=== PATIENT | female | born 1970 | race Caucasian/White ===

== ENCOUNTER → 2022-12-14 13:44 | Outpatient (BNVA) | payer MEDICARE, SELFPAY | PROVIDERS: Family Provider Family Medicine; PCP Nurse Practitioner; Visit Provider Internal Medicine | DX: E11.40 Type 2 diabetes mellitus with diabetic neuropathy, unspecified (principal); E11.649 Type 2 diabetes mellitus with hypoglycemia without coma; E78.5 Hyperlipidemia, unspecified; Z79.4 Long term (current) use of insulin | CPT/HCPCS: 99204 ==

== ENCOUNTER 2023-02-16 07:11 | Emergency (ER) | payer MEDICARE, MEDICAID, SELFPAY ==
[2023-02-16] VITALS (9 sets, daily range): BP systolic 112–152; BP diastolic 74–89; PULSE 106; RESP 20; TEMP 36.4; O2SAT 99–100; BMI 19.6
[2023-02-16 07:29] LABS: Glucose Point of Care 279 mg/dL (70-110)
--- NOTE | 2023-02-16 07:32 | ED_ITS ---
HPI - Nausea/Vomiting/Diarrhea General: Chief complaint: Nausea/Vomiting/Diarrhea Stated complaint: diabetic diarrhea Time Seen by Provider: 02/16/23 07:15 History of Present Illness: Patient is a 52-year-old female that comes to the ED with nausea and vomiting. Medical history of type 1 diabetes, hypertension and seizures. Patient says approximately 3 weeks ago she started having diarrhea. She was having diarrhea approximately 5 times a day, but over the last 3 days her diarrhea is almost completely resolved. 2 days ago she started having nausea and vomiting. Over the last 2 days patient has been unable to keep any food or fluids down. She says that her blood sugars have been poorly controlled for the past couple days as well. This morning she woke up and she had a blood sugar of over 500 and she gave herself insulin and came here to the ED for further evaluation. Denies any fevers, abdominal pain, chest pain, shortness of breath, dysuria or hematuria. Associated nausea: Yes Associated symtoms: Reports nausea; Denies change in vision, chest pain, dysuria, fatigue, headache(s) or palpitations Review of Systems Const: Denies: fever(s), chills or fatigue Eyes: Denies: change in vision or eye discomfort ENMT: Denies: throat pain, odynophagia, nasal discharge or nasal congestion Card: Denies: chest pain, palpitations, edema, swelling of feet/ankles, dyspnea on exertion or orthopnea Resp: Denies: dyspnea, productive cough or non-productive cough GI: Reports: nausea, vomiting and diarrhea; Denies: abdominal pain, constipation or hematochezia : Denies: flank pain, dysuria or hematuria Musc: Denies: neck pain, back pain or extremity swelling Skin/Breast: Denies: rash or new lesions Neuro: Denies: headache(s), numbness in extremities or weakness in extremities PFSH ED PFSH: Medical History Benign essential hypertension GERD (gastroesophageal reflux disease) Hyperlipidemia 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 Severe bipolar disorder Type 1 diabetes mellitus Surgical History History of nasal surgery Hx of shoulder surgery Hx of tubal ligation Family History Other Cancer Heart disease Social History Smoking and tobacco status: former smoker Physical Exam Const: COMMON NORMALS: no acute distress, patient oriented x3 and alert GENERAL APPEARANCE: cooperative and comfortable HENMT: COMMON NORMALS: normocephalic HEAD & SCALP: normocephalic MOUTH: Normal oral and palatal mucosa present THROAT: posterior oropharynx normal and uvula midline Neck/C-Spine: COMMON NORMALS: supple GENERAL: Yes normal visual inspection Resp: COMMON NORMALS: normal respiratory effort, No retractions, No use of accessory muscles and clear to auscultation bilaterally AUSCULTATION: clear to auscultation bilaterally Cardio: COMMON NORMALS: regular rate, regular rhythm, S1 normal heart sound present, S2 normal heart sound present, No gallops present (Cardio), No clicks present (Cardio), No murmurs present (Cardio) and Peripheral pulses 2+ throughout RATE: regular rate RHYTHM: regular rhythm HEART SOUNDS: S1 normal heart sound present and S2 normal heart sound present PERIPHERAL PULSES: Peripheral pulses 2+ throughout GI: COMMON NORMALS: Normal to inspection, nondistended, normoactive bowel sounds present, Soft to palpation, non-tender and no masses PALPATION: Yes Soft to palpation : COMMON NORMALS: Yes no CVA tenderness BLADDER/KIDNEY EXAM: Yes no CVA tenderness Back/Pelvis: COMMON NORMALS: no CVA tenderness Extremity: COMMON NORMALS: normal to inspection Neuro: COMMON NORMALS: patient oriented x3 SENSORIUM/ORIENTATION: Yes alert GAIT: Yes Normal gait present Skin: GENERAL SKIN EXAM: dry skin Course Vital Signs: Vital signs: Vital Signs Temperature 97.5 F L 02/16/23 07:17 Pulse Rate 106 H 02/16/23 07:17 Respiratory Rate 20 H 02/16/23 07:17 Blood Pressure 133/74 02/16/23 12:09 Pulse Oximetry 100 02/16/23 12:09 Oxygen Delivery Me thod Room Air 02/16/23 07:17 MDM - Nausea/Vomiting/Diarrhea Medical Decision Making Patient is a 52-year-old female that comes to the ED with nausea and vomiting. Medical history of type 1 diabetes, hypertension and seizures. Patient says approximately 3 weeks ago she started having diarrhea. She was having diarrhea approximately 5 times a day, but over the last 3 days her diarrhea is almost completely resolved. 2 days ago she started having nausea and vomiting. Over the last 2 days patient has been unable to keep any food or fluids down. She says that her blood sugars have been poorly controlled for the past couple days as well. This morning she woke up and she had a blood sugar of over 500 and she gave herself insulin and came here to the ED for further evaluation. Denies any fevers, abdominal pain, chest pain, shortness of breath, dysuria or hematuria. Vitals are stable. Exam of patient is benign and she has no abdominal tenderness upon exam. Blood glucose was 237 and potassium was 2.7. Serum ketones are positive. ABG had a blood pH of 7.38. EKG showed normal sinus rhythm and no change in T waves. Patient was given 2 L of IV fluids, nausea meds and IV/p.o. potassium. Patient was feeling a lot better and was able to tolerate p.o. fluids. Patient was diagnosed with hyperglycemia due to type 1 diabetes and hypokalemia and was stable for discharge home. I reviewed case with Dr. Cintron and he agreed with plan Lab Data I reviewed the patient's lab results. 02/16/23 07:49 02/16/23 07:49 Laboratory Results WBC 5.7 10^3/uL (4.0-10.0) 02/16/23 07:49 RBC 4.23 10^6/uL (4.1-5.3) 02/16/23 07:49 Hgb 11.6 g/dL (11.5-15.3) 02/16/23 07:49 Hct 34.9 % (37.0-47.0) L 02/16/23 07:49 MCV 82.5 fl (81-99) 02/16/23 07:49 MCH 27.4 pg (28.0-34.0) L 02/16/23 07:49 MCHC 33.2 g/dL (30.0-36.0) 02/16/23 07:49 RDW 13.8 % (12.1-15.1) 02/16/23 07:49 Plt Count 378 10^3/cmm (130-400) 02/16/23 07:49 MPV 8.5 fL (7.4-10.4) 02/16/23 07:49 Neut % (Auto) 59.0 % 02/16/23 07:49 Lymph % (Auto) 32.0 % 02/16/23 07:49 [place] % (Auto) 7.2 % 02/16/23 07:49 Eos % (Auto) 0.5 % 02/16/23 07:49 Baso % (Auto) 0.9 % 02/16/23 07:49 Neut # (Auto) 3.37 10^3/uL (1.8-7.7) 02/16/23 07:49 Lymph # (Auto) 1.8 10^3/uL (0.8-4.8) 02/16/23 07:49 [place] # (Auto) 0.4 10^3/uL (0.2-0.9) 02/16/23 07:49 Eos # (Auto) 0.0 10^3/uL (0.0-0.8) 02/16/23 07:49 Baso # (Auto) 0.1 10^3/uL (0.0-0.1) 02/16/23 07:49 Nucleated RBC % (auto) 0 % 02/16/23 07:49 Nucleated RBCs # 0.0 /100WBC 02/16/23 07:49 Specimen Type Arterial 02/16/23 08:44 Sample Site Radial, right 02/16/23 08:44 ABG pH 7.39 (7.35-7.45) 02/16/23 08:44 ABG pCO2 26.9 mmHg (35-45) L 02/16/23 08:44 ABG pO2 107.0 mmHg (80.0-100.0) H 02/16/23 08:44 ABG HCO3 16.3 mmol/L (22-26) L 02/16/23 08:44 ABG O2 Saturation 97.7 02/16/23 08:44 ABG Base Excess -7.4 mmol/L (-2.0-2.0) L 02/16/23 08:44 Jaison Test Pos 02/16/23 08:44 A-a O2 Gradient 0.9 mmHg (5-10) L 02/16/23 08:44 Hematocrit 34.5 % (37-47) L 02/16/23 08:44 Hgb O2 Saturation 96.7 % (95-100) 02/16/23 08:44 Carboxyhemoglobin 0.4 %THgb (0.4-20.1) 02/16/23 08:44 Methemoglobin 0.7 % (0.4-1.5) 02/16/23 08:44 Total Hemoglobin 11.3 g/dL (12-16) L 02/16/23 08:44 Sodium 137.0 mmol/L (131-143) 02/16/23 08:44 Potassium 2.7 mmol/L (3.5-5.0) L 02/16/23 08:44 Glucose 147.0 mg/dL (70-115) H 02/16/23 08:44 Ionized Calcium 1.3 mmol/L (1.1-1.4) 02/16/23 08:44 O2 Delivery Device Room air 02/16/23 08:44 FiO2 21.0 % 02/16/23 08:44 Retail Merchandising Manager ID Walci 02/16/23 08:44 Sodium 135 mmol/L (136-145) L 02/16/23 07:49 Potassium 2.7 mmol/L (3.5-5.1) L* 02/16/23 07:49 Chloride 95 mmol/L (98-107) L 02/16/23 07:49 Carbon Dioxide 15 mmol/L (22-29) L 02/16/23 07:49 Anion Gap 27.7 (5-19) H 02/16/23 07:49 BUN 27 mg/dL (6-20) H 02/16/23 07:49 Creatinine 1.1 mg/dL (0.5-0.9) H 02/16/23 07:49 GFR Calculation 52.0 mL/min (90-130) L 02/16/23 07:49 Glucose 237 mg/dL (65-115) H 02/16/23 07:49 POC Glucose 279 mg/dL (70-110) H 02/16/23 07:24 Calculated Osmolality 293 mOsm/kg (285-295) 02/16/23 07:49 Calcium 9.8 mg/dL (8.5-10.5) 02/16/23 07:49 Total Bilirubin 0.3 mg/dL (0.15-1.2) 02/16/23 07:49 AST 10 U/L (0-32) 02/16/23 07:49 ALT 8 U/L (0-33) 02/16/23 07:49 Alkaline Phosphatase 131 U/L (35-105) H 02/16/23 07:49 Total Protein 6.8 g/dL (6.6-8.7) 02/16/23 07:49 Albumin 3.6 g/dL (3.5-5.2) 02/16/23 07:49 Globulin 3.2 g/dL (1.3-4.6) 02/16/23 07:49 Lipase 19 U/L (13-60) 02/16/23 07:49 Urine Color Yellow (Yellow) 02/16/23 08:45 Urine Appearance Clear (CLEAR) 02/16/23 08:45 Urine pH 5 (5-7) 02/16/23 08:45 Ur Specific [place] 1.020 (1.005-1.030) 02/16/23 08:45 Urine Protein 1+ (Negative) H 02/16/23 08:45 Urine Glucose (UA) 2+ (Normal) H 02/16/23 08:45 Urine Ketones 2+ (Negative) H 02/16/23 08:45 Urine Blood 2+ (Negative) H 02/16/23 08:45 Urine Nitrate Negative (Negative) 02/16/23 08:45 Urine Bilirubin Neg (Negative) 02/16/23 08:45 Urine Urobilinogen Neg mg/dL (Negative) 02/16/23 08:45 Ur Leukocyte Esterase Negative (Negative) 02/16/23 08:45 Urine RBC 0-4 /hpf (0-2) H 02/16/23 08:45 Urine WBC 0-4 /hpf (0-5) H 02/16/23 08:45 Ur Squamous Epith Cells 5-10 /hpf (0-5) H 02/16/23 08:45 Amorphous Sediment Not Reportable 02/16/23 08:45 Urine Bacteria Trace /hpf (NONE) 02/16/23 08:45 Hyaline Casts 0-4 /lpf H 02/16/23 08:45 Urine Mucus 1+ /hpf 02/16/23 08:45 Serum Ketones Positive (Negative) H 02/16/23 07:49 EKG Data EKG 1: EKG interpretation date: 02/16/23 Interpretation: Sinus rhythm, 90 bpm, normal T waves, no ST segment elevation or depression seen. Discharge Plan Discharge Patient Disposition: Home Clinical Impression: Hyperglycemia due to type 1 diabetes mellitus, Hypokalemia Condition: Stable Prescriptions: New ondansetron 4 mg tablet,disintegrating 4 mg PO Q8H PRN (Reason: nausea and vomiting) Qty: 20 0RF No Action (DME) FreeStyle Ok 14 Day [place] Misc See Rx Instructions .ROUTE Rx Instructions: As directed (DME) FreeStyle Ok 14 Day Sensor Kit See Rx Instructions .ROUTE Rx Instructions: As directed buspirone 10 mg tablet 10 mg PO TID PRN (Reason: Anxiety) propranolol 10 mg tablet 10 mg PO DAILY (DME) pen needle, diabetic [BD Ultra-Fine Short Pen Needle] 31 gauge x 5/16 needle See Rx Instructions .ROUTE Rx Instructions: As directed divalproex 250 mg tablet,delayed release (DR/EC) 250 mg PO QAM duloxetine 60 mg capsule,delayed release(DR/EC) 60 mg PO BID imipramine HCl 25 mg tablet 25 mg PO BID atorvastatin 40 mg tablet 40 mg PO QAM aripiprazole [Abilify] 10 mg tablet 10 mg PO QAM pantoprazole 40 mg tablet,delayed release (DR/EC) 40 mg PO BID losartan 50 mg tablet 50 mg PO QAM silver sulfadiazine 1 % cream 1 applic TOPICAL DAILY Novolin R FlexPen 100 unit/mL (3 mL) insulin pen See Rx Instructions .ROUTE .COMPLEX Rx Instructions: sliding scale up to four times a day Toujeo SoloStar U-300 Insulin 300 unit/mL (1.5 mL) insulin pen 42 unit SUBCUT QAM Discharge Orders: Discharge ED (Routine); Ordered 02/16/23 Ordered By: Nazario Crystal Referrals: Audi Dey FNP [Primary Care Provider] - Discharge Diet: Regular Discharge Activity: Increase activity as tolerated Patient Instructions: Diabetic Hyperglycemia (ED) Activity Restrictions/Additional Instructions: Follow-up with medical provider as directed in the next 3 to 4 days for reevaluation. Have your PCP recheck potassium levels at your next visit. Take medications as prescribed. Continue to monitor blood sugars closely. Return to the ER or your medical provider if condition worsens. Please read and understand discharge instructions. Thank you for choosing [facility] for your healthcare needs today. Please realize this is an emergency room and that we are providing you with a medical screening exam and this may not be complete and all inclusive of all the testing and or work up that you may need to determine your ailment or severity of your illness. It is very important that you follow up as instructed or that you return to the Emergency Department should you have concerns or if your condition changes or worsens in any way. Coding Level of Care Code ED Technology Methodology Consultant for Marco Antonio Carter
[2023-02-16 07:59] LABS: Basophils # 0.1 10^3/uL (0.0-0.1); Basophils % 0.9 %; Eosinophils % 0.5 %; Hematocrit 34.9 % (37.0-47.0); Hemoglobin 11.6 g/dL (11.5-15.3); Lymphocytes # 1.8 10^3/uL (0.8-4.8); Mean Corpuscular HGB Conc 33.2 g/dL (30.0-36.0); Mean Corpuscular Hemoglobin 27.4 pg (28.0-34.0); Mean Corpuscular Volume 82.5 fl (81-99); Mean Platelet Volume 8.5 fL (7.4-10.4); Monocytes # 0.4 10^3/uL (0.2-0.9); Monocytes % 7.2 %; Neutrophils # 3.37 10^3/uL (1.8-7.7); Nucleated Red Blood Cells % 0 %; Platelet Count 378 10^3/cmm (130-400); Red Blood Count 4.23 10^6/uL (4.1-5.3); Red Cell Distribution Width 13.8 % (12.1-15.1); White Blood Count 5.7 10^3/uL (4.0-10.0)
[2023-02-16 08:15] LABS: Alanine Aminotransferase 8 U/L (0-33); Albumin Level 3.6 g/dL (3.5-5.2); Alkaline Phosphatase 131 U/L (35-105); Anion Gap 27.7 (5-19); Aspartate Amino Transferase 10 U/L (0-32); Blood Urea Nitrogen 27 mg/dL (6-20); Calcium 9.8 mg/dL (8.5-10.5); Carbon Dioxide 15 mmol/L (22-29); Chloride 95 mmol/L (98-107); Globulin 3.2 g/dL (1.3-4.6); Glucose 237 mg/dL (65-115); Lipase 19 U/L (13-60); Osmolality Calculated 293 mOsm/kg (285-295); Sodium 135 mmol/L (136-145); Total Bilirubin 0.3 mg/dL (0.15-1.2); Total Protein 6.8 g/dL (6.6-8.7)
[2023-02-16] MEDS: ondansetron 2 mg/ML SDV 2 mL 4 MG IVP (08:18)
[2023-02-16] MEDS: sodium chloride 0.9% 1,000 ML 999 ML IV ×2 (08:18→10:28)
[2023-02-16 08:19] LABS: Ketone (Acetest) Serum Positive (Negative)
[2023-02-16 08:22] LABS: Potassium 2.7 mmol/L (3.5-5.1)
[2023-02-16] MEDS: potassium chloride premix 100 ML 25 MEQ IV (08:53)
[2023-02-16 08:55] LABS: ABG PCO2 26.9 mmHg (35-45); ABG PH Result 7.39 (7.35-7.45); Alveolar-Arterial Oxygen Gradi 0.9 mmHg (5-10); Arterial Blood Gas Hematocrit 34.5 % (37-47); Base Excess ABG -7.4 mmol/L (-2.0-2.0); Blood Gas Allen Test Pos; Blood Gas Operator Identificat WALCI; Blood Gas Sample Site Radial, right; Blood Gas Sample Type Arterial; Carboxyhemoglobin 0.4 %THgb (0.4-20.1); HCO3 ABG 16.3 mmol/L (22-26); HGB O2 Sat 96.7 % (95-100); Ionized Calcium Level - ABG 1.3 mmol/L (1.1-1.4); Methemoglobin 0.7 % (0.4-1.5); Oxygen Device ROOM AIR; Oxygen Saturation ABG 97.7; Potassium Level - ABG 2.7 mmol/L (3.5-5.0); Total Hemoglobin 11.3 g/dL (12-16)
[2023-02-16 09:05] LABS: Add Urine Microscopic? YES; Bilirubin Urine Neg (Negative); Blood Urine 2+ (Negative); Glucose Urine UA 2+ (Normal); Ketones Urine 2+ (Negative); Leukocyte Esterase Urine Negative (Negative); Nitrate Urine Negative (Negative); Protein Urine 1+ (Negative); Urine Appearance Clear (CLEAR); Urine Color Yellow (Yellow); Urobilinogen Urine Neg (Negative); pH Urine 5 (5-7)
[2023-02-16 09:06] LABS: Bacteria Urine TRACE /hpf; Mucus Urine 1+ /hpf; RBC Urine 0-4 /hpf (0-2); WBC Urine 0-4 /hpf (0-5)
[2023-02-16 09:07] LABS: Add Urine Culture? No; Hyaline Casts Urine 0-4 /lpf
[2023-02-16] MEDS: potassium chloride ER 20 mEq Tablet 40 MEQ PO (10:28)
--- NOTE | 2023-02-16 10:33 | ECG_ITS ---
[facility] Test Date: 2023-02-16 Pat Name: Wendi Yee Department: Room: Gender: Female Environmental Tech: : [id number] Requested By: Nazario Crystal Order Number: [id number] Roper MD: Jairo Gomez M.D. Measurements Intervals [place] Rate: 90 P: 63 [place]: 144 QRS: 26 QRSD: 96 T: 72 QT: 374 QTc: 459 Interpretive Statements SINUS RHYTHM POSSIBLE LEFT ATRIAL ENLARGEMENT [-0.1mV P-WAVE IN V1/V2] INCOMPLETE RIGHT BUNDLE BRANCH BLOCK [90+ ms QRS DURATION, TERMINAL R IN V1/V2, 40+ ms S IN I/aVL/V4/V5/V6] NONSPECIFIC T-WAVE ABNORMALITY No previous ECG available for comparison Electronically Signed On 02-16-2023 13:13:11 CDT by Jairo Gomez M.D. [email or web address]
== END 2023-02-16 12:00 | disposition home or self-care (01) ==
PROVIDERS: Emergency Provider Physician Assistant; PCP Nurse Practitioner
DX: E10.65 Type 1 diabetes mellitus with hyperglycemia (principal); E87.6 Hypokalemia; Z79.4 Long term (current) use of insulin; Z87.891 Personal history of nicotine dependence; E78.5 Hyperlipidemia, unspecified
CPT/HCPCS: 36415; 36416; 36600; 80051; 80053; 81001; 82009; 82330; 82805; 82962; 83690; 85025; 93005; 96361; 96374; 96375; 99284; J2405; J3480; J7030

== ENCOUNTER 2025-02-22 17:33 | Inpatient (IN) | payer MEDICARE, SELFPAY ==
[2025-02-22] VITALS (15 sets, daily range): BP systolic 124–171; BP diastolic 68–105; PULSE 82–107; RESP 16–26; TEMP 36.7–37.1; O2SAT 97–100; BMI 22.8; BMI 22.6
--- NOTE | 2025-02-22 18:09 | XRR_ITS ---
PROCEDURE INFORMATION: Exam: XR Chest Exam date and time: 02/22/2025 6:49 PM Age: 54 years old Clinical indication: Shortness of breath; Additional info: SOB TECHNIQUE: Imaging protocol: Radiologic exam of the chest. Views: 1 view. COMPARISON: No relevant prior studies available. FINDINGS: Lungs: Unremarkable. No consolidation. Pleural spaces: Unremarkable. No pleural effusion. No pneumothorax. Heart/Mediastinum: Unremarkable. No cardiomegaly. Bones/joints: Unremarkable. XR/XR chest 1V portable [id number] IMPRESSION: No acute findings.
--- NOTE | 2025-02-22 18:12 | W.ED.NAVMDI ---
HPI - Nausea/Vomiting/Diarrhea General: Chief complaint: Nausea/Vomiting/Diarrhea Stated complaint: N\V Time Seen by Provider: 02/22/25 18:05 History of Present Illness: Patient comes in with 3 days of nausea, vomiting, and diarrhea. She states the diarrhea is normal for her, however the nausea and vomiting is not. Denies any abdominal pain, just states that she has some generalized abdominal ache from all the vomiting. Patient is a type I diabetic. States she has not missed any of her medications. States she has been clean from any drugs or alcohol for the past 4 months. Denies any fever. Denies cough or congestion but has had some sinus issues from allergies. On physical exam she has dry mucous membranes with a very mild fruity odor to the breath. Abdomen is soft, nontender. She is tachycardic. I am concerned for DKA versus sepsis. Will check labs, blood cultures, give IV fluids, and reassess. I am concerned for sepsis given the tachycardia and vomiting. She is currently not SIRS positive. However suspicion for sepsis time 0 is 6:15 PM Associated nausea: Yes Associated symtoms: Reports nausea Related Data Home Medications ?Medication ?Instructions ?Recorded ?Confirmed aripiprazole 10 mg tablet (Abilify) 10 mg PO QAM 12/14/22 02/27/23 atorvastatin 40 mg tablet 40 mg PO QAM 12/14/22 02/27/23 buspirone 10 mg tablet 10 mg PO TID PRN Anxiety 12/14/22 02/27/23 divalproex 250 mg tablet,delayed 250 mg PO QAM 12/14/22 02/27/23 release duloxetine 60 mg capsule,delayed 60 mg PO BID 12/14/22 02/27/23 release flash glucose scanning reader 12/14/22 02/27/23 (FreeStyle Ok 14 Day [place]) flash glucose sensor (FreeStyle 12/14/22 02/27/23 Ok 14 Day Sensor kit) imipramine HCl 25 mg tablet 25 mg PO BID 12/14/22 02/27/23 losartan 50 mg tablet 50 mg PO QAM 12/14/22 02/27/23 pantoprazole 40 mg tablet,delayed 40 mg PO BID 12/14/22 02/27/23 release propranolol 10 mg tablet 10 mg PO DAILY 12/14/22 02/27/23 insulin glargine U-300 conc 300 42 unit SUBCUT QAM 02/16/23 02/27/23 unit/mL (1.5 mL) subcutaneous pen (Toujeo SoloStar U-300 Insulin) silver sulfadiazine 1 % topical 1 applic topical DAILY 02/16/23 02/27/23 cream Previous Rx's ?Medication ?Instructions ?Recorded ondansetron 4 mg disintegrating 4 mg PO Q8H PRN nausea and 02/16/23 tablet vomiting #20 tabs pen needle, diabetic 31 gauge x #100 ea 04/20/23 5/16 (BD Ultra-Fine Short Pen Needle) insulin regular human 100 unit/mL 6 unit (0.06 mL) .Route .COMPLEX 04/23/23 (3 mL) subcutaneous pen (Novolin R #54 mL FlexPen) Allergies Allergy/AdvReac Type Severity Reaction Status Date / Time No Known Allergies Allergy Verified 02/27/23 12:58 Review of Systems GI: Reports: nausea, vomiting and diarrhea PFSH ED PFSH: Medical History Benign essential hypertension GERD (gastroesophageal reflux disease) Hyperlipidemia 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 Severe bipolar disorder Type 1 diabetes mellitus Surgical History History of nasal surgery Hx of shoulder surgery Hx of tubal ligation Family History Other Cancer Heart disease Social History Smoking and tobacco/nicotine status: former use of tobacco/nicotine Physical Exam Const: COMMON NORMALS: patient oriented x3, healthy appearing and alert HENMT: COMMON NORMALS: normocephalic and atraumatic HEAD & SCALP: normocephalic and atraumatic OTHER: Dry mucous membranes Eye: COMMON NORMALS: Equal, round and reactive pupils present and EOMs intact bilaterally PUPIL: Yes Equal, round and reactive pupils present Neck/C-Spine: COMMON NORMALS: full ROM and supple Resp: COMMON NORMALS: normal respiratory effort, No retractions and No use of accessory muscles Cardio: OTHER: Tachycardia, regular rhythm GI: COMMON NORMALS: Normal to inspection, nondistended, normoactive bowel sounds present, Soft to palpation and non-tender PALPATION: Yes Soft to palpation Extremity: COMMON NORMALS: normal to inspection and full ROM Neuro: COMMON NORMALS: patient oriented x3 SENSORIUM/ORIENTATION: Yes alert Skin: COMMON NORMALS: no rashes or lesions noted and no wounds GENERAL SKIN EXAM: no rashes or lesions noted Course Vital Signs: Vital signs: Vital Signs Temperature 98.0 F 02/22/25 17:34 Pulse Rate 105 H 02/22/25 17:34 Respiratory Rate 16 02/22/25 17:34 Blood Pressure 124/81 02/22/25 17:34 Pulse Oximetry 100 02/22/25 17:34 Oxygen Delivery Me thod Room Air 02/22/25 17:34 MDM - Nausea/Vomiting/Diarrhea Medical Decision Making On reassessment the patient's white blood cell count is normal. Her lactic acid is also normal. I spoke with her about her test results. Her anion gap is 34, and her CO2 is 13. No concern for DKA. Will start her on an insulin drip, continue IV fluids. Will admit to the ICU for further workup and treatment. I discussed the case with the hospitalist who will admit the patient. Lab Data 02/22/25 18:32 02/22/25 18:32 Radiology Impressions Chest X-Ray 02/22/25 18:09 IMPRESSION: No acute findings. Laboratory Results WBC 6.91 10^3/uL (3.29-11.43) 02/22/25 18:32 RBC 4.43 10^6/uL (3.85-5.65) 02/22/25 18:32 Hgb 12.10 g/dL (11.27-16.99) 02/22/25 18:32 Hct 36.7 % (36-47) 02/22/25 18:32 MCV 82.8 fl (85-98) L 02/22/25 18:32 MCH 27.3 pg (27-33) 02/22/25 18:32 MCHC 33.0 g/dL (30-55) 02/22/25 18:32 RDW 13.5 % (12.1-15.1) 02/22/25 18:32 Plt Count 349 10^3/cmm (157-399) 02/22/25 18:32 MPV 9.4 fL (7.4-10.4) 02/22/25 18:32 Neut % (Auto) 60.1 % 02/22/25 18:32 Lymph % (Auto) 32.1 % 02/22/25 18:32 [place] % (Auto) 5.6 % 02/22/25 18:32 Eos % (Auto) 1.0 % 02/22/25 18:32 Baso % (Auto) 0.9 % 02/22/25 18:32 Neut # (Auto) 4.15 10^3/uL (1.8-7.7) 02/22/25 18:32 Lymph # (Auto) 2.2 10^3/uL (0.8-4.8) 02/22/25 18:32 [place] # (Auto) 0.4 10^3/uL (0.2-0.9) 02/22/25 18:32 Eos # (Auto) 0.1 10^3/uL (0.0-0.8) 02/22/25 18:32 Baso # (Auto) 0.1 10^3/uL (0.0-0.1) 02/22/25 18:32 Nucleated RBC % (auto) 0 % 02/22/25 18: Nucleated RBCs # 0.0 /100WBC 02/22/25 18:32 Specimen Type Venous 02/22/25 18:32 Sample Site Not specified 02/22/25 18:32 Jaison Test N/a 02/22/25 18:32 VBG pH 7.33 (7.32-7.42) 02/22/25 18:32 VBG pCO2 30.6 mmHg (41-51) L 02/22/25 18:32 VBG pO2 23.0 mmHg (25-40) L 02/22/25 18:32 VBG HCO3 16.0 mmol/L (24-28) L 02/22/25 18:32 VBG Base Excess -8.7 mmol/L (-3.0-3.0) L 02/22/25 18:32 VBG Hematocrit 39.1 % (37-47) 02/22/25 18:32 O2 Delivery Device None 02/22/25 18:32 [place] ID Walci 02/22/25 18:32 Sodium 130 mmol/L (136-145) L 02/22/25 18:32 Potassium 4.6 mmol/L (3.5-5.1) 02/22/25 18:32 Chloride 87 mmol/L (98-107) L 02/22/25 18:32 Carbon Dioxide 13 mmol/L (22-29) L 02/22/25 18:32 Anion Gap 34.6 (5-19) H 02/22/25 18:32 BUN 32 mg/dL (6-20) H 02/22/25 18:32 Creatinine 1.3 mg/dL (0.5-0.9) H 02/22/25 18:32 GFR Calculation 42.5 mL/min (90-130) L 02/22/25 18:32 Glucose 341 mg/dL (65-115) H 02/22/25 18:32 POC Glucose 326 mg/dL (70-110) H 02/22/25 19:24 Calculated Osmolality 290 mOsm/kg (285-295) 02/22/25 18:32 Lactic Acid 1.4 mmol/L (0.5-2.2) 02/22/25 18:32 Calcium 10.7 mg/dL (8.5-10.5) H 02/22/25 18:32 Magnesium 1.9 mg/dL (1.7-2.3) 02/22/25 18:32 Total Bilirubin 0.3 mg/dL (0.15-1.2) 02/22/25 18:32 AST 18 U/L (0-32) 02/22/25 18:32 ALT 14 U/L (0-33) 02/22/25 18:32 Alkaline Phosphatase 164 U/L (35-105) H 02/22/25 18:32 Troponin T Baseline 16 ng/L (0-10) H 02/22/25 18:32 Total Protein 8.5 g/dL (6.6-8.7) 02/22/25 18:32 Albumin 4.2 g/dL (3.5-5.2) 02/22/25 18:32 Globulin 4.3 g/dL (1.3-4.6) 02/22/25 18:32 Serum Ketones Positive (Negative) H 02/22/25 18:32 All radiology interpretation(s) finalized by discharge Critical Care Time Critical Care Time: Critical Care Time: Yes Total Critical Care Time: 35 Attestation: This case had a high probability of a clinically significant, sudden, or life threatening deterioration of this patient's condition which required my full and direct attention, intervention and personal management. Discharge Plan Discharge Patient Disposition: Admitted As Inpatient Clinical Impression: DKA, type 1 Condition: Stable Coding Level of Care Code ED Infrastructure Engineer for Marco Antonio Carter
[2025-02-22 18:36] LABS: Base Excess VBG -8.7 mmol/L (-3.0-3.0); Blood Gas Operator Identificat WALCI; Blood Gas Sample Site Not specified; Blood Gas Sample Type Venous; PCO2 VBG 30.6 mmHg (41-51); Venous Blood Gas Hematocrit 39.1 % (37-47); pH VBG 7.33 (7.32-7.42)
[2025-02-22 18:55] LABS: Basophils # 0.1 10^3/uL (0.0-0.1); Basophils % 0.9 %; Eosinophils # 0.1 10^3/uL (0.0-0.8); Hematocrit 36.7 % (36-47); Lymphocytes # 2.2 10^3/uL (0.8-4.8); Lymphocytes % 32.1 %; Mean Corpuscular Hemoglobin 27.3 pg (27-33); Mean Corpuscular Volume 82.8 fl (85-98); Mean Platelet Volume 9.4 fL (7.4-10.4); Monocytes # 0.4 10^3/uL (0.2-0.9); Monocytes % 5.6 %; Neutrophils # 4.15 10^3/uL (1.8-7.7); Neutrophils % 60.1 %; Nucleated Red Blood Cells % 0 %; Platelet Count 349 10^3/cmm (157-399); Red Blood Count 4.43 10^6/uL (3.85-5.65); Red Cell Distribution Width 13.5 % (12.1-15.1); White Blood Count 6.91 10^3/uL (3.29-11.43)
[2025-02-22 19:07] LABS: Ketone (Acetest) Serum Positive (Negative)
[2025-02-22] MEDS: ondansetron 2 mg/ML SDV 2 mL 4 MG IVP (19:11)
[2025-02-22] MEDS: sodium chloride 0.9% 1,000 ML 999 ML IV ×2 (19:11→20:18)
[2025-02-22 19:13] LABS: Lactic Sepsis W/Reflex 1.4 mmol/L (0.5-2.2)
[2025-02-22 19:14] LABS: Troponin(5th) Baseline 16 ng/L (0-10)
[2025-02-22 19:27] LABS: Glucose Point of Care 326 mg/dL (70-110)
[2025-02-22 19:51] LABS: Alanine Aminotransferase 14 U/L (0-33); Albumin Level 4.2 g/dL (3.5-5.2); Alkaline Phosphatase 164 U/L (35-105); Anion Gap 34.6 (5-19); Aspartate Amino Transferase 18 U/L (0-32); Blood Urea Nitrogen 32 mg/dL (6-20); Calcium 10.7 mg/dL (8.5-10.5); Carbon Dioxide 13 mmol/L (22-29); Chloride 87 mmol/L (98-107); Creatinine Clr Calc Pharmacy 42.3351; Globulin 4.3 g/dL (1.3-4.6); Glomerular Filtration Rate 42.5 mL/min (90-130); Glucose 341 mg/dL (65-115); Magnesium 1.9 mg/dL (1.7-2.3); Osmolality Calculated 290 mOsm/kg (285-295); Potassium 4.6 mmol/L (3.5-5.1); Sodium 130 mmol/L (136-145); Total Bilirubin 0.3 mg/dL (0.15-1.2); Total Protein 8.5 g/dL (6.6-8.7)
[2025-02-22 20:23] LABS: Add Urine Microscopic? NO
[2025-02-22 20:25] LABS: Bilirubin Urine Negative (Negative); Blood Urine Trace (Negative); Glucose Urine UA 1+ (Normal); Ketones Urine 3+ (Negative); Leukocyte Esterase Urine Negative (Negative); Nitrate Urine Negative (Negative); Protein Urine 3+ (Negative); Specific Gravity, Urine 1.019 (1.005-1.030); Urine Appearance Clear (CLEAR); Urine Color Yellow (Yellow)
[2025-02-22 20:28] LABS: Bacteria Urine Trace /hpf; Hyaline Casts Urine 34.33 /lpf; RBC Urine 0-2 /hpf (0-2); Squamous Epithelial Cell Urine 0-5 /hpf (0-5); Universal Test for UA Present (0); WBC Urine 0-5 /hpf (0-5)
[2025-02-22] MEDS: INSULIN REGULAR IN 0.9 % NACL 100 UNIT/100 ML BAG 11.5 UNIT IV (20:45)
[2025-02-22 20:54] LABS: Troponin 5 2HR 11.47 ng/L (0-10)
[2025-02-22 20:58] LABS: Troponin 5 2HR Delta 4.53 ABS# (0-10)
[2025-02-22 21:03] LABS: Add Urine Culture? No
[2025-02-22 21:05] LABS: Charge for UA Resulting for Rev; UA Slide Review UA Slide Review Perf
[2025-02-22 21:20] LABS: Mucus Urine 1+ /hpf
[2025-02-22 22:11] LABS: Glucose Point of Care 238 mg/dL (70-110)
[2025-02-22 22:38] LABS: Glucose Point of Care 317 mg/dL (70-110)
[2025-02-22] MEDS: dextrose 5%-sod chloride 0.45% 1,000 ML 150 ML IV (22:41)
--- NOTE | 2025-02-22 22:45 | PC.NURSE ---
Dextrose fluids: Per insulin gtt protocol, patient required dextrose containing fluids. Dr. Miles was contacted and gave telephone orders to start D5 1/2 NS at 150mL/hr.
[2025-02-22 23:04] LABS: Glucose Point of Care 159 mg/dL (70-110)
--- NOTE | 2025-02-22 23:30 | PM.HP ---
Providers/Chief Complaint Admitting Physician: Ofe Miles MD--- patient seen before midnight Primary Care Provider: Miguel Aguilar MD Chief Complaint: N\V History of Present Illness Wendi Yee is a 54 year old female with medical history significant for diabetes type 1 and now in DKA. Patient anion gap 817 bicarb of 13 with nausea and vomiting over the past 3 days. Patient usually takes Humalog 8 units until a long acting insulin that we do not have in-house 24 units daily. Patient claimed that she has been diligent in taking all her medications she has not missed her insulin and her fasting blood sugars can be low and can be high it swings at extreme and. Because of nausea and vomiting not feeling well patient is advised to come in. She was indeed in DKA. Insulin protocol started for DKA. Presenting blood sugar was 317. With some acidosis. Patient was admitted to ICU on DKA insulin protocol. Patient did remarkably well and had actually cleared acidosis with anion gap now within normal at 15. Patient bicarb this morning is 21. I have actually transitioned the patient and monitor accordingly. Patient met inpatient criteria with acute illness requiring ICU placement on insulin drip. At this time because of transitioning insulin drip has been stopped and patient is doing fairly well and will be fed post clearing the anion gap we will continue to follow through and monitor Review of Systems Narrative: General The patient is in no apparent distress at this time doing okay, much improved than on presentation System review were significant for nausea and vomiting at presentation. Intervally now had resolved. Medications/Allergies Home Medications ?Medication ?Instructions ?Recorded ?Confirmed ?Last Taken ?Type aripiprazole 10 mg tablet (Abilify) 10 mg PO QAM 12/14/22 02/27/23 02/15/23 History atorvastatin 40 mg tablet 40 mg PO QAM 12/14/22 02/27/23 Unknown History buspirone 10 mg tablet 10 mg PO TID PRN Anxiety 12/14/22 02/27/23 Unknown History divalproex 250 mg tablet,delayed 250 mg PO QAM 12/14/22 02/27/23 02/15/23 History release duloxetine 60 mg capsule,delayed 60 mg PO BID 12/14/22 02/27/23 02/15/23 History release flash glucose scanning reader 12/14/22 02/27/23 Unknown History (FreeStyle Ok 14 Day [place]) flash glucose sensor (FreeStyle 12/14/22 02/27/23 Unknown History Ok 14 Day Sensor kit) imipramine HCl 25 mg tablet 25 mg PO BID 12/14/22 02/27/23 02/15/23 History losartan 50 mg tablet 50 mg PO QAM 12/14/22 02/27/23 02/15/23 History pantoprazole 40 mg tablet,delayed 40 mg PO BID 12/14/22 02/27/23 02/15/23 History release propranolol 10 mg tablet 10 mg PO DAILY 12/14/22 02/27/23 02/15/23 History insulin glargine U-300 conc 300 42 unit SUBCUT QAM 02/16/23 02/27/23 02/15/23 History unit/mL (1.5 mL) subcutaneous pen ([employer]ings Intellecto SoloStar U-300 Insulin) ondansetron 4 mg disintegrating 4 mg PO Q8H PRN nausea and 02/16/23 02/27/23 Unknown Rx tablet vomiting #20 tabs silver sulfadiazine 1 % topical 1 applic topical DAILY 02/16/23 02/27/23 Unknown History cream pen needle, diabetic 31 gauge x #100 ea 04/20/23 Unknown Rx 5/16 (BD Ultra-Fine Short Pen Needle) insulin regular human 100 unit/mL 6 unit (0.06 mL) .Route .COMPLEX 04/23/23 Unknown Rx (3 mL) subcutaneous pen (Novolin R #54 mL FlexPen) Allergies Allergy/AdvReac Type Severity Reaction Status Date / Time No Known Allergies Allergy Verified 02/27/23 12:58 PFSH Acute PFSH: Medical History Benign essential hypertension Severe bipolar disorder Hyperlipidemia 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 Type 1 diabetes mellitus GERD (gastroesophageal reflux disease) Surgical History History of nasal surgery Hx of shoulder surgery Hx of tubal ligation Family History Other Cancer Heart disease Social History Smoking and tobacco/nicotine status: former use of tobacco/nicotine Vitals/I&O/Wt Last Vital Signs Temp 98.0 F 02/22/25 17:34 Pulse 84 02/22/25 22:00 Resp 17 02/22/25 21:00 BP 147/79 02/22/25 22:00 Pulse Ox 99 02/22/25 22:00 O2 Del Method Room Air 02/22/25 22:01 02/22/25 02/22/25 02/23/25 14:59 22:59 06:59 Intake Total 1014.375 / 1014.375 11.883 / 1026.258 Balance 1014.375 / 1014.375 11.883 / 1026.258 Weight last 48 hrs Weight 58.06 kg Weight 58.513 kg Physical Exam Narrative: Generally patient is doing okay at this time presented with nausea and vomiting And was sent to ICU with DKA insulin protocol. The patient responded quickly HEENT normocephalic/atraumatic neck neck is supple cardiovascular heart rate is regular lungs are pretty much clear abdomen soft nontender nondistended unremarkable extremities intact no edema has good pulses neurology has no focality lab studies lab studies reviewed and noted. Chest x-ray unremarkable you a unremarkable. Data 02/22/25 18:32 02/23/25 02:40 Micro: Microbiology 02/22/25 19:00 Blood Culture - Preliminary Blood SPECIMEN COLLECTED 02/22/25 18:32 Blood Culture - Preliminary Blood SPECIMEN COLLECTED A&P Assessment and plan (1) DKA, type 1: Patient on insulin drip DKA protocol sent to ICU for admission - Throughout the night patient had responded to insulin protocol for DKA - Had just been transitioned just within the past hour - Maintaining euglycemic and doing better. - Patient is anion gap -Patient rehydrated (2) Type 1 diabetes mellitus: Patient is diabetes type 1 - States euglycemic at this time - Currently only on sliding scale insulin as patient blood sugar was initially in the 60s - Patient maintained euglycemia and is on sliding scale. - Patient was taking 8 units at mealtimes aof Humalog and a long-acting insulin at home - No scheduled insulin at this time I had it for 5 units with meals at the moment patient is only on sliding scale and doing well. (3) Nausea and vomiting: Nausea and vomiting has since resolved however patient has antiemetic in case she needs it (4) Dehydration: Patient has been rehydrated Plan GI and DVT prophylaxis in place PDMP PDMP Reviewed: Not Reviewed Attestations Medical Necessity Statement*: I attest that patient meets inpatient criteria for at least 2 midnights for DKA requiring DKA insulin protocol and requiring ICU admission. Coding Level of Care Code 11963 Diagnoses DKA, type 1 E10.10 Type 1 diabetes mellitus E10.9 Nausea and vomiting R11.2 Dehydration E86.0 Time Spent (min) 60
[2025-02-22 23:43] LABS: Anion Gap 17.4 (5-19); Blood Urea Nitrogen 26 mg/dL (6-20); Calcium 9.3 mg/dL (8.5-10.5); Carbon Dioxide 18 mmol/L (22-29); Chloride 104 mmol/L (98-107); Creatinine Clr Calc Pharmacy 49.8671; Glomerular Filtration Rate 51.6 mL/min (90-130); Glucose 138 mg/dL (65-115); Magnesium 1.4 mg/dL (1.7-2.3); Osmolality Calculated 289 mOsm/kg (285-295); Phosphorus 1.4 mg/dL (2.5-4.5); Potassium 3.4 mmol/L (3.5-5.1); Sodium 136 mmol/L (136-145)
[2025-02-22 23:43] LABS: ABG PCO2 30.4 mmHg (35-45); ABG PH Result 7.46 (7.35-7.45); Alveolar-Arterial Oxygen Gradi 1.6 mmHg (5-10); Arterial Blood Gas Hematocrit 35.7 % (37-47); Base Excess ABG -1.6 mmol/L (-2.0-2.0); Blood Gas Operator Identificat JDB; Blood Gas Sample Site Brachial, right; Blood Gas Sample Type Arterial; Carboxyhemoglobin 1.1 %THgb (0.4-20.1); HCO3 ABG 21.5 mmol/L (22-26); HGB O2 Sat 97.8 % (95-100); Ionized Calcium Level - ABG 1.2 mmol/L (1.1-1.4); Methemoglobin 0.2 % (0.4-1.5); Oxygen Device ROOM AIR; Oxygen Saturation ABG 99.1; PO2 ABG 97.3 mmHg (80.0-100.0); PO2 FiO2 Ratio Arterial Blood 463; Potassium Level - ABG 3.3 mmol/L (3.5-5.0); Total Hemoglobin 11.6 g/dL (12-16)
[2025-02-23] VITALS (53 sets, daily range): BP systolic 120–194; BP diastolic 70–129; PULSE 83–100; RESP 13–41; TEMP 36.6–37.9; O2SAT 93–100; BMI 23.6
[2025-02-23 00:04] LABS: Glucose Point of Care 109 mg/dL (70-110)
--- NOTE | 2025-02-23 00:43 | PC.NURSE ---
ABG & labs: Dr. Miles contacted this nurse and gave telephone orders to obtain a STAT ABG and to order BMP labs Q4H while insulin gtt is running.
[2025-02-23 01:05] LABS: Glucose Point of Care 99 mg/dL (70-110)
--- NOTE | 2025-02-23 01:29 | ECG_ITS ---
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 Measurements Intervals [place] Rate: 89 P: 51 PA: 148 QRS: 1 QRSD: 102 T: 65 QT: 382 QTc: 467 Interpretive Statements SINUS RHYTHM INCOMPLETE RIGHT BUNDLE BRANCH BLOCK [90+ ms QRS DURATION, TERMINAL R IN V1/V2, 40+ ms S IN I/aVL/V4/V5/V6] Compared to ECG 02/16/2023 10:33:04 T-wave abnormality no longer present Electronically Signed On 02-23-2025 09:00:04 CDT by Jairo Gomez M.D. [email or web address]
[2025-02-23 02:19] LABS: Glucose Point of Care 87 mg/dL (70-110)
[2025-02-23 03:30] LABS: Anion Gap 15.4 (5-19); Blood Urea Nitrogen 24 mg/dL (6-20); Calcium 8.9 mg/dL (8.5-10.5); Carbon Dioxide 21 mmol/L (22-29); Chloride 104 mmol/L (98-107); Creatinine Clr Calc Pharmacy 60.9487; Glucose 85 mg/dL (65-115); Magnesium 1.5 mg/dL (1.7-2.3); Osmolality Calculated 287 mOsm/kg (285-295); Phosphorus 2.8 mg/dL (2.5-4.5); Potassium 3.4 mmol/L (3.5-5.1); Sodium 137 mmol/L (136-145)
[2025-02-23 03:35] LABS: Glucose Point of Care 89 mg/dL (70-110)
[2025-02-23 04:08] LABS: Glucose Point of Care 82 mg/dL (70-110)
[2025-02-23] MEDS: ondansetron 2 mg/ML SDV 2 mL 4 MG IVP (04:11)
[2025-02-23 05:12] LABS: Glucose Point of Care 69 mg/dL (70-110)
[2025-02-23] MEDS: dextrose 5%-sod chloride 0.45% 1,000 ML 150 ML IV (05:15)
--- NOTE | 2025-02-23 06:09 | PC.NURSE ---
Transition: Patients gap was 15.4 and blood sugar was 69, Dr. Miles gave telephone orders to stop insulin gtt, allow patient to eat, continue dextrose containing fluids for 2 hours, then begin low-dose insulin sliding scale.
[2025-02-23 06:54] LABS: Glucose Point of Care 209 mg/dL (70-110)
[2025-02-23 06:54] LABS: Glucose Point of Care 123 mg/dL (70-110)
[2025-02-23 07:19] LABS: Anion Gap 14.5 (5-19); Blood Urea Nitrogen 14 mg/dL (6-20); Calcium 8.4 mg/dL (8.5-10.5); Carbon Dioxide 20 mmol/L (22-29); Chloride 103 mmol/L (98-107); Creatinine Clr Calc Pharmacy 69.7052; Glomerular Filtration Rate 74.5 mL/min (90-130); Glucose 211 mg/dL (65-115); Magnesium 1.3 mg/dL (1.7-2.3); Osmolality Calculated 285 mOsm/kg (285-295); Phosphorus 2.7 mg/dL (2.5-4.5); Potassium 3.5 mmol/L (3.5-5.1); Sodium 134 mmol/L (136-145)
[2025-02-23 07:30] LABS: Glucose Point of Care 213 mg/dL (70-110)
[2025-02-23] MEDS: insulin lispro 100 unit/1 mL SUBCUT (08:19)
[2025-02-23] MEDS: pantoprazole DR 40 mg Tablet PO (08:19)
[2025-02-23] MEDS: docusate sodium 100 mg Capsule PO (08:20)
[2025-02-23] MEDS: heparin 5,000 unit/mL INJ 1 mL 5000 UNIT SUBCUT ×2 (08:20→21:56)
[2025-02-23] MEDS: dextrose 5%-ns + KCl 40 40 MEQ/1,000 ML BAG 100 MEQ IV ×2 (10:05→16:30)
[2025-02-23] MEDS: magnesium sulfate premix 4 GM/100 ML PREMIX IV (10:05)
--- NOTE | 2025-02-23 10:53 | P.PN_ITS ---
Subjective 2 Subjective: Presented with DKA on a camping trip. She denies source of DKA Mildly nauseous but much improved. Mild headache Vitals/I&O/Wt Last Vital Signs Temp 100.3 F H 02/23/25 08:00 Pulse 89 02/23/25 08:00 Resp 21 H 02/23/25 08:00 BP 157/91 02/23/25 08:00 Pulse Ox 97 02/23/25 08:00 O2 Del Method Room Air 02/23/25 08:00 02/22/25 02/23/25 02/23/25 22:59 06:59 14:59 Intake Total 1014.375 / 6984.740 7511.491 / 3264.866 0 / 0 Output Total 500 / 500 Balance 1014.375 / 4552.185 7843.491 / 2764.866 0 / 0 Weight last 48 hrs Weight 60.328 kg Weight 58.06 kg Weight 58.513 kg Physical Exam 2 Narrative: Alert and oriented no acute distress Heart regular normal S1-S2 without murmurs clicks gallops or rubs Lungs clear to auscultation without wheezes rales or rhonchi Abdomen no significant tenderness normal active bowel sounds Extremities no clubbing cyanosis or edema Data 02/22/25 18:32 02/23/25 06:47 Micro: Microbiology 02/22/25 19:00 Blood Culture - Preliminary Blood SPECIMEN COLLECTED 02/22/25 18:32 Blood Culture - Preliminary Blood SPECIMEN COLLECTED A&P Assessment and plan (1) DKA, type 1: Patient was taken off insulin drip due to no gap overnight. However this morning she has a gap and her bicarb is 20. - Restart insulin drip with D5 normal saline and 40 mill equivalents of KCl - Will follow bicarb levels (2) Type 1 diabetes mellitus: Patient is diabetes type 1 (3) Nausea and vomiting: Nausea-mild (4) Dehydration: Continue IV fluids Plan GI and DVT prophylaxis in place PDMP PDMP Reviewed: Not Reviewed Attestations 2 Medical Necessity Statement*: I attest that patient meets inpatient criteria for at least 2 midnights for DKA requiring DKA insulin protocol and requiring ICU admission. Coding Level of Care Code Acute Code for [facility] Diagnoses Type 1 diabetes mellitus with ketoacidosis without coma E10.10 Diabetes mellitus complication detail: without coma Type 1 diabetes mellitus E10.9 Nausea and vomiting R11.2 Dehydration E86.0
[2025-02-23 11:07] LABS: Glucose Point of Care 113 mg/dL (70-110)
[2025-02-23 11:07] LABS: Glucose Point of Care 79 mg/dL (70-110)
[2025-02-23 11:16] LABS: Anion Gap 15.1 (5-19); Blood Urea Nitrogen 15 mg/dL (6-20); Calcium 8.3 mg/dL (8.5-10.5); Carbon Dioxide 17 mmol/L (22-29); Chloride 104 mmol/L (98-107); Creatinine Clr Calc Pharmacy 79.6631; Glomerular Filtration Rate 86.9 mL/min (90-130); Glucose 77 mg/dL (65-115); Osmolality Calculated 276 mOsm/kg (285-295); Potassium 3.1 mmol/L (3.5-5.1); Sodium 133 mmol/L (136-145)
[2025-02-23 11:48] LABS: Glucose Point of Care 61 mg/dL (70-110)
[2025-02-23 12:16] LABS: Glucose Point of Care 72 mg/dL (70-110)
--- NOTE | 2025-02-23 12:19 | PC.NURSE ---
Patient's blood sugar went down to 61. Insulin drip was stopped and Dr. Leger was contacted. She ordered to titrate the Dextrose 5% fluids to 200 mls/hr and to titrate the insulin drip down to 0.5 units/hr.
[2025-02-23] MEDS: potassium chloride ER 20 mEq Tablet 40 MEQ PO (13:03)
[2025-02-23 13:49] LABS: Glucose Point of Care 115 mg/dL (70-110)
[2025-02-23 14:08] LABS: Glucose Point of Care 121 mg/dL (70-110)
[2025-02-23 15:31] LABS: Glucose Point of Care 118 mg/dL (70-110)
[2025-02-23 16:10] LABS: Anion Gap 16.7 (5-19); Blood Urea Nitrogen 12 mg/dL (6-20); Calcium 8.5 mg/dL (8.5-10.5); Carbon Dioxide 19 mmol/L (22-29); Chloride 108 mmol/L (98-107); Creatinine Clr Calc Pharmacy 92.9403; Glomerular Filtration Rate 103.8 mL/min (90-130); Glucose 114 mg/dL (65-115); Osmolality Calculated 291 mOsm/kg (285-295); Potassium 3.7 mmol/L (3.5-5.1); Sodium 140 mmol/L (136-145)
[2025-02-23 16:29] LABS: Glucose Point of Care 152 mg/dL (70-110)
[2025-02-23 17:43] LABS: Glucose Point of Care 183 mg/dL (70-110)
--- NOTE | 2025-02-23 17:58 | PC.NURSE ---
Dr. Leger ordered not to turn off insulin drip throughout the night.
[2025-02-23 18:25] LABS: Glucose Point of Care 184 mg/dL (70-110)
[2025-02-23 20:17] LABS: Blood Urea Nitrogen 9 mg/dL (6-20); Calcium 8.8 mg/dL (8.5-10.5); Carbon Dioxide 15 mmol/L (22-29); Chloride 107 mmol/L (98-107); Creatinine Clr Calc Pharmacy 92.9403; Glomerular Filtration Rate 103.8 mL/min (90-130); Glucose 202 mg/dL (65-115); Osmolality Calculated 286 mOsm/kg (285-295); Sodium 136 mmol/L (136-145)
[2025-02-23 20:26] LABS: Anion Gap 18.8 (5-19); Potassium 4.8 mmol/L (3.5-5.1)
[2025-02-23] MEDS: gabapentin 300 mg Capsule PO (21:56)
[2025-02-23] MEDS: sennosides 8.6 mg Tablet 17.2 MG PO (21:56)
[2025-02-23] MEDS: hyDROXYzine 25 mg Capsule 50 MG PO (21:56)
[2025-02-23] MEDS: dextrose 5%-ns + KCl 40 40 MEQ/1,000 ML BAG 200 MEQ IV (22:53)
[2025-02-23 23:21] LABS: Anion Gap 16.1 (5-19); Blood Urea Nitrogen 8 mg/dL (6-20); Calcium 8.9 mg/dL (8.5-10.5); Carbon Dioxide 19 mmol/L (22-29); Chloride 109 mmol/L (98-107); Creatinine Clr Calc Pharmacy 92.9403; Glomerular Filtration Rate 103.8 mL/min (90-130); Glucose 209 mg/dL (65-115); Osmolality Calculated 294 mOsm/kg (285-295); Potassium 4.1 mmol/L (3.5-5.1); Sodium 140 mmol/L (136-145)
[2025-02-24] VITALS (36 sets, daily range): BP systolic 104–177; BP diastolic 55–121; PULSE 80–118; RESP 10–28; TEMP 36.7; O2SAT 96–100
[2025-02-24 02:17] LABS: Glucose Point of Care 244 mg/dL (70-110)
[2025-02-24 02:17] LABS: Glucose Point of Care 231 mg/dL (70-110)
[2025-02-24 02:17] LABS: Glucose Point of Care 232 mg/dL (70-110)
[2025-02-24 02:17] LABS: Glucose Point of Care 195 mg/dL (70-110)
[2025-02-24 02:17] LABS: Glucose Point of Care 250 mg/dL (70-110)
[2025-02-24 02:17] LABS: Glucose Point of Care 238 mg/dL (70-110)
[2025-02-24 03:15] LABS: Glucose Point of Care 248 mg/dL (70-110)
[2025-02-24] MEDS: dextrose 5%-ns + KCl 40 40 MEQ/1,000 ML BAG 200 MEQ IV ×2 (04:06→09:36)
[2025-02-24 06:07] LABS: Glucose Point of Care 222 mg/dL (70-110)
[2025-02-24 06:07] LABS: Glucose Point of Care 242 mg/dL (70-110)
[2025-02-24 06:07] LABS: Glucose Point of Care 216 mg/dL (70-110)
[2025-02-24 07:01] LABS: Glucose Point of Care 235 mg/dL (70-110)
[2025-02-24 08:46] LABS: Glucose Point of Care 271 mg/dL (70-110)
[2025-02-24] MEDS: docusate sodium 100 mg Capsule PO ×2 (08:51→17:37)
[2025-02-24] MEDS: pantoprazole DR 40 mg Tablet PO (08:51)
[2025-02-24] MEDS: heparin 5,000 unit/mL INJ 1 mL 5000 UNIT SUBCUT ×2 (08:51→20:02)
[2025-02-24 09:07] LABS: Anion Gap 16.1 (5-19); Blood Urea Nitrogen 5 mg/dL (6-20); Calcium 8.5 mg/dL (8.5-10.5); Carbon Dioxide 17 mmol/L (22-29); Chloride 112 mmol/L (98-107); Creatinine Clr Calc Pharmacy 92.6673; Glomerular Filtration Rate 103.8 mL/min (90-130); Glucose 250 mg/dL (65-115); Magnesium 1.7 mg/dL (1.7-2.3); Osmolality Calculated 296 mOsm/kg (285-295); Phosphorus 1.5 mg/dL (2.5-4.5); Potassium 5.1 mmol/L (3.5-5.1); Sodium 140 mmol/L (136-145)
[2025-02-24 09:42] LABS: Glucose Point of Care 270 mg/dL (70-110)
[2025-02-24] MEDS: hyDROXYzine 25 mg Capsule 50 MG PO (10:41)
[2025-02-24 10:47] LABS: Glucose Point of Care 235 mg/dL (70-110)
--- NOTE | 2025-02-24 10:50 | PC.NURSE ---
Patient states that they Cannot handle the fluids anymore because they are making her really puffy and that the doctor has not came in to see them yet . Dr. Leger was called but no answer. Vistaril was given for anxiety. Fluids are being giving at 200 mls for DKA.
[2025-02-24] MEDS: sodium bicarbonate 650 mg Tablet PO ×3 (11:38→20:02)
[2025-02-24] MEDS: phosphorus 250 mg Tablet PO ×3 (11:38→20:02)
[2025-02-24] MEDS: FUROsemide 10 mg/mL SDV 4mL 40 MG IVP (11:38)
[2025-02-24 11:46] LABS: Glucose Point of Care 180 mg/dL (70-110)
--- NOTE | 2025-02-24 13:01 | P.PN_ITS ---
Subjective 2 Subjective: Patient and RN report that she was becoming puffy in her extremities this made her very anxious. She was given a dose of Vistaril which helped immensely. Currently she has no complaints she is very thankful for her care. Vitals/I&O/Wt Last Vital Signs Temp 98.1 F 02/24/25 01:21 Pulse 118 H 02/24/25 12:17 Resp 25 H 02/24/25 12:17 BP 146/94 02/24/25 12:17 Pulse Ox 100 02/24/25 12:17 O2 Del Method Room Air 02/24/25 12:17 02/23/25 02/24/25 02/24/25 22:59 06:59 14:59 Intake Total 1584.001 / 4230.349 8901.091 / 2695.651 1417.707 / 1417.707 Output Total 2600 / 3150 800 / 3950 2500 / 2500 Balance -1015.999 / -1558.440 304.091 / -1254.349 -1082.293 / -1082.293 Weight last 48 hrs Weight 59.92 kg Weight 60.328 kg Weight 58.06 kg Weight 58.513 kg Physical Exam 2 Narrative: Alert and oriented no acute distress Heart regular normal S1-S2 without murmurs clicks gallops or rubs Lungs clear to auscultation without wheezes rales or rhonchi Abdomen no significant tenderness normal active bowel sounds Extremities no clubbing cyanosis or edema Data 02/22/25 18:32 02/24/25 08:30 Micro: Microbiology 02/22/25 19:00 Blood Culture - Preliminary Blood NEGATIVE TO DATE 02/22/25 18:32 Blood Culture - Preliminary Blood NEGATIVE TO DATE A&P Assessment and plan (1) DKA, type 1: Patient remains in metabolic acidosis with a bicarb level of 17. I will dose oral bicarb tablets 3 times daily. And recheck tomorrow Continue the D5 drip with 40 of KCl (2) Type 1 diabetes mellitus: Patient is diabetes type 1 (3) Nausea and vomiting: Nausea resolved (4) Dehydration: Continue IV fluids Plan Oral bicarb given as well as oral phosphate. Do not want to give any further fluids since she began to become fluid overloaded. I did give a dose of Lasix to help with the fluid overload and she urinated appropriately. The plan is to monitor blood sugar overnight and continue the current plan of replacement electrolytes and bicarb and recheck labs tomorrow GI and DVT prophylaxis in place PDMP PDMP Reviewed: Not Reviewed Attestations 2 Medical Necessity Statement*: I attest that patient meets inpatient criteria for at least 2 midnights for DKA requiring DKA insulin protocol and requiring ICU admission. Coding Level of Care Code Acute Code for Chg Fwd Diagnoses Type 1 diabetes mellitus with ketoacidosis without coma E10.10 Diabetes mellitus complication detail: without coma Type 1 diabetes mellitus E10.9 Nausea and vomiting R11.2 Dehydration E86.0
[2025-02-24 13:14] LABS: Glucose Point of Care 145 mg/dL (70-110)
[2025-02-24 14:07] LABS: Glucose Point of Care 118 mg/dL (70-110)
--- NOTE | 2025-02-24 15:36 | PC.NURSE ---
Dr. Leger ordered to titrate Insulin drip down to 0.5 units/hr for prevention of hypoglycemia.
[2025-02-24 15:46] LABS: Glucose Point of Care 100 mg/dL (70-110)
[2025-02-24 16:52] LABS: Glucose Point of Care 120 mg/dL (70-110)
[2025-02-24] MEDS: carvedilol 12.5 mg Tablet PO (17:37)
[2025-02-24 17:45] LABS: Glucose Point of Care 89 mg/dL (70-110)
[2025-02-24] MEDS: sennosides 8.6 mg Tablet 17.2 MG PO (20:01)
[2025-02-24] MEDS: gabapentin 300 mg Capsule PO (20:01)
[2025-02-24 22:47] LABS: Glucose Point of Care 253 mg/dL (70-110)
[2025-02-24 23:12] LABS: Glucose Point of Care 175 mg/dL (70-110)
[2025-02-24 23:12] LABS: Glucose Point of Care 142 mg/dL (70-110)
[2025-02-24 23:12] LABS: Glucose Point of Care 94 mg/dL (70-110)
[2025-02-25] VITALS (24 sets, daily range): BP systolic 124–179; BP diastolic 72–122; PULSE 82–109; RESP 14–27; TEMP 36.3–36.7; O2SAT 91–100
[2025-02-25] MEDS: dextrose 5%-ns + KCl 40 40 MEQ/1,000 ML BAG 50 MEQ IV (00:23)
[2025-02-25] MEDS: INSULIN REGULAR IN 0.9 % NACL 100 UNIT/100 ML BAG IV (00:55)
[2025-02-25 01:14] LABS: Anion Gap 14.1 (5-19); Blood Urea Nitrogen 5 mg/dL (6-20); Calcium 9.5 mg/dL (8.5-10.5); Carbon Dioxide 23 mmol/L (22-29); Chloride 106 mmol/L (98-107); Creatinine Clr Calc Pharmacy 61.7782; Glucose 177 mg/dL (65-115); Magnesium 1.6 mg/dL (1.7-2.3); Osmolality Calculated 290 mOsm/kg (285-295); Phosphorus 3.2 mg/dL (2.5-4.5); Potassium 4.1 mmol/L (3.5-5.1); Sodium 139 mmol/L (136-145)
[2025-02-25] MEDS: magnesium sulfate premix 2 GM/50 ML PIGGYBACK IV (01:50)
[2025-02-25 04:30] LABS: Ketone (Acetest) Serum Negative (Negative)
[2025-02-25 04:46] LABS: Magnesium 2.2 mg/dL (1.7-2.3); Phosphorus 3.7 mg/dL (2.5-4.5)
[2025-02-25 06:39] LABS: Glucose Point of Care 126 mg/dL (70-110)
[2025-02-25 06:39] LABS: Glucose Point of Care 124 mg/dL (70-110)
[2025-02-25 06:39] LABS: Glucose Point of Care 265 mg/dL (70-110)
[2025-02-25 06:39] LABS: Glucose Point of Care 194 mg/dL (70-110)
[2025-02-25 06:39] LABS: Glucose Point of Care 90 mg/dL (70-110)
[2025-02-25 06:39] LABS: Glucose Point of Care 142 mg/dL (70-110)
[2025-02-25 06:43] LABS: Anion Gap 16.9 (5-19); Blood Urea Nitrogen 5 mg/dL (6-20); Calcium 9.6 mg/dL (8.5-10.5); Carbon Dioxide 21 mmol/L (22-29); Chloride 105 mmol/L (98-107); Creatinine Clr Calc Pharmacy 69.1362; Glomerular Filtration Rate 74.5 mL/min (90-130); Glucose 125 mg/dL (65-115); Osmolality Calculated 287 mOsm/kg (285-295); Potassium 3.9 mmol/L (3.5-5.1); Sodium 139 mmol/L (136-145)
[2025-02-25 08:09] LABS: Glucose Point of Care 118 mg/dL (70-110)
[2025-02-25 08:14] LABS: Anion Gap 13.4 (5-19); Blood Urea Nitrogen 5 mg/dL (6-20); Calcium 9.4 mg/dL (8.5-10.5); Carbon Dioxide 21 mmol/L (22-29); Chloride 109 mmol/L (98-107); Creatinine Clr Calc Pharmacy 69.1362; Glomerular Filtration Rate 74.5 mL/min (90-130); Glucose 99 mg/dL (65-115); Osmolality Calculated 285 mOsm/kg (285-295); Potassium 4.4 mmol/L (3.5-5.1); Sodium 139 mmol/L (136-145)
[2025-02-25] MEDS: sodium bicarbonate 650 mg Tablet PO ×2 (08:18→15:14)
[2025-02-25] MEDS: carvedilol 12.5 mg Tablet PO (08:18)
[2025-02-25] MEDS: pantoprazole DR 40 mg Tablet PO (08:18)
[2025-02-25] MEDS: docusate sodium 100 mg Capsule PO (08:18)
[2025-02-25] MEDS: amlodipine 10 mg Tablet PO (08:18)
[2025-02-25] MEDS: heparin 5,000 unit/mL INJ 1 mL 5000 UNIT SUBCUT (08:18)
[2025-02-25] MEDS: phosphorus 250 mg Tablet PO ×2 (08:18→15:14)
[2025-02-25] MEDS: insulin lispro 100 unit/1 mL 10 UNIT SUBCUT ×2 (08:44→11:14)
[2025-02-25] MEDS: insulin glargine 100 units/1 mL 65 UNIT SUBCUT (08:44)
[2025-02-25 10:00] LABS: Glucose Point of Care 273 mg/dL (70-110)
--- NOTE | 2025-02-25 10:01 | PC.NURSE ---
Dr. Leger ordered to pause the Dextrose 5% NS with 40 KCL. She ordered to keep it on hold just incase we need it again.
--- NOTE | 2025-02-25 10:43 | PC.SOCIAL ---
IMM Update pg 2 of IMM Updated and reviewed w/ patient. copy provided and copy dated, initialed and placed in chart.
[2025-02-25] MEDS: insulin lispro 100 unit/1 mL SUBCUT (11:14)
[2025-02-25 11:56] LABS: Glucose Point of Care 109 mg/dL (70-110)
--- NOTE | 2025-02-25 12:27 | PC.NURSE ---
Patient is receiving 10 units of humalog insulin scheduled subcut plus medium sliding scale. Dr. Leger was contacted to make sure that is what they wanted. Doctor verified the order. Patient received scheduled insulin plus their sliding scale with their meal. Their sugars dropped to 65 and Doctor was contacted. She ordered to change the sliding scale from medium to low sliding scale for their insulin. Patient was given orange juice per protocol.
[2025-02-25 12:28] LABS: Glucose Point of Care 65 mg/dL (70-110)
[2025-02-25 12:30] LABS: Anion Gap 15.1 (5-19); Blood Urea Nitrogen 5 mg/dL (6-20); Calcium 9.4 mg/dL (8.5-10.5); Carbon Dioxide 20 mmol/L (22-29); Chloride 106 mmol/L (98-107); Creatinine Clr Calc Pharmacy 61.4544; Glucose 74 mg/dL (65-115); Osmolality Calculated 280 mOsm/kg (285-295); Potassium 4.1 mmol/L (3.5-5.1); Sodium 137 mmol/L (136-145)
--- NOTE | 2025-02-25 13:09 | PC.NURSE ---
Patient's blood sugar was 73 after giving orange juice. Another orange was given due to patient feeling off.
[2025-02-25 13:34] LABS: Glucose Point of Care 73 mg/dL (70-110)
[2025-02-25 14:55] LABS: Glucose Point of Care 97 mg/dL (70-110)
[2025-02-25] MEDS: hyDROXYzine 25 mg Capsule 50 MG PO (15:14)
--- NOTE | 2025-02-25 15:52 | P.DS_ITS ---
Discharge Providers Date of Admission: 02/22/25 19:58 Date of Discharge: February 25, 2025 Attending Provider at Admission: Ofe Miles MD Attending Provider at Discharge: Viraj Leger DO Consults: None Primary Care Provider: Miguel Aguilar MD Diagnoses at Discharge Discharge Diagnosis (1) DKA, type 1: Status: Acute Qualifiers: Diabetes mellitus complication detail: without coma Qualified Code(s): E10.10 - Type 1 diabetes mellitus with ketoacidosis without coma (2) Type 1 diabetes mellitus: Status: Chronic (3) Nausea and vomiting: Status: Acute (4) Dehydration: Status: Acute Reason for Visit Reason for Visit: N\V Brief History: Wendi Yee is a 54 year old female with medical history significant for diabetes type 1 and now in DKA. Patient with nausea and vomiting over the past 3 days. Patient usually takes Humalog 8 units until and a long acting insulin that we do not have in-house 24 units daily. Patient claimed that she has been diligent in taking all her medications she has not missed her insulin and her fasting blood sugars can be low and can be high it swings at extreme. Patient was found to be in DKA Hospital Course Hospital Course Patient was admitted to ICU on DKA insulin protocol. Patient did remarkably well and had actually cleared acidosis with anion gap now within normal at 15. Patient bicarb this morning is 21. I have actually transitioned the patient and monitor accordingly. Patient met inpatient criteria with acute illness requiring ICU placement on insulin drip. At this time because of transitioning insulin drip has been stopped and patient is doing fairly well and will be fed post clearing the anion gap we will continue to follow through and monitor. Patient was taken off the insulin drip a bit early and had to be restarted on 02/23/2025. She took a few more days to completely resolve from the acidosis and ketosis. Today her bicarb became normal after oral replacement yesterday. Of course the patient required potassium magnesium and phosphorus replacement during the course of her hospitalization. She was converted to an equivalent dose of Lantus from her highly concentrated insulin dose at home. She did have some hypoglycemia early this morning and just after lunch but this has resolved. The patient feels well wishes to go home and resume her usual home medications and insulins Physical Exam Narrative: Alert and oriented no acute distress Heart regular normal S1-S2 without murmurs clicks gallops or rubs Lungs clear to auscultation without wheezes rales or rhonchi Abdomen no significant tenderness normal active bowel sounds Extremities no clubbing cyanosis or edema Discharge Data Studies Completed and Pending Completed Studies During Hospitalization Category Date Time Status XR chest 1V portable [id number] Stat Exams 02/22/25 18:09 Completed Pending at discharge Category Date Time Status BMP [Basic Metabolic Panel] Q4H Lab 02/25/25 16:00 Ordered BMP [Basic Metabolic Panel] Q4H Lab 02/25/25 20:00 Ordered Blood Culture Stat Lab 02/22/25 19:00 Results Radiology Impressions Chest X-Ray 02/22/25 18:09 IMPRESSION: No acute findings. Laboratory Results WBC 6.91 10^3/uL (3.29-11.43) 02/22/25 18:32 RBC 4.43 10^6/uL (3.85-5.65) 02/22/25 18:32 Hgb 12.10 g/dL (11.27-16.99) 02/22/25 18:32 Hct 36.7 % (36-47) 02/22/25 18:32 MCV 82.8 fl (85-98) L 02/22/25 18:32 MCH 27.3 pg (27-33) 02/22/25 18:32 MCHC 33.0 g/dL (30-55) 02/22/25 18:32 RDW 13.5 % (12.1-15.1) 02/22/25 18:32 Plt Count 349 10^3/cmm (157-399) 02/22/25 18:32 MPV 9.4 fL (7.4-10.4) 02/22/25 18:32 Neut % (Auto) 60.1 % 02/22/25 18:32 Lymph % (Auto) 32.1 % 02/22/25 18:32 [place] % (Auto) 5.6 % 02/22/25 18:32 Eos % (Auto) 1.0 % 02/22/25 18:32 Baso % (Auto) 0.9 % 02/22/25 18:32 Neut # (Auto) 4.15 10^3/uL (1.8-7.7) 02/22/25 18:32 Lymph # (Auto) 2.2 10^3/uL (0.8-4.8) 02/22/25 18:32 [place] # (Auto) 0.4 10^3/uL (0.2-0.9) 02/22/25 18:32 Eos # (Auto) 0.1 10^3/uL (0.0-0.8) 02/22/25 18:32 Baso # (Auto) 0.1 10^3/uL (0.0-0.1) 02/22/25 18: Nucleated RBC % (auto) 0 % 02/22/25 18: Nucleated RBCs # 0.0 /100WBC 02/22/25 18:32 Specimen Type Arterial 02/22/25 23:30 Sample Site Brachial, right 02/22/25 23:30 ABG pH 7.46 (7.35-7.45) H 02/22/25 23:30 ABG pCO2 30.4 mmHg (35-45) L 02/22/25 23:30 ABG pO2 97.3 mmHg (80.0-100.0) 02/22/25 23:30 ABG PO2/FiO2 Ratio 463 02/22/25 23:30 ABG HCO3 21.5 mmol/L (22-26) L 02/22/25 23:30 ABG O2 Saturation 99.1 02/22/25 23:30 ABG Base Excess -1.6 mmol/L (-2.0-2.0) 02/22/25 23:30 [place] Test N/a 02/22/25 23:30 VBG pH 7.33 (7.32-7.42) 02/22/25 18: VBG pCO2 30.6 mmHg (41-51) L 02/22/25 18: VBG pO2 23.0 mmHg (25-40) L 02/22/25 18: VBG HCO3 16.0 mmol/L (24-28) L 02/22/25 18:32 VBG Base Excess -8.7 mmol/L (-3.0-3.0) L 02/22/25 18:32 VBG Hematocrit 39.1 % (37-47) 02/22/25 18: A-a O2 Gradient 1.6 mmHg (5-10) L 02/22/25 23:30 Hematocrit 35.7 % (37-47) L 02/22/25 23:30 Hgb O2 Saturation 97.8 % (95-100) 02/22/25 23:30 Carboxyhemoglobin 1.1 %THgb (0.4-20.1) 02/22/25 23:30 Methemoglobin 0.2 % (0.4-1.5) L 02/22/25 23:30 Total Hemoglobin 11.6 g/dL (12-16) L 02/22/25 23:30 Sodium 140.0 mmol/L (131-143) 02/22/25 23:30 Potassium 3.3 mmol/L (3.5-5.0) L 02/22/25 23:30 Glucose 111.0 mg/dL (70-115) 02/22/25 23:30 Ionized Calcium 1.2 mmol/L (1.1-1.4) 02/22/25 23:30 O2 Delivery Device Room air 02/22/25 23:30 FiO2 21.0 % 02/22/25 23:30 Assistant Clinical Nurse Manager ID [id number] 02/22/25 23:30 Sodium 137 mmol/L (136-145) 02/25/25 12:06 Potassium 4.1 mmol/L (3.5-5.1) 02/25/25 12:06 Chloride 106 mmol/L (98-107) 02/25/25 12:06 Carbon Dioxide 20 mmol/L (22-29) L 02/25/25 12:06 Anion Gap 15.1 (5-19) 02/25/25 12:06 BUN 5 mg/dL (6-20) L 02/25/25 12:06 Creatinine 0.9 mg/dL (0.5-0.9) 02/25/25 12:06 GFR Calculation 65.0 mL/min (90-130) L 02/25/25 12:06 Glucose 74 mg/dL (65-115) 02/25/25 12:06 POC Glucose 97 mg/dL (70-110) 02/25/25 14:51 Calculated Osmolality 280 mOsm/kg (285-295) L 02/25/25 12:06 Lactic Acid 1.4 mmol/L (0.5-2.2) 02/22/25 18:32 Calcium 9.4 mg/dL (8.5-10.5) 02/25/25 12:06 Phosphorus 3.7 mg/dL (2.5-4.5) 02/25/25 04:01 Magnesium 2.2 mg/dL (1.7-2.3) 02/25/25 04:01 Total Bilirubin 0.3 mg/dL (0.15-1.2) 02/22/25 18:32 AST 18 U/L (0-32) 02/22/25 18:32 ALT 14 U/L (0-33) 02/22/25 18:32 Alkaline Phosphatase 164 U/L (35-105) H 02/22/25 18:32 Troponin T Baseline 16 ng/L (0-10) H 02/22/25 18:32 Troponin T 120 Minute 11.47 ng/L (0-10) H 02/22/25 20:28 Delta Troponin T 4.53 ABS# (0-10) 02/22/25 20:28 Total Protein 8.5 g/dL (6.6-8.7) 02/22/25 18:32 Albumin 4.2 g/dL (3.5-5.2) 02/22/25 18:32 Globulin 4.3 g/dL (1.3-4.6) 02/22/25 18:32 Urine Color Yellow (Yellow) 02/22/25 20:16 Urine Appearance Clear (CLEAR) 02/22/25 20:16 Urine pH 5.0 (5-7) 02/22/25 20:16 Ur Specific [place] 1.019 (1.005-1.030) 02/22/25 20:16 Urine Protein 3+ (Negative) A 02/22/25 20:16 Urine Glucose (UA) 1+ (Normal) H 02/22/25 20:16 Urine Ketones 3+ (Negative) H 02/22/25 20:16 Urine Blood Trace (Negative) A 02/22/25 20:16 Urine Nitrate Negative (Negative) 02/22/25 20:16 Urine Bilirubin Negative (Negative) 02/22/25 20:16 Urine Urobilinogen 1.0 mg/dL (Negative) 02/22/25 20:16 Ur Leukocyte Esterase Negative (Negative) 02/22/25 20:16 Urine RBC 0-2 /hpf (0-2) 02/22/25 20:16 Urine WBC 0-5 /hpf (0-5) 02/22/25 20:16 Ur Squamous Epith Cells 0-5 /hpf (0-5) 02/22/25 20:16 Amorphous Sediment Not Reportable 02/22/25 20:16 Urine Bacteria Trace /hpf (NONE) 02/22/25 20:16 Hyaline Casts 34.33 /lpf 02/22/25 20:16 Urine Mucus 1+ /hpf 02/22/25 20:16 Serum Ketones Negative (Negative) 02/25/25 04:01 Vitals Last Vital Signs Temp 98.0 F 02/25/25 07:00 Pulse 84 02/25/25 14:00 Resp 23 H 02/25/25 12:00 BP 159/110 02/25/25 12:00 Pulse Ox 97 02/25/25 12:00 O2 Del Method Room Air 02/25/25 12:00 Discharge Plan Discharge Patient Disposition: Home Condition: Stable Prescriptions: Continued (DME) FreeStyle Ok 14 Day [place] Misc See Rx Instructions .Route Rx Instructions: As directed (DME) FreeStyle Ok 14 Day Sensor Kit See Rx Instructions .Route Rx Instructions: As directed imipramine HCl 25 mg tablet 25 mg PO BID aripiprazole [Abilify] 10 mg tablet 10 mg PO QAM (DME) pen needle, diabetic [BD Ultra-Fine Short Pen Needle] 31 gauge x 5/16 needle See Rx Instructions .Route Qty: 100 0RF Rx Instructions: As directed carvedilol 12.5 mg tablet 12.5 mg PO BID hydroxyzine HCl 50 mg tablet 50 mg PO QID PRN (Reason: Anxiety) omeprazole 40 mg capsule,delayed release(DR/EC) 40 mg PO DAILY amlodipine 10 mg tablet 10 mg PO DAILY gabapentin 300 mg capsule 300 mg PO BEDTIME losartan 100 mg tablet 100 mg PO DAILY fluticasone propionate 50 mcg/actuation spray,suspension 2 spray INTRANASAL DAILY rosuvastatin 40 mg tablet 40 mg PO DAILY (DME) FreeStyle Ok 3 Sensor Device MISCELLANEOUS metformin 500 mg tablet 500 mg PO BID Multi For Her 50 Plus 400-80 mcg Capsule 1 cap PO DAILY insulin aspart U-100 [Novolog FlexPen U-100 Insulin] 100 unit/mL (3 mL) insulin pen See Rx Instructions .ROUTE .COMPLEX Rx Instructions: Take 5 unit subcutaneously 3 times daily plus sliding scale if needed. insulin glargine U-300 conc [Tou[employer]o SoloStar U-300 Insulin] 300 unit/mL (1.5 mL) insulin pen 24 unit SUBCUT QAM Discharge Orders: Discharge Order (Routine); Ordered 02/25/25 Ordered By: Viraj Leger Referrals: Miguel Aguilar MD [Primary Care Provider, Internal Medicine] - 03/03/25 10:45 am Discharge Diet: Diabetic Discharge Activity: Increase activity as tolerated Patient Instructions: Diabetic Gastroparesis (DC), Dehydration (DC), Diabetic Ketoacidosis (DC), Hypoglycemia in a Person with Diabetes (DC), Basic Carbohydrate Counting (DC), Meal Planning with Diabetes Exchanges (DC), What to Do if Your Blood Sugar is Low (DC), Diabetes Type 1: Management (DC), Opioid Safety Discharge Attestations Time Spent in Discharge Care*: greater than 30 min Quality Metrics Clinical Quality Measures [ No reported AMI, CVA or VTE this stay] Coding Level of Care Code Acute Code for Chg Fwd Diagnoses Type 1 diabetes mellitus with ketoacidosis without coma E10.10 Diabetes mellitus complication detail: without coma Type 1 diabetes mellitus E10.9 Nausea and vomiting R11.2 Dehydration E86.0
[2025-02-25 16:24] LABS: Glucose Point of Care 72 mg/dL (70-110)
[2025-02-25] MEDS: lanolin oint 7 gm 1 APPLIC TOPICAL (16:26)
[2025-02-25 17:20] LABS: Glucose Point of Care 81 mg/dL (70-110)
--- NOTE | 2025-02-25 17:49 | PC.NURSE ---
Patient was given all discharge information along with all their prescriptions. Patient was educated on Diabetic Ketoacidosis. Patient was well educated on the signs of Hypoglycemia. Patient states that they have their monitoring device on them so they will stay on top of their sugars. Ivs were discontinued. Patient was stable upon discharge.
== END 2025-02-25 17:20 | disposition home or self-care (01) | DRG 638 ==
LOC: ER 20:16 → ICU 21:24
PROVIDERS: Internal Medicine; Admitting Provider Internal Medicine; Emergency Provider Emergency Medicine; PCP General Practice; Visit Provider Internal Medicine
DX: E10.10 Type 1 diabetes mellitus with ketoacidosis without coma (principal); F31.89 Other bipolar disorder; Z79.4 Long term (current) use of insulin; I10 Essential (primary) hypertension; E78.5 Hyperlipidemia, unspecified; K21.9 Gastro-esophageal reflux disease without esophagitis; E87.70 Fluid overload, unspecified
CPT/HCPCS: 36415; 36416; 36600; 71045; 80048; 80051; 80053; 81003; 82009; 82330; 82803; 82805; 82962; 83605; 83735; 84100; 84484; 85025; 87040; 93005; 96365; 96366; 96367; 96372; 96374; 96375; 96376; 99285; J1644; J1815; J1938; J2405; J3475; J7030; J7799; J9999

== ENCOUNTER 2025-02-28 21:52 | Emergency (ER) | payer MEDICARE, SELFPAY ==
[2025-02-28 23:01] VITALS: BP 138/98; PULSE 88; RESP 20; TEMP 36.8; O2SAT 99; BMI 24.7
--- NOTE | 2025-02-28 23:54 | W.ED.EXTPRO ---
HPI - Extremity Problem General: Chief complaint: Extremity Problem,Nontraumatic Stated complaint: Foot Pain Time Seen by Provider: 02/28/25 23:08 History of Present Illness: 54-year-old female, who says that she had to walk several miles barefoot recently, 3 to 4 days ago. Since that time, she is experiencing increased foot pain, swelling, and loss of surface skin with blistering. She says the pain is more intense today. She denies any fever. Related Data Home Medications ?Medication ?Instructions ?Recorded ?Confirmed aripiprazole 10 mg tablet (Abilify) 10 mg PO QAM 12/14/22 02/23/25 flash glucose scanning reader 12/14/22 02/23/25 (LocalViewStyle Ok 14 Day [place]) flash glucose sensor (FreeStyle 12/14/22 02/23/25 Ok 14 Day Sensor kit) imipramine HCl 25 mg tablet 25 mg PO BID 12/14/22 02/23/25 insulin glargine U-300 conc 300 24 unit SUBCUT QAM 02/16/23 02/23/25 unit/mL (1.5 mL) subcutaneous pen (TouSweepery SoloStar U-300 Insulin) amlodipine 10 mg tablet 10 mg PO DAILY 02/23/25 02/23/25 blood-glucose sensor (FreeStyle 02/23/25 02/23/25 Ok 3 Sensor device) carvedilol 12.5 mg tablet 12.5 mg PO BID 02/23/25 02/23/25 fluticasone propionate 50 2 spray intranasal DAILY 02/23/25 02/23/25 mcg/actuation nasal spray,suspension gabapentin 300 mg capsule 300 mg PO BEDTIME 02/23/25 02/23/25 losartan 100 mg tablet 100 mg PO DAILY 02/23/25 02/23/25 metformin 500 mg tablet 500 mg PO BID 02/23/25 02/23/25 avkotpraifdd-hemsczwi-kytjg acid 1 cap PO DAILY 02/23/25 02/23/25 400 mcg-vitamin K 80 mcg capsule (Multi For Her 50 Plus) omeprazole 40 mg capsule,delayed 40 mg PO DAILY 02/23/25 02/23/25 release rosuvastatin 40 mg tablet 40 mg PO DAILY 02/23/25 02/23/25 insulin aspart U-100 100 unit/mL See Rx Instructions .Route .COMPLEX 02/25/25 02/25/25 (3 mL) subcutaneous pen (Novolog FlexPen U-100 Insulin aspart) Previous Rx's ?Medication ?Instructions ?Recorded pen needle, diabetic 31 gauge x #100 ea 04/20/23 5/16 (BD Ultra-Fine Short Pen Needle) hydroxyzine HCl 50 mg tablet 50 mg PO QID PRN Anxiety #60 tabs 02/25/25 doxycycline hyclate 100 mg tablet 100 mg PO BID 7 days #14 tabs 02/28/25 tramadol 50 mg tablet 50 mg PO Q6H PRN pain #7 tabs 02/28/25 Allergies Allergy/AdvReac Type Severity Reaction Status Date / Time No Known Allergies Allergy Verified 02/27/23 12:58 PFSH ED PFSH: Medical History Benign essential hypertension Severe bipolar disorder Hyperlipidemia 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 Type 1 diabetes mellitus GERD (gastroesophageal reflux disease) Surgical History History of nasal surgery Hx of shoulder surgery Hx of tubal ligation Family History Other Cancer Heart disease Social History Smoking and tobacco/nicotine status: former use of tobacco/nicotine Physical Exam Const: COMMON NORMALS: no acute distress GENERAL APPEARANCE: not ill appearing ORIENTATION/CONSCIOUSNESS: Yes awake, Yes oriented to person, Yes oriented to place and Yes oriented to time HENMT: COMMON NORMALS: normocephalic HEAD & SCALP: normocephalic FACE & SINUS: face symmetric Eye: COMMON NORMALS: Equal, round and reactive pupils present and EOMs intact bilaterally PUPIL: Yes Equal, round and reactive pupils present Resp: COMMON NORMALS: normal respiratory effort Cardio: COMMON NORMALS: regular rate and regular rhythm RATE: regular rate RHYTHM: regular rhythm Extremity: NARRATIVE EXTREMITY EXAM: Multiple plantar ulcerations with swelling to bilateral feet. Right lateral ankle ulceration from friction. Minimal surrounding cellulitis. No streaking. No edema. Neuro: SENSORIUM/ORIENTATION: Yes oriented to person, Yes oriented to place and Yes oriented to time Course Vital Signs: Vital signs: Vital Signs Temperature 98.3 F 02/28/25 23:01 Pulse Rate 88 02/28/25 23:01 Respiratory Rate 20 H 02/28/25 23:01 Blood Pressure 138/98 02/28/25 23:01 Pulse Oximetry 99 02/28/25 23:01 Oxygen Delivery Me thod Room Air 02/28/25 23:01 MDM - Extremity (Nontraumatic) Medical Decision Making Patient has multiple abrasions with minimal cellulitis surrounding. She is afebrile. Should be treated with antibiotics, localized wound care, and crutches for weightbearing. Pain control. Close outpatient follow-up for wound check. Return for worsening No radiology studies performed this visit Discharge Plan Discharge Patient Disposition: Home Clinical Impression: Cellulitis, Friction blister of the foot Condition: Stable Prescriptions: New tramadol 50 mg tablet 50 mg PO Q6H PRN (Reason: pain) Qty: 7 0RF doxycycline hyclate 100 mg tablet 100 mg PO BID 7 Days Qty: 14 0RF No Action (DME) FreeStyle Ok 14 Day [place] Misc See Rx Instructions .Route Rx Instructions: As directed (DME) FreeStyle Ok 14 Day Sensor Kit See Rx Instructions .Route Rx Instructions: As directed imipramine HCl 25 mg tablet 25 mg PO BID aripiprazole [Abilify] 10 mg tablet 10 mg PO QAM (DME) pen needle, diabetic [BD Ultra-Fine Short Pen Needle] 31 gauge x 5/16 needle See Rx Instructions .Route Qty: 100 0RF Rx Instructions: As directed carvedilol 12.5 mg tablet 12.5 mg PO BID omeprazole 40 mg capsule,delayed release(DR/EC) 40 mg PO DAILY amlodipine 10 mg tablet 10 mg PO DAILY gabapentin 300 mg capsule 300 mg PO BEDTIME losartan 100 mg tablet 100 mg PO DAILY fluticasone propionate 50 mcg/actuation spray,suspension 2 spray INTRANASAL DAILY rosuvastatin 40 mg tablet 40 mg PO DAILY (DME) FreeStyle Ok 3 Sensor Device MISCELLANEOUS metformin 500 mg tablet 500 mg PO BID Multi For Her 50 Plus 400-80 mcg Capsule 1 cap PO DAILY insulin aspart U-100 [Novolog FlexPen U-100 Insulin] 100 unit/mL (3 mL) insulin pen See Rx Instructions .ROUTE .COMPLEX Rx Instructions: Take 5 unit subcutaneously 3 times daily plus sliding scale if needed. hydroxyzine HCl 50 mg tablet 50 mg PO QID PRN (Reason: Anxiety) Qty: 60 0RF insulin glargine U-300 conc [Toujeo SoloStar U-300 Insulin] 300 unit/mL (1.5 mL) insulin pen 24 unit SUBCUT QAM Discharge Orders: Discharge ED (Routine); Ordered 03/01/25 Ordered By: Moose Joiner Referrals: Miguel Aguilar MD [Primary Care Provider, Internal Medicine] - 1-3 days Patient Instructions: Cellulitis (ED), Opioid Safety, Pain Management, Skin Blisters Activity Restrictions/Additional Instructions: Antibiotics as directed. Elevate your feet. Wound care as shown in the ER. Call your doctor for follow-up and wound check in a couple of days. Return for problems. Print Language: Kinyarwanda Coding Level of Care Code ED Production Control Coordinator for Marco Antonio Carter
[2025-02-28] MEDS: mupirocin oint 22 gm 1 APPLIC TOPICAL (23:56)
[2025-03-01] MEDS: oxyCODONE-APAP 5-325 mg Tablet 2 TAB PO (00:18)
== END 2025-03-01 00:24 | disposition home or self-care (01) ==
PROVIDERS: Emergency Provider Emergency Medicine; PCP General Practice
DX: L03.116 Cellulitis of left lower limb (principal); L03.115 Cellulitis of right lower limb; S90.822A Blister (nonthermal), left foot, initial encounter; S90.821A Blister (nonthermal), right foot, initial encounter; X58.XXXA Exposure to other specified factors, initial encounter; Z79.4 Long term (current) use of insulin; E10.40 Type 1 diabetes mellitus with diabetic neuropathy, unspecified; E78.5 Hyperlipidemia, unspecified
CPT/HCPCS: 99283; E0114; J9999

== ENCOUNTER 2025-03-11 17:32 | Emergency (ER) | payer MEDICARE, SELFPAY ==
--- OUTSIDE RECORDS SUMMARY | 2015-06-10 06:52 | XMS_ITS | Continuity of Care Document ---
Author Organization [facility] Services Address [address] [place] [address] Phone Care Team Providers Care Marina Porter Name Role Phone Wai Rubin MD Unavailable Unavailable Allergies, Adverse Reactions, Alerts Substance Reaction Status Criticality No Known Drug Allergies Active No I nformation Medications Medication Instructions Dosage Effective Dates (start - stop) Status Comments lisinopril 5 mg Tab take 1 tablet (5MG) by oral route every day 5 MG - Active Lidoderm 5 % (700 mg/patch) Adhesive Patch apply 1 patch by transdermal route every day (May wear up to 12hours.) 1.00 patch - Active diclofenac sodium 75 mg Tab, Delayed Release take 1 tablet (75MG) by oral route 2 times every day - Active Lantus 100 unit/mL SubQ Cartridge inject 28 units by subcutaneous route every day - Active insulin needles (disposable) use 1 by Subcutaneous route every day - Active One Touch Test Strips apply 1 Unit by Subcutaneous route 4 times every day before meals and at bedtime 1 Unit - Active Cymbalta 60 mg Cap take 1 capsule (60MG) by oral route 2 times every day 60 MG - Active promethazine 25 mg Tab take 1 tablet (25MG) by oral route every day as needed 25 MG - Active metformin 500 mg Tab take 1 tablet (500MG) by oral route 2 times every day with morning and evening meals 500 MG - Active Novolog Flexpen 100 unit/mL Sub-Q inject by subcutaneous route as per insulin sliding scale protocol - Active trazodone 150 mg Tab take 1 tablet (150MG) by oral route every day at bedtime - Active divalproex 500 mg Tab, Delayed Release take 1 tablet (500MG) by oral route 2 times every day 500 MG - Active gabapentin 400 mg Cap take 1 capsule (400MG) by oral route 3 times every day 400 MG - Active trazodone 50 mg Tab take 1or 2 Tablet by Oral route every bedtime - Active Procedures Procedure Date EST LEVEL 3 OFFICE VISIT X Ray L-SPINE X Ray HIP 2V EST LEVEL 3 OFFICE VISIT X Ray ANKLE 3V X Ray FOOT 3V EST LEVEL 3 OFFICE VISIT WELL EXAM E6 (40-64) ADMIN FEE FOR ALLERGY INJ ADMIN FEE FOR ALLERGY INJ EST LEVEL 4 OFFICE VISIT ADMIN FEE FOR ALLERGY INJ ROUTINE VENIPUNCTURE PSYCHOTHERAPY 31-50 MIN OFFICE/OUTPATIENT VISIT, EST OFFICE/OUTPATIENT VISIT, EST PSYCHOTHERAPY 31-50 MIN PSYCHOTHERAPY 31-50 MIN EST LEVEL 2 OFFICE VISIT ROUTINE VENIPUNCTURE OFFICE/OUTPATIENT VISIT, EST EST LEVEL 2 OFFICE VISIT DIAGNOSTIC INTERVIEW PSYCHOTHERAPY 31-50 MIN PSYCHOTHERAPY 31-50 MIN OFFICE/OUTPATIENT VISIT, EST PSYCHOTHERAPY 31-50 MIN URINALYSIS DIP ROUTINE VENIPUNCTURE LEVEL 5 OFFICE VISIT Advance Directives Directive Yes / No Effective Date File Name No Information Encounters Encounter Description Practice Location Reason(s) For Visit Diagnoses Date Provider Providers Copied on Encounter [facility], [address] [place] [address], [address], [place] tel:[phone] [facility] No Information 5 Scottie Carreno. [address], [id number], [place]. tel:[phone] [facility], [address] [place] [address], [address], [place] tel:[phone] [place] No Information 2 Benny Tomas. [address] [place] [address], [address]. tel:[phone] EST LEVEL 3 OFFICE VISIT [facility], [address] [place] [address], [facility], [place] tel:[phone] [place] xray results (chief complaint) Pain in joint, site unspecified 2 Benny Tomas. [address] [place] [address], [facility]. tel:[phone] Referring Provider: Genoveva Arboleda, [address] [place] [address], [facility]. tel:[phone] [facility], [address] [place] [address], [facility], [place] tel:[phone] [facility] No Information 2 Benny Tomas. [address] [place] [address], [facility]. tel:[phone] Referring Provider: Genoveva Arboleda, [address] [place] [address], [facility]. tel:[phone] EST LEVEL 3 OFFICE VISIT [facility], [address] [place] [address], [facility], [place] tel:[phone] [place] tail bone (chief complaint)dm (chief complaint) Pain in joint involving pelvic region and thighSciatica 2 Benny Tomas. [address] [place] [address], [address]. tel:[phone] Referring Provider: Genoveva Arboleda, [address] [place] [address], [facility]. tel:[phone] [facility], [address] [place] [address], [facility], [place] tel:[phone] [facility] No Information 2 Benny Tomas. [address] [place] [address], [facility]. tel:[phone] Referring Provider: Genoveva Arboleda, [address] [place] [address], [facility]. tel:[phone] EST LEVEL 3 OFFICE VISIT [facility], [address] [place] [address], [facility], tel:[phone] [place] L ankle pain (chief complaint) Pain in joint involving ankle and footPain in joint involving ankle and foot May- 2 Dirklyndsay Tomas. [address] [place] [address], [facility]. tel:[phone] Referring Provider: Genoveva Arboleda, [address] [place] [address], [facility]. tel:[phone] [facility], [address] [place] [address], [facility], [place] tel:[phone] [place] No Information Apr-1 7-201 2 John Ravinder. [facility] [address], [address]. tel:[phone] WELL EXAM E6 (40-64) [facility], [address] [place] [address], [facility], [place] tel:[phone] [place] well woman (chief complaint) Gynecological Examination Apr-1 2201 2 Benny Tomas. [address] [place] [address], [facility]. tel:[phone] Referring Provider: Genoveva Arboleda, [address] [place] [address], [facility]. tel:[phone] [facility], [address] [place] [address], [facility], [place] tel:[phone] [place] No Information Apr-0 4-201 2 John Ravinder. [facility] [address], [address]. tel:[phone] [facility], [address] [place] [address], [facility], [place] tel:[phone] [place] No Information Apr-0 2-201 2 John Ravinder. [facility] [address], [address]. tel:[phone] [facility], [address] [place] [address], [address], [place] tel:[phone] [place] Allergic rhinitis due to other allergen Mar-2 2 John Castellon. [address] [place] [address], [address]. tel:[phone] Referring Provider: Ravinder Scott, [address] [place] [address], [address]. tel:[phone] [facility], [address] [place] [address], [facility], [place] tel:[phone] [place] Allergic rhinitis due to other allergen Mar-2 2 2 John Castellon. [address] [place] [address], [address]. tel:[phone] Referring Provider: Ravinder Scott, [address] [place] [address], [address]. tel:[phone] [facility] LEVEL 4 OFFICE VISIT [facility], [address] [place] [address], [facility], [place] tel:[phone] [place] diabetes and allergies (chief complaint) Diabetes Mellitus, Uncontrolled Type 1HTNSeizure DisorderGastr oparesisBipol ar disorder, unspecifiedNa usea aloneAllergic rhinitis due to other allergenPolyn europathy in diabetes Mar-1 2 John Castellon. [address] [place] [address], [address]. tel:[phone] Referring Provider: Ravinder Scott, [address] [place] [address], [address]. tel:[phone] [facility], [address] [place] [address], [address], [place] tel:[phone] [facility] [place] No Information 2 No Information OFFICE/OUTPA TIENT VISIT, EST [facility], [address] [place] [address], [address], [place] tel:[phone] [place] pain in right buttock and medial thigh (chief complaint)di abetic shoes (chief complaint) Diabetes Mellitus, Uncontrolled Type 1 2 John Castellon. [address], [address]. [phone] Referring Provider: Ravinder Scott, [facility] [address], [address]. tel:[phone] OFFICE/OUTPA TIENT VISIT, [facility], [address] [place] [address], [facility], [place] tel:[phone] [place] diabetes (follow up) (chief complaint)MV A (chief complaint)ch ronic conditions (chief complaint) CervicalgiaDi abetes Mellitus, Uncontrolled Type 1 1 John Castellon. [facility] [address], [address]. [phone] Referring Provider: Ravinder Scott, [address] [place] [address], [address]. tel:[phone] [facility], [address] [place] [address], [facility], [place] tel:[phone] [place] No Information 1 No Information [facility], [address] [place] [address], [facility], [place] tel:[phone] [place] No Information 1 No Information [facility] LEVEL 2 OFFICE VISIT [facility], [address] [place] [address], [facility], [place] tel:[phone] [place] f/u dm (chief complaint)wa nts flu shot (chief complaint) Bipolar disorder, unspecifiedSe izure DisorderDM Type 1 1 Benny Tomas. [address] [place] [address], [address]. tel:[phone] Referring Provider: Genoveva Arboleda, [address] [place] [address], [facility]. tel:[phone] OFFICE/OUTPA TIENT VISIT, [facility], [address] [place] [address], [facility], [place] tel:[phone] [place] DM (chief complaint) DM Type 1HTNBipolar disorder, unspecifiedSe izure Disorder 1 Benny Genoveva. [address] [place] [address], [facility]. tel:[phone] Referring Provider: Genvoeva Arboleda, [address] [place] [address], [facility]. tel:[phone] EST LEVEL 2 OFFICE VISIT [facility], [address] [place] [address], [facility], [place] tel:[phone] [place] follow up on lab test(s) (chief complaint) Abdominal PainBipolar disorder, unspecified 1 Benny Genoveva. [address] [place] [address], [facility]. tel:[phone] Referring Provider: Genoveva Arboleda, [address] [place] [address], [facility]. tel:[phone] [facility], [address] [place] [address], [facility], [place] tel:[phone] [place] f/u ultrasound (chief complaint) No Information 1 Zanaapple Tomas. [address] [place] [address], [facility]. tel:[phone] Referring Provider: Genoveva Arboleda, [address] [place] [address], [facility]. tel:[phone] [facility], [address] [place] [address], [facility], [place] tel:[phone] [place] No Information No Information [facility], [address] [place] [address], [address], [place] tel:[phone] [place] No Information No Information OFFICE/OUTPA TIENT VISIT, EST [facility], [address] [place] [address], [address], [place] tel:[phone] [place] diabetes (chief complaint)bi polar disorder (chief complaint)ab dominal pain (chief complaint) Abdominal PainBipolar disorder, unspecified 1 Zanaapple Genoveva. [address] [place] [address], [facility]. tel:[phone] Referring Provider: Genoveva Arboleda, [address] [place] [address], [facility]. tel:[phone] [facility], [address] [place] [address], [facility], tel:[phone] [place] bipolar disorder (chief complaint)an xiety (chief complaint)de pression (chief complaint)st ressed (chief complaint)sl eep disturbance (chief complaint) Bipolar disorder, unspecifiedPT [place] No Information LEVEL 5 OFFICE VISIT [facility], [address] [place] [address], [facility], tel:[phone] [place] swelling (chief complaint)na usea (chief complaint) HTNDM Type 1DM Type 1DM Type 1Seizure DisorderNause a alone No Information Family History Family Member Type Diagnosis Age At Onset Father Problem (finding) Heart disease Father Problem (finding) malignant neoplasm of l bud Mother Problem (finding) malignant neoplasm of l bud Payers Payer name Insurance type Covered republican ID Mary Grace olivaresabhijit(s) Medicaid [employer] HMO [id number] Social History Type Description Quantity Date Captured Comments Alcohol Use Details Unknown Caffeine Use Details Unknown Tobacco Use Status No Information Smoking Status No Information Sex Female Chief Complaint And Reason For Visit No Information Reason For Referral Reason For Referral No Information Plan Of Treatment Date Type Action Status Goal Lipid Panel. Due on due Goal Tdap. Due on due Goal Influenza vaccine. Due on due Goal Breast exam. Due on 015 due Goal Subst Abse Screen (2 [facility]). Due on due Goal Pap/HPV testing. Due on due Goal Depression screening. Due on due Goal Alcohol/chemical dependency screening. Due on due Goal Depression Scrn ([facility]). Du e on due Goal Td vaccine. Due on 15 due Goal Skin lesion inspection. Due on due Goal PAP. Due on due Goal Breast exam. Due on 011 due Goal Depression Scrn ([facility]). Du e on due Goal Tdap. Due on due Goal Folic Acid or Fam Plan. Due on due Goal Subst Abse Screen (2 [facility]). Due on due Goal Td vaccine. Due on 12 due Goal Skin lesion inspection. Due on due Referral Ordered: Referral: Physical Therapist/Independent. ordered Referral Ordered: MAMMOGRAM, BOTH BREASTS ordered History Of Present Illness Encounter Date Complaint History Of Prese nt Illness No Information Functional Status Date Functional Assessmen t No Information Instructions Date Instruction Additional Infor mation No Information Assessments Type Assessment Date No Information Patient Care Teams Name Effective Dates (start - stop) Status Members No Information
--- OUTSIDE RECORDS SUMMARY | 2025-03-11 17:07 | XMS_ITS ---
Author Organization [email or web address]. supervisor dials KON Care Team Providers Care Advanced Practice Nurse Psychotherapist Name Role Phone [facility]ST[facility] -Visit, [place] Unavailable Unavailable Farhad SECOND WATCH SERGEANT, Juan Unavailable Unavailable Raghav SECOND WATCH SERGEANT, Ibeth Unavailable Unavailable [facility]-LAB -Lab, Lab Unavailable Unavailable Encounters Encounter Date Encounter Type Encounter Diagnosis Care Provider Facility Start: 01-23-2025 [id number] End: 01-25-2025 23:59-0400 Patient encounter procedure Ibeth Avilez NP [facility] Start: 01-16-2025 [id number] End: 01-18-2025 23:59-0400 Patient encounter procedure [facility]ST[facility] -Visit, [facility] Start: 01-06-2025 08:44-0400 End: 01-08-2025 23:59-0400 Patient encounter procedure Ibeth Avilez NP [facility] Start: 12-10-2024 10:24-0400 End: 12-12-2024 23:59-0400 Patient encounter procedure Ibeth Avilez SECOND WATCH SERGEANT [facility]-LAB -Lab, Lab [facility] Start: 11-19-2024 16:30-0500 End: 11-21-2024 23:59-0500 Patient encounter procedure Juan Llamas SECOND WATCH SERGEANT [facility] Additional Source Comments FOR RECORDS PERTAINING TO PATIENTS WHO ARE OR HAVE BEEN ENROLLED IN A CHEMICAL DEPENDENCY/SUBSTANCEABUSE PROGRAM, SOME INFORMATION MAY BE OMITTED. This clinical summary was aggregated from multiple sources. Caution should be exercised in using it in the provision of clinical care. This summary normalizes information from multiple sources, and as a consequence, information in this document may materially change the coding, format and clinical context of patient data. In addition, data may be omitted in some cases. CLINICAL DECISIONS SHOULD BE BASED ON THE PRIMARY CLINICAL RECORDS. [employer] provides no warranty or guarantee of the accuracy or completeness of information in this document.The following information is based on time limited clinical information
--- OUTSIDE RECORDS SUMMARY | 2025-03-11 17:37 | XMS_ITS | Clinical Summary ---
Author Organization [employer] Address [address] [place]: Epic Prelude ADT ZULEIKA GRIMALDO [id number] Care Team Providers Care Actuarial Assistant Name Role Phone Dashawn Velasquez DO Primary Care Provider [phone] Medications amLODIPine (NORVASC) 5 mg tablet TAKE 1 TABLET BY MOUTH AT BEDTIME. HOLD IF TOP BLOOD PRESSURE NUMBER IS LESS THAN 130 3 Active ARIPiprazole (ABILIFY) 10 mg tablet Take 10 mg by mouth daily. Active atorvastatin (LIPITOR) 40 mg tablet Take 40 mg by mouth late in the day. Active OneTouch Verio test strips Strip USE TO CHECK BLOOD GLUCOSE UP TO FOUR TIMES DAILY 3 Active OneTouch Verio Reflect Meter USE TO CHECK BLOOD GLUCOSE UP TO FOUR TIMES DAILY 3 Active busPIRone (BUSPAR) 10 mg tablet Take 10 mg by mouth 3 times daily. 3 Active carvediloL (COREG) 6.25 mg tablet Take 6.25 mg by mouth 2 times daily. 3 Active divalproex (DEPAKOTE) 125 mg Tablet, Delayed Release (E.C.) Take 125 mg by mouth daily. Active divalproex (DEPAKOTE) 250 mg Delayed Release tablet 3 Active DULoxetine (CYMBALTA) 60 mg Capsule, Delayed Release(E.C.) Take 60 mg by mouth 2 times daily. Active FreeStyle Ok 2 [place] Misc USE WITH OK SENSOR TO CHECK GLUCOSE LEVELS 3 Active FreeStyle Ok 2 Sensor Kit USE WITH THE FREESTYLE READER CHANGE EVERY 14 DAYS 3 Active imipramine HCl (TOFRANIL) 25 mg tablet Take 25 mg by mouth 2 times daily. 3 Active insulin aspart U-100 (NovoLOG) 100 unit/mL vial Inject by subcutaneous injection. Active NovoLOG Flexpen U-100 Insulin 100 unit/mL (3 mL) pen syringe USE PER MEDIUM DOSE SLIDING SCALE AND INJECT WITH MEALS AND AT BEDTIME MAX DAILY DOSE OF 40 UNITS. SEE ATTACHMENT FOR SLIDING SCALE. 3 Active insulin glargine U-300 conc 300 unit/mL (3 mL) Insulin Pen Inject by subcutaneous injection. Active Toujeo SoloStar U-300 Insulin 300 unit/mL (1.5 mL) pen syringe ADMINISTER 15 UNITS UNDER THE SKIN DAILY E 11.65. ROTATE INJECTION SITES 3 Active HumaLOG KwikPen Insulin 100 unit/mL pen syringe 3 Active OneTouch Delica Plus Lancet 30 gauge USE TO CHECK BLOOD GLUCOSE UP TO FOUR TIMES DAILY 3 Active losartan (COZAAR) 50 mg tablet Take 50 mg by mouth daily. 3 Active metFORMIN (GLUCOPHAGE) 500 mg tablet Take 500 mg by mouth 2 times daily. 3 Active omeprazole (PriLOSEC) 40 mg Capsule, Delayed Release(E.C.) 3 Active pantoprazole (PROTONIX) 40 mg Tablet, Delayed Release (E.C.) Take 40 mg by mouth daily. Active propranoloL (INDERAL) 10 mg tablet Take 10 mg by mouth daily. 3 Active Vitamin B-1, mononitrate, 100 mg tablet Take 1 Tablet by mouth daily. 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 (CMS/HCC),Combined forms of age-related cataract of both eyes 1 Drop Both Eyes ONE TIME ONLY 03/04/2025 Active phenylephrine 2.5 % ophthalmic solution 1 DropIndications: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 (CMS/HCC),Combined forms of age-related cataract of both eyes 1 Drop Both Eyes ONE TIME ONLY 03/04/2025 Active bevacizumab (AVASTIN) 2.25 mg/0.09 mL intravitreal injection 1.25 mgIndications: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 (CMS/HCC),Combined forms of age-related cataract of both eyes 1.25 mg IZ ONE TIME ONLY 03/04/2025 Active bevacizumab (AVASTIN) 2.25 mg/0.09 mL intravitreal injection 1.25 mgIndications: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 (CMS/HCC),Combined forms of age-related cataract of both eyes 1.25 mg IZ ONE TIME ONLY 03/04/2025 Active povidone-iodine in balanced salt solution 0.25% eye drop 1 DropIndications: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 (CMS/HCC),Combined forms of age-related cataract of both eyes 1 Drop Both Eyes ONE TIME ONLY 03/04/2025 Active tetracaine (AK-T-MARTÍNEZ) 0.5 % ophthalmic solution 1 DropIndications: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 (CMS/HCC),Combined forms of age-related cataract of both eyes 1 Drop Both Eyes ONE TIME ONLY 03/04/2025 Active lidocaine (PF) (AKTEN PF) 3.5 % ophthalmic gel 1 DropIndications: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 (CMS/HCC),Combined forms of age-related cataract of both eyes 1 Drop Both Eyes ONE TIME ONLY 03/04/2025 Active Active Problems Problem Noted Date Diagnosed Date CME (cystoid macular edema), bilateral 3 Type 1 diabetes mellitus wit h left eye affected by severe nonproliferative retinopathy without macular edema 08/14/2023 Combined forms of age-related cataract of both e yes 08/14/2023 Encounters Date Type Department Care Team Description 03/04/2025 External Device Data ST[facility] ABSTRACTION Provider, Abstract 03/03/2025 External Device Data [facility] ABSTRACTION Provider, Abstract 02/05/2025 External Device Data [facility] ABSTRACTION Provider, Abstract 02/04/2025 12:30 PM CDT Office Visit [facility] 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 [place] [phone] 01/07/2025 12:50 PM CDT Office Visit [facility] 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 (CMS/HCC) (Primary Dx); Combined forms of age-related cataract of both eyes from Last 3 Months Social History Tobacco Use Types Packs/Day Years Used Date Smoking Tobacco: Never Alcohol Use Standard Drinks/Week Comments No 0 (1 standard drink = 0.6 oz pur e alcohol) Comments Unknown Sex and Gender Information Value Date Recorded Sex Assigned at Not on file Legal Sex Female 2:05 PM [employer] Gender Identity Not on file Sexual Orientation Not on file Plan of Treatment Health Maintenance Due Date Last Done Comments DIABETES ANNUAL FOOT EXAM 1987 DIABETES MICROALBUMIN ANNUAL SCREEN 1987 LDL CHOLESTEROL ANNUAL 1987 HEPATITIS B VACCINES (1 of 3 - 19+ 3-dose series) 1988 HPV/Cotest (21-29) 1990 CERVICAL CANCER SCREENING 1999 HPV/Cotest (30-65) 1999 PAP SMEAR 1999 DTAP/TDAP/TD VACCINES (1 - Tdap) 09/13/2008 09/12/20 08 BREAST CANCER SCREENING 2009 COLORECTAL SCREENING 2014 Colorectal Cancer Screening 2014 FIT-DNA Q 3 years 2014 FIT/FOBT Q 1 year 2014 Flex Sig/CT Colonography Q 5 years 2014 ZOSTER VACCINE (1 of 2) 2019 DIABETES HBA1C Q 6 MONTHS 12/19/2023 06/19/2023 INFLUENZA VACCINE (#1) 2024 11/02/2022 DIABETES ANNUAL RETINAL EXAM 02/04/2026, 01/07/2025, 01/07/2025, Additional history exists Procedures Procedure Name Priority Date/Time Associated Diagnosis Comments INTRAVITREAL INJECTION, PHARMACOLOGIC AGENT - OU - BOTH EYES Routine 02/04/2025 2:57 PM CDT 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 (CMS/HCC) OCT, RETINA - OU - BOTH EYES Routine 02/04/2025 1:30 PM CDT 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 (CMS/HCC) INTRAVITREAL INJECTION, PHARMACOLOGIC AGENT - OU - BOTH EYES Routine 01/07/2025 3:23 PM CDT 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 1:39 PM. Confirmed correct patient, procedure, site, and patient consented. Anesthesia Topical anesthesia was used. Anesthetic medications included Proparacaine 0.5%, Tetracaine 0.5%, Tetravisc 0.5%. Procedure Right Eye Preparation included 0.25% betadine irrigation. A (32g) needle was used. Injection: 1.25 mg bevacizumab 2.25 mg/0.09 mL Route: Intravitreal, Site: Eye, Right ND: [id number], Lot: 0, Waste: 0 mL Left Eye Preparation included 0.25% betadine irrigation. A (32g) needle was used. Injection: 1.25 mg bevacizumab 2.25 mg/0.09 mL Route: Intravitreal, Site: Eye, Left NDC: [id number], Lot: 0, Waste: 0 mL Post-op Right Eye Post injection exam found visual acuity of at least counting fingers. The patient tolerated the procedure well. There were no complications. The patient received written and verbal post procedure care education. Post injection medications were not given. Left Eye Post injection exam found visual acuity of at least counting fingers. The patient tolerated the procedure well. There were no complications. The patient received written and verbal post procedure care education. Post injection medications were not given. Notes Lot on consent 3.5 mm superotemporally to the limbus Tamar Muniz MD OPHTH CLINIC PROCEDURES Final R esult Performing Organization Address [facility] Co de Phone Number [facility] CLIA# [id number] [address] [place] [address] * OCT, RETINA - OU - BOTH EYES (02/04/2025 1:30 PM CDT) Narrative [facility] OPHTHALMOLOGY ORDERS - 02/04/2025 2:57 PM CDT RIGHT EYE: Minimal macular edema is present LEFT EYE: Minimal macular edema is present Tamar Muniz MD OPHTH TOMOGRAPHY Final Result Performing Organization Address [facility] Co de Phone Number [facility] OPHTHALMOLOGY ORDERS * INTRAVITREAL INJECTION, PHARMACOLOGIC AGENT - OU - BOTH EYES (01/07/2025 3:23 PM CDT) Narrative [facility] 01/07/2025 3:23 PM CDT Time Out 01/07/2025. 3:22 PM. Confirmed correct patient, procedure, site, and patient consented. Anesthesia Topical anesthesia was used. Anesthetic medications included Lidocaine 4%, Proparacaine 0.5%, Tetracaine 0.5%, Tetravisc 0.5%. Procedure Right Eye Preparation included 0.25% betadine irrigation (0.25% betadine at injection site and over ocular surface). A (33g) needle was used. Injection: 1.25 mg bevacizumab 2.25 mg/0.09 mL Route: Intravitreal, Site: Eye, Right ND: [id number], Lot: 0, Waste: 0 mL Left Eye Preparation included 0.25% betadine irrigation (0.25% betadine at injection site and over ocular surface ). A (33g) needle was used. Injection: 1.25 mg bevacizumab 2.25 mg/0.09 mL Route: Intravitreal, Site: Eye, Left NDC: [id number], Lot: 0, Waste: 0 mL Post-op Right Eye Post injection exam found visual acuity of at least counting fingers. The patient tolerated the procedure well. There were no complications. The patient received written and verbal post procedure care education. Post injection medications were not given. Left Eye Post injection exam found visual acuity of at least counting fingers. The patient tolerated the procedure well. There were no complications. The patient received written and verbal post procedure care education. Post injection medications were not given. Notes Lot number on consent Result [facility] Tamar Muniz MD OPHTH CLINIC PROCEDURES Final R esult Performing Organization Address [facility] Co de Phone Number [facility]# [id number] [address] [place] [address] * FLUORESCEIN ANGIOGRAPHY - OU - BOTH EYES (01/07/2025 2:43 PM CDT) Narrative [facility] OPHTHALMOLOGY ORDERS - 01/07/2025 2:43 PM CDT Left Eye First OD: Neovascularization elsewhere. Peripheral ischemia Proliferative Diabetic Retinopathy with ischemia OS: Neovascularization elsewhere; pr-retinal heme Proliferative Diabetic Retinopathy with ischemia Tamar Muniz MD OPHTH PHOTOGRAPHY Final Result Performing Organization Address City/[facility] Co de Phone Number [facility] OPHTHALMOLOGY ORDERS * OCT, RETINA - OU - BOTH EYES (01/07/2025 1:07 PM CDT) Narrative [facility] OPHTHALMOLOGY ORDERS - 01/07/2025 3:22 PM CDT RIGHT EYE: Moderate macular edema is present LEFT EYE: Moderate macular edema is present Tamar Muniz MD OPHTH TOMOGRAPHY Final Result Performing Organization Address City/State/[facility] Co de Phone Number [facility] OPHTHALMOLOGY ORDERS from Last 3 Months Insurance MEDICAID [place] [employer] [employer] O [facility] Care Teams Actuarial Assistant Relationship Specialty Start Date End Date Dashawn Velasquez DO [address] [place] [address] PCP - General Family Practice 12/05/10
--- OUTSIDE RECORDS SUMMARY | 2025-03-11 17:37 | XMS_ITS | Encounter Summary ---
Author Organization [employer] Address [address] [place] [address] Care Team Providers Care Oil Recovery Operator Name Role Phone Dashawn Velasquez DO Primary Care Provider [phone] Encounter Details Date Type Department Care Team (Late st Contact Info) Description 07/17/2023 Lab Requisition [facility] Laboratory Services [address] [place] [id number] Renzo Carson MD [address] [place] [address] [place] [address] Social History Tobacco Use Types Packs/Day Years Used Date Smoking Tobacco: Never Alcohol Use Standard Drinks/Week Comments No 0 (1 standard drink = 0.6 oz pur e alcohol) Comments Unknown Sex and Gender Information Value Date Recorded Sex Assigned at Not on file 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 Gender Identity Not on file Sexual Orientation Not on file documented as of this encounter Plan of Treatment Not on file documented as of this encounter Procedures Procedure Name Priority Date/Time Associated Diagnosis Comments KETONES/BETA HYDROXYBUTYRATE Routine 07/17/2023 9:48 AM CDT documented in this encounter Results * (ABNORMAL) KETONES/BETA HYDROXYBUTYRATE (07/17/2023 9:48 AM CDT) BETA HYDROXYBUTYRATE >9.0(H) 0.0 - 0.3 mmol/L 07/17/2023 4:22 PM CDT [facility] Blood Collection / Unknown 07/17/2023 9:48 AM CDT 07/17/2023 3:50 PM CDT us Renzo Carson MD CHEMISTRY ORDERABLES Final Re sult [facility] CLIA # [id number] [address] [facility] [place] [address] documented in this encounter Visit Diagnoses Not on filedocumented in this encounter Care Teams Oil Recovery Operator Relationship Specialty Start Date End Date Dashawn Velasquez DO [address] [place] [address] PCP - General Family Practice 12/05/10 documented as of this encounter
--- OUTSIDE RECORDS SUMMARY | 2025-03-11 17:37 | XMS_ITS | Encounter Summary ---
Author Organization [employer] Address 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
--- OUTSIDE RECORDS SUMMARY | 2025-03-11 17:37 | XMS_ITS | Encounter Summary ---
Author Organization [employer] Address 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
[2025-03-11 17:49] VITALS: BP 176/95; PULSE 88; RESP 18; TEMP 36.8; O2SAT 98; BMI 22.1
[2025-03-11 17:54] VITALS: BP 152/88; PULSE 77; O2SAT 100
[2025-03-11 17:59] LABS: Glucose Point of Care 468 mg/dL (70-110)
--- NOTE | 2025-03-11 18:14 | W.ED.EXTPRO ---
HPI - Extremity Problem General: Chief complaint: Extremity Problem,Nontraumatic Stated complaint: pain and swelling in legs and blistered feet Time Seen by Provider: 03/11/25 17:58 Source: patient Mode of arrival: ambulatory Limitations: no limitations History of Present Illness: Patient is a 54-year-old female presents to ED today with complaint of wounds to her bilateral plantar feet. Patient states about a week ago she walked for 3 to 4 [address] on hot pavement barefooted and developed the wounds. She at some point was seen here in our emergency department and placed on antibiotics. She feels like wounds are trying to heal but she is also going through some personal and family issues and is having to continually walk long distances. She does have shoes and socks today. Her wounds to her plantar feet are undressed. She has noticed a little swelling to the left foot. She has not noticed any odorous or purulent drainage from her wounds. She has not noticed any redness to her feet or streaking up her legs. No fevers. She is a known diabetic. She states she did not take her diabetic medications today. Blood sugars were over 400 upon arrival. She states normally they are anywhere from 100-200 at home. She also has a separate complaint of left shoulder pain. Patient states she reached wrong and heard a pop and now has shoulder pain. MD Complaint: extremity pain and extremity swelling Onset (ago): day(s) Pain Consistency: constant Location: left, right and lower extremity (feet ) Radiation: none Relieving factors: immobilization Exacerbating factors: weight bearing and walking Associated symptoms: Reports no associated symptoms; Deny chest pain or fever(s) Related Data Home Medications ?Medication ?Instructions ?Recorded ?Confirmed aripiprazole 10 mg tablet (Abilify) 10 mg PO QAM 12/14/22 02/23/25 flash glucose scanning reader 12/14/22 02/23/25 (FreeStyle Ok 14 Day Hartsel) flash glucose sensor (FreeStyle 12/14/22 02/23/25 Ok 14 Day Sensor kit) imipramine HCl 25 mg tablet 25 mg PO BID 12/14/22 02/23/25 insulin glargine U-300 conc 300 24 unit SUBCUT QAM 02/16/23 02/23/25 unit/mL (1.5 mL) subcutaneous pen (Lilly SoloStar U-300 Insulin) amlodipine 10 mg tablet 10 mg PO DAILY 02/23/25 02/23/25 blood-glucose sensor (FreeStyle 02/23/25 02/23/25 Ok 3 Sensor device) carvedilol 12.5 mg tablet 12.5 mg PO BID 02/23/25 02/23/25 fluticasone propionate 50 2 spray intranasal DAILY 02/23/25 02/23/25 mcg/actuation nasal spray,suspension gabapentin 300 mg capsule 300 mg PO BEDTIME 02/23/25 02/23/25 losartan 100 mg tablet 100 mg PO DAILY 02/23/25 02/23/25 metformin 500 mg tablet 500 mg PO BID 02/23/25 02/23/25 uicvkofnpffc-fsletuvl-mkgsa acid 1 cap PO DAILY 02/23/25 02/23/25 400 mcg-vitamin K 80 mcg capsule (Multi For Her 50 Plus) omeprazole 40 mg capsule,delayed 40 mg PO DAILY 02/23/25 02/23/25 release rosuvastatin 40 mg tablet 40 mg PO DAILY 02/23/25 02/23/25 insulin aspart U-100 100 unit/mL See Rx Instructions .Route .COMPLEX 02/25/25 02/25/25 (3 mL) subcutaneous pen (Novolog FlexPen U-100 Insulin aspart) Previous Rx's ?Medication ?Instructions ?Recorded pen needle, diabetic 31 gauge x #100 ea 04/20/23/ (BD Ultra-Fine Short Pen Needle) hydroxyzine HCl 50 mg tablet 50 mg PO QID PRN Anxiety #60 tabs 02/25/25 tramadol 50 mg tablet 50 mg PO Q6H PRN pain #7 tabs 02/28/25 acetaminophen 300 mg-codeine 15 mg 1 tab PO Q6H PRN pain #10 tabs 03/11/25 tablet doxycycline monohydrate 100 mg 100 mg PO Q12H 10 days #20 caps 03/11/25 capsule mupirocin 2 % topical ointment 1 applic topical BID #15 grams 03/11/25 Allergies Allergy/AdvReac Type Severity Reaction Status Date / Time No Known Allergies Allergy Verified 03/11/25 17:54 Review of Systems Const: Denies: fever(s), chills, body aches, fatigue or malaise Card: Denies: chest pain Resp: Denies: dyspnea GI: Denies: abdominal pain, vomiting or diarrhea : Denies: flank pain or dysuria Musc: Reports: extremity pain (bilateral feet), extremity swelling (L foot) and joint pain (L shoulder); Denies: neck pain, back pain, joint swelling, joint redness or joint warmth Skin/Breast: Denies: erythema Neuro: Denies: headache(s), numbness in extremities, weakness in extremities or sensory changes PFSH ED PFSH: Medical History DKA, type 1 Benign essential hypertension Severe bipolar disorder Hyperlipidemia 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 Type 1 diabetes mellitus GERD (gastroesophageal reflux disease) Surgical History History of nasal surgery Hx of shoulder surgery Hx of tubal ligation Family History Other Cancer Heart disease Social History Smoking and tobacco/nicotine status: former use of tobacco/nicotine Physical Exam Const: COMMON NORMALS: no acute distress, average body habitus, patient oriented x3, no limitations, healthy appearing, alert and well nourished Resp: COMMON NORMALS: normal respiratory effort and clear to auscultation bilaterally AUSCULTATION: clear to auscultation bilaterally Cardio: COMMON NORMALS: regular rate and regular rhythm RATE: regular rate RHYTHM: regular rhythm Extremity: COMMON NORMALS: full ROM, capillary refill normal and no calf tenderness GENERAL: Yes normal exam except as noted LEFT UPPER EXTREMITY: Yes shoulder joint (mild tenderness with ROM but full, normal gross inspection) Left shoulder joint: Yes palpation and Yes neurovascular exam (normal) RIGHT LOWER EXTREMITY: Yes foot & digits LEFT LOWER EXTREMITY: Yes foot & digits OTHER: pt with multiple healing bilateral plantar blister wounds without erythema, streaking, odor, or discharge; she has mild edema to L proximal plantar wound/foot; these do appear like they are healing but also seemingly poorly cared for and undressed Neuro: COMMON NORMALS: patient oriented x3, moves all extremities, no focal motor deficits and no sensory deficits noted SENSORIUM/ORIENTATION: Yes alert Skin: NARRATIVE SKIN EXAM: see above Course Vital Signs: Vital signs: Vital Signs Temperature 98.2 F 03/11/25 17:49 Pulse Rate 75 03/11/25 19:30 Respiratory Rate 18 03/11/25 17:49 Blood Pressure 181/92 03/11/25 19:30 Pulse Oximetry 98 03/11/25 19:30 MDM - Extremity (Nontraumatic) Medical Decision Making Patient appears in no acute distress. Her vital signs are stable. Blood work showing a normal white count. Scant elevation to her CRP at 6.7. L foot XR unremarkable. She was hyperglycemic upon arrival. She reportedly had not taken her diabetic medications today. Blood sugars trending down here with fluids and IV insulin. DKA has been ruled out. She was noted to be anemic with a hemoglobin of 8.7-down from 12.1 on 02/22. This was repeated and confirmed. Patient is not complaining of black or tarry stools or hematemesis. Hemoccult obtained here negative. She is not having any abdominal pain. Again her vital signs are stable. Her BUN/Cr is completely normal. Spoke to Dr. Cintron and we will have patient repeat this next week. Patient will be placed back on antibiotics for her foot wounds and case management referrals have been placed for PCP and wound care. Medical Records I reviewed the patient's medical records. Lab Data I reviewed the patient's lab results. 03/11/25 19:15 03/11/25 18:35 Laboratory Results WBC 6.61 10^3/uL (3.29-11.43) 03/11/25 18:35 RBC 3.23 10^6/uL (3.85-5.65) L 03/11/25 18:35 Hgb 8.10 g/dL (11.27-16.99) L 03/11/25 19:15 Hct 24.2 % (36-47) L 03/11/25 19:15 MCV 83.9 fl (85-98) L 03/11/25 18:35 MCH 26.9 pg (27-33) L 03/11/25 18:35 MCHC 32.1 g/dL (30-55) 03/11/25 18:35 RDW 14.2 % (12.1-15.1) 03/11/25 18:35 Plt Count 382 10^3/cmm (157-399) 03/11/25 18:35 MPV 8.7 fL (7.4-10.4) 03/11/25 18:35 Neut % (Auto) 56.5 % 03/11/25 18:35 Lymph % (Auto) 32.8 % 03/11/25 18:35 [place] % (Auto) 7.9 % 03/11/25 18:35 Eos % (Auto) 2.0 % 03/11/25 18:35 Baso % (Auto) 0.6 % 03/11/25 18:35 Neut # (Auto) 3.74 10^3/uL (1.8-7.7) 03/11/25 18:35 Lymph # (Auto) 2.2 10^3/uL (0.8-4.8) 03/11/25 18:35 [place] # (Auto) 0.5 10^3/uL (0.2-0.9) 03/11/25 18:35 Eos # (Auto) 0.1 10^3/uL (0.0-0.8) 03/11/25 18:35 Baso # (Auto) 0.0 10^3/uL (0.0-0.1) 03/11/25 18:35 Nucleated RBC % (auto) 0 % 03/11/25 18:35 Nucleated RBCs # 0.0 /100WBC 03/11/25 18:35 Specimen Type Arterial 03/11/25 18:18 Sample Site Brachial, left 03/11/25 18:18 ABG pH 7.48 (7.35-7.45) H 03/11/25 18:18 ABG pCO2 32.3 mmHg (35-45) L 03/11/25 18:18 ABG pO2 97.3 mmHg (80.0-100.0) 03/11/25 18:18 ABG PO2/FiO2 Ratio 463 03/11/25 18:18 ABG HCO3 24.1 mmol/L (22-26) 03/11/25 18:18 ABG O2 Saturation 99.0 03/11/25 18:18 ABG Base Excess 0.7 mmol/L (-2.0-2.0) 03/11/25 18:18 [place] Test Pos 03/11/25 18:18 A-a O2 Gradient 1.5 mmHg (5-10) L 03/11/25 18:18 Hematocrit 23.8 % (37-47) L 03/11/25 18:18 Hgb O2 Saturation 96.8 % (95-100) 03/11/25 18:18 Carboxyhemoglobin 1.3 %THgb (0.4-20.1) 03/11/25 18:18 Methemoglobin 1.0 % (0.4-1.5) 03/11/25 18:18 Total Hemoglobin 7.8 g/dL (12-16) L 03/11/25 18:18 Sodium 135.0 mmol/L (131-143) 03/11/25 18:18 Potassium 4.1 mmol/L (3.5-5.0) 03/11/25 18:18 Glucose 426.0 mg/dL (70-115) H 03/11/25 18:18 Ionized Calcium 1.2 mmol/L (1.1-1.4) 03/11/25 18:18 O2 Delivery Device Room air 03/11/25 18:18 FiO2 21.0 % 03/11/25 18:18 Golf Cart Assembler ID Cak 03/11/25 18:18 Sodium 133 mmol/L (136-145) L 03/11/25 18:35 Potassium 4.2 mmol/L (3.5-5.1) 03/11/25 18:35 Chloride 96 mmol/L (98-107) L 03/11/25 18:35 Carbon Dioxide 19 mmol/L (22-29) L 03/11/25 18:35 Anion Gap 22.2 (5-19) H 03/11/25 18:35 BUN 18 mg/dL (6-20) 03/11/25 18:35 Creatinine 0.8 mg/dL (0.5-0.9) 03/11/25 18:35 GFR Calculation 74.5 mL/min (90-130) L 03/11/25 18:35 Glucose 402 mg/dL (65-115) H 03/11/25 18:35 POC Glucose 336 mg/dL (70-110) H 03/11/25 19:15 Calculated Osmolality 295 mOsm/kg (285-295) 03/11/25 18:35 Calcium 9.7 mg/dL (8.5-10.5) 03/11/25 18:35 Total Bilirubin 0.2 mg/dL (0.15-1.2) 03/11/25 18:35 AST 51 U/L (0-32) H 03/11/25 18:35 ALT 31 U/L (0-33) 03/11/25 18:35 Alkaline Phosphatase 196 U/L (35-105) H 03/11/25 18:35 C-Reactive Protein 6.7 mg/L (0.0-4.9) H 03/11/25 18:35 Total Protein 7.5 g/dL (6.6-8.7) 03/11/25 18:35 Albumin 3.5 g/dL (3.5-5.2) 03/11/25 18:35 Globulin 4.0 g/dL (1.3-4.6) 03/11/25 18:35 Serum Ketones Negative (Negative) 03/11/25 18:35 XR interpretation done by ED provider, pending radiology final review Discharge Plan Discharge Patient Disposition: Home Clinical Impression: Hyperglycemia, Open wound of plantar aspect of left foot, Open wound of plantar aspect of right foot, Anemia Condition: Stable Prescriptions: New doxycycline monohydrate 100 mg capsule 100 mg PO Q12H 10 Days Qty: 20 0RF mupirocin 2 % ointment 1 applic topical BID Qty: 15 0RF acetaminophen-codeine 300-15 mg tablet 1 tab PO Q6H PRN (Reason: pain) Qty: 10 0RF No Action (DME) FreeStyle Ok 14 Day Hartsel Misc See Rx Instructions .Route Rx Instructions: As directed (DME) FreeStyle Ok 14 Day Sensor Kit See Rx Instructions .Route Rx Instructions: As directed imipramine HCl 25 mg tablet 25 mg PO BID aripiprazole [Abilify] 10 mg tablet 10 mg PO QAM (DME) pen needle, diabetic [BD Ultra-Fine Short Pen Needle] 31 gauge x 5/16 needle See Rx Instructions .Route Qty: 100 0RF Rx Instructions: As directed carvedilol 12.5 mg tablet 12.5 mg PO BID omeprazole 40 mg capsule,delayed release(DR/EC) 40 mg PO DAILY amlodipine 10 mg tablet 10 mg PO DAILY gabapentin 300 mg capsule 300 mg PO BEDTIME losartan 100 mg tablet 100 mg PO DAILY fluticasone propionate 50 mcg/actuation spray,suspension 2 spray INTRANASAL DAILY rosuvastatin 40 mg tablet 40 mg PO DAILY (DME) FreeStyle Ok 3 Sensor Device MISCELLANEOUS metformin 500 mg tablet 500 mg PO BID Multi For Her 50 Plus 400-80 mcg Capsule 1 cap PO DAILY insulin aspart U-100 [Novolog FlexPen U-100 Insulin] 100 unit/mL (3 mL) insulin pen See Rx Instructions .ROUTE .COMPLEX Rx Instructions: Take 5 unit subcutaneously 3 times daily plus sliding scale if needed. hydroxyzine HCl 50 mg tablet 50 mg PO QID PRN (Reason: Anxiety) Qty: 60 0RF tramadol 50 mg tablet 50 mg PO Q6H PRN (Reason: pain) Qty: 7 0RF insulin glargine U-300 conc [[place] SoloStar U-300 Insulin] 300 unit/mL (1.5 mL) insulin pen 24 unit SUBCUT QAM Discharge Orders: Discharge ED (Routine); Ordered 03/11/25 Ordered By: Jessika Anderson Referrals: Miguel Aguilar MD [Primary Care Provider, Internal Medicine] Patient Instructions: Opioid Safety, Pain Management, Patient Portal & Mya Instructions Activity Restrictions/Additional Instructions: As we discussed, I have placed a case management referral to get you set up with a primary care doctor as well as wound care. We spoke about how the most important thing you can do is offload weight to the feet and limit walking is much as possible. You need to keep wounds clean with warm soapy water, pat dry, and need to be appropriately dressed. Monitor for signs of infection such as purulent or odorous discharge, redness to the foot or streaking up your leg, fevers, or any other concerns you may have. Please seek medical reevaluation if these occur. As we discussed, your hemoglobin was low today compared to previous. You need to return to the emergency department for onset of black or bloody stools, bloody vomit, abnormal bruising, severe abdominal or chest pain, lightheadedness/dizziness/passing out episodes. You need to have your hemoglobin rechecked early next week. You may return here, walk-in clinic, or follow-up with primary care. Print Language: Irish Coding Level of Care Code ED Cleaning Associate for Marco Antonio Carter
[2025-03-11 18:30] LABS: ABG PCO2 32.3 mmHg (35-45); ABG PH Result 7.48 (7.35-7.45); Alveolar-Arterial Oxygen Gradi 1.5 mmHg (5-10); Arterial Blood Gas Hematocrit 23.8 % (37-47); Base Excess ABG 0.7 mmol/L (-2.0-2.0); Blood Gas Allen Test Pos; Blood Gas Operator Identificat CAK; Blood Gas Sample Site Brachial, left; Blood Gas Sample Type Arterial; Carboxyhemoglobin 1.3 %THgb (0.4-20.1); HCO3 ABG 24.1 mmol/L (22-26); HGB O2 Sat 96.8 % (95-100); Ionized Calcium Level - ABG 1.2 mmol/L (1.1-1.4); Oxygen Device ROOM AIR; PO2 ABG 97.3 mmHg (80.0-100.0); PO2 FiO2 Ratio Arterial Blood 463; Potassium Level - ABG 4.1 mmol/L (3.5-5.0); Total Hemoglobin 7.8 g/dL (12-16)
--- NOTE | 2025-03-11 18:31 | XRR_ITS ---
PROCEDURE INFORMATION: Exam: XR Left Foot Exam date and time: 03/11/2025 6:43 PM Age: 54 years old Clinical indication: Injury or trauma; Other: PT states they walked 4 miles barefoot on pavement; Wound; Left; Foreign body involvement not specified; Additional info: Plantar wound TECHNIQUE: Imaging protocol: Radiologic exam of the left foot. Views: 3 or more views. COMPARISON: No relevant prior studies available. FINDINGS: Bones/joints: No fracture or dislocation. No joint effusion. Soft tissues: Grossly unremarkable. No radiopaque foreign body. XR/XR foot LT min 3V* [id number] IMPRESSION: No acute findings.
[2025-03-11 18:46] LABS: Basophils % 0.6 %; Eosinophils # 0.1 10^3/uL (0.0-0.8); Hematocrit 27.1 % (36-47); Lymphocytes # 2.2 10^3/uL (0.8-4.8); Lymphocytes % 32.8 %; Mean Corpuscular HGB Conc 32.1 g/dL (30-55); Mean Corpuscular Hemoglobin 26.9 pg (27-33); Mean Corpuscular Volume 83.9 fl (85-98); Mean Platelet Volume 8.7 fL (7.4-10.4); Monocytes # 0.5 10^3/uL (0.2-0.9); Monocytes % 7.9 %; Neutrophils # 3.74 10^3/uL (1.8-7.7); Neutrophils % 56.5 %; Nucleated Red Blood Cells % 0 %; Platelet Count 382 10^3/cmm (157-399); Red Blood Count 3.23 10^6/uL (3.85-5.65); Red Cell Distribution Width 14.2 % (12.1-15.1); White Blood Count 6.61 10^3/uL (3.29-11.43)
[2025-03-11 18:56] LABS: Ketone (Acetest) Serum Negative (Negative)
[2025-03-11 19:00] VITALS: BP 181/92; PULSE 73; O2SAT 98
[2025-03-11 19:06] LABS: Alanine Aminotransferase 31 U/L (0-33); Albumin Level 3.5 g/dL (3.5-5.2); Alkaline Phosphatase 196 U/L (35-105); Blood Urea Nitrogen 18 mg/dL (6-20); C Reactive Protein 6.7 mg/L (0.0-4.9); Calcium 9.7 mg/dL (8.5-10.5); Carbon Dioxide 19 mmol/L (22-29); Chloride 96 mmol/L (98-107); Creatinine Clr Calc Pharmacy 70.5255; Glomerular Filtration Rate 74.5 mL/min (90-130); Glucose 402 mg/dL (65-115); Osmolality Calculated 295 mOsm/kg (285-295); Sodium 133 mmol/L (136-145); Total Bilirubin 0.2 mg/dL (0.15-1.2); Total Protein 7.5 g/dL (6.6-8.7)
[2025-03-11 19:11] LABS: Anion Gap 22.2 (5-19); Aspartate Amino Transferase 51 U/L (0-32); Potassium 4.2 mmol/L (3.5-5.1)
[2025-03-11] MEDS: insulin regular-human 100 units/1 mL 9 UNIT IVP (19:14)
[2025-03-11] MEDS: sodium chloride 0.9% 1,000 ML 999 ML IV (19:14)
[2025-03-11 19:21] LABS: Glucose Point of Care 336 mg/dL (70-110)
[2025-03-11 19:29] LABS: Hematocrit 24.2 % (36-47)
[2025-03-11 19:30] VITALS: BP 181/92; PULSE 75; O2SAT 98
[2025-03-11 20:35] LABS: Glucose Point of Care 105 mg/dL (70-110)
[2025-03-11 20:38] VITALS: BP 164/126; PULSE 81; O2SAT 99
== END 2025-03-11 20:40 | disposition home or self-care (01) ==
PROVIDERS: Emergency Medicine; Emergency Provider Physician Assistant; PCP General Practice
DX: S91.302A Unspecified open wound, left foot, initial encounter (principal); S91.301A Unspecified open wound, right foot, initial encounter; D64.9 Anemia, unspecified; E10.65 Type 1 diabetes mellitus with hyperglycemia; E10.40 Type 1 diabetes mellitus with diabetic neuropathy, unspecified; E78.5 Hyperlipidemia, unspecified; Z87.891 Personal history of nicotine dependence; X58.XXXA Exposure to other specified factors, initial encounter
CPT/HCPCS: 36416; 36600; 73630; 80051; 80053; 82009; 82330; 82805; 82962; 85014; 85018; 85025; 86140; 96374; 99284; J1815; J7030

== ENCOUNTER → 2025-04-28 09:21 | Outpatient (BNVA) | payer MEDICARE, SELFPAY | PROVIDERS: Visit Provider Podiatrist Foot & Ankle Surgery | DX: E10.42 Type 1 diabetes mellitus with diabetic polyneuropathy (principal); L03.116 Cellulitis of left lower limb; L84 Corns and callosities; Z79.4 Long term (current) use of insulin | CPT/HCPCS: 73630 ==

== ENCOUNTER 2025-04-28 10:18 | Outpatient (CLI) | payer MEDICARE, SELFPAY | END 2025-04-28 10:19 | disposition home or self-care (01) | LOC: SPT 10:19 | PROVIDERS: Visit Provider Podiatrist Foot & Ankle Surgery | DX: Z46.89 Encounter for fitting and adjustment of other specified devices (principal); E10.42 Type 1 diabetes mellitus with diabetic polyneuropathy | CPT/HCPCS: L4361 ==

== ENCOUNTER 2025-05-21 02:34 | Emergency (ER) | payer MEDICARE, SELFPAY ==
--- OUTSIDE RECORDS SUMMARY | 2015-06-10 06:52 | XMS_ITS | Continuity of Care Document ---
Author Organization [facility] Address [address] [place] [address] Phone Care Team Providers Care Billet Checker Name Role Phone Wai Rubin MD Unavailable [...] by Oral route every bedtime - Active Advance Directives Directive Yes / No Effective Date File Name No Information Encounters Encounter Description Practice Location Reason(s) For Visit Diagnoses Date Provider [facility], [address] [place] [address], [facility], tel:[phone] [facility] No Information 5 Scottie Carreno. [address], [id number], [place]. tel:[phone] [place] [address], [address] [place] [address], [facility], [place] tel:[phone] [place] No Information 2 Gukarlold Genoveva. [address] [place] [address], [facility]. tel:[phone] [place] [address], [address] [place] [address], [facility], [place] tel:[phone] [place] xray results (chief complaint) Pain in joint, site unspecified 2 Guegold Genoveva. [address] [place] [address], [facility]. tel:[phone] [place] [address], [address] [place] [address], [facility], [place] tel:[phone] [facility] No Information 2 Guegold Genoveva. [address] [place] [address], [facility]. tel:[phone] [place] [address], [address] [place] [address], [facility], [place] tel:[phone] [place] tail bone (chief complaint)dm (chief complaint) Pain in joint involving pelvic region and thighSciatica 2 Guegold Genoveva. [address] [place] [address], [facility]. tel:[phone] [facility], [address] [place] [address], [facility], [place] tel:[phone] [facility] No Information Feb-0 8 2 Benny Tomas. [address] [place] [address], [facility]. tel:[phone] [facility], [address] [place] [address], [facility], [place] tel:[phone] [place] L ankle pain (chief complaint) Pain in joint involving ankle and footPain in joint involving ankle and foot January- 2 Benny Tomas. [address] [place] [address], [facility]. tel:[phone] [place] [address], [address] [place] [address], [facility], [place] tel:[phone] [place] No Information Dec- 2 John Ravinder. [address] [place] [address], [address]. tel:[phone] [place] [address], [address] [place] [address], [facility], [place] tel:[phone] [place] well woman (chief complaint) Gynecological Examination Dec- 2 2 Benny Tomas. [address] [place] [address], [facility]. tel:[phone] [facility], [address] [place] [address], [facility], [place] tel:[phone] [place] No Information Dec-0 4 2 John Ravinder. [facility] [address], [address]. tel:[phone] [place] [address], [address] [place] [address], [facility], [place] tel:[phone] [place] No Information Dec-0 2-201 2 John Ravinder. [facility] [address], [address]. tel:[phone] [facility], [address] [place] [address], [facility], [place] tel:[phone] [place] Allergic rhinitis du e to other allergen Nov- 2 John Ravinder. [address], [address]. tel:[phone] [facility], [address] [place] [address], [facility], tel:[phone] [place] Allergic rhinitis du e to other allergen 2 John Castellon. [facility] [address], [address]. tel:[phone] [facility], [address] [place] [address], [facility], [place] tel:[phone] [place] diabetes and allergies (chief complaint) Diabetes Mellitus, Uncontrolled Type 1HTNSeizure DisorderGastroparesis Bipolar disorder, unspecifiedNausea aloneAllergic rhinitis due to other allergenPolyneuropath y in diabetes 2 John Castellon. [facility] [address], [address]. tel:[phone] [facility], [address] [place] [address], [facility], [place] tel:[phone] [place] No Information 2 No Information [facility], [address] [place] [address], [facility], [place] tel:[phone] [place] pain in right buttock and medial thigh (chief complaint)di abetic shoes (chief complaint) Diabetes Mellitus, Uncontrolled Type 1 2 John Castellon. [facility] [address], [address]. tel:[phone] [facility], [address] [place] [address], [facility], [place] tel:[phone] [place] diabetes (follow up) (chief complaint)MV A (chief complaint)ch ronic conditions (chief complaint) CervicalgiaDiabetes Mellitus, Uncontrolled Type 1 1 John Ravinder. [facility] [address], [address]. tel:[phone] [facility], [address] [place] [address], [facility], [place] tel:[phone] [place] No Information 1 No Information [facility], [address] [place] [address], [facility], [place] tel:[phone] [place] No Information 1 No Information [facility], [address] [place] [address], [facility], [place] tel:[phone] [place] f/u dm (chief complaint)wa nts flu shot (chief complaint) Bipolar disorder, unspecifiedSeizure DisorderDM Type 1 1 Benny Tomas. [address] [place] [address], [facility]. tel:[phone] [facility], [address] [place] [address], [facility], [place] tel:[phone] [place] DM (chief complaint) DM Type 1HTNBipolar disorder, unspecifiedSeizure Disorder 1 Benny Tomas. [address] [place] [address], [facility]. tel:[phone] [facility], [address] [place] [address], [facility], [place] tel:[phone] [place] follow up on lab test(s) (chief complaint) Abdominal PainBipolar disorder, unspecified 1 Benny Tomas. [address] [place] [address], [facility]. tel:[phone] [facility], [address] [place] [address], [facility], [place] tel:[phone] [place] f/u ultrasound (chief complaint) No Information 1 Benny Tomas. [address] [place] [address], [facility]. tel:[phone] [facility], [address] [place] [address], [facility], [place] tel:[phone] [place] No Information 1 No Information [facility], [address] [place] [address], [facility], [place] tel:[phone] [place] No Information 1 No Information [facility], [address] [place] [address], [facility], tel:[phone] [place] diabetes (chief complaint)bi polar disorder (chief complaint)ab dominal pain (chief complaint) Abdominal PainBipolar disorder, unspecified 1 Benny Tomas. [address] [place] [address], [facility]. tel:[phone] [facility], [address] [place] [address], [facility], tel:[phone] [place] bipolar disorder (chief complaint)an xiety (chief complaint)de pression (chief complaint)st ressed (chief complaint)sl eep disturbance (chief complaint) Bipolar disorder, unspecifiedPTSD No Information [facility], [address] [place] [address], [facility], tel:[phone] [place] swelling (chief complaint)na usea (chief complaint) HTNDM Type 1DM Type 1DM Type 1Seizure DisorderNausea alone 1 No Information Family History Family Member Type Diagnosis Age At Onset Father Problem (finding) Heart disease Father Problem (finding) malignant neoplasm of l bud Mother Problem (finding) malignant neoplasm of l bud Payers Payer name Insurance type Covered republican ID Authoriza tion(s) Medicaid B O [id number] Social History Type Description Quantity Date Captured [...] on due Goal Breast exam. Due on due Goal Influenza vaccine. Due on due Goal Tdap. Due on due Goal Lipid Panel. Due on due Goal PAP. Due on [...] History Of Prese nt Illness No Information Instructions Date Instruction Additional Infor mation No Information Assessments Type Assessment Date No Information
[2025-05-21 02:37] VITALS: BP 134/102; PULSE 106; RESP 16; TEMP 37; O2SAT 99; BMI 23.3
[2025-05-21 02:42] VITALS: BP 166/120; PULSE 101; O2SAT 100
--- NOTE | 2025-05-21 02:42 | ECG_ITS ---
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 Measurements Intervals [place] Rate: 102 P: 40 LA: 148 QRS: 9 QRSD: 100 T: 77 QT: 337 QTc: 439 Interpretive Statements SINUS TACHYCARDIA POSSIBLE LEFT ATRIAL ENLARGEMENT [-0.1mV P-WAVE IN V1/V2] INCOMPLETE RIGHT BUNDLE BRANCH BLOCK [90+ ms QRS DURATION, TERMINAL R IN V1/V2, 40+ ms S IN I/aVL/V4/V5/V6] ABNORMAL RHYTHM ECG Compared to ECG 02/23/2025 00:14:08 Sinus rhythm no longer present Electronically Signed On 05-22-2025 09:13:12 CDT by Jairo Gomez M.D. [email or web address] [id number]
--- OUTSIDE RECORDS SUMMARY | 2025-05-21 02:42 | XMS_ITS | Clinical Summary ---
Author Organization [employer] Address [address] [place]: Epic Prelude ADT [place]IMAL[place] [address] Care Team Providers Care Digester Operator Name Role Phone Dashawn Velasquez DO Primary Care Provider [phone] Medications amLODIPine (NORVASC) 5 mg tablet TAKE [...] 2 times daily. 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 (CMS/HCC) 2 Drop Both Eyes ONE TIME ONLY 05/20/2025 Active Active Problems Problem Noted Date Diagnosed Date CME (cystoid macular edema), bilateral 3 Type 1 diabetes mellitus wit h left eye affected by severe nonproliferative retinopathy without macular edema 08/14/2023 Combined forms of age-related cataract of both e yes 08/14/2023 Encounters Date Type Department Care Team Description 05/20/2025 Telephone [facility] Ophthalmology [employer] [address] [place] [address] Clay Clark MD Needs Appointment 04/22/2025 External Device Data STL ABSTRACTION Provider, Abstract 04/21/2025 External Device Data STL ABSTRACTION Provider, Abstract 04/01/2025 External Device Data [place] ABSTRACTION Provider, Abstract 03/31/2025 External Device Data STL ABSTRACTION Provider, Abstract 03/04/2025 External Device Data STL ABSTRACTION Provider, Abstract 03/03/2025 External Device Data STL ABSTRACTION Provider, Abstract from Last 3 Months Social History Tobacco Use Types Packs/Day Years Used Date Smoking Tobacco: Never Alcohol Use Standard Drinks/Week Comments No 0 (1 standard drink = 0.6 oz pur e alcohol) Comments Unknown Sex and Gender Information Value Date Recorded Sex Assigned at Not on file 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
--- OUTSIDE RECORDS SUMMARY | 2025-05-21 02:42 | XMS_ITS | Encounter Summary ---
Author Organization [employer] Address [address] [place] [address] Care Team Providers Care Test Operator Name Role Phone Dashawn Velasquez DO Primary Care Provider [phone] Encounter Details Date Type Department Care Team (Late st Contact Info) Description 07/17/[address] 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 Gender Identity Not on file Sexual Orientation [...] - 0.3 mmol/L 07/17/2023 4:22 PM CDT [facility] Blood Collection / Unknown 07/17/2023 9:48 AM CDT 07/17/2023 3:50 PM CDT us Renzo Carson MD CHEMISTRY ORDERABLES Final Re sult [facility] CLIA # [id number] [address] [facility] [place] [address] documented in this encounter Visit Diagnoses Not on filedocumented in this encounter Care Teams Test Operator Relationship Specialty Start Date End Date Dashawn Velasquez DO [address] [place] [address] PCP - General Family Practice 12/05/10 documented as of this encounter
--- OUTSIDE RECORDS SUMMARY | 2025-05-21 02:42 | XMS_ITS | Encounter Summary ---
Author Organization [facility] Address [address] [place] [address] Care Team Providers Care Staffing Executive Name Role Phone Dashawn Velasquez DO Primary Care Provider [phone] Reason for Visit * Reason Onset Date Comments Needs Appointment 05/20/2025 Encounter Details Date Type Department Care Team (Late st Contact Info) Description 05/20/2025 Telephone [facility] Op[facility]mology [place] [address] [address] Clay Clark MD [address] [address] Needs Appointment Social History Tobacco Use Types Packs/Day Years Used Date Smoking Tobacco: Never Alcohol Use Standard Drinks/Week Comments No 0 (1 standard drink = 0.6 oz pur e alcohol) Comments Unknown Sex and Gender Information Value Date Recorded Sex Assigned at Not on file 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 No VM documented in this encounter Plan of Treatment Not on file documented as of this encounter Visit Diagnoses Not on filedocumented in this encounter Care Teams Staffing Executive Relationship Specialty Start Date End Date Dashawn Velasquez DO [address] [place] [address] PCP - General Family Practice 12/05/10 documented as of this encounter
--- NOTE | 2025-05-21 02:55 | W.ED.GENADLT ---
HPI - General Adult General: Chief complaint: General Medical Stated complaint: PAIN ALL OVER, HEADACHE, NAUSEA Time Seen by Provider: 05/21/25 02:38 History of Present Illness: 54-year-old female presents emergency room with complaint of generalized bodyaches and pains. She identifies nearly every joint to her back and her head is hurting no recent trauma or fall no fever sweats or chills. She is noted to have signs of tardive dyskinesia. She has some choreatic leg movements at times as well. Patient is diabetic she said her blood sugar has been elevated she has not had any vomiting or diarrhea. No fever sweats chills denies chest pain. Relates vague nonspecific left lower quadrant abdominal pain. Associated symptoms: Deny chest pain, dyspnea or rash Related Data Home Medications ?Medication ?Instructions ?Recorded ?Confirmed flash glucose scanning reader 12/14/22 04/28/25 ([employer] 14 Day [place]) imipramine HCl 25 mg tablet 25 mg PO BID 12/14/22 04/28/25 amlodipine 10 mg tablet 10 mg PO DAILY 02/23/25 04/28/25 carvedilol 12.5 mg tablet 12.5 mg PO BID 02/23/25 04/28/25 fluticasone propionate 50 2 spray intranasal DAILY 02/23/25 04/28/25 mcg/actuation nasal spray,suspension losartan 100 mg tablet 100 mg PO DAILY 02/23/25 04/28/25 omeprazole 40 mg capsule,delayed 40 mg PO DAILY 02/23/25 04/28/25 release rosuvastatin 40 mg tablet 40 mg PO DAILY 02/23/25 04/28/25 insulin aspart U-100 100 unit/mL See Rx Instructions .Route .COMPLEX 02/25/25 04/28/25 (3 mL) subcutaneous pen (Novolog FlexPen U-100 Insulin aspart) divalproex 125 mg tablet,delayed 125 mg PO TID 04/28/25 04/28/25 release (Depakote) duloxetine 20 mg capsule,delayed 20 mg PO BID 04/28/25 04/28/25 release Previous Rx's ?Medication ?Instructions ?Recorded pen needle, diabetic 31 gauge x #100 ea 04/20/2301/30 (BD Ultra-Fine Short Pen Needle) hydroxyzine HCl 50 mg tablet 50 mg PO QID PRN Anxiety #60 tabs 02/25/25 mupirocin 2 % topical ointment 1 applic topical BID #15 grams 03/11/25 gabapentin 300 mg capsule 300 mg PO BEDTIME #90 caps 04/21/25 blood-glucose sensor (FreeStyle #6 ea 04/22/25 Ok 3 Plus Sensor device) cam boot #1 ea 04/28/25 cephalexin 500 mg capsule 500 mg PO TID #21 caps 04/28/25 diabetic shoes with 3 sets of #1 ea 04/28/25 inserts insulin glargine U-300 conc 300 24 unit (0.08 mL) SUBCUT QAM #4.5 05/05/25 unit/mL (1.5 mL) subcutaneous pen mL (Toujeo SoloStar U-300 Insulin) promethazine 25 mg tablet 25 mg PO Q6H PRN nausea and 05/21/25 vomiting #20 tabs Allergies Allergy/AdvReac Type Severity Reaction Status Date / Time No Known Allergies Allergy Verified 04/28/25 08:48 Review of Systems Const: Denies: fever(s) or chills Card: Denies: chest pain Resp: Denies: dyspnea GI: Denies: abdominal pain : Denies: dysuria, urinary frequency or urinary urgency Musc: Denies: neck pain or back pain Skin/Breast: Denies: rash PFSH ED PFSH: Medical History DKA, type 1 Benign essential hypertension Severe bipolar disorder Hyperlipidemia 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 GERD (gastroesophageal reflux disease) Surgical History History of nasal surgery Hx of shoulder surgery Hx of tubal ligation Family History Other Cancer Heart disease Social History Smoking and tobacco/nicotine status: current every day tobacco/nicotine user e-cigarettes E-Cigarette Details: with nicotine Alcohol intake: former Substance/Drug Use: former Date of last use: 11/13/2024 Physical Exam Const: GENERAL APPEARANCE: cooperative ORIENTATION/CONSCIOUSNESS: Yes awake HENMT: COMMON NORMALS: normocephalic, atraumatic and hearing grossly normal bilaterally HEAD & SCALP: normocephalic and atraumatic Resp: COMMON NORMALS: normal respiratory effort, No retractions, No use of accessory muscles and clear to auscultation bilaterally AUSCULTATION: clear to auscultation bilaterally Cardio: COMMON NORMALS: regular rate, regular rhythm and No murmurs present (Cardio) RATE: regular rate RHYTHM: regular rhythm GI: COMMON NORMALS: Soft to palpation and No hepatosplenomegaly present AUSCULTATION: Yes normoactive bowel sounds PALPATION: Yes Soft to palpation, No Tenderness to palpation present (GI), No Guarding due to palpation present (GI) and Yes No hepatosplenomegaly present Extremity: COMMON NORMALS: normal to inspection, capillary refill normal, no clubbing, cyanosis or edema, no calf tenderness and no pedal edema Skin: COMMON NORMALS: no rashes or lesions noted GENERAL SKIN EXAM: no rashes or lesions noted Course Vital Signs: Vital signs: Vital Signs Temperature 98.6 F 05/21/25 02:37 Pulse Rate 113 H 05/21/25 04:00 Respiratory Rate 20 H 05/21/25 03:30 Blood Pressure 175/115 05/21/25 04:00 Pulse Oximetry 95 05/21/25 04:00 Oxygen Delivery Me thod Room Air 05/21/25 02:37 [facility] - General Adult Medical Decision Making Patient is mildly anemic but is actually improved from previous. She appears to be volume contracted BUN is elevated given 2 L of fluid 10 of insulin her blood sugars improving. She is mildly hyperventilating on arrival. Ketones are negative. Discharge patient home with promethazine to use as needed clear liquid diet. Follow-up with her primary care doctor regarding her anemia. Medical Records I reviewed the patient's medical records. Lab Data I reviewed the patient's lab results. 05/21/25 03:33 05/21/25 03:33 Laboratory Results WBC 9.75 10^3/uL (3.29-11.43) 05/21/25 03:33 RBC 3.86 10^6/uL (3.85-5.65) 05/21/25 03:33 Hgb 10.30 g/dL (11.27-16.99) L 05/21/25 03:33 Hct 31.0 % (36-47) L 05/21/25 03:33 MCV 80.3 fl (85-98) L 05/21/25 03:33 MCH 26.7 pg (27-33) L 05/21/25 03:33 MCHC 33.2 g/dL (30-55) 05/21/25 03:33 RDW 14.2 % (12.1-15.1) 05/21/25 03:33 Plt Count 255 10^3/cmm (157-399) 05/21/25 03:33 MPV 9.8 fL (7.4-10.4) 05/21/25 03:33 Neut % (Auto) 74.4 % 05/21/25 03:33 Lymph % (Auto) 18.9 % 05/21/25 03:33 [place] % (Auto) 4.8 % 05/21/25 03:33 Eos % (Auto) 1.2 % 05/21/25 03:33 Baso % (Auto) 0.4 % 05/21/25 03:33 Neut # (Auto) 7.25 10^3/uL (1.8-7.7) 05/21/25 03:33 Lymph # (Auto) 1.8 10^3/uL (0.8-4.8) 05/21/25 03:33 [place] # (Auto) 0.5 10^3/uL (0.2-0.9) 05/21/25 03:33 Eos # (Auto) 0.1 10^3/uL (0.0-0.8) 05/21/25 03:33 Baso # (Auto) 0.0 10^3/uL (0.0-0.1) 05/21/25 03:33 Nucleated RBC % (auto) 0 % 05/21/25 03:33 Nucleated RBCs # 0.0 /100WBC 05/21/25 03:33 Specimen Type Arterial 05/21/25 03:08 Sample Site Brachial, left 05/21/25 03:08 ABG pH 7.47 (7.35-7.45) H 05/21/25 03:08 ABG pCO2 29.2 mmHg (35-45) L 05/21/25 03:08 ABG pO2 73.8 mmHg (80.0-100.0) L 05/21/25 03:08 ABG HCO3 21.3 mmol/L (22-26) L 05/21/25 03:08 ABG O2 Saturation 96.4 05/21/25 03:08 ABG Base Excess -1.8 mmol/L (-2.0-2.0) 05/21/25 03:08 [place] Test N/a 05/21/25 03:08 A-a O2 Gradient 4.9 mmHg (5-10) L 05/21/25 03:08 Hematocrit 28.2 % (37-47) L 05/21/25 03:08 Hgb O2 Saturation 93.7 % (95-100) L 05/21/25 03:08 Carboxyhemoglobin 1.5 %THgb (0.4-20.1) 05/21/25 03:08 Methemoglobin 1.3 % (0.4-1.5) 05/21/25 03:08 Total Hemoglobin 9.2 g/dL (12-16) L 05/21/25 03:08 Sodium 136.0 mmol/L (131-143) 05/21/25 03:08 Potassium 4.0 mmol/L (3.5-5.0) 05/21/25 03:08 Glucose 288.0 mg/dL (70-115) H 05/21/25 03:08 Ionized Calcium 1.3 mmol/L (1.1-1.4) 05/21/25 03:08 O2 Delivery Device Room air 05/21/25 03:08 Manual Training Teacher ID [email or web address] 05/21/25 03:08 Sodium 135 mmol/L (136-145) L 05/21/25 03:33 Potassium 4.3 mmol/L (3.5-5.1) 05/21/25 03:33 Chloride 99 mmol/L (98-107) 05/21/25 03:33 Carbon Dioxide 21 mmol/L (22-29) L 05/21/25 03:33 Anion Gap 19.3 (5-19) H 05/21/25 03:33 BUN 45 mg/dL (6-20) H 05/21/25 03:33 Creatinine 1.1 mg/dL (0.5-0.9) H 05/21/25 03:33 GFR Calculation 51.6 mL/min (90-130) L 05/21/25 03:33 Glucose 283 mg/dL (65-115) H 05/21/25 03:33 POC Glucose 265 mg/dL (70-110) H 05/21/25 04:09 Calculated Osmolality 302 mOsm/kg (285-295) H 05/21/25 03:33 Calcium 9.9 mg/dL (8.5-10.5) 05/21/25 03:33 Total Bilirubin 0.3 mg/dL (0.15-1.2) 05/21/25 03:33 AST 24 U/L (0-32) 05/21/25 03:33 ALT 18 U/L (0-33) 05/21/25 03:33 Alkaline Phosphatase 131 U/L (35-105) H 05/21/25 03:33 Total Protein 7.2 g/dL (6.6-8.7) 05/21/25 03:33 Albumin 4.1 g/dL (3.5-5.2) 05/21/25 03:33 Globulin 3.1 g/dL (1.3-4.6) 05/21/25 03:33 Urine Color Yellow (Yellow) 05/21/25 04:29 Urine Appearance Clear (CLEAR) 05/21/25 04:29 Urine pH 5.0 (5-7) 05/21/25 04:29 Ur Specific [place] 1.019 (1.005-1.030) 05/21/25 04:29 Urine Protein 3+ (Negative) A 05/21/25 04:29 Urine Glucose (UA) 2+ (Normal) H 05/21/25 04:29 Urine Ketones Negative (Negative) 05/21/25 04:29 Urine Blood 1+ (Negative) A 05/21/25 04:29 Urine Nitrate Negative (Negative) 05/21/25 04:29 Urine Bilirubin Negative (Negative) 05/21/25 04:29 Urine Urobilinogen 0.2 mg/dL (Negative) 05/21/25 04:29 Ur Leukocyte Esterase Negative (Negative) 05/21/25 04:29 Urine RBC 3-5 /hpf (0-2) 05/21/25 04:29 Urine WBC 0-5 /hpf (0-5) 05/21/25 04:29 Ur Squamous Epith Cells 0-5 /hpf (0-5) 05/21/25 04:29 Amorphous Sediment Not Reportable 05/21/25 04:29 Urine Bacteria None seen /hpf (NONE) 05/21/25 04:29 Hyaline Casts 3.71 /lpf 05/21/25 04:29 Urine Opiates Screen Negative ng/mL (Negative) 05/21/25 04:29 Ur Barbiturates Screen Negative ng/mL (Negative) 05/21/25 04:29 Ur Phencyclidine Scrn Negative ng/mL (Negative) 05/21/25 04:29 Ur Amphetamines Screen Negative ng/mL (Negative) 05/21/25 04:29 U Benzodiazepines Scrn Negative ng/mL (Negative) 05/21/25 04:29 Urine Cocaine Screen Negative ng/mL (Negative) 05/21/25 04:29 U Marijuana (THC) Screen Negative ng/mL (Negative) 05/21/25 04:29 Serum Ketones Negative (Negative) 05/21/25 03:33 No radiology studies performed this visit EKG Data EKG 1: Interpretation: EKG 05/21/2025 2:42 AM sinus tachycardia incomplete bundle branch block rate of 102. Normal 148 QTc 396. Compared to EKG 02/23/2025 T wave is now upright in V3 was inverted in previous EKG. Discharge Plan Discharge Patient Disposition: Home Clinical Impression: Myalgia, Nausea & vomiting Condition: Stable Prescriptions: New promethazine 25 mg tablet 25 mg PO Q6H PRN (Reason: nausea and vomiting) Qty: 20 0RF No Action (DME) FreeStyle Ok 14 Day [place] Misc See Rx Instructions .Route Rx Instructions: As directed imipramine HCl 25 mg tablet 25 mg PO BID divalproex [Depakote] 125 mg tablet,delayed release (DR/EC) 125 mg PO TID duloxetine 20 mg capsule,delayed release(DR/EC) 20 mg PO BID (DME) diabetic shoes with 3 sets of inserts See Rx Instructions .ROUTE .MEDSUPPLY Qty: 1 0RF Rx Instructions: As directed by HOME cephalexin 500 mg capsule 500 mg PO TID Qty: 21 0RF (DME) cam boot See Rx Instructions .Route .MEDSUPPLY Qty: 1 0RF Rx Instructions: As directed gabapentin 300 mg capsule 300 mg PO BEDTIME Qty: 90 0RF (DME) pen needle, diabetic [BD Ultra-Fine Short Pen Needle] 31 gauge x 5/16 needle See Rx Instructions .Route Qty: 100 0RF Rx Instructions: As directed (DME) FreeStyle Ok 3 Plus Sensor Device See Rx Instructions .Route Qty: 6 1RF Rx Instructions: USE TO MONITOR BLOOD GLUCOSE LEVELS insulin glargine U-300 conc [Toujeo SoloStar U-300 Insulin] 300 unit/mL (1.5 mL) insulin pen 24 unit SUBCUT QAM Qty: 4.5 2RF carvedilol 12.5 mg tablet 12.5 mg PO BID omeprazole 40 mg capsule,delayed release(DR/EC) 40 mg PO DAILY amlodipine 10 mg tablet 10 mg PO DAILY losartan 100 mg tablet 100 mg PO DAILY fluticasone propionate 50 mcg/actuation spray,suspension 2 spray INTRANASAL DAILY rosuvastatin 40 mg tablet 40 mg PO DAILY insulin aspart U-100 [Novolog FlexPen U-100 Insulin] 100 unit/mL (3 mL) insulin pen See Rx Instructions .ROUTE .COMPLEX Rx Instructions: Take 5 unit subcutaneously 3 times daily plus sliding scale if needed. hydroxyzine HCl 50 mg tablet 50 mg PO QID PRN (Reason: Anxiety) Qty: 60 0RF mupirocin 2 % ointment 1 applic topical BID Qty: 15 0RF Discharge Orders: Discharge ED (Routine); Ordered 05/21/25 Ordered By: Justen Fuentes Discharge Diet: Clear Liquid Discharge Activity: Increase activity as tolerated Patient Instructions: Opioid Safety, Pain Management, Patient Portal & Mya Instructions Activity Restrictions/Additional Instructions: Thank you for choosing [facility] for your healthcare needs today. It is very important that you follow up as instructed or that you return to the Emergency Department should you have concerns or if your condition changes or worsens in any way. Emergency department visits are focused on emergent conditions, in some cases you may require further evaluation on an outpatient basis. You are seen with elevated blood sugar and generalized pains. Your ketones were negative there is no sign of DKA. You are moderately anemic should follow this up with your primary care doctor, it somewhat improved today compared to what it has been in the past. Urine did not show any signs of infection. Monitor blood sugars closely you were given 2 L of IV fluids and a prescription for promethazine to use as needed for nausea. (Please note that included in your discharge packet is information concerning opioid safety and pain management. This information is given to all patients were discharged from the ER regardless of their discharge diagnosis or the medicines they usually take or are prescribed.) Print Language: Italian Coding Level of Care Code ED Hot Stone Setter for Marco Antonio Carter
[2025-05-21 03:12] VITALS: BP 166/120; PULSE 109; O2SAT 99
[2025-05-21 03:18] LABS: ABG PCO2 29.2 mmHg (35-45); ABG PH Result 7.47 (7.35-7.45); Alveolar-Arterial Oxygen Gradi 4.9 mmHg (5-10); Arterial Blood Gas Hematocrit 28.2 % (37-47); Blood Gas Sample Site Brachial, left; Blood Gas Sample Type Arterial; Carboxyhemoglobin 1.5 %THgb (0.4-20.1); Glucose Level-ABG 288.0 mg/dL (70-115); HCO3 ABG 21.3 mmol/L (22-26); Ionized Calcium Level - ABG 1.3 mmol/L (1.1-1.4); Methemoglobin 1.3 % (0.4-1.5); Oxygen Saturation ABG 96.4; PO2 ABG 73.8 mmHg (80.0-100.0); Potassium Level - ABG 4.0 mmol/L (3.5-5.0); Sodium Level - ABG 136.0 mmol/L (131-143)
[2025-05-21 03:30] VITALS: BP 180/111; PULSE 107; RESP 20; O2SAT 99
[2025-05-21 03:36] LABS: Hematocrit 31.0 % (36-47); Hemoglobin 10.30 g/dL (11.27-16.99); Mean Corpuscular HGB Conc 33.2 g/dL (30-55); Mean Corpuscular Hemoglobin 26.7 pg (27-33); Mean Corpuscular Volume 80.3 fl (85-98); Nucleated Red Blood Cells % 0 %; Platelet Count 255 10^3/cmm (157-399); Red Blood Count 3.86 10^6/uL (3.85-5.65); White Blood Count 9.75 10^3/uL (3.29-11.43)
[2025-05-21 03:47] LABS: Ketone (Acetest) Serum Negative (Negative)
[2025-05-21 03:55] LABS: Alanine Aminotransferase 18 U/L (0-33); Albumin Level 4.1 g/dL (3.5-5.2); Alkaline Phosphatase 131 U/L (35-105); Anion Gap 19.3 (5-19); Aspartate Amino Transferase 24 U/L (0-32); Blood Urea Nitrogen 45 mg/dL (6-20); Calcium 9.9 mg/dL (8.5-10.5); Carbon Dioxide 21 mmol/L (22-29); Chloride 99 mmol/L (98-107); Creatinine Clr Calc Pharmacy 52.4502; Globulin 3.1 g/dL (1.3-4.6); Glucose 283 mg/dL (65-115); Osmolality Calculated 302 mOsm/kg (285-295); Potassium 4.3 mmol/L (3.5-5.1); Sodium 135 mmol/L (136-145); Total Protein 7.2 g/dL (6.6-8.7)
[2025-05-21 04:00] VITALS: BP 175/115; PULSE 113; O2SAT 95
[2025-05-21] MEDS: insulin regular-human 100 units/1 mL 10 UNIT IVP (04:12)
[2025-05-21 04:47] LABS: Glucose Urine UA 2+ (Normal); Nitrate Urine Negative (Negative); Specific Gravity, Urine 1.019 (1.005-1.030)
[2025-05-21 04:52] LABS: Add Urine Microscopic? YES
[2025-05-21 04:54] LABS: PCP Screen Urine Negative (Negative)
== END 2025-05-21 06:22 | disposition home or self-care (01) ==
PROVIDERS: Emergency Provider Family Medicine; PCP Family Medicine
DX: M79.10 Myalgia, unspecified site (principal); R11.2 Nausea with vomiting, unspecified; F17.290 Nicotine dependence, other tobacco product, uncomplicated; E78.5 Hyperlipidemia, unspecified; I10 Essential (primary) hypertension; E10.42 Type 1 diabetes mellitus with diabetic polyneuropathy
CPT/HCPCS: 36416; 36600; 80051; 80053; 80306; 81001; 82009; 82330; 82805; 82962; 85025; 93005; 96361; 96374; 96375; 99284; J0780; J1815; J1885; J7030

== ENCOUNTER → 2025-05-26 08:05 | Outpatient (BNVA) | payer MEDICARE, SELFPAY | PROVIDERS: PCP Family Medicine; Visit Provider Podiatrist Foot & Ankle Surgery | DX: E10.42 Type 1 diabetes mellitus with diabetic polyneuropathy (principal); B07.0 Plantar wart; Z79.4 Long term (current) use of insulin | CPT/HCPCS: 99214 ==

== ENCOUNTER → 2025-06-02 09:55 | Outpatient (BNVA) | payer MEDICARE, SELFPAY | PROVIDERS: PCP Family Medicine; Visit Provider Internal Medicine | DX: E10.40 Type 1 diabetes mellitus with diabetic neuropathy, unspecified (principal); E78.5 Hyperlipidemia, unspecified; E10.649 Type 1 diabetes mellitus with hypoglycemia without coma; J06.9 Acute upper respiratory infection, unspecified | CPT/HCPCS: 99214 ==

== ENCOUNTER → 2025-06-25 08:20 | Outpatient (BNVA) | payer MEDICARE, SELFPAY | PROVIDERS: PCP Family Medicine; Visit Provider Podiatrist Foot & Ankle Surgery | DX: E10.42 Type 1 diabetes mellitus with diabetic polyneuropathy (principal); B07.0 Plantar wart; Z79.4 Long term (current) use of insulin | CPT/HCPCS: 99213 ==

== ENCOUNTER 2025-07-12 18:38 | Emergency (ER) | payer MEDICARE, SELFPAY ==
--- OUTSIDE RECORDS SUMMARY | 2025-07-12 18:42 | XMS_ITS | Data Portability ---
Author Organization ZULEIKA Doran [facility] Jose Landon [facility] Address [address] [address] Care Team Providers Care Television Journalist Name Role Phone STACEY MONZON Primary Care Provider [phone] Assessment Encounter Date Assessment Date Assessment LastModified by Organization Details LastModified Time 05/21/2025 05/21/2025 Reviewed ER records. Labs were unremarkable. [email or web address] Not available 05/23/2025 13:38:30 06/23/2025 06/23/2025 55-year-old shivam parra with a history of dysuria, gastroesophageal reflux disease without esophagitis, tardive dyskinesia, and type 2 diabetes mellitus presenting with urinary difficulties and medication management. The patient's urinary symptoms are likely related to her ongoing constipation, requiring assessment and intervention to alleviate these issues. Her involuntary movements indicate a possible exacerbation of tardive dyskinesia due to promethazine use. Additionally, recent high blood glucose readings necessitate immediate attention to her diabetes management plan. Omeprazole depletion suggests the need for refill to manage gastroesophageal symptoms. Overall, comprehensive evaluation and strategic medication adjustments are necessary to address her interconnected chronic issues. [email or web address] Not available 06/23/2025 10:15:22 07/01/2025 07/01/2025 55-year-old shivam parra with a history of musculoskeletal issues and tardive dyskinesia, presenting with left shoulder pain potentially due to impingement, right knee discomfort likely relating to fluid buildup without diagnosed arthritis, and abdomen pain suggestive of back origin. Further examination and medication adjustment for tardive dyskinesia are warranted. [email or web address] Not available 07/01/2025 10:50:15 Plan of Treatment Reminders Order Date Submit Date Provider Last Modified By Organization Details Last Modified Time Details Appointments RECHECK 15 2024 09:45A Sonia Monzon MD Not available Not available Not available RECHECK 15 2024 08:00A Sonia Monzon MD Not available Not available Not available Lab urinalysi s, complete 2024 025 ELGIN [facility], [address], [address], [place], [address], 06/23/2025 10:38:28 culture, urine 2024 025 ELGIN Drimki [facility], [address] [facility] [address], [address] [place], [address], 06/25/2025 17:20:04 C-reactiv e protein, quantitat nadja, serum or plasma 2024 025 JORGE Not available 05/26/2025 18:14:29 CAPRI (antinucl ear antibodie s) screen, serum 2024 025 [email or web address] Not available 05/21/2025 10:49:05 rf (rheumato id factor), serum 2024 025 JORGE Not available 05/26/2025 18:14:29 ESR (erythroc yte sedimenta tion rate), blood 2024 025 [facility] ([facility]), [address] [place], [address], 05/21/2025 13:32:15 ccp (cyclic citrullin ated peptide) igg, serum 2024 025 [facility] ([facility]), [address] [place], [address], 05/26/2025 18:14:29 CMP, serum or plasma 2024 025 [facility], [address], [address], [place], [address], 05/21/2025 12:34:36 Referral physical therapist referral 2024 [place] [address] [facility], [address] [place] [address], [address], 07/06/2025 17:48:42 rheumatol ogist referral 2024 025 [email or web address] Car Lamas MD, [address] [place], [address], 06/11/2025 16:50:16 Procedures None recorded. Surgeries None recorded. Imaging XR, shoulder, 2 or more view 2024 [facility], [address], [place], [address], 07/02/2025 12:28:13 Medication Orders Ingrezza 40 mg capsule 2024 025 [facility] #[id number], [address], [address], [place], [address], 07/01/2025 10:47:53 omeprazol e 20 mg capsule,d elayed release 2024 025 [facility]acy #[id number], [address], [address], [place], [address], 06/23/2025 09:42:25 tramadol 50 mg tablet 2024 025 [facility] #[id number], [address], [address], [place], [address], 05/21/2025 10:50:51 ondansetr on HCl 4 mg tablet 2024 025 [facility]acy #[id number], [address], [address], [place], [address], 06/23/2025 09:19:19 meloxicam 15 mg tablet 2024 025 [facility] #[id number], [address] [facility], [place], [address], 05/21/2025 10:50:05 Patient TargetsNo targets recorded. 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 - Refill and adhere to daily omeprazole and diabetes medications. - Discontinue promethazine and explore alternative antiemetics. - Start stool softeners like MiraLax for constipation management. - Monitor blood sugar closely; contact the silvering department supervisor if abnormal values persist. - Focus on dietary modifications to help reduce constipation. - Discuss urinary symptoms with a urologist if no improvement. - Engage in daily practices to manage anxiety. - Consider turmeric for short-term inflammation control. [email or web address] Not available 06/23/2025 09:44:20 During today's consultation, I discussed the potential causes of the urinary difficulties with the patient, emphasizing the influence of constipation on bladder function. I advised ruling out urinary tract infection and considering bowel regimen adjustments. We also addressed the adverse effects of promethazine, recognizing its role in the patient's involuntary movements, leading to its discontinuation. New antiemetic options are considered to address nausea. The patient's high glucose levels suggest worsening diabetes control; I advised adherence to monitoring and maintaining endocrinology follow-ups. Refilling her omeprazole was recommended to manage reflux symptoms. Lastly, we explored the interest in turmeric for inflammation management, acknowledging limited evidence of its detoxifying benefits, affirming it is plausible for short-term use without significant harm. [email or web address] Not available 06/23/2025 09:44:21 07/01/2025 [id number] - Visit the lab for a shoulder x-ray today. - Start physical therapy for right knee pain. - Begin Ingrezza medication as prescribed; expect the need for insurance approval. - Monitor abdominal and back pain; report changes or increased pain. [email or web address] Not available 07/01/2025 10:50:16 I discussed the potential for shoulder impingement or tendonitis with the patient and recommended obtaining x-rays to assess the situation fully. For her knee pain, physical therapy is advised, and we talked about the potential for joint injections if symptoms worsen. Tardive dyskinesia management involves initiating Ingrezza, monitoring the patient's response, and obtaining necessary prior authorization from insurance. I also addressed the abdominal pain, likely an extension of back discomfort, and advised observing for any change in symptomatology. [email or web address] Not available 07/01/2025 10:50:17 Reason for Referral Deal Architect Referral for Arthritis Referring Physician: Stacey Monzon, [facility], Encounter Date: 05/28/2025 Physical Therapist Referral for Pain of knee region Referring Physician: Stacey Monzon [facility], Encounter Date: 07/01/2025 Results Created Date Observation Date Name Description Value Unit Range Abnormal Flag Note LastModifiedBy Organization Detail LastModifiedTime 05/21/2005/21/2025 CMP (FEMA LE) glucose 262.0 mg/dL 60.0-9 9.0 high Not Available [facility] [address] [address], [place], [address], 05/21/2025 12:34:36 05/21/2005/21/2025 CMP (FEMA LE) BUN (blood urea nitrogen) 40.0 mg/dL 10.0-2 6.0 high Not Available [facility] [address] [facility] [address], [place], [address], 05/21/2025 12:34:36 05/21/2005/21/2025 CMP (FEMA LE) creatinine (serum) 0.9 mg/dL 0.4-1. 5 Not Available [facility] [address] [facility] [address], [place], [address], 05/21/2025 12:34:36 05/21/2005/21/2025 CMP (FEMA LE) BUN/creatini ne ratio 44.44 ratio Not Available [facility] [address] [facility] [address], [place], [address], 05/21/2025 12:34:36 05/21/20 25 05/21/2025 CMP (FEMA LE) eGFR calculated 69.1 Not Available [facility] [address] [facility] [address], [place], [address], 05/21/2025 12:34:36 05/21/20 25 05/21/2025 CMP (FEMA LE) total protein 6.4 g/dL 6.0-8. 5 Not Available [facility] [address] [facility] [address], [place], [address], 05/21/2025 12:34:36 05/21/2005/21/2025 CMP (FEMA LE) total bilirubin 0.5 mg/dL 0.2-1. 3 Not Available [facility] [address] [facility] [address], [place], [address], 05/21/2025 12:34:36 05/21/2005/21/2025 CMP (FEMA LE) albumin 3.8 g/dL 3.5-5. 5 Not Available [facility] [address] [facility] [address], [place], [address], 05/21/2025 12:34:36 05/21/2005/21/2025 CMP (FEMA LE) globulin 2.6 calc Not Available [facility] [address] [facility] [address], [place], [address], 05/21/2025 12:34:36 05/21/2005/21/2025 CMP (FEMA LE) AST (SGOT) 46.0 U/L 0.0-46 .0 Not Available [facility] [address] [facility] [address], [place], [address], 05/21/2025 12:34:36 05/21/20 25 05/21/2025 CMP (FEMA LE) altv (SGPT) 27.0 U/L 13.0-6 9.0 normal Not Available [facility] [address] [facility], [place], [address], 05/21/2025 12:34:36 05/21/20 25 05/21/2025 CMP (FEMA LE) A/G ratio 1.5 ratio Not Available [facility] [address] [facility] [address], [place], [address], 05/21/2025 12:34:36 05/21/20 25 05/21/2025 CMP (FEMA LE) ALP phos 108.0 U/L 30.0-1 40.0 normal Not Available [facility] [address] [facility] [address], [place], [address], 05/21/2025 12:34:36 05/21/20 25 05/21/2025 CMP (FEMA LE) calcium 9.5 mg/dL 8.4-10 .5 Not Available [facility] [address] [facility] [address], [place], [address], 05/21/2025 12:34:36 05/21/20 25 05/21/2025 CMP (FEMA LE) sodium 135.0 mmol/ L 136.0- 145.0 low Not Available [facility] [address] [facility] [address], [place], [address], 05/21/2025 12:34:36 05/21/20 25 05/21/2025 CMP (FEMA LE) potassium 4.5 mmol/ L 3.5-5. 1 Not Available [facility] [address] [facility] [address], [place], [address], 05/21/2025 12:34:36 05/21/20 25 05/21/2025 CMP (FEMA LE) chloride 109.0 mmol/ L 98.0-1 10.0 normal Not Available [facility] [address], [place], [address], 05/21/2025 12:34:36 05/21/20 25 05/21/2025 CMP (FEMA LE) C02 20.0 mmol/ L 22.0-3 1.0 low Not Available [facility] [address] [facility], [place], [address], 05/21/2025 12:34:36 05/21/20 25 05/21/2025 CMP (FEMA LE) anion gap 6.0 calc Not Available [facility] [address] [facility] [address], [place], [address], 05/21/2025 12:34:36 05/21/20 25 05/21/2025 CMP (FEMA LE) osmolality 296.4 calc Not Available [facility] [address] [facility] [address], [place], [address], 05/21/2025 12:34:36 05/21/20 25 05/26/2025 CAPRI SCREE N, IFA, W/REF L TITER AND PATTE RN CAPRI screen, ifa NEGATI VE negati ve normal CAPRI IFA is a first line scree n for detec ting the prese nce of up to appro ximat viral 150 autoa ntibo dies in vario us autoi mmune disea ses. A negat nadja CAPRI IFA resul t sugge sts an CAPRI-a ssoci ated autoi mmune disea se is not prese nt at this time, but is not defin itive . If there is high clini fei suspi cion for Sjogr en's syndr ome, testi ng for anti- SS-A/ Ro antib bharati shoul d be consi dered . Anti- Eliza-1 antib bharati shoul d be consi dered for clini indio suspe cted infla mmato ry myopa radha . AC-0: Negat nadja Inter natio nal Conse nsus on CAPRI Patte rns (http s://d oi.or g/10. 1515/ [facility]- 2017- 0052) For addit ional infor usha de la cruz e refer to http: //[facility] joselin Sims stDia gnost ics.c om/fa q/FAQ 177 (This link is being provi ded for infor charmaine anderson/ educfelix dow purpo ses only. ) Not Available [address], [address], 05/26/2025 18:14:28 05/21/20 25 05/26/2025 RHEUM ATOID FACTO R rheumatoid factor <10 IU/mL <14 normal Not Available [address], [address], 05/26/2025 18:14:29 05/21/20 25 05/26/2025 C-FORD CTIVE PROTE IN C-reactive protein 15.2 mg/L <8.0 high Not Available [address], [address], 05/26/2025 18:14:29 05/21/20 25 05/26/2025 CYCLI C CITRU LLINA ERIC PEPTI DE (CCP) AB (IGG) cyclic citrullinate d peptide (ccp) Ab (IgG) <16 units normal Refer ence Range Negat nadja: <20 Weak Posit nadja: 20-39 Moder ate Posit nadja: 40-59 Stron g Posit nadja: >59 Not Available [address], [address], 05/26/2025 18:14:29 05/21/20 25 05/21/2025 ESR (eryt hrocy te sedim entat ion rate) , blood SedRate 50 Not Available [facility] [address] [place], [address], 05/21/2025 10:47:32 06/23/20 25 06/23/2025 URINA LYSIS WITH MICRO color LIGHT YELLOW Not Available [facility] [address], [place], [address], 06/23/2025 10:38:28 06/23/2006/23/2025 URINA LYSIS WITH MICRO clarity SLIGHT LY CLOUDY Not Available [facility] [address], [place], [address], 06/23/2025 10:38:28 06/23/2006/23/2025 URINA LYSIS WITH MICRO glu 3+ abnormal Not Available [facility] [address], [place], [address], 06/23/2025 10:38:28 06/23/20 25 06/23/2025 URINA LYSIS WITH MICRO bili NEGATI VE Not Available [facility] [address], [place], [address], 06/23/2025 10:38:28 06/23/20 25 06/23/2025 URINA LYSIS WITH MICRO ket NEGATI VE Not Available [facility] [address], [place], [address], 06/23/2025 10:38:28 06/23/20 25 06/23/2025 URINA LYSIS WITH MICRO S.g 1.010 1.005- 1.025 Not Available [facility] [address], [place], [address], 06/23/2025 10:38:28 06/23/20 25 06/23/2025 URINA LYSIS WITH MICRO pH 5.5 5.0-7. 0 Not Available [facility] [address], [place], [address], 06/23/2025 10:38:28 06/23/20 25 06/23/2025 URINA LYSIS WITH MICRO pro 3+ abnormal Not Available [facility] [address], [place], [address], 06/23/2025 10:38:28 06/23/20 25 06/23/2025 URINA LYSIS WITH MICRO uro 0.2 E.U./D L Not Available [facility] [address] [facility], [place], [address], 06/23/2025 10:38:28 06/23/20 25 06/23/2025 URINA LYSIS WITH MICRO nit POSITI VE abnormal Not Available [facility] [address] [facility], [place], [address], 06/23/2025 10:38:28 06/23/20 25 06/23/2025 URINA LYSIS WITH MICRO blo 1+ abnormal Not Available [facility] [address] [facility] [address], [place], [address], 06/23/2025 10:38:28 06/23/20 25 06/23/2025 URINA LYSIS WITH MICRO essence 1+ abnormal Not Available [facility] [address] [facility] [address], [place], [address], 06/23/2025 10:38:28 06/23/20 25 06/23/2025 URINA LYSIS WITH MICRO WBC 100 abnormal > Not Available [facility] [address] [facility], [place], [address], 06/23/2025 10:38:28 06/23/20 25 06/23/2025 URINA LYSIS WITH MICRO RBC 2-3 Not Available [facility] [address] [facility], [place], [address], 06/23/2025 10:38:28 06/23/20 25 06/23/2025 URINA LYSIS WITH MICRO epi cells 6-8 abnormal Not Available [facility] [address] [facility] [address], [place], [address], 06/23/2025 10:38:28 06/23/2006/23/2025 URINA LYSIS WITH MICRO bacteria TRACE OF MIXED MELY abnormal Not Available [facility] [address], [place], [address], 06/23/2025 10:38:28 06/23/20 25 06/23/2025 URINA LYSIS WITH MICRO other NG Not Available [facility] [address], [place], [address], 06/23/2025 10:38:28 06/23/20 25 06/25/2025 CULTU RE, URINE , ROUTI NE culture, urine, routine SEE NOTE abnormal CULTU RE, URINE , ROUTI NE Micro Numbe r: [id number] Test Statu s: Final Speci men Sourc e: Urine , clean catch Speci men Quali ty: Adequ ate Resul t: Great er than 100,0 00 CFU/m L of Esche sammie a coli E.col i ----- ----- ----- - INT ANNA AMOX/ CLAVU LANAT E S 8 AMP/S ULBAC BATISTA I 16 CEFAZ TIN I 4 CEFEP STEVE S <=0.1 2 CEFTA ZIDIM E S <=0.5 CEFTR IAXON E S <=0.2 5 CIPRO FLOXA MELODY S <=0.0 6 GENTA MICIN S <=1 IMIPE NEM S <=0.2 5 LEVOF LOXAC IN S <=0.1 2 MEROP ENEM S <=0.2 5 NITRO FURAN TOIN S <=16 PIP/T AZOBA CTAM S <=4 TRIME THOPR IM/GRISSOM LFA R >=320 S = Susce ptibl e I = Inter media te R = Resis tant NS = Not susce ptibl e SDD = Susce ptibl e Dose Depen dent * = Not Teste d NR = Not Repor eric NN = See Thera py Comme nts Not Available [facility] [id number], [place], [address], 06/25/2025 17:20:04 07/02/20 25 07/01/2025 XR, christine anjelica, 2 or more view No observ ation record ed. [facility] [address] [place], [address], 07/03/2025 13:49:46 Result Notes None recorded. Problems Name Problem SNOMED Code Status Onset Date Resolution Date Notes Provider Name and Address Organization Details Recorded Time Chronic neck pain 6385298194004 Active 2024 Stacey Monzon MD [address] [place] [address], [phone], [facility] 14:44:59 Pain of left shoulder joint 3455291402653 9109 Active 2024 Stacey Monzon MD [address] [place] [address], [phone], [facility] 14:45:24 Extrapyrami casey sign 12128876 Active 2024 Stacey Monzon MD [address] [place] [address], [phone] 5, [facility] 14:48:32 Nausea 154039640 Active 2024 Stacey Monzon MD [address] [place] [address], [phone] 5, [facility] 14:49:22 Type 1 diabetes mellitus 82139514 Active 2024 Stacey Monzon MD [address] [place] [phone] 5, [facility] 14:50:28 Essential hypertensio n 50903448 Active 2024 Stacey Monzon MD [address] [place] [address], [phone] 5, [facility] 09:10:38 Pain of multiple joints 23680365 Active 2024 Stacey Monzon MD [address] [place] [address], [phone] 5, [facility] 10:47:24 Arthritis 0867796 Active 2024 Staecy Monzon MD [address] [place] [address], [phone] 5, [facility] 10:30:41 Viral upper respiratory tract infection 336714563 Active 2024 Stacey Monzon MD [address] [place] [address], [phone] 5, [facility] 20:42:43 Dysuria 33842048 Active 2024 Stacey Monzon MD [address] [place] [address], [phone] 5, [facility] 09:36:44 Gastroesoph ageal reflux disease without esophagitis 924530650 Active 2024 Stacey Monzon MD [address] [place] [address], [address] 5, [facility] 09:39:43 Chronic constipatio n 276126813 Active 2024 Stacey Monzon MD [address] [place] [address], [phone] 5, [facility] 10:14:46 Generalized anxiety disorder 13780163 Active 2024 Stacey Monzon MD [address] [place] [address], [phone] 5, [facility] 10:15:06 Acute urinary tract infection 949735128 Active 2024 Stacey Monzon MD [address] [place] [address], [phone] 5, [facility], Jose 11:28:18 Pain of left shoulder region Active 2024 Stacey Monzon MD [address] [place] [address], [phone] 5, [facility], Jose 10:46:20 Tardive dyskinesia 088469463 Active 2024 Stacey Monzon MD [address] [place] [address], [phone] 5, [facility], Jose 10:46:46 Problem Notes None recorded. Procedures Surgical History Date Name Laterality Status Provider Name and Address Organization Details Recorded Time procedure on shoulder completed [facility], [place] 05/28/2025 10:04:06 Hysterectomy completed [facility], Jose 05/28/2025 10:04:22 Tubal Ligation completed [facility], [place] 05/28/2025 10:04:36 nasal septoplasty completed [facility], Jose 05/28/2025 10:04:52 Imaging Results None recorded. Procedure Notes None recorded. Medical Equipment None Reported. Allergies No known drug allergies Medications Name Sig Start Date Stop Date Status Note LastModified by Organization Details LastModified Time Prescriptio n - Prior Authorizati on Request active Not Available Not Available N ot Available carvedilol 12.5 mg tablet TAKE 1 TABLET BY MOUTH TWICE A DAY active Not Available Not Available No t Available divalproex 250 mg tablet,silvia yed release TAKE 1 TABLET BY MOUTH EVERY DAY active Not Available Not Available No t Available meloxicam 15 mg tablet Take 1 tablet every day by oral route. 05/21 completed Not Available Not Available Not Available ondansetron HCl 4 mg tablet Take 1 tablet every 6 hours by oral route as needed. 06/23 completed Not Available Not Available Not Available fluorouraci l 5 % topical cream APPLY TOPICALLY TO THE AFFECTED AREA TWICE DAILY FOR 4 WEEKS active Not Available Not Available No t Available Accu-Chek Softclix Lancets USE DIRECTED TO CHECK BLOOD SUGAR UP TO 4 TIMES DAILY active Not Available Not Available No t Available hydroxyzine HCl 50 mg tablet TAKE 1 TABLET BY MOUTH FOUR TIMES DAILY NEEDED FOR ANXIETY active Not Available Not Available No t Available sulfamethox azole 800 mg-trimetho prim 160 mg tablet TAKE 1 TABLET BY MOUTH EVERY 12 HOURS FOR 5 DAYS active Not Available Not Available No t Available tramadol 50 mg tablet TAKE 1 TABLET BY MOUTH EVERY 6 HOURS active Not Available Not Available No t Available ciclopirox 8 % topical solution apply topically DAILY for FOUR WEEKS active Not Available Not Available No t Available amlodipine 10 mg tablet TAKE 1 TABLET BY MOUTH EVERY DAY active Not Available Not Available No t Available cephalexin 500 mg capsule TAKE 1 CAPSULE BY MOUTH THREE TIMES DAILY 05/12 completed Not Available Not Available Not Available promethazin e 25 mg tablet TAKE 1 TABLET BY MOUTH EVERY 6 HOURS NEEDED FOR NAUSEA OR VOMITING 06/23 completed Not Available Not Available Not Available omeprazole 20 mg capsule,del ayed release TAKE 1 CAPSULE BY MOUTH EVERY DAY active Not Available Not Available No t Available fluticasone propionate 50 mcg/actuati on nasal spray,suspe nsion INSTILL 2 SPRAYS BY INTRANASA L ROUTE EVERY DAY active Not Available Not Available No t Available aripiprazol e 10 mg tablet Take 1 tablet every day by oral route. 05/12 completed Not Available Not Available Not Available nitrofurant oin monohydrate /macrocryst als 100 mg capsule TAKE 1 CAPSULE BY MOUTH EVERY 12 HOURS active Not Available Not Available No t Available pregabalin 50 mg capsule TAKE 1 CAPSULE BY MOUTH TWICE DAILY active Not Available Not Available No t Available Novolog FlexPen U-100 Insulin 8 units before each meal active Not Available Not Available No t Available dapaglifloz in propanediol 10 mg tablet Take 1 tablet every day by oral route. 06/23 completed Not Available Not Available Not Available Lilly Scott U-300 Insulin 300 unit/mL (1.5 mL) subcutaneou s pen INJECT 24 UNITS BY SUBCUTANE OUS ROUTE IN THE MORNING FOR 28 DAYS. active Not Available Not Available No t Available Accu-Chek Guide test strips USE DIRECTED TO CHECK BLOOD SUGAR UP TO 4 TIMES DAILY 2024 active Not Available Not Available Not Avai lable Ingrezza 40 mg capsule 1 capsule daily x 1 week then increase to 2 capsules 2024 active Not Available Not Available Not Avai lable FreeStyle Ok 2 Sensor active Not Available Not Available Not Available FreeStyle Ok 3 Plus Sensor device USE TO MONITOR BLOOD GLUCOSE LEVELS. CHANGE EVERY 15 DAYS active Not Available Not Available No t Available Vitals Date Recorded Body height Body mass index (BMI) Body weight Body temperature Oxygen saturation Oxygen saturation in Arterial blood by Pulse oximetry Heart rate Systolic And Diastolic Provider Name and Address Organization Details Last Updated DateTime 5 162.56 cm 23.3 kg/m2 91071.5 6 g 97.1 [degF] 97 % 97 % 91 /min 150/96 mm[Hg] Counts include 234 beds at the [facility] 5 13:59:53 Date Recorded Body height Body mass index (BMI) Body weight Body temperature Oxygen saturation Oxygen saturation in Arterial blood by Pulse oximetry Heart rate Systolic And Diastolic Provider Name and Address Organization Details Last Updated DateTime 5 162.56 cm 23.5 kg/m2 73937.1 5 g 97.4 [degF] 99 % 99 % 72 /min 154/84 mm[Hg] Counts include 234 beds at the [facility] 5 10:24:07 Date Recorded Body height Body mass index (BMI) Body weight Oxygen saturation Oxygen saturation in Arterial blood by Pulse oximetry Heart rate Respiratory rate Body temperature Systolic And Diastolic Provider Name and Address Organization Details Last Updated DateTime 5 162.56 cm 22.8 kg/m2 54502.0 7 g 99 % 99 % 98 /min 18 /min 97.1 [degF] 138/80 mm[Hg] [facility] 5 10:02:12 Date Recorded Body height Body mass index (BMI) Body weight Body temperature Oxygen saturation Oxygen saturation in Arterial blood by Pulse oximetry Heart rate Systolic And Diastolic Provider Name and Address Organization Details Last Updated DateTime 162.56 cm 22.7 kg/m2 30713.1 9 g 98 [degF] 98 % 98 % 84 /min 158/96 mm[Hg] Counts include 234 beds at the [facility] 09:10:28 Date Recorded Body height Body mass index (BMI) Body weight Body temperature Oxygen saturation Oxygen saturation in Arterial blood by Pulse oximetry Heart rate Systolic And Diastolic Provider Name and Address Organization Details Last Updated DateTime 5 162.56 cm 23.7 kg/m2 79235.7 5 g 97.3 [degF] 99 % 99 % 91 /min 162/90 mm[Hg] Counts include 234 beds at the [facility] 5 10:21:11 Social History Question Answer Notes LastModified by Organizat ion Details LastModified Time Tobacco Smoking Status Former Smoker [facility] 07/01/2025 10:32:03 When Did You Quit Smoking? 16+yearssinc elastcigaret te Information not available 03/23/2025 What Was The Date Of Your Most Recent Tobacco Screening? 07/01/2025 Information not available 07/01/2025 Has Tobacco Cessation Counseling Been Provided? No [email or web address] Information not available 06/23/2025 Sex: Unknown Functional Status Question Answer Note LastModified by Organization D etails LastModified Time What is your level of alcohol consumption? None Information not available 05/12/2025 Mental Status None recorded. Family History Nothing Reported Notes:Father - lung cancer M other - lung cancer Aunt - breast cancer Aunt - skin cancer Medical History No medical history recorded. Gynecological HistoryNo gynecological history recorded. Obstetrics History GPAL:G 0 P 0 0 0 0 Immunizations Vaccine Type Date Status Note Provider Nam e and Address Organization Details Recorded Time Td (adult), 2 Lf tetanus toxoid, preservative free, adsorbed 8 completed Not Available [facility] 07/01/2025 10:19:06 Influenza, MDCK, quadrivalent, PF 3 completed Not Available [facility] 07/01/2025 10:19:06 Tdap 4 completed Not Available [facility] 07/01/2025 10:19:06 Past Encounters Encounter ID Performer Location Encounter Start Date Encounter Closed Date Diagnosis/Indication Diagnosis SNOMED-CT Code Diagnosis ICD10 Code Diagnosis IMO Codes Diagnosis Note [id number] ODALIS KING [facility] ([facility]) [address] [place] [phone] 5 03/23/2025 12:37:55 03/24/2025 12:00:58 Open wound 752341878 T14.8XXA 33109 Wet to dry dressings applied. Patient to return to clinic tomorrow for dressing change. Wound care appt is next week . [id number] Stacey Monzon MD [facility] ([facility]) [address] [place] [address] [phone] 5 05/12/2025 13:51:59 05/12/2025 15:21:02 Chronic neck pain 1673280625 107 M54.2 G89.29 263829 The patient has a history of chronic neck pain and she would like medication to help. Pain of le ft shoulder joint 8050954460 6336606 M25.512 904698 Extrapyramidal sign 4337 8000 R29.920 1113954 Patient may be having some febrile symptoms secondary to previous antipsycho tic use. Patient is no longer taking those medication s but she is currently taking promethazi ne and that potentiall y could complicate that as well. Encouraged patient to stop that and will utilize Zofran instead for her nausea. Nausea 620481131 R11.0 14394 Type 1 michaelle betes mellitus 34166884 E10.69 3275388 Patient has a history of type 1 diabetes and currently uses freestyle ok to manage her blood sugars, however she has recently knocked off her device and she has no other way to check her blood sugars. Will send glucometer and testing supplies. Patient sees endocrinol ogy. [id number] Stacey Monzon MD [facility] ([facility]) [address] [place] [address] [phone] 5 05/21/2025 10:07:53 05/21/2025 11:24:59 Pain of multiple joints 01526691 M25.50 84458 We will start the patient on tramadol to help with pain. In the meantime we will start workup for inflammato ry arthritis evaluation . [id number] Stacey Monzon MD [facility] ([facility]) [address] [place] [address] [phone] 5 05/28/2025 09:29:59 05/28/2025 10:40:42 Arthritis 0440740 M19.90 932147 Given the severity of her inflammato ry markers on her recent lab work and her symptoms, we will go ahead and proceed with rheumatolo gy referral. Concerned about a seronegati ve inflammato ry arthritis. Viral uppe r respiratory tract infection 572613896 J06.9 485954 Patient presented with symptoms of viral upper respirator y infection. Advised to drink plenty of fluids, run a cool-mist humidifier in room at night, gargle salt water for sore throat, and get plenty of rest. Patient should avoid over-exert ion and reduce exposure to irritants such as smoke, cold, dry air, and dust. Treatment currently involves symptomati c relief. Patient may take acetaminop hen or ibuprofen as directed to reduce fever and body aches. Antihistam ine and decongesta nt usage was discussed and recommenda tions made. Patient understood these instructio ns and will follow up in the office in 7-10 days if symptoms not improving. [id number] Stacey Monzon MD [facility] ([facility]) [address] [place] [phone] 5 06/23/2025 08:56:19 06/23/2025 09:49:30 Dysuria 03697454 R30.0 38284 - Evaluate urine for infection to exclude this as a cause. - Consider underlying constipati on management to resolve urinary bladder issues. Gastroesop hageal reflux disease without esophagitis 099669264 K21.9 688049 - Refill omeprazole prescripti on for symptomati c management . - Reinforce adherence to daily medication s. Essential hypertension 29071607 I10 98863 controlled on current meds Extrapyramidal sign 4337 8000 R29.574 4680451 Tardive Dyskinesia : - Discontinu e promethazi ne to reduce exacerbati on of movements. - Explore alternativ e antiemetic options. Type 1 michaelle betes mellitus 08065036 E10.69 4427619 - Ensure follow-up with an endocrinol ogist. Chronic constipation 236 622740 K59.09 704562 - Implement use of stool softeners and MiraLax. - Encourage dietary modificati ons. Generalize d anxiety disorder 40992484 F41.1 354168 - Focus on medication adjustment s for symptom management . [id number] Stacey Monzon MD [facility] ([facility]) [address] [place] [address] 07/01/2025 10:15:01 07/01/2025 11:01:26 Pain of left shoulder region 1899451809 M25.512 28349523 - Obtain shoulder x-rays and consider surgical consultati on depending on results. Tardive dyskinesia 42290 9007 G24.01 25071 - Initiate Ingrezza with insurance approval and increase dose per titration plan. Pain of knee region 1003 193290 M25.561 - Begin physical therapy, with potential for knee injections if pain increases. Health Concerns Section Related Observation LastModified by Organization Detai ls LastModified Time None Recorded Concern Status LastModified by Organization Details LastModified Time None Recorded Advance Directives Directive None Recorded Payers Insurance Date Sequence Insurance Name Policy Number Policy Cespedes Covered Member ID Cespedes Member ID Guarantor Name 06/30/2025 1 [place] (MEDICARE REPLACEMENT HMO) [id number] Wendi Yee [id number] Wendi Yee Notes Date Note Type Note Provider Name and Address Organization Details Recorded Time 05/12/20 25 text/htm l Annual WellnessReported by PatientSocial/Behavioral HistoryFor diet and nutrition, patient reportsdiscussed diet improvement. For fracture risk, patient reportsno history of fractures. For physical activity, patient reportsgood physical condition. For additional lifestyle factors, patient reportsno alcohol intakeandstopped drinking alcohol.Mental Status:For depression risk, patient reportsloss of interest in activities,significant changes in weight,sleep disturbances or insomnia, andagitatedbut reportsnever feels sad, empty, or tearful,no loss of energy,no feelings of worthlessness or guilt,no thoughts of suicide,no history of depression, andno history of mood disorders.Functional AbilityFor vision, patient reportsworse both distance and near. For hearing, patient reportsno loss of hearing. This is a 54 year old woman here to establish care.Pt would like to be checked for TD - tardive dyskinesiaShe stats her feet and mouth movement started a couple years prior, hand movement started a couple months ago. Patient has been on antipsychotics in the past and is currently taking promethazine for nausea.She needs refills on most of her medications today. Patient states that she is tolerating her current meds and that her chronic issues are stable otherwise. Patient reports that she has chronic neck and left shoulder pain. The patient would like to discuss medications to help manage this. Stacey Monzon MD [address] [place] [address], [phone], [facility] 05/18/2025 08:58:36 05/21/20 25 text/htm l Pt is here today to discuss joint pain in her shoulder, elbows, knees, neck, top of feet, wrist, hands and fingers.She is nauseated, started Sunday3Pt seen at [facility] ER on 05/20 for this pain. ER prescribed Promethazien 25mg Q6H PRN, unknown name injection received for pain and nausea. Patient feels that is related to her pain. Stacey Monzon MD [address] [place] [address], [phone], [facility] 05/23/2025 13:39:23 05/28/20 25 text/htm l Upper Respiratory SymptomsReported by PatientUpper Respiratory SymptomsFor quality, patient reportsproductive cough(thick yellow nasal drainage). For location, patient reportshead,nasal, andears. For duration, (started 4 dauys ago, fever yesterday). patient here to review labs and she is having sinus symptoms. Patient states that the joint pain has significantly improved. Stacey Monzon MD [address] [place] [address], [phone], [facility] 05/31/2025 20:42:56 06/23/20 25 text/htm l The patient is a 55-year-old female presenting with urinary difficulties and medication management primarily related to constipation and regimen adjustments. She reports a two to three-week history of urinary hesitancy, requiring excessive effort to void, prolonged duration of urination, and recurrent urgency shortly after attempting to empty her bladder. She denies burning but describes a brief episode of unusual sensation during urination without additional symptoms. Ongoing constipation with alternating diarrhea is acknowledged and is suspected to impact urinary flow. Involuntary movements are worsening with promethazine, indicating concerns around exacerbation of tardive dyskinesia. She also reports recent uncontrolled blood glucose readings over the past few days. Currently, she has run out of her prescribed omeprazole, contributing to intermittent gastroesophageal reflux disease symptoms. Stacey Monzon MD [address] [place] [address], [phone], [facility] 06/23/2025 10:15:37 07/01/20 25 text/htm l Musculoskeletal PainReported by PatientHPIFor quality, patient reportssharp. For severity, patient reportsworseningandinterferes with sleep. For location, patient reportsleft shoulderandright knee. For duration, patient reportspresent for 6-12 months. For timing, patient reportsconstant,pain at night, andgradual. For alleviating factors, patient reportschanging position. For aggravating factors, patient reportsmovement/positioning. For associated symptoms, patient reportsno fever,no weak limbs,no tingling,no numbness of the legs/feet, andno incontinence. For adls affected, patient reportssweeping,mopping, anddressing. The patient is a 55-year-old female presenting with pain in her left shoulder, right knee, and left abdomen, along with a request for changes in medication due to tardive dyskinesia. Her shoulder pain mirrors previous issues with the right shoulder that involved bone spurs and surgery. Despite no recent injury, the right knee, known for fluid build-up but previously undiagnosed for arthritis, causes pain when climbing stairs. The new abdomen pain seems back-related rather than to a renal issue, and she requires a review of her tardive dyskinesia medication to improve social interaction concerns. Stacey Monzon MD [address] [place] [address], [phone], [facility]. 07/01/2025 11:02:09 OBGyn Episode No OBEpisode recorded.
--- OUTSIDE RECORDS SUMMARY | 2025-07-12 18:42 | XMS_ITS | Encounter Summary ---
Author Organization [facility] Address [address] [place] [address] Care Team Providers Care Mdm Sr Name Role Phone Dashawn Velasquez DO Primary Care Provider [phone] Encounter Details Date Type Department Care Team (Late Contact Info) Description 07/17/2023 Lab Requisition [facility] [address] [place] [address] Renzo Carson MD [address] [place] [address] [place] [address] Social History Tobacco Use Types Packs/Day Years Used Date Smoking Tobacco: Never Alcohol Use Standard Drinks/Week Comments No 0 (1 standard drink = 0.6 oz pur e alcohol) Comments Unknown Sex and Gender Information Value Date Recorded Sex Assigned at Not on file 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 Gender Identity Not on file Sexual Orientation Not on file documented as of this encounter Plan of Treatment Upcoming Encounters Date Type Department Care Team (Late Contact Info) Description 07/21/2025 8:20 AM QUANTITATIVE RESEARCHER Office Visit [facility] [place] [address] [place] [address] [place] [phone] Tamar Muniz MD [address] [place] [address] documented as of this encounter Procedures Procedure Name Priority Date/Time Associated Diagnosis Comments KETONES/BETA HYDROXYBUTYRATE Routine 07/17/2023 9:48 AM CDT documented in this encounter Results * (ABNORMAL) KETONES/BETA HYDROXYBUTYRATE (07/17/2023 9:48 AM CDT) BETA HYDROXYBUTYRATE >9.0(H) 0.0 - 0.3 mmol/L 07/17/2023 4:22 PM CDT [facility] Blood Collection / Unknown 07/17/2023 9:48 AM CDT 07/17/2023 3:50 PM CDT us Renzo Carson MD CHEMISTRY ORDERABLES Final Re sult [facility] CLIA # [id number] [address] [address] documented in this encounter Visit Diagnoses Not on filedocumented in this encounter Care Teams Mdm Sr Relationship Specialty Start Date End Date Dashawn Velasquez DO [address] [place] [address] PCP - General Family Practice 12/05/10 documented as of this encounter
--- OUTSIDE RECORDS SUMMARY | 2025-07-12 18:42 | XMS_ITS | Clinical Summary ---
Author Organization [email or web address] Address [address] [address] [place]valos: Epic Prelude ADT ZULEIKA GRIMALDO [address] Care Team Providers Care Research Executive Name Role Phone Dashawn Velasquez DO Primary Care Provider [phone] Medications amLODIPine (NORVASC) 5 mg tablet TAKE [...] 2 times daily. 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,Combined forms of age-related cataract of both eyes 1 Drop Both Eyes ONE TIME ONLY 03/04/2025 Active bevacizumab (AVASTIN) 2.25 mg/0.09 mL intravitreal injection 1.25 mgIndications: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,Combined forms of age-related cataract of both eyes 1.25 mg IZ ONE TIME ONLY 03/04/2025 Active bevacizumab (AVASTIN) 2.25 mg/0.09 mL intravitreal injection 1.25 mgIndications: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,Combined forms of age-related cataract of both eyes 1.25 mg IZ ONE TIME ONLY 03/04/2025 Active povidone-iodine in balanced salt solution 0.25% eye drop 1 DropIndications: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,Combined forms of age-related cataract of both eyes 1 Drop Both Eyes ONE TIME ONLY 03/04/2025 Active tetracaine (AK-T-MARTÍENZ) 0.5 % ophthalmic solution 1 DropIndications: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,Combined forms of age-related cataract of both eyes 1 Drop Both Eyes ONE TIME ONLY 03/04/2025 Active lidocaine (PF) (AKTEN PF) 3.5 % ophthalmic gel 1 DropIndications: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,Combined forms of age-related cataract of both eyes 1 Drop Both Eyes ONE TIME ONLY 03/04/2025 Active lidocaine (PF) (AKTEN PF) 3.5 % ophthalmic gel 2 DropIndications: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 2 Drop Both Eyes ONE TIME ONLY 05/20/2025 Active Active Problems Problem Noted Date Diagnosed Date CME (cystoid macular edema), bilateral 3 Type 1 diabetes mellitus wit h left eye affected by severe nonproliferative retinopathy without macular edema 08/14/2023 Combined forms of age-related cataract of both e yes 08/14/2023 Encounters Date Type Department Care Team Description 05/22/2025 Telephone [facility] [place] [address] [address] Tamar Muniz MD Information 05/20/2025 Telephone [facility] [place] [address] [place] [phone] Clay Clark MD Needs Appointment 04/22/2025 External [...] on file 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 Gender Identity Not on file Sexual Orientation Not on file Plan of Treatment Upcoming Encounters Date Type Department Care Team (Late st Contact Info) Description 07/21/2025 8:20 AM PAPER ROLLER Office Visit [facility] Ophthal[facility] [place] [address] [phone] Tamar Muniz MD [address] [place] [phone] Health Maintenance Due Date Last Done Comments [...] 6 MONTHS 12/19/2023 06/19/2023 INFLUENZA VACCINE (#1) 2025 11/02/2022 DIABETES ANNUAL RETINAL EXAM 02/04/2026, 01/07/2025, 01/07/2025, Additional history exists Insurance MEDICAID [place] [employer] [facility] Care Teams Research Executive Relationship Specialty Start Date End Date Dashawn Velasquez DO [address] [place] [address] PCP - General Family Practice 12/05/10
[2025-07-12 18:46] VITALS: BP 149/117; PULSE 90; RESP 16; TEMP 36.8; O2SAT 99; BMI 23.6
--- NOTE | 2025-07-12 19:04 | XRR_ITS ---
PROCEDURE INFORMATION: Exam: XR Left Foot Exam date and time: 07/12/2025 7:04 PM Age: 55 years old Clinical indication: Pain; Foot; Left; Additional info: Open wound to plantar surface of lt foot TECHNIQUE: Imaging protocol: Radiologic exam of the left foot. Views: 3 or more views. COMPARISON: CR XR foot LT min 3V* [id number] 04/28/2025 9:31 AM FINDINGS: Bones/joints: Normal. Soft tissues: Normal. XR/XR foot LT min 3V* [id number] IMPRESSION: No acute findings.
--- NOTE | 2025-07-12 19:04 | W.ED.EXTPRO ---
HPI - Extremity Problem General: Chief complaint: Extremity Injury, Lower Stated complaint: foot swollen red pain: светлана patient Time Seen by Provider: 07/12/25 18:52 History of Present Illness: Patient is a 55-year-old female with type 1 diabetes who presents with a 2-week history of worsening left foot pain, swelling, and redness. The patient reports that approximately 3-4 months ago, she developed blisters on the bottom of her feet, with one particularly bothersome lesion on her left foot. She was initially treated by Dr. Castaneda for blisters, but the diagnosis was later changed to a wart, for which she was prescribed a chemotherapeutic cream. At her last appointment this month, the wart was reportedly healed. However, over the past two weeks, she has developed significant swelling, redness, and pain in her left foot, particularly on the lateral aspect and the ball of the foot. The pain is worse with touch. Patient denies fever but reports feeling warmer than usual, which is atypical as she usually feels cold. She reports occasional nausea, which she attributes to her diabetes. The patient states she is a bad type one diabetic with poor glycemic control, reporting morning blood glucose levels around 400 mg/dL, with her most recent reading at 128 mg/dL. She denies any drainage from the affected area. Due to concerns about her diabetic status and persistent symptoms, she decided to seek care today instead of waiting for her scheduled appointment with Dr. Castaneda on Sunday. Related Data Home Medications ?Medication ?Instructions ?Recorded ?Confirmed flash glucose scanning reader 12/14/22 06/25/25 (FreeStyle Ok 14 Day Brick) imipramine HCl 25 mg tablet 25 mg PO BID 12/14/22 06/25/25 amlodipine 10 mg tablet 10 mg PO DAILY 02/23/25 06/25/25 carvedilol 12.5 mg tablet 12.5 mg PO BID 02/23/25 06/25/25 fluticasone propionate 50 2 spray intranasal DAILY 02/23/25 06/25/25 mcg/actuation nasal spray,suspension losartan 100 mg tablet 100 mg PO DAILY 02/23/25 06/25/25 omeprazole 40 mg capsule,delayed 40 mg PO DAILY 02/23/25 06/25/25 release rosuvastatin 40 mg tablet 40 mg PO DAILY 02/23/25 06/25/25 insulin aspart U-100 100 unit/mL See Rx Instructions .Route .COMPLEX 02/25/25 06/25/25 (3 mL) subcutaneous pen (Novolog FlexPen U-100 Insulin aspart) divalproex 125 mg tablet,delayed 125 mg PO TID 04/28/25 06/25/25 release (Depakote) duloxetine 20 mg capsule,delayed 20 mg PO BID 04/28/25 06/25/25 release Previous Rx's ?Medication ?Instructions ?Recorded pen needle, diabetic 31 gauge x #100 ea 04/20/23/ (BD Ultra-Fine Short Pen Needle) hydroxyzine HCl 50 mg tablet 50 mg PO QID PRN Anxiety #60 tabs 02/25/25 mupirocin 2 % topical ointment 1 applic topical BID #15 grams 03/11/25 blood-glucose sensor (FreeStyle #6 ea 04/22/25 Ok 3 Plus Sensor device) cam boot #1 ea 04/28/25 cephalexin 500 mg capsule 500 mg PO TID #21 caps 04/28/25 diabetic shoes with 3 sets of #1 ea 04/28/25 inserts insulin glargine U-300 conc 300 24 unit (0.08 mL) SUBCUT QAM #4.5 05/05/25 unit/mL (1.5 mL) subcutaneous pen mL (Toujeo SoloStar U-300 Insulin) promethazine 25 mg tablet 25 mg PO Q6H PRN nausea and 05/21/25 vomiting #20 tabs fluorouracil 5 % topical cream 1 applic topical BID 4 weeks #40 05/26/25 (Efudex) grams pregabalin 50 mg capsule 50 mg PO BID 3 months #180 caps 06/02/25 ciclopirox 8 % topical solution 1 applic topical DAILY 4 weeks 06/25/25 #6.6 mL doxycycline hyclate 100 mg tablet 100 mg PO BID 14 days #28 tabs 07/12/25 Allergies Allergy/AdvReac Type Severity Reaction Status Date / Time No Known Allergies Allergy Verified 05/26/25 06:54 Review of Systems Narrative: Constitutional: Denies fever. Reports feeling warmer than usual. Gastrointestinal: Reports occasional nausea, which patient attributes to diabetes. Musculoskeletal: Left foot pain and swelling. Skin: Redness and warmth of left foot. All other systems: Not reviewed during this encounter. 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 GERD (gastroesophageal reflux disease) Surgical History History of nasal surgery Hx of shoulder surgery Hx of tubal ligation Family History Other Cancer Heart disease Social History Smoking and tobacco/nicotine status: current every day tobacco/nicotine user e-cigarettes E-Cigarette Details: with nicotine Alcohol intake: former Substance/Drug Use: former Date of last use: 11/13/2024 Physical Exam Const: COMMON NORMALS: no acute distress GENERAL APPEARANCE: cooperative; not ill appearing and not frail appearing HENMT: COMMON NORMALS: normocephalic, atraumatic and Normal external nose present HEAD & SCALP: normocephalic and atraumatic FACE & SINUS: normal facial exam and face symmetric NOSE: Normal external nose present Eye: COMMON NORMALS: Equal, round and reactive pupils present and EOMs intact bilaterally PUPIL: Yes Equal, round and reactive pupils present Neck/C-Spine: GENERAL: Yes trachea midline Chest: CHEST: Yes Symmetrical chest wall rise Resp: COMMON NORMALS: normal respiratory effort, No retractions and No use of accessory muscles Cardio: COMMON NORMALS: regular rate and regular rhythm RATE: regular rate RHYTHM: regular rhythm Extremity: NARRATIVE EXTREMITY EXAM: Examination of the left lower extremity reveals some plantar swelling with tenderness just proximal to the MTPs of toes 2 and 3. There is some ecchymosis in the area. No definite abscess. Mild redness of the forefoot in general. No streaking/lymphangitis. Pulses are normal distally. Toes are warm. Capillary refill is normal. Neuro: GERALDO COMA SCALE: document GCS findings Gerber coma scale eye opening: Spontaneous Gerber coma scale verbal response: Orientated Gerber coma scale motor response: Obey commands Geraldo coma scale total score: 15 SENSORY EXAM: Yes extremities (intact) Psych: COMMON NORMALS: speech normal SPEECH: Yes normal speech Course Vital Signs: Vital signs: Vital Signs Temperature 98.2 F 07/12/25 18:46 Pulse Rate 90 07/12/25 18:46 Respiratory Rate 16 07/12/25 18:46 Blood Pressure 151/79 07/12/25 20:00 Pulse Oximetry 99 07/12/25 18:46 Oxygen Delivery Me thod Room Air 07/12/25 18:46 MDM - Extremity (Nontraumatic) Medical Decision Making White blood cell count is 5.6. Hemoglobin is 10. Sugar is 191. CRP is 3. Sed rate is 27. No bony destruction or significant change on foot x-ray. Will treat with antibiotics. Extended course as this is the foot. She has foot and ankle surgery follow-up in 2 days. Lab Data 07/12/25 19:15 07/12/25 19:15 Laboratory Results WBC 5.56 10^3/uL (3.29-11.43) 07/12/25 19:15 RBC 3.79 10^6/uL (3.85-5.65) L 07/12/25 19:15 Hgb 10.10 g/dL (11.27-16.99) L 07/12/25 19:15 Hct 31.4 % (36-47) L 07/12/25 19:15 MCV 82.8 fl (85-98) L 07/12/25 19:15 MCH 26.6 pg (27-33) L 07/12/25 19:15 MCHC 32.2 g/dL (30-55) 07/12/25 19:15 RDW 13.8 % (12.1-15.1) 07/12/25 19:15 Plt Count 272 10^3/cmm (157-399) 07/12/25 19:15 MPV 9.1 fL (7.4-10.4) 07/12/25 19:15 Neut % (Auto) 36.6 % 07/12/25 19:15 Lymph % (Auto) 49.6 % 07/12/25 19:15 Bradley % (Auto) 9.9 % 07/12/25 19:15 Eos % (Auto) 3.2 % 07/12/25 19:15 Baso % (Auto) 0.5 % 07/12/25 19:15 Neut # (Auto) 2.03 10^3/uL (1.8-7.7) 07/12/25 19:15 Lymph # (Auto) 2.8 10^3/uL (0.8-4.8) 07/12/25 19:15 Bradley # (Auto) 0.6 10^3/uL (0.2-0.9) 07/12/25 19:15 Eos # (Auto) 0.2 10^3/uL (0.0-0.8) 07/12/25 19:15 Baso # (Auto) 0.0 10^3/uL (0.0-0.1) 07/12/25 19:15 Nucleated RBC % (auto) 0 % 07/12/25 19:15 Nucleated RBCs # 0.0 /100WBC 07/12/25 19:15 ESR 27 mm/hr (0-15) H 07/12/25 19:15 Sodium 139 mmol/L (136-145) 07/12/25 19:15 Potassium 4.3 mmol/L (3.5-5.1) 07/12/25 19:15 Chloride 104 mmol/L (98-107) 07/12/25 19:15 Carbon Dioxide 22 mmol/L (22-29) 07/12/25 19:15 Anion Gap 17.3 (5-19) 07/12/25 19:15 BUN 20 mg/dL (6-20) 07/12/25 19:15 Creatinine 0.9 mg/dL (0.5-0.9) 07/12/25 19:15 GFR Calculation 64.8 mL/min (90-130) L 07/12/25 19:15 Glucose 191 mg/dL (65-115) H 07/12/25 19:15 Calculated Osmolality 296 mOsm/kg (285-295) H 07/12/25 19:15 Lactic Acid 0.8 mmol/L (0.5-2.2) 07/12/25 19:15 Calcium 9.5 mg/dL (8.5-10.5) 07/12/25 19:15 Total Bilirubin 0.2 mg/dL (0.15-1.2) 07/12/25 19:15 AST 17 U/L (0-32) 07/12/25 19:15 ALT 8 U/L (0-33) 07/12/25 19:15 Alkaline Phosphatase 91 U/L (35-105) 07/12/25 19:15 C-Reactive Protein 3.0 mg/L (0.0-4.9) 07/12/25 19:15 Total Protein 6.2 g/dL (6.6-8.7) L 07/12/25 19:15 Albumin 3.7 g/dL (3.5-5.2) 07/12/25 19:15 Globulin 2.5 g/dL (1.3-4.6) 07/12/25 19:15 XR interpretation done by ED provider, pending radiology final review Discharge Plan Discharge Patient Disposition: Home Clinical Impression: Cellulitis of foot Condition: Stable Prescriptions: New doxycycline hyclate 100 mg tablet 100 mg PO BID 14 Days Qty: 28 0RF No Action pregabalin 50 mg capsule 50 mg PO BID 90 Days Qty: 180 0RF (DME) FreeStyle Ok 14 Day Brick Misc See Rx Instructions .Route Rx Instructions: As directed imipramine HCl 25 mg tablet 25 mg PO BID divalproex [Depakote] 125 mg tablet,delayed release (DR/EC) 125 mg PO TID duloxetine 20 mg capsule,delayed release(DR/EC) 20 mg PO BID (DME) diabetic shoes with 3 sets of inserts See Rx Instructions .ROUTE .MEDSUPPLY Qty: 1 0RF Rx Instructions: As directed by HOME cephalexin 500 mg capsule 500 mg PO TID Qty: 21 0RF (DME) cam boot See Rx Instructions .Route .MEDSUPPLY Qty: 1 0RF Rx Instructions: As directed fluorouracil [Efudex] 5 % cream 1 applic topical BID 28 Days Qty: 40 0RF ciclopirox 8 % solution 1 applic topical DAILY 28 Days Qty: 6.6 2RF (DME) pen needle, diabetic [BD Ultra-Fine Short Pen Needle] 31 gauge x 5/16 needle See Rx Instructions .Route Qty: 100 0RF Rx Instructions: As directed (DME) FreeStyle Ok 3 Plus Sensor Device See Rx Instructions .Route Qty: 6 1RF Rx Instructions: USE TO MONITOR BLOOD GLUCOSE LEVELS insulin glargine U-300 conc [Toujeo SoloStar U-300 Insulin] 300 unit/mL (1.5 mL) insulin pen 24 unit SUBCUT QAM Qty: 4.5 2RF carvedilol 12.5 mg tablet 12.5 mg PO BID omeprazole 40 mg capsule,delayed release(DR/EC) 40 mg PO DAILY amlodipine 10 mg tablet 10 mg PO DAILY losartan 100 mg tablet 100 mg PO DAILY fluticasone propionate 50 mcg/actuation spray,suspension 2 spray INTRANASAL DAILY rosuvastatin 40 mg tablet 40 mg PO DAILY insulin aspart U-100 [Novolog FlexPen U-100 Insulin] 100 unit/mL (3 mL) insulin pen See Rx Instructions .ROUTE .COMPLEX Rx Instructions: Take 5 unit subcutaneously 3 times daily plus sliding scale if needed. hydroxyzine HCl 50 mg tablet 50 mg PO QID PRN (Reason: Anxiety) Qty: 60 0RF promethazine 25 mg tablet 25 mg PO Q6H PRN (Reason: nausea and vomiting) Qty: 20 0RF mupirocin 2 % ointment 1 applic topical BID Qty: 15 0RF Discharge Orders: Discharge ED (Routine); Ordered 07/12/25 Ordered By: Moose Joiner Referrals: Julio Monzon MD [Primary Care Provider, Family Practice] Dashawn Castaneda DPM [Physician, Podiatry] Patient Instructions: Cellulitis (ED), Opioid Safety, Pain Management, Patient Portal & Mya Instructions Activity Restrictions/Additional Instructions: Follow-up with foot and ankle surgery as scheduled on Sunday. Return for fever despite 2-3 more doses of antibiotics, worsening swelling or redness or pain despite 2-3 more doses of antibiotics, any other concerning symptoms in the meantime. Print Language: Croatian Coding Level of Care Code ED Gem Technician for Marco Antonio Carter
[2025-07-12 19:28] LABS: Hematocrit 31.4 % (36-47); Hemoglobin 10.10 g/dL (11.27-16.99); Mean Corpuscular HGB Conc 32.2 g/dL (30-55); Mean Corpuscular Hemoglobin 26.6 pg (27-33); Mean Corpuscular Volume 82.8 fl (85-98); Nucleated Red Blood Cells % 0 %; Platelet Count 272 10^3/cmm (157-399); Red Blood Count 3.79 10^6/uL (3.85-5.65); White Blood Count 5.56 10^3/uL (3.29-11.43)
[2025-07-12 19:42] LABS: Alanine Aminotransferase 8 U/L (0-33); Albumin Level 3.7 g/dL (3.5-5.2); Alkaline Phosphatase 91 U/L (35-105); Anion Gap 17.3 (5-19); Aspartate Amino Transferase 17 U/L (0-32); Blood Urea Nitrogen 20 mg/dL (6-20); Calcium 9.5 mg/dL (8.5-10.5); Carbon Dioxide 22 mmol/L (22-29); Chloride 104 mmol/L (98-107); Creatinine Clr Calc Pharmacy 63.7514; Globulin 2.5 g/dL (1.3-4.6); Glucose 191 mg/dL (65-115); Lactic Sepsis W/Reflex 0.8 mmol/L (0.5-2.2); Osmolality Calculated 296 mOsm/kg (285-295); Potassium 4.3 mmol/L (3.5-5.1); Sodium 139 mmol/L (136-145); Total Protein 6.2 g/dL (6.6-8.7)
[2025-07-12 20:00] VITALS: BP 151/79
[2025-07-12 20:26] VITALS: BP 163/104; PULSE 84; O2SAT 100
[2025-07-12 20:33] VITALS: RESP 16; O2SAT 98
[2025-07-12] MEDS: oxyCODONE-APAP 5-325 mg Tablet 2 TAB PO (20:33)
[2025-07-12 20:40] VITALS: BP 148/90
== END 2025-07-12 20:44 | disposition home or self-care (01) ==
PROVIDERS: Emergency Provider Emergency Medicine; PCP Family Medicine
DX: L03.116 Cellulitis of left lower limb (principal); Z79.4 Long term (current) use of insulin; F17.290 Nicotine dependence, other tobacco product, uncomplicated; E10.40 Type 1 diabetes mellitus with diabetic neuropathy, unspecified; I10 Essential (primary) hypertension
CPT/HCPCS: 36415; 73630; 80053; 83605; 85025; 85651; 86140; 99284; J9999

== ENCOUNTER 2025-07-14 11:08 | Outpatient (CLI) | payer MEDICARE, SELFPAY | END 2025-07-14 11:09 | disposition home or self-care (01) | LOC: SPT 11:27 | PROVIDERS: PCP Family Medicine; Visit Provider Podiatrist Foot & Ankle Surgery | DX: E10.42 Type 1 diabetes mellitus with diabetic polyneuropathy (principal); B07.0 Plantar wart; Z79.4 Long term (current) use of insulin | CPT/HCPCS: 99213; L4361 ==

== ENCOUNTER 2025-07-19 09:47 | Emergency (ER) | payer MEDICARE, SELFPAY ==
[2025-07-19 09:51] VITALS: BP 171/107; PULSE 90; RESP 16; TEMP 36.6; O2SAT 98; BMI 23.1
--- OUTSIDE RECORDS SUMMARY | 2025-07-19 09:53 | XMS_ITS | Clinical Summary ---
Author Organization [facility] Address [address] [place]: Epic Prelude ADT ZULEIKA GRIMALDO [address] Care Team Providers Care Unit Aid Name Role Phone aDshawn Velasquez DO Primary Care Provider [phone] Medications amLODIPine (NORVASC) 5 mg tablet TAKE [...] 2 times daily. Active FreeStyle Ok 2 Scotia Misc USE WITH OK SENSOR TO CHECK [...] Type Department Care Team Description 05/22/2025 Telephone [facility] [place] [address] [address] Tamar Muniz MD Information 05/20/2025 Telephone [facility] [place] [address] [place] [phone] Clay Clark MD Needs Appointment 04/22/2025 External [...] on file Legal Sex Female 2:05 PM [employer] Gender Identity Not on file Sexual Orientation Not on file Plan of Treatment Upcoming Encounters Date Type Department Care Team (Late st Contact Info) Description 07/21/2025 8:20 AM [employer] Office Visit [facility] [place] [address] [phone] Tamar Muniz MD [address] [place] [phone] Health Maintenance Due Date Last Done Comments [...] 01/07/2025, 01/07/2025, Additional history exists Insurance MEDICAID [place] [employer] O [facility] Care Teams Unit Aid Relationship Specialty Start Date End Date Dashawn Velasquez DO [address] [place] [address] PCP - General Family Practice 12/05/10
--- OUTSIDE RECORDS SUMMARY | 2025-07-19 09:53 | XMS_ITS | Encounter Summary ---
Author Organization [facility] Address [address] [place] [address] Care Team Providers Care Case Supervisor Name Role Phone Dashawn Velasquez DO Primary Care Provider [phone] Encounter Details Date Type Department Care Team (Late Contact Info) Description 07/17/2023 Lab Requisition [facility] [address] [place] [address] Renzo Carson MD [address] [place] [address] [place] [address] Social History Tobacco Use Types Packs/Day Years Used Date Smoking Tobacco: Never Alcohol Use Standard Drinks/Week Comments No 0 (1 standard drink = 0.6 oz pur e alcohol) Comments Unknown Sex and Gender Information Value Date Recorded Sex Assigned at Not on file Legal Sex Female 2:05 PM [employer] Gender Identity Not on file Sexual Orientation Not on file documented as of this encounter Plan of Treatment Upcoming Encounters Date Type Department Care Team (Late Contact Info) Description 07/21/2025 8:20 AM [employer] CLE[employer] Office Visit [facility] [place] [address] [place] [phone] Tamar Muniz MD [address] [place] [address] documented as of this encounter Procedures Procedure Name Priority Date/Time Associated Diagnosis Comments KETONES/BETA HYDROXYBUTYRATE Routine 07/17/2023 9:48 AM CDT documented in this encounter Results * (ABNORMAL) KETONES/BETA HYDROXYBUTYRATE (07/17/2023 9:48 AM CDT) BETA HYDROXYBUTYRATE >9.0(H) 0.0 - 0.3 mmol/L 07/17/2023 4:22 PM CDT [facility] Blood Collection / Unknown 07/17/2023 9:48 AM CDT 07/17/2023 3:50 PM CDT us Renzo Carson MD CHEMISTRY ORDERABLES Final Re sult [facility] CLIA # [id number] [address] [address] documented in this encounter Visit Diagnoses Not on filedocumented in this encounter Care Teams Case Supervisor Relationship Specialty Start Date End Date Dashawn Velasquez DO [address] [place] [address] PCP - General Family Practice 12/05/10 documented as of this encounter
--- OUTSIDE RECORDS SUMMARY | 2025-07-19 09:53 | XMS_ITS | Data Portability ---
Author Organization ZULEIKA Doran [facility] Jose Landon [facility] Address [address] [address] Care Team Providers Care Global Project Manager Name Role Phone STACEY MONZON Primary Care Provider Assessment Encounter Date Assessment Date Assessment LastModified [...] available Lab urinalysi s, complete 2024 [id number] [place] [facility], [address], [address], [place], [address], 06/23/2025 10:38:28 culture, urine 2024 025 [place] [facility], [address] [facility] [address], [address] [place], [address], 06/25/2025 17:20:04 C-reactiv e protein, quantitat nadja, serum or plasma 2024 025 JORGE Not available 05/26/2025 18:14:29 CAPRI (antinucl ear antibodie s) screen, serum 2024 025 dcrase Not available 05/21/2025 10:49:05 rf (rheumato id factor), serum 2024 025 JORGE Not available 05/26/2025 18:14:29 ESR (erythroc yte sedimenta tion rate), blood 2024 025 [facility] [address] [place], [address], 05/21/2025 13:32:15 ccp (cyclic citrullin ated peptide) igg, serum 2024 025 [facility] [address] [place], [address], 05/26/2025 18:14:29 CMP, serum or plasma 2024 025 [place] [facility], [address], [address], [place], [address], 05/21/2025 12:34:36 Referral physical therapist referral 2024 [place] [address] [facility], [address] [place] [address], [address], 07/06/2025 17:48:42 rheumatol ogist referral 2024 025 Car Lamas MD, [address] [place], [address], 06/11/2025 16:50:16 Procedures None recorded. Surgeries None recorded. Imaging XR, shoulder, 2 or more view 2024 [facility], [address], [place], [address], 07/02/2025 12:28:13 Medication Orders Ingrezza 40 mg capsule 2024 025 [facility]armacy #[id number], [address], [address], [place], [address], 07/01/2025 10:47:53 omeprazol e 20 mg capsule,d elayed release 2024 025 [facility]/Pharmacy #[id number], [address], [address], [place], [address], 06/23/2025 09:42:25 tramadol 50 mg tablet 2024 025 [facility]acy #[id number], [address], [address], [place], [address], 05/21/2025 10:50:51 ondansetr on HCl 4 mg tablet 2024 025 [facility]armacy #[id number], [address], [address], [place], [address], 06/23/2025 09:19:19 meloxicam 15 mg tablet 2024 025 [facility] #[id number], [address] [facility] [place], [address], 05/21/2025 10:50:05 Patient TargetsNo targets recorded. Patient Instructions Encounter Date Encounter Id Patient Instructions Last Modified By Organization Details Last Modified Time 06/23/2025 [id number] - Follow up with an thermodynamics teacher on September 01. - Refill and adhere to daily omeprazole and diabetes medications. - Discontinue promethazine and explore alternative antiemetics. - Start stool softeners like MiraLax for constipation management. - Monitor blood sugar closely; contact the thermodynamics teacher if abnormal values persist. - Focus on [...] harm. 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 Referral for Arthritis Referring Physician: Stacey Monzon, [facility], Encounter Date: 05/28/2025 Physical Therapist Referral for Pain of knee region Referring Physician: Stacey Monzon [facility], Encounter Date: 07/01/2025 Results Created Date Observation Date Name Description Value Unit Range Abnormal Flag Note LastModifiedBy Organization Detail LastModifiedTime 05/21/2005/21/2025 CMP (FEMA LE) glucose 262.0 mg/dL 60.0-9 9.0 high Not Available [facility] [address] [address], [place], [address], 05/21/2025 12:34:36 05/21/2005/21/2025 CMP (FEMA LE) BUN (blood urea nitrogen) 40.0 mg/dL 10.0-2 6.0 high Not Available [facility] [address] [facility] [address], [place], [address], 05/21/2025 12:34:36 05/21/2005/21/2025 CMP (FEMA LE) creatinine (serum) 0.9 mg/dL 0.4-1. 5 Not Available [facility] [address] [facility] 1, [place], [address], 05/21/2025 12:34:36 05/21/2005/21/2025 CMP (FEMA LE) BUN/creatini ne ratio 44.44 ratio Not Available [facility] [address] [facility] [address], [place], [address], 05/21/2025 12:34:36 05/21/20 25 05/21/2025 CMP (FEMA LE) eGFR calculated 69.[address] [facility] [address] [facility] [address], [place], [address], 05/21/2025 12:34:36 05/21/20 25 05/21/2025 CMP (FEMA LE) total protein 6.4 g/dL 6.0-8. 5 Not Available [facility] [address] [facility] [address], [place], [address], 05/21/2025 12:34:36 05/21/2005/21/2025 CMP (FEMA LE) total bilirubin 0.5 mg/dL 0.2-1. 3 Not Available [facility] [address] [facility] [address], [place], [address], 05/21/2025 12:34:36 05/21/2005/21/2025 CMP (FEMA LE) albumin 3.8 g/dL 3.5-5. 5 Not Available [facility] [address] [facility] [address], [place], [address], 05/21/2025 12:34:36 05/21/2005/21/2025 CMP (FEMA LE) globulin 2.6 calc Not Available [facility] [address] [facility] [address], [place], [address], 05/21/2025 12:34:36 05/21/2005/21/2025 CMP (FEMA LE) AST (SGOT) 46.0 U/L 0.0-46 .0 Not Available [facility] [address] [facility] [address], [place], [address], 05/21/2025 12:34:36 05/21/20 25 05/21/2025 CMP (FEMA LE) altv (SGPT) 27.0 U/L 13.0-6 9.0 normal Not Available [facility] [address] [facility], [place], [address], 05/21/2025 12:34:36 05/21/20 25 05/21/2025 CMP (FEMA LE) A/G ratio 1.5 ratio Not Available [facility] [address] [facility] [address], [place], [address], 05/21/2025 12:34:36 05/21/20 25 05/21/2025 CMP (FEMA LE) ALP phos 108.0 U/L 30.0-1 40.0 normal Not Available [facility] [address] [facility] 1, [place], [address], 05/21/2025 12:34:36 05/21/20 25 05/21/2025 CMP (FEMA LE) calcium 9.5 mg/dL 8.4-10 .5 Not Available [facility] [address] [facility] [address], [place], [address], 05/21/2025 12:34:36 05/21/20 25 05/21/2025 CMP (FEMA LE) sodium 135.0 mmol/ L 136.0- 145.0 low Not Available [facility] [address] [facility] 1, [place], [address], 05/21/2025 12:34:36 05/21/20 25 05/21/2025 CMP (FEMA LE) potassium 4.5 mmol/ L 3.5-5. 1 Not Available [facility] [address] [facility] 1, [place], [address], 05/21/2025 12:34:36 05/21/20 25 05/21/2025 CMP (FEMA LE) chloride 109.0 mmol/ L 98.0-1 10.0 normal Not Available [facility] [address], [place], [address], 05/21/2025 12:34:36 05/21/20 25 05/21/2025 CMP (FEMA LE) C02 20.0 mmol/ L 22.0-3 1.0 low Not Available [facility] [address] [facility], [place], [address], 05/21/2025 12:34:36 05/21/20 25 05/21/2025 CMP (FEMA LE) anion gap 6.0 calc Not Available [facility] [address] [facility] [address], [place], [address], 05/21/2025 12:34:36 05/21/20 25 05/21/2025 CMP (FEMA LE) osmolality 296.4 calc Not Available [facility] [address] [facility] [address], [place], [address], 05/21/2025 12:34:36 05/21/20 25 05/26/2025 CAPRI SCREE [...] Patte rns (http s://d oi.or g/10. 1515/ [facility]- 2017- 0052) For addit ional infor usha de la cruz e refer to http: //[facility] joselin Sims stDia gnost ics.c om/fa q/FAQ 177 (This link is being provi ded for infor charmaine anderson/ educfelix dow purpo ses only. ) Not Available [address], [address], 05/26/2025 18:14:28 05/21/20 25 05/26/2025 RHEUM ATOID FACTO R rheumatoid factor <10 IU/mL <14 normal Not Available [address], [address], 05/26/2025 18:14:29 05/21/20 25 05/26/2025 C-FORD CTIVE PROTE IN C-reactive protein 15.2 mg/L <8.0 high Not Available [address], [address], 05/26/2025 18:14:29 05/21/20 25 05/26/2025 CYCLI C CITRU LLINA ERIC PEPTI DE (CCP) AB (IGG) cyclic citrullinate d peptide (ccp) Ab (IgG) <16 units normal Refer ence Range Negat nadja: <20 Weak Posit nadja: 20-39 Moder ate Posit nadja: 40-59 Stron g Posit nadja: >59 Not Available [address], [address], 05/26/2025 18:14:29 05/21/20 25 05/21/2025 ESR (eryt hrocy te sedim entat ion rate) , blood SedRate 50 Not Available [facility] [address] [place], [address], 05/21/2025 10:47:32 06/23/20 25 06/23/2025 URINA LYSIS WITH MICRO color LIGHT YELLOW Not Available [facility] [address], [place], [address], 06/23/2025 10:38:28 06/23/2006/23/2025 URINA LYSIS WITH MICRO clarity SLIGHT LY CLOUDY Not Available [facility] [address], [place], [address], 06/23/2025 10:38:28 06/23/2006/23/2025 URINA LYSIS WITH MICRO glu 3+ abnormal Not Available [facility] [address], [place], [address], 06/23/2025 10:38:28 06/23/20 25 06/23/2025 URINA LYSIS WITH MICRO bili NEGATI VE Not Available [facility] [address], [place], [address], 06/23/2025 10:38:28 06/23/20 25 06/23/2025 URINA LYSIS WITH MICRO ket NEGATI VE Not Available [facility] [address], [place], [address], 06/23/2025 10:38:28 06/23/20 25 06/23/2025 URINA LYSIS WITH MICRO S.g 1.010 1.005- 1.025 Not Available [facility] [address], [place], [address], 06/23/2025 10:38:28 06/23/20 25 06/23/2025 URINA LYSIS WITH MICRO pH 5.5 5.0-7. 0 Not Available [facility] [address], [place], [address], 06/23/2025 10:38:28 06/23/20 25 06/23/2025 URINA LYSIS WITH MICRO pro 3+ abnormal Not Available [facility] [address], [place], [address], 06/23/2025 10:38:28 06/23/20 25 06/23/2025 URINA LYSIS WITH MICRO uro 0.2 E.U./D L Not Available [facility] [address] [facility] 1, [place], [address], 06/23/2025 10:38:28 06/23/20 25 06/23/2025 URINA LYSIS WITH MICRO nit POSITI VE abnormal Not Available [facility] [address] [facility] 1, [place], [address], 06/23/2025 10:38:28 06/23/20 25 06/23/2025 URINA LYSIS WITH MICRO blo 1+ abnormal Not Available [facility] [address] [facility] 1, [place], [address], 06/23/2025 10:38:28 06/23/20 25 06/23/2025 URINA LYSIS WITH MICRO essence 1+ abnormal Not Available [facility] [address] [facility] 1, [place], [address], 06/23/2025 10:38:28 06/23/20 25 06/23/2025 URINA LYSIS WITH MICRO WBC 100 abnormal > Not Available [facility] [address] [facility] 1, [place], [address], 06/23/2025 10:38:28 06/23/20 25 06/23/2025 URINA LYSIS WITH MICRO RBC 2-3 Not Available [facility] [address] [facility], [place], [address], 06/23/2025 10:38:28 06/23/20 25 06/23/2025 URINA LYSIS WITH MICRO epi cells 6-8 abnormal Not Available [facility] [address] [facility] [address], [place], [address], 06/23/2025 10:38:28 06/23/2006/23/2025 URINA LYSIS WITH MICRO bacteria TRACE OF MIXED MELY abnormal Not Available [facility] [address], [place], [address], 06/23/2025 10:38:28 06/23/20 25 06/23/2025 URINA LYSIS WITH MICRO other NG Not Available [facility] [address], [place], [address], 06/23/2025 10:38:28 06/23/20 25 06/25/2025 CULTU RE, URINE , ROUTI NE culture, urine, routine SEE NOTE abnormal CULTU RE, URINE , ROUTI NE Micro Numbe r: [id number] Test Statu s: Final Speci men [...] Comme nts Not Available [facility] [address], [place], [address], 06/25/2025 17:20:04 07/02/20 25 07/01/2025 XR, christine anjelica, 2 or more view No observ ation record ed. [facility] [address] [place], [address], 07/03/2025 13:49:46 Result Notes None recorded. Problems Name Problem SNOMED Code Status Onset Date Resolution Date Notes Provider Name and Address Organization Details Recorded Time Chronic neck pain 3835562951287 Active 2024 Stacey Monzon MD [address] [place] [address], [phone], [facility] 14:44:59 Pain of left shoulder joint 2001624488515 9109 Active 2024 Stacey Monzon MD [address] [place] [address], [address], [facility] 14:45:24 Extrapyrami casey sign 74339240 Active 2024 Stacey Monzon MD [address] [place] [address], [address], [facility] 14:48:32 Nausea 149625833 Active 2024 Stacey Monzon MD [address] [place] [address], [address], [facility] 14:49:22 Type 1 diabetes mellitus 08005526 Active 2024 Stacey Monzon MD [address] [place] [address], [facility] 14:50:28 Essential hypertensio n 13963922 Active 2024 Stacey Monzon MD [address] [place] [address], [address], [facility] 09:10:38 Pain of multiple joints 12770720 Active 2024 Stacey Monzon MD [address] [place] [address], [phone], [facility] 10:47:24 Arthritis 3173921 Active 2024 Stacey Monzon MD [address] [place] [address], [address], [facility] 10:30:41 Viral upper respiratory tract infection 064075038 Active 2024 Stacey Monzon MD [address] [place] [address], [address], [facility] 20:42:43 Dysuria 69847806 Active 2024 Stacey Monzon MD [address] [place] [address], [address], [facility] 09:36:44 Gastroesoph ageal reflux disease without esophagitis 853566442 Active 2024 Stacey Monzon MD [address] [place] [address], [address], [facility] 09:39:43 Chronic constipatio n 687353507 Active 2024 Stacey Monzon MD [address] [place] [address], [address], [facility] 10:14:46 Generalized anxiety disorder 93375928 Active 2024 Stacey Monzon MD [address] [place] [address], [phone], [facility] 10:15:06 Acute urinary tract infection 698389372 Active 2024 Stacey Monzon MD [address] [place] [address], [address], [facility], [place] 11:28:18 Pain of left shoulder region Active 2024 Stacey Monzon MD [address] [place] [address], [address], [facility], [place] 10:46:20 Tardive dyskinesia 780999427 Active 2024 Stacey Monzon MD [address] [place] [address], [address], [facility], [place] 10:46:46 Problem Notes None recorded. Procedures Surgical History Date Name Laterality Status Provider Name and Address Organization Details Recorded Time procedure on shoulder completed [facility], [place] 05/28/2025 10:04:06 Hysterectomy completed [facility], [place] 05/28/2025 10:04:22 Tubal Ligation completed [facility], [place] 05/28/2025 10:04:36 nasal septoplasty completed [facility], [place] 05/28/2025 10:04:52 Imaging Results None recorded. [...] Not Available Not Available No t Available doxycycline hyclate 100 mg tablet TAKE ONE TABLET BY MOUTH TWO TIMES A DAY FOR 14 DAYS active Not Available Not Available No [...] Not Available Not Available No t Available Ingrezza 40 mg capsule 1 capsule daily [...] Updated DateTime 5 162.56 cm 23.3 kg/m2 37138.5 6 g 97.1 [degF] 97 % 97 % 91 /min 150/96 mm[Hg] [facility] 5 13:59:53 Date Recorded Body height Body mass index (BMI) Body weight Body temperature Oxygen saturation Oxygen saturation in Arterial blood by Pulse oximetry Heart rate Systolic And Diastolic Provider Name and Address Organization Details Last Updated DateTime 5 162.56 cm 23.5 kg/m2 07771.1 5 g 97.4 [degF] 99 % 99 % 72 /min 154/84 mm[Hg] [facility] 5 10:24:07 Date Recorded Body height Body mass index (BMI) Body weight Oxygen saturation Oxygen saturation in Arterial blood by Pulse oximetry Heart rate Respiratory rate Body temperature Systolic And Diastolic Provider Name and Address Organization Details Last Updated DateTime 5 162.56 cm 22.8 kg/m2 97724.0 7 g 99 % 99 % 98 /min 18 /min 97.1 [degF] 138/80 mm[Hg] [facility] 10:02:12 Date Recorded Body height Body mass index (BMI) Body weight Body temperature Oxygen saturation Oxygen saturation in Arterial blood by Pulse oximetry Heart rate Systolic And Diastolic Provider Name and Address Organization Details Last Updated DateTime 162.56 cm 22.7 kg/m2 68897.1 9 g 98 [degF] 98 % 98 % 84 /min 158/96 mm[Hg] [facility] 09:10:28 Date Recorded Body height Body mass index (BMI) Body weight Body temperature Oxygen saturation Oxygen saturation in Arterial blood by Pulse oximetry Heart rate Systolic And Diastolic Provider Name and Address Organization Details Last Updated DateTime 162.56 cm 23.7 kg/m2 57236.7 5 g 97.3 [degF] 99 % 99 % 91 /min 162/90 mm[Hg] [facility], LMartinLMartinCMartin 5 10:21:11 Social History Question Answer Notes LastModified by Organizat ion Details LastModified Time Tobacco Smoking Status Former Smoker [facility] 07/01/2025 10:32:03 When Did You Quit Smoking? 16+yearssinc elastcigaret te [email or web address] Information not available 03/23/2025 What Was The Date Of Your Most Recent Tobacco Screening? 07/01/2025 Information not available 07/01/2025 Has Tobacco Cessation Counseling Been Provided? No [email or web address] Information not available 06/23/2025 Sex: Unknown Functional Status Question Answer Note LastModified by Organization D etails LastModified Time What is your level of alcohol consumption? None [email or web address] Information not available 05/12/2025 Mental Status None [...] preservative free, adsorbed 8 completed Not Available [facility] 07/01/2025 10:19:06 Influenza, MDCK, quadrivalent, PF 3 completed Not Available [facility] 07/01/2025 10:19:06 Tdap 4 completed Not Available [facility] 07/01/2025 10:19:06 Past Encounters Encounter ID Performer Location Encounter Start Date Encounter Closed Date Diagnosis/Indication Diagnosis SNOMED-CT Code Diagnosis ICD10 Code Diagnosis IMO Codes Diagnosis Note [id number] ODALIS KING [facility] [address] [place] [phone] 5 03/23/2025 12:37:55 03/24/2025 12:00:58 Open wound 855047984 T14.8XXA 49537 Wet to dry dressings applied. Patient to return to clinic tomorrow for dressing change. Wound care appt is next week . [id number] Stacey Monzon MD [facility] [address] [place] [phone] 5 05/12/2025 13:51:59 05/12/2025 15:21:02 Chronic neck pain 6496640838 107 M54.2 G89.29 076138 The patient has a history of chronic neck pain and she would like medication to help. Pain of le ft shoulder joint 9481326587 5422643 M25.512 491459 Extrapyramidal sign 4337 8000 R29.169 9995042 Patient may be having some febrile symptoms secondary to previous antipsycho tic use. Patient is no longer taking those medication s but she is currently taking promethazi ne and that potentiall y could complicate that as well. Encouraged patient to stop that and will utilize Zofran instead for her nausea. Nausea 500968737 R11.0 75881 Type 1 michaelle betes mellitus 73758472 E10.69 3066677 Patient has a history of type 1 diabetes and currently uses freestyle ok to manage her blood sugars, however she has recently knocked off her device and she has no other way to check her blood sugars. Will send glucometer and testing supplies. Patient sees endocrinol ogy. [id number] Stacey Monzon MD [facility] [address] [place] [phone] 5 05/21/2025 10:07:53 05/21/2025 11:24:59 Pain of multiple joints 64931657 M25.50 90892 We will start the patient on tramadol to help with pain. In the meantime we will start workup for inflammato ry arthritis evaluation . [id number] Stacey Monzon MD [facility] [address] [place] [phone] 5 05/28/2025 09:29:59 05/28/2025 10:40:42 Arthritis 2214682 M19.90 437711 Given the severity of her inflammato ry markers on her recent lab work and her symptoms, we will go ahead and proceed with rheumatolo gy referral. Concerned about a seronegati ve inflammato ry arthritis. Viral uppe r respiratory tract infection 393119416 J06.9 482580 Patient presented with symptoms of viral upper [...] in 7-10 days if symptoms not improving. [id number] Stacey Monzon MD [facility] [address] [place] [phone] 5 06/23/2025 08:56:19 06/23/2025 09:49:30 Dysuria 89069030 R30.0 99641 - Evaluate urine for infection to exclude this as a cause. - Consider underlying constipati on management to resolve urinary bladder issues. Gastroesop hageal reflux disease without esophagitis 621026304 K21.9 602627 - Refill omeprazole prescripti on for symptomati c management . - Reinforce adherence to daily medication s. Essential hypertension 30585432 I10 43056 controlled on current meds Extrapyramidal sign 4337 8000 R29.999 2967605 Tardive Dyskinesia : - Discontinu e promethazi ne to reduce exacerbati on of movements. - Explore alternativ e antiemetic options. Type 1 michaelle betes mellitus 84803069 E10.69 7090805 - Ensure follow-up with an endocrinol ogist. Chronic constipation 236 531730 K59.09 413090 - Implement use of stool softeners and MiraLax. - Encourage dietary modificati ons. Generalize d anxiety disorder 18249925 F41.1 991010 - Focus on medication adjustment s for symptom management . [id number] Stacey Monzon MD [facility] [address] [place] [phone] 5 07/01/2025 10:15:01 07/01/2025 11:01:26 Pain of left shoulder region 0896689258 M25.512 56389356 - Obtain shoulder x-rays and consider surgical consultati on depending on results. Tardive dyskinesia 07340 9007 G24.01 96020 - Initiate Ingrezza with insurance approval and increase dose per titration plan. Pain of knee region 1003 658693 M25.561 - Begin physical therapy, with potential [...] ID Guarantor Name 06/30/2025 1 [place] [employer] - MEDIBLUE PLUS (MEDICARE REPLACEMENT HMO) [id number] Wendi Yee [id number] Wendi Yee Notes Date Note Type [...] to help manage this. Stacey Monzon MD [address] [place] [address], [phone], [facility] 05/18/2025 08:58:36 05/21/20 25 text/htm l Pt is here today to discuss joint pain in her shoulder, elbows, knees, neck, top of feet, wrist, hands and fingers.She is nauseated, started Sunday3Pt seen at [facility] ER on 05/20 for this pain. ER prescribed Promethazien 25mg Q6H PRN, unknown name injection received for pain and nausea. Patient feels that is related to her pain. Stacey Monzon MD [address] [place] [address], [phone], [facility] 05/23/2025 13:39:23 05/28/20 25 text/htm l Upper Respiratory SymptomsReported by PatientUpper Respiratory SymptomsFor quality, patient reportsproductive cough(thick yellow nasal drainage). For location, patient reportshead,nasal, andears. For duration, (started 4 dauys ago, fever yesterday). patient here to review labs and she is having sinus symptoms. Patient states that the joint pain has significantly improved. Stacey Monzon MD [address] [place] [address], [phone], [facility] 05/31/2025 20:42:56 06/23/20 25 text/htm l The [...] gastroesophageal reflux disease symptoms. Stacey Monzon MD [address] [place], [address], [facility] 06/23/2025 10:15:37 07/01/20 25 text/htm l Musculoskeletal [...] improve social interaction concerns. Stacey Monzon MD [address] [place] [address], [id number], [facility], [place] 07/01/2025 11:02:09 OBGyn Episode No OBEpisode recorded.
--- NOTE | 2025-07-19 10:01 | CTR_ITS ---
PROCEDURE INFORMATION: Exam: CT Abdomen And Pelvis With Contrast Exam date and time: 07/19/2025 11:34 AM Age: 55 years old Clinical indication: Abdominal pain; Additional info: Abd pain TECHNIQUE: Imaging protocol: Computed tomography of the abdomen and pelvis with contrast. Radiation optimization: All CT scans at this facility use at least one of these dose optimization techniques: automated exposure control; mA and/or kV adjustment per patient size (includes targeted exams where dose is matched to clinical indication); or iterative reconstruction. Contrast material: OMNI 350; Contrast volume: 100 ml; Contrast route: INTRAVENOUS (IV); COMPARISON: CR XR chest 1V portable [id number] 02/22/2025 6:49 PM RADIATION DOSE METRICS: Total DLP (mGy-cm): 397.85 FINDINGS: Lungs: Visible portions of the lungs are unremarkable. Heart: The heart is unremarkable. No cardiomegaly. No pericardial effusion. Esophagus: The visible esophagus is unremarkable. Liver: Liver is unremarkable. Gallbladder and biliary ducts: The gallbladder and biliary tree are unremarkable. Pancreas: Pancreas is unremarkable. The pancreatic duct is normal in size. Spleen: Spleen is unremarkable. Adrenal glands: The adrenal glands are unremarkable. Kidneys and ureters: Normal. No hydronephrosis. Stomach and bowel: There is a large amount of stool in the colon likely due to constipation. Appendix: The appendix is normal. Intraperitoneal space: The intraperitoneal space is unremarkable. No free air. No significant fluid collection. Vasculature: The vasculature is unremarkable accounting for age. No abdominal aortic aneurysm. Lymph nodes: No enlarged lymph nodes. Urinary bladder: The urinary bladder is unremarkable. Reproductive: Status post hysterectomy. Bones/joints: Unremarkable. No acute fracture. Soft tissues: The remaining soft tissue is unremarkable. CT/CT abdomen pelvis w con* [id number] IMPRESSION: 1. There is a large amount of stool in the colon likely due to constipation. 2. There is otherwise no acute abdominal or pelvic pathology.
--- NOTE | 2025-07-19 10:02 | W.ED.ABDPA2 ---
HPI - Abdominal Pain General: Chief Complaint: Abdominal Pain Stated Complaint: r side abd pain x3 days, n/v Time Seen by Provider: 07/19/25 10:00 Source: patient Mode of arrival: ambulatory Limitations: no limitations History of Present Illness: 55-year-old female states she has been having intermittent abdominal pain has been going on for the last 4 days. States pains in her right upper quadrants had some nausea vomiting as well. States pain sharp in nature pain is currently a 6 out of 10. Patient denies any fevers. Associated Symptoms: Reports nausea and vomiting Related Data Home Medications ?Medication ?Instructions ?Recorded ?Confirmed flash glucose scanning reader 12/14/22 07/19/25 ([employer] Ok 14 Day Dex[place]) amlodipine 10 mg tablet 10 mg PO DAILY 02/23/25 07/19/25 carvedilol 12.5 mg tablet 12.5 mg PO BID 02/23/25 07/19/25 fluticasone propionate 50 2 spray intranasal DAILY 02/23/25 07/19/25 mcg/actuation nasal spray,suspension insulin aspart U-100 100 unit/mL See Rx Instructions .Route .COMPLEX 02/25/25 07/19/25 (3 mL) subcutaneous pen (Novolog FlexPen U-100 Insulin aspart) ciclopirox 8 % topical solution 1 applic topical BEDTIME 07/19/25 07/19/25 divalproex 250 mg tablet,delayed 250 mg PO DAILY 07/19/25 07/19/25 release insulin glargine U-300 conc 300 32 unit SUBCUT QAM 07/19/25 07/19/25 unit/mL (1.5 mL) subcutaneous pen (Toujeo SoloStar U-300 Insulin) meloxicam 15 mg tablet 15 mg PO DAILY 07/19/25 07/19/25 omeprazole 20 mg capsule,delayed 20 mg PO DAILY 07/19/25 07/19/25 release tramadol 50 mg tablet 50 mg PO Q6H PRN Pain 07/19/25 07/19/25 valbenazine 40 mg capsule See Rx Instructions .Route .COMPLEX 07/19/25 07/19/25 (Ingrezza) Previous Rx's ?Medication ?Instructions ?Recorded pen needle, diabetic 31 gauge x #100 ea 04/20/2301/30 (BD Ultra-Fine Short Pen Needle) hydroxyzine HCl 50 mg tablet 50 mg PO QID PRN Anxiety #60 tabs 02/25/25 blood-glucose sensor (FreeStyle #6 ea 04/22/25 Ok 3 Plus Sensor device) cam boot #1 ea 04/28/25 diabetic shoes with 3 sets of #1 ea 04/28/25 inserts pregabalin 50 mg capsule 50 mg PO BID 3 months #180 caps 06/02/25 doxycycline hyclate 100 mg tablet 100 mg PO BID 14 days #28 tabs 07/12/25 cam boot #1 ea 07/14/25 polyethylene glycol 3350 17 gram 17 g PO DAILY PRN constipation #14 07/19/25 oral powder packet (Miralax) ea Allergies Allergy/AdvReac Type Severity Reaction Status Date / Time No Known Allergies Allergy Verified 07/14/25 07:09 Review of Systems GI: Reports: abdominal pain, nausea and vomiting PFS ED PFSH: Medical History DKA, type 1 Benign essential hypertension Severe bipolar disorder Hyperlipidemia 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 GERD (gastroesophageal reflux disease) Surgical History History of nasal surgery Hx of shoulder surgery Hx of tubal ligation Family History Other Cancer Heart disease Social History Smoking and tobacco/nicotine status: current every day tobacco/nicotine user e-cigarettes E-Cigarette Details: with nicotine Alcohol intake: former Substance/Drug Use: former Date of last use: 11/13/2024 Physical Exam Const: COMMON NORMALS: no acute distress, patient oriented x3 and healthy appearing HENMT: COMMON NORMALS: normocephalic and atraumatic HEAD & SCALP: normocephalic and atraumatic Neck/C-Spine: COMMON NORMALS: full ROM and supple Chest: COMMONS NORMALS: normal inspection of the chest Resp: COMMON NORMALS: normal respiratory effort, No retractions, No use of accessory muscles and clear to auscultation bilaterally AUSCULTATION: clear to auscultation bilaterally Cardio: COMMON NORMALS: regular rate, regular rhythm and No murmurs present (Cardio) RATE: regular rate RHYTHM: regular rhythm GI: COMMON NORMALS: Normal to inspection, nondistended, normoactive bowel sounds present, Soft to palpation and no masses PALPATION: Yes Soft to palpation and Yes Tenderness to palpation present (GI) Details: RUQ Extremity: COMMON NORMALS: normal to inspection and full ROM Neuro: COMMON NORMALS: patient oriented x3, moves all extremities and no focal motor deficits Psych: COMMON NORMALS: mental status grossly normal, Normal thought process present and cooperative THOUGHT PROCESS: Normal thought process present Skin: COMMON NORMALS: no rashes or lesions noted and no wounds GENERAL SKIN EXAM: no rashes or lesions noted Course Vital Signs: Vital signs: Vital Signs Temperature 97.8 F 07/19/25 09:51 Pulse Rate 90 07/19/25 09:51 Respiratory Rate 18 07/19/25 11:03 Blood Pressure 171/107 07/19/25 09:51 Pulse Oximetry 98 07/19/25 09:51 Oxygen Delivery Me thod Room Air 07/19/25 09:51 MDM - Abdominal Pain Medical Decision Making Patient presents with abdominal pain. Differential includes appendicitis, cholecystitis, diverticulitis. Patient CT scan here showed constipation with no signs of the above. Patient's blood work including electrolytes and white count are normal urinalysis shows no signs of UTI. Pain has improved here likely is having pain from constipation. Will write her MiraLAX for home. I did go over her labs and CT findings with her along with plan. She is to follow-up with PCP and return if worsening she understands and agrees Medical Records I reviewed the patient's medical records. Lab Data I reviewed the patient's lab results. 07/19/25 10:10 07/19/25 11:03 Labs/Radiology: Radiology Impressions Abdomen/Pelvis CT 07/19/25 10:01 IMPRESSION: 1. There is a large amount of stool in the colon likely due to constipation. 2. There is otherwise no acute abdominal or pelvic pathology. Laboratory Results WBC 4.11 10^3/uL (3.29-11.43) 07/19/25 10:10 RBC 3.97 10^6/uL (3.85-5.65) 07/19/25 10:10 Hgb 10.70 g/dL (11.27-16.99) L 07/19/25 10:10 Hct 32.6 % (36-47) L 07/19/25 10:10 MCV 82.1 fl (85-98) L 07/19/25 10:10 MCH 27.0 pg (27-33) 07/19/25 10:10 MCHC 32.8 g/dL (30-55) 07/19/25 10:10 RDW 13.5 % (12.1-15.1) 07/19/25 10:10 Plt Count 276 10^3/cmm (157-399) 07/19/25 10:10 MPV 10.3 fL (7.4-10.4) 07/19/25 10:10 Neut % (Auto) 57.2 % 07/19/25 10:10 Lymph % (Auto) 29.2 % 07/19/25 10:10 [place] % (Auto) 10.2 % 07/19/25 10:10 Eos % (Auto) 2.2 % 07/19/25 10:10 Baso % (Auto) 1.0 % 07/19/25 10:10 Neut # (Auto) 2.35 10^3/uL (1.8-7.7) 07/19/25 10:10 Lymph # (Auto) 1.2 10^3/uL (0.8-4.8) 07/19/25 10:10 [place] # (Auto) 0.4 10^3/uL (0.2-0.9) 07/19/25 10:10 Eos # (Auto) 0.1 10^3/uL (0.0-0.8) 07/19/25 10:10 Baso # (Auto) 0.0 10^3/uL (0.0-0.1) 07/19/25 10:10 Nucleated RBC % (auto) 0 % 07/19/25 10:10 Nucleated RBCs # 0.0 /100WBC 07/19/25 10:10 Sodium 136 mmol/L (136-145) 07/19/25 11:03 Potassium 3.9 mmol/L (3.5-5.1) 07/19/25 11:03 Chloride 106 mmol/L (98-107) 07/19/25 11:03 Carbon Dioxide 20 mmol/L (22-29) L 07/19/25 11:03 Anion Gap 13.9 (5-19) 07/19/25 11:03 BUN 16 mg/dL (6-20) 07/19/25 11:03 Creatinine 0.7 mg/dL (0.5-0.9) 07/19/25 11:03 GFR Calculation 86.6 mL/min (90-130) L 07/19/25 11:03 Glucose 286 mg/dL (65-115) H 07/19/25 11:03 Calculated Osmolality 294 mOsm/kg (285-295) 07/19/25 11:03 Calcium 9.2 mg/dL (8.5-10.5) 07/19/25 11:03 Total Bilirubin 0.3 mg/dL (0.15-1.2) 07/19/25 11:03 AST 15 U/L (0-32) 07/19/25 11:03 ALT 8 U/L (0-33) 07/19/25 11:03 Alkaline Phosphatase 82 U/L (35-105) 07/19/25 11:03 Total Protein 6.0 g/dL (6.6-8.7) L 07/19/25 11:03 Albumin 3.6 g/dL (3.5-5.2) 07/19/25 11:03 Globulin 2.4 g/dL (1.3-4.6) 07/19/25 11:03 Lipase 27 U/L (13-60) 07/19/25 11:03 Urine Color Yellow (Yellow) 07/19/25 11:18 Urine Appearance Clear (CLEAR) 07/19/25 11:18 Urine pH 7.5 (5-7) 07/19/25 11:18 Ur Specific [place] 1.040 (1.005-1.030) H 07/19/25 11:18 Urine Protein 3+ (Negative) A 07/19/25 11:18 Urine Glucose (UA) 3+ (Normal) H 07/19/25 11:18 Urine Ketones Negative (Negative) 07/19/25 11:18 Urine Blood 1+ (Negative) A 07/19/25 11:18 Urine Nitrate Negative (Negative) 07/19/25 11:18 Urine Bilirubin Negative (Negative) 07/19/25 11:18 Urine Urobilinogen 0.2 mg/dL (Negative) 07/19/25 11:18 Ur Leukocyte Esterase Negative (Negative) 07/19/25 11:18 Urine RBC 6-10 /hpf (0-2) 07/19/25 11:18 Urine WBC 0-5 /hpf (0-5) 07/19/25 11:18 Ur Squamous Epith Cells 0-5 /hpf (0-5) 07/19/25 11:18 Amorphous Sediment Not Reportable 07/19/25 11:18 Urine Bacteria None seen /hpf (NONE) 07/19/25 11:18 Hyaline Casts 0.81 /lpf 07/19/25 11:18 All radiology interpretation(s) finalized by discharge Discharge Plan Discharge Patient Disposition: Home Clinical Impression: Abdominal pain, Constipation Condition: Stable Prescriptions: New polyethylene glycol 3350 [Miralax] 17 gram powder in packet 17 g PO DAILY PRN (Reason: constipation) Qty: 14 0RF No Action pregabalin 50 mg capsule 50 mg PO BID 90 Days Qty: 180 0RF (DME) cam boot See Rx Instructions .Route .MEDSUPPLY Qty: 1 0RF Rx Instructions: As directed by [place] ([facility]) FreeStyle Ok 14 Day [facility] See Rx Instructions .Route Rx Instructions: As directed ([facility]) diabetic shoes with 3 sets of inserts See Rx Instructions .ROUTE .MEDSUPPLY Qty: 1 0RF Rx Instructions: As directed by HOME (DME) cam boot See Rx Instructions .Route .MEDSUPPLY Qty: 1 0RF Rx Instructions: As directed ([facility]) pen needle, diabetic [BD Ultra-Fine Short Pen Needle] 31 gauge x 5/16 needle See Rx Instructions .Route Qty: 100 0RF Rx Instructions: As directed ([facility]) FreeStyle Ok 3 Plus Sensor Device See Rx Instructions .Route Qty: 6 1RF Rx Instructions: USE TO MONITOR BLOOD GLUCOSE LEVELS carvedilol 12.5 mg tablet 12.5 mg PO BID amlodipine 10 mg tablet 10 mg PO DAILY fluticasone propionate 50 mcg/actuation spray,suspension 2 spray INTRANASAL DAILY insulin aspart U-100 [Novolog FlexPen U-100 Insulin] 100 unit/mL (3 mL) insulin pen See Rx Instructions .ROUTE .COMPLEX Rx Instructions: Take 6 unit subcutaneously 3 times daily plus sliding scale if needed. hydroxyzine HCl 50 mg tablet 50 mg PO QID PRN (Reason: Anxiety) Qty: 60 0RF divalproex 250 mg tablet,delayed release (DR/EC) 250 mg PO DAILY meloxicam 15 mg tablet 15 mg PO DAILY tramadol 50 mg tablet 50 mg PO Q6H PRN (Reason: Pain) omeprazole 20 mg capsule,delayed release(DR/EC) 20 mg PO DAILY Ingrezza 40 mg capsule See Rx Instructions .ROUTE .COMPLEX Rx Instructions: Take 1 capsule by mouth daily for 7days, then increase to 2 capsules daily. ciclopirox 8 % solution 1 applic topical BEDTIME insulin glargine U-300 conc [Toujeo SoloStar U-300 Insulin] 300 unit/mL (1.5 mL) insulin pen 32 unit SUBCUT QAM doxycycline hyclate 100 mg tablet 100 mg PO BID 14 Days Qty: 28 0RF Discharge Orders: Discharge ED (Routine); Ordered 07/19/25 Ordered By: Nicole Cintron Referrals: Julio Monzon MD [Primary Care Provider, Family Practice] - 4-7 days Discharge Diet: Advance as tolerated Discharge Activity: Resume usual activity Patient Instructions: Constipation (ED), Abdominal Pain (ED) Print Language: Citizen [place] Coding Level of Care Code ED House Father for Marco Antonio Carter
[2025-07-19 10:17] LABS: Hematocrit 32.6 % (36-47); Hemoglobin 10.70 g/dL (11.27-16.99); Mean Corpuscular HGB Conc 32.8 g/dL (30-55); Mean Corpuscular Hemoglobin 27.0 pg (27-33); Mean Corpuscular Volume 82.1 fl (85-98); Nucleated Red Blood Cells % 0 %; Platelet Count 276 10^3/cmm (157-399); Red Blood Count 3.97 10^6/uL (3.85-5.65); White Blood Count 4.11 10^3/uL (3.29-11.43)
[2025-07-19] MEDS: iohexol 350 mg/mL 500 mL Btl (per mL) IV (10:42)
[2025-07-19 11:03] VITALS: RESP 18
[2025-07-19] MEDS: morphine 4 mg/mL SDV 1 mL IVP (11:03)
[2025-07-19] MEDS: ondansetron 2 mg/ML SDV 2 mL 4 MG IVP (11:03)
[2025-07-19 11:23] LABS: Glucose Urine UA 3+ (Normal); Nitrate Urine Negative (Negative)
[2025-07-19 11:25] LABS: Add Urine Microscopic? YES
[2025-07-19 11:25] LABS: Alanine Aminotransferase 8 U/L (0-33); Albumin Level 3.6 g/dL (3.5-5.2); Alkaline Phosphatase 82 U/L (35-105); Anion Gap 13.9 (5-19); Aspartate Amino Transferase 15 U/L (0-32); Blood Urea Nitrogen 16 mg/dL (6-20); Calcium 9.2 mg/dL (8.5-10.5); Carbon Dioxide 20 mmol/L (22-29); Chloride 106 mmol/L (98-107); Creatinine Clr Calc Pharmacy 81.1948; Globulin 2.4 g/dL (1.3-4.6); Glucose 286 mg/dL (65-115); Lipase 27 U/L (13-60); Osmolality Calculated 294 mOsm/kg (285-295); Potassium 3.9 mmol/L (3.5-5.1); Sodium 136 mmol/L (136-145); Total Protein 6.0 g/dL (6.6-8.7)
[2025-07-19 11:26] LABS: Specific Gravity, Urine 1.040 (1.005-1.030)
[2025-07-19 11:45] VITALS: BP 158/98; PULSE 85; O2SAT 99
== END 2025-07-19 11:45 | disposition home or self-care (01) ==
PROVIDERS: Emergency Provider Emergency Medicine; PCP Family Medicine
DX: K59.00 Constipation, unspecified (principal); Z79.4 Long term (current) use of insulin; F17.290 Nicotine dependence, other tobacco product, uncomplicated; E10.42 Type 1 diabetes mellitus with diabetic polyneuropathy; E78.5 Hyperlipidemia, unspecified; I10 Essential (primary) hypertension
CPT/HCPCS: 74177; 80053; 81001; 83690; 85025; 96374; 96375; 99285; J2270; J2405; J7030

== ENCOUNTER 2025-07-29 20:00 | Emergency (ER) | payer MEDICARE, SELFPAY ==
[2025-07-29 20:07] VITALS: BP 169/92; PULSE 89; RESP 18; TEMP 36.5; O2SAT 99; BMI 24.0
--- NOTE | 2025-07-29 20:08 | ECG_ITS ---
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 Measurements Intervals [place] Rate: 85 P: 7 SC: 153 QRS: -5 QRSD: 97 T: 59 QT: 401 QTc: 479 Interpretive Statements SINUS RHYTHM Compared to ECG 05/21/2025 02:42:21 Sinus tachycardia no longer present Incomplete right bundle-branch block no longer present Electronically Signed On 07-29-2025 20:32:34 [employer] by Mustapha Jensen M.D. [email or web address]
--- OUTSIDE RECORDS SUMMARY | 2025-07-29 20:13 | XMS_ITS | Data Portability ---
Author Organization ZULEIKA Doran [facility] Jose Landon [facility] Address [address] [address] Care Team Providers Care Concrete Pipe Maker Name Role Phone STACEY MONZON Primary Care [...] available Lab urinalysi s, complete 2024 025 [facility], [address], [address], [place], [address], 06/23/2025 10:38:28 culture, urine 2024 025 [facility], [address] [facility] [address], [address] [place], [address], 06/25/2025 17:20:04 C-reactiv e protein, quantitat nadja, serum or plasma 2024 025 JORGE Not available 05/26/2025 18:14:29 CAPRI (antinucl ear antibodie s) screen, serum 2024 025 [email or web address] Not available 05/21/2025 10:49:05 rf (rheumato id factor), serum 2024 025 JORGE Not available 05/26/2025 18:14:29 ESR (erythroc yte sedimenta tion rate), blood 2024 025 [facility] ([facility]), [address] [place], [address], 05/21/2025 13:32:15 ccp (cyclic citrullin ated peptide) igg, serum 2024 025 [facility] ([facility]), [address] [place], [address], 05/26/2025 18:14:29 CMP, serum or plasma 2024 025 [facility], [address], [address], [place], [address], 05/21/2025 12:34:36 Referral physical therapist referral 2024 [place] [address] [facility], [address] [place] [address], [address], 07/06/2025 17:48:42 rheumatol ogist referral 2024 025 Car Lamas MD, [address] [place], [address], 06/11/2025 16:50:16 Procedures None recorded. Surgeries None recorded. Imaging XR, shoulder, 2 or more view 2024 [facility], [address], [place], [address], 07/02/2025 12:28:13 Medication Orders Ingrezza 40 mg capsule 2024 025 [facility]armacy #[id number], [address], [address], [place], [address], 07/01/2025 10:47:53 omeprazol e 20 mg capsule,d elayed release 2024 025 [facility]/Pharmacy #[id number], [address], [address], [place], [address], 06/23/2025 09:42:25 tramadol 50 mg tablet 2024 025 [facility]/Pharmacy #[id number], [address], [address], [place], [address], 05/21/2025 10:50:51 ondansetr on HCl 4 mg tablet 2024 025 [facility]/Pharmacy #[id number], [address], [address], [place], [address], 06/23/2025 09:19:19 meloxicam 15 mg tablet 2024 025 [facility]acy #[id number], [address] [facility], [place], [address], 05/21/2025 10:50:05 Patient TargetsNo targets recorded. Patient Instructions Encounter Date Encounter Id Patient Instructions Last Modified By Organization Details Last Modified Time 06/23/2025 [id number] - Follow up with an electric relay tester on September 01. - Refill and adhere to daily omeprazole and diabetes medications. - Discontinue promethazine and explore alternative antiemetics. - Start stool softeners like MiraLax for constipation management. - Monitor blood sugar closely; contact the electric relay tester if abnormal values persist. - Focus on [...] harm. [email or web address] Not available 06/23/2025 09:44:21 07/01/2025 [id number] - Visit the lab for a shoulder [...] Not available 07/01/2025 10:50:17 Reason for Referral Iron Carrier Referral for Arthritis Referring Physician: Stacey Monzon, [facility], Encounter Date: 05/28/2025 Physical Therapist Referral for Pain of knee region Referring Physician: Stacey Monzon [facility], Encounter Date: 07/01/2025 Results Created Date Observation Date Name Description Value Unit Range Abnormal Flag Note LastModifiedBy Organization Detail LastModifiedTime 05/21/2005/21/2025 CMP (FEMA LE) glucose 262.0 mg/dL 60.0-9 9.0 high Not Available [facility] [address] [address], [place], [address], 05/21/2025 12:34:36 05/21/2005/21/2025 CMP (FEMA LE) BUN (blood urea nitrogen) 40.0 mg/dL 10.0-2 6.0 high Not Available [facility] [address] [facility] 1, [place], [address], 05/21/2025 12:34:36 05/21/2005/21/2025 CMP (FEMA LE) creatinine (serum) 0.9 mg/dL 0.4-1. 5 Not Available [facility] [address] [facility] 1, [place], [address], 05/21/2025 12:34:36 05/21/2005/21/2025 CMP (FEMA LE) BUN/creatini ne ratio 44.44 ratio Not Available [facility] [address] [facility] [address], [place], [address], 05/21/2025 12:34:36 05/21/20 25 05/21/2025 CMP (FEMA LE) eGFR calculated 69.1 Not Available [facility] [address] [facility] [address], [place], [address], 05/21/2025 12:34:36 05/21/20 25 05/21/2025 CMP (FEMA LE) total protein 6.4 g/dL 6.0-8. 5 Not Available [facility] [address] [facility] [address], [place], [address], 05/21/2025 12:34:36 05/21/2005/21/2025 CMP (FEMA LE) total bilirubin 0.5 mg/dL 0.2-1. 3 Not Available [facility] [address] [facility] [address], [place], [address], 05/21/2025 12:34:36 05/21/2005/21/2025 CMP (FEMA LE) albumin 3.8 g/dL 3.5-5. 5 Not Available [facility] [address] [facility] [address], [place], [address], 05/21/2025 12:34:36 05/21/2005/21/2025 CMP (FEMA LE) globulin 2.6 calc Not Available [facility] [address] [facility] [address], [place], [address], 05/21/2025 12:34:36 05/21/2005/21/2025 CMP (FEMA LE) AST (SGOT) 46.0 U/L 0.0-46 .0 Not Available [facility] [address] [facility] [address], [place], [address], 05/21/2025 12:34:36 05/21/20 25 05/21/2025 CMP (FEMA LE) altv (SGPT) 27.0 U/L 13.0-6 9.0 normal Not Available [facility] [address] [facility], [place], [address], 05/21/2025 12:34:36 05/21/20 25 05/21/2025 CMP (FEMA LE) A/G ratio 1.5 ratio Not Available [facility] [address] [facility] [address], [place], [address], 05/21/2025 12:34:36 05/21/20 25 05/21/2025 CMP (FEMA LE) ALP phos 108.0 U/L 30.0-1 40.0 normal Not Available [facility] [address] [facility] [address], [place], [address], 05/21/2025 12:34:36 05/21/20 25 05/21/2025 CMP (FEMA LE) calcium 9.5 mg/dL 8.4-10 .5 Not Available [facility] [address] [facility] 1, [place], [address], 05/21/2025 12:34:36 05/21/20 25 05/21/2025 CMP (FEMA LE) sodium 135.0 mmol/ L 136.0- 145.0 low Not Available [facility] [address] [facility] [address], [place], [address], 05/21/2025 12:34:36 05/21/20 25 05/21/2025 CMP (FEMA LE) potassium 4.5 mmol/ L 3.5-5. 1 Not Available [facility] [address] [facility] 1, [place], [address], 05/21/2025 12:34:36 05/21/20 25 05/21/2025 CMP (FEMA LE) chloride 109.0 mmol/ L 98.0-1 10.0 normal Not Available [facility] [address], [place], [address], 05/21/2025 12:34:36 05/21/20 25 05/21/2025 CMP (FEMA LE) C02 20.0 mmol/ L 22.0-3 1.0 low Not Available [facility] [address] [facility], [place], [address], 05/21/2025 12:34:36 05/21/20 25 05/21/2025 CMP (FEMA LE) anion gap 6.0 calc Not Available [facility] [address] [facility] [address], [place], [address], 05/21/2025 12:34:36 05/21/20 25 05/21/2025 CMP (FEMA LE) osmolality 296.4 calc Not Available [facility] [address] [facility] [address], [place], [address], 05/21/2025 12:34:36 05/21/20 25 05/26/2025 CAPRI SCREE [...] nadja Inter natio nal Conse nsus on CAPIR Patte rns (http s://d oi.or g/10. 1515/ [facility]- 2017- 0052) For addit ional infor usha de la cruz e refer to http: //[facility] joselin Sims stDia gnost ics.c om/fa q/FAQ 177 (This link is being provi ded for infor charmaine anderson/ educfelix dow purpo ses only. ) Not Available [address], [address], 05/26/2025 18:14:28 05/21/20 25 05/26/2025 RHEUM ATOID FACTO R rheumatoid factor <10 IU/mL <14 normal Not Available [address], [address], 05/26/2025 18:14:29 05/21/20 25 05/26/2025 C-FORD CTIVE PROTE IN C-reactive protein 15.2 mg/L <8.0 high Not Available [address], [address], 05/26/2025 18:14:29 05/21/20 25 05/26/2025 CYCLI C CITRU LLINA ERIC PEPTI DE (CCP) AB (IGG) cyclic citrullinate d peptide (ccp) Ab (IgG) <16 units normal Refer ence Range Negat nadja: <20 Weak Posit nadja: 20-39 Moder ate Posit nadja: 40-59 Stron g Posit nadja: >59 Not Available [address], [address], 05/26/2025 18:14:29 05/21/20 25 05/21/2025 ESR (eryt hrocy te sedim entat ion rate) , blood SedRate 50 Not Available [facility] ([facility]) [address] [place], [address], 05/21/2025 10:47:32 06/23/20 25 06/23/2025 URINA LYSIS WITH MICRO color LIGHT YELLOW Not Available [facility] [address], [place], [address], 06/23/2025 10:38:28 06/23/2006/23/2025 URINA LYSIS WITH MICRO clarity SLIGHT LY CLOUDY Not Available [facility] [address], [place], [address], 06/23/2025 10:38:28 06/23/2006/23/2025 URINA LYSIS WITH MICRO glu 3+ abnormal Not Available [facility] [address], [place], [address], 06/23/2025 10:38:28 06/23/20 25 06/23/2025 URINA LYSIS WITH MICRO bili NEGATI VE Not Available [facility] [address], [place], [address], 06/23/2025 10:38:28 06/23/20 25 06/23/2025 URINA LYSIS WITH MICRO ket NEGATI VE Not Available [facility] [address], [place], [address], 06/23/2025 10:38:28 06/23/20 25 06/23/2025 URINA LYSIS WITH MICRO S.g 1.010 1.005- 1.025 Not Available [facility] [address], [place], [address], 06/23/2025 10:38:28 06/23/20 25 06/23/2025 URINA LYSIS WITH MICRO pH 5.5 5.0-7. 0 Not Available [facility] [address], [place], [address], 06/23/2025 10:38:28 06/23/20 25 06/23/2025 URINA LYSIS WITH MICRO pro 3+ abnormal Not Available [facility] [address], [place], [address], 06/23/2025 10:38:28 06/23/20 25 06/23/2025 URINA LYSIS WITH MICRO uro 0.2 E.U./D L Not Available [facility] [address] [facility] 1, [place], [address], 06/23/2025 10:38:28 06/23/20 25 06/23/2025 URINA LYSIS WITH MICRO nit POSITI VE abnormal Not Available [facility] [address] [facility] 1, [place], [address], 06/23/2025 10:38:28 06/23/20 25 06/23/2025 URINA LYSIS WITH MICRO blo 1+ abnormal Not Available [facility] [address] [facility] [address], [place], [address], 06/23/2025 10:38:28 06/23/20 25 06/23/2025 URINA LYSIS WITH MICRO essence 1+ abnormal Not Available [facility] [address] [facility] [address], [place], [address], 06/23/2025 10:38:28 06/23/20 25 06/23/2025 URINA LYSIS WITH MICRO WBC 100 abnormal > Not Available [facility] [address] [facility] 1, [place], [address], 06/23/2025 10:38:28 06/23/20 25 06/23/2025 URINA LYSIS WITH MICRO RBC 2-3 Not Available [facility] [address] [facility] 1, [place], [address], 06/23/2025 10:38:28 06/23/20 25 06/23/2025 URINA LYSIS WITH MICRO epi cells 6-8 abnormal Not Available [facility] [address] [facility] [address], [place], [address], 06/23/2025 10:38:28 06/23/2006/23/2025 URINA LYSIS WITH MICRO bacteria TRACE OF MIXED MELY abnormal Not Available [facility] [address], [place], [address], 06/23/2025 10:38:28 06/23/20 25 06/23/2025 URINA LYSIS WITH MICRO other NG Not Available [facility] [address], [place], [address], 06/23/2025 10:38:28 06/23/20 25 06/25/2025 CULTU RE, URINE , ROUTI NE culture, urine, routine SEE NOTE abnormal CULTU RE, URINE , ROUTI NE Micro Numbe r: [id number] Test Statu s: Final Speci men [...] Comme nts Not Available [facility] [address], [place], [address], 06/25/2025 17:20:04 07/02/20 25 07/01/2025 XR, christine anjelica, 2 or more view No observ ation record ed. [facility] [address] [place], [address], 07/03/2025 13:49:46 Result Notes None recorded. Problems Name Problem SNOMED Code Status Onset Date Resolution Date Notes Provider Name and Address Organization Details Recorded Time Chronic neck pain 7853316160106 Active 2024 Stacey Monzon MD [address] [place] [address], [address], [facility] 14:44:59 Pain of left shoulder joint 9715130910336 9109 Active 2024 Stacey Monzon MD [address] [place] [address], [address], [facility] 14:45:24 Extrapyrami casey sign 48373276 Active 2024 Stacey Monzon MD [address] [place] [address], [address], [facility] 14:48:32 Nausea 969648928 Active 2024 Stacey Monzon MD [address] [place] [address], [address], [facility] 14:49:22 Type 1 diabetes mellitus 46060112 Active 2024 Stacey Monzon MD [address] [place] [address], [facility] 14:50:28 Essential hypertensio n 09437467 Active 2024 Stacey Monzon MD [address] [place] [address], [address] 5, [facility] 09:10:38 Pain of multiple joints 95107549 Active 2024 Stacey Monzon MD [address] [place] [address], [address] 5, [facility] 10:47:24 Arthritis 1268204 Active 2024 Stacey Monzon MD [address] [place] [address], 847[address]877 5, [facility] 10:30:41 Viral upper respiratory tract infection 572664035 Active 2024 Stacey Monzon MD [address] [place] [address], [address]40[address] 5, [facility] 20:42:43 Dysuria 16059861 Active 2024 Stacey Monzon MD [address] [place] [address], [address] 5, [facility] 09:36:44 Gastroesoph ageal reflux disease without esophagitis 787363521 Active 2024 Stacey Monzon MD [address] [place] [address], [address] 5, [facility] 09:39:43 Chronic constipatio n 108919651 Active 2024 Stacey Monzon MD [address] [place] [address], [address], [facility] 10:14:46 Generalized anxiety disorder 07535002 Active 2024 Stacey Monzon MD [address] [place] [address], [address] 5, [facility] 10:15:06 Acute urinary tract infection 710567806 Active 2024 Stacey Monzon MD [address] [place] [address], 247[address] 5, [facility], Jose 11:28:18 Pain of left shoulder region Active 2024 Stacey Monzon MD [address] [place] [address], [address] 5, [facility], Jose 10:46:20 Tardive dyskinesia 602284860 Active 2024 Stacey Monzon MD [address] [place] [address], [address], [facility], Jose 10:46:46 Problem Notes None recorded. Procedures Surgical History Date Name Laterality Status Provider Name and Address Organization Details Recorded Time procedure on shoulder completed [facility], [place] 05/28/2025 10:04:06 Hysterectomy completed [facility], [place] 05/28/2025 10:04:22 Tubal Ligation completed [facility], [place] 05/28/2025 10:04:36 nasal septoplasty completed [facility], [place] 05/28/2025 10:04:52 Imaging Results None recorded. [...] SPRAYS BY INTRANASA L ROUTE EVERY DAY 2024 active Not Available Not Available Not Avai lable doxycycline hyclate 100 mg tablet TAKE ONE [...] Not Available Not Available Not Available Lilly RodriguezJimisharlene U-300 Insulin 300 unit/mL (1.5 mL) subcutaneou [...] Updated DateTime 5 162.56 cm 23.3 kg/m2 10182.5 6 g 97.1 [degF] 97 % 97 % 91 /min 150/96 mm[Hg] [facility] 5 13:59:53 Date Recorded Body height Body mass index (BMI) Body weight Body temperature Oxygen saturation Oxygen saturation in Arterial blood by Pulse oximetry Heart rate Systolic And Diastolic Provider Name and Address Organization Details Last Updated DateTime 5 162.56 cm 23.5 kg/m2 51208.1 5 g 97.4 [degF] 99 % 99 % 72 /min 154/84 mm[Hg] [facility] 5 10:24:07 Date Recorded Body height Body mass index (BMI) Body weight Oxygen saturation Oxygen saturation in Arterial blood by Pulse oximetry Heart rate Respiratory rate Body temperature Systolic And Diastolic Provider Name and Address Organization Details Last Updated DateTime 5 162.56 cm 22.8 kg/m2 95588.0 7 g 99 % 99 % 98 /min 18 /min 97.1 [degF] 138/80 mm[Hg] Jade Khan [facility] 5 10:02:12 Date Recorded Body height Body mass index (BMI) Body weight Body temperature Oxygen saturation Oxygen saturation in Arterial blood by Pulse oximetry Heart rate Systolic And Diastolic Provider Name and Address Organization Details Last Updated DateTime 162.56 cm 22.7 kg/m2 21081.1 9 g 98 [degF] 98 % 98 % 84 /min 158/96 mm[Hg] [facility] 09:10:28 Date Recorded Body height Body mass index (BMI) Body weight Body temperature Oxygen saturation Oxygen saturation in Arterial blood by Pulse oximetry Heart rate Systolic And Diastolic Provider Name and Address Organization Details Last Updated DateTime 162.56 cm 23.7 kg/m2 11375.7 5 g 97.3 [degF] 99 % 99 % 91 /min 162/90 mm[Hg] [facility] 5 10:21:11 Social History Question Answer Notes LastModified by Organizat ion Details LastModified Time Tobacco Smoking Status Former Smoker [facility] 07/01/2025 10:32:03 When Did You Quit Smoking? 16+yearssinc elastcigaret te [email or web address] Information not available 03/23/2025 What Was The Date Of Your Most Recent Tobacco Screening? 07/01/2025 [email or web address] Information not available 07/01/2025 Has Tobacco Cessation Counseling Been Provided? No [email or web address] Information not available 06/23/2025 Sex: Unknown Functional [...] preservative free, adsorbed 8 completed Not Available [facility] 07/01/2025 10:19:06 Influenza, MDCK, quadrivalent, PF 3 completed Not Available [facility] 07/01/2025 10:19:06 Tdap 4 completed Not Available Replaced by [facility] 07/01/2025 10:19:06 Past Encounters Encounter ID Performer Location Encounter Start Date Encounter Closed Date Diagnosis/Indication Diagnosis SNOMED-CT Code Diagnosis ICD10 Code Diagnosis IMO Codes Diagnosis Note [id number] ODALIS KING [facility] ([facility] [address] [place] [phone] 5 03/23/2025 12:37:55 03/24/2025 12:00:58 Open wound 723659073 T14.8XXA 45617 Wet to dry dressings applied. Patient to return to clinic tomorrow for dressing change. Wound care appt is next week . [id number] Stacey Monzon MD [facility] ([facility]) [address] [place] [phone] 5 05/12/2025 13:51:59 05/12/2025 15:21:02 Chronic neck pain 2063938854 107 M54.2 G89.29 313178 The patient has a history of chronic neck pain and she would like medication to help. Pain of le ft shoulder joint 9472065054 2997658 M25.512 066420 Extrapyramidal sign 4337 8000 R29.683 1977032 Patient may be having some febrile symptoms secondary to previous antipsycho tic use. Patient is no longer taking those medication s but she is currently taking promethazi ne and that potentiall y could complicate that as well. Encouraged patient to stop that and will utilize Zofran instead for her nausea. Nausea 219741831 R11.0 49689 Type 1 michaelle betes mellitus 39768704 E10.69 6721816 Patient has a history of type 1 diabetes and currently uses freestyle ok to manage her blood sugars, however she has recently knocked off her device and she has no other way to check her blood sugars. Will send glucometer and testing supplies. Patient sees endocrinol ogy. [id number] Stacey Monzon MD [facility] ([facility]) [address] [place] [address] [phone] 5 05/21/2025 10:07:53 05/21/2025 11:24:59 Pain of multiple joints 35247736 M25.50 07597 We will start the patient on tramadol to help with pain. In the meantime we will start workup for inflammato ry arthritis evaluation . [id number] Stacey Monzon MD [facility] ([facility]) [address] [place] [address] [phone] 5 05/28/2025 09:29:59 05/28/2025 10:40:42 Arthritis 7626508 M19.90 680427 Given the severity of her inflammato ry markers on her recent lab work and her symptoms, we will go ahead and proceed with rheumatolo gy referral. Concerned about a seronegati ve inflammato ry arthritis. Viral uppe r respiratory tract infection 414826737 J06.9 139816 Patient presented with symptoms of viral upper [...] in 7-10 days if symptoms not improving. [id number] Stacey Monzon MD [facility] ([facility]) [address] [place] [address] [id number] 5 06/23/2025 08:56:19 06/23/2025 09:49:30 Dysuria 27857354 R30.0 27952 - Evaluate urine for infection to exclude this as a cause. - Consider underlying constipati on management to resolve urinary bladder issues. Gastroesop hageal reflux disease without esophagitis 317335717 K21.9 486541 - Refill omeprazole prescripti on for symptomati c management . - Reinforce adherence to daily medication s. Essential hypertension 35078237 I10 68751 controlled on current meds Extrapyramidal sign 4337 8000 R29.410 8352356 Tardive Dyskinesia : - Discontinu e promethazi ne to reduce exacerbati on of movements. - Explore alternativ e antiemetic options. Type 1 michaelle betes mellitus 72595564 E10.69 2432767 - Ensure follow-up with an endocrinol ogist. Chronic constipation 236 839737 K59.09 082022 - Implement use of stool softeners and MiraLax. - Encourage dietary modificati ons. Generalize d anxiety disorder 49174752 F41.1 137281 - Focus on medication adjustment s for symptom management . [id number] Stacey Monzon MD [facility] ([facility]) [address] [place] [address] [id number] 5 07/01/2025 10:15:01 07/01/2025 11:01:26 Pain of left shoulder region 5112450738 M25.512 80554884 - Obtain shoulder x-rays and consider surgical consultati on depending on results. Tardive dyskinesia 32548 9007 G24.01 65625 - Initiate Ingrezza with insurance approval and increase dose per titration plan. Pain of knee region 1003 993480 M25.561 - Begin physical therapy, with potential [...] PLUS (MEDICARE REPLACEMENT HMO) [id number] Wendi Yee [id number] Wendi Yee Notes Date Note Type [...] to help manage this. Stacey Monzon MD [address] [place] [address], [phone], [facility] 05/18/2025 08:58:36 05/21/20 25 text/htm l Pt is here today to discuss joint pain in her shoulder, elbows, knees, neck, top of feet, wrist, hands and fingers.She is nauseated, started Sunday 9/3Pt seen at [facility] ER on 05/20 for this pain. ER prescribed Promethazien 25mg Q6H PRN, unknown name injection received for pain and nausea. Patient feels that is related to her pain. Stacey Monzon MD [address] [place] [address], [phone], [facility] 05/23/2025 13:39:23 05/28/20 25 text/htm l Upper Respiratory SymptomsReported by PatientUpper Respiratory SymptomsFor quality, patient reportsproductive cough(thick yellow nasal drainage). For location, patient reportshead,nasal, andears. For duration, (started 4 dauys ago, fever yesterday). patient here to review labs and she is having sinus symptoms. Patient states that the joint pain has significantly improved. Stacey Monzon MD [address] [place] [address], [phone], [facility] 05/31/2025 20:42:56 06/23/20 text/htm l The patient is a 55-year-old [...] gastroesophageal reflux disease symptoms. Stacey Monzon MD [address] [place] [address], [phone], [facility] 06/23/2025 10:15:37 07/01/20 25 text/htm l [...] improve social interaction concerns. Stacey Monzon MD [address] [place] [address], [phone], [facility], [place] 07/01/2025 11:02:09 OBGyn Episode No OBEpisode recorded.
[2025-07-29 20:14] VITALS: BP 169/92; PULSE 89; RESP 18; TEMP 36.5; O2SAT 99
--- NOTE | 2025-07-29 20:21 | ED_ITS ---
HPI - General Adult 2 General: Chief complaint: General Medical Stated complaint: Swelling in hands and feet,Type 1 diabetic Time Seen by Provider: 07/29/25 20:06 History of Present Illness: 55yo F w/pmhx of DKA type 1 complicated by peripheral neuropathy, HTN, HLD, GERD, bipolar disorder presents with cc/of 1 month of bilateral lower extremity edema. Patient states that she has been feeling somewhat short of breath and has had some shortness of breath with lying flat. She has not had a fever at home. She denies chest pain. No abdominal pain, nausea or vomiting. On arrival to triage, her glucose is noted to be 45, she is mildly diaphoretic with a decreased sensorium. She was promptly treated with oral orange juice and a sandwich which she was able to tolerate with improvement. Patient states that she took 6 units of insulin but ate dinner normally. Her regimen includes 32 units of subcu long acting insulin. She denies dysuria, increased frequency, flank pain. She denies diarrhea though she states she has had some constipation. No decrease in urine output. No blood in stool or urine. Patient reports that in the last 1 month she may have gained about 5 pounds and complains of feeling cold. Patient is currently taking doxycycline for foot wound that was seen/evaluated by podiatry today w/fu scheduled in one week's time. Related Data Home Medications ?Medication ?Instructions ?Recorded ?Confirmed flash glucose scanning reader 12/14/22 07/22/25 (FreeStyle Ok 14 Day [place]) amlodipine 10 mg tablet 10 mg PO DAILY 02/23/2502/08 carvedilol 12.5 mg tablet 12.5 mg PO BID 02/23/2502/08 fluticasone propionate 50 2 spray intranasal DAILY 06/1107/22/25 mcg/actuation nasal spray,suspension insulin aspart U-100 100 unit/mL See Rx Instructions . Route .COMPLEX 02/25/25 07/22/25 (3 mL) subcutaneous pen (Novolog FlexPen U-100 Insulin aspart) ciclopirox 8 % topical solution 1 applic topical BEDTI ME 07/19/25 07/22/25 divalproex 250 mg tablet,delayed 250 mg PO DAILY 07/1907/22/25 release insulin glargine U-300 conc 300 32 unit SUBCUT QAM 11/1107/22/25 unit/mL (1.5 mL) subcutaneous pen (Toujeo SoloStar U-300 Insulin) meloxicam 15 mg tablet 15 mg PO DAILY 07/19/2502/08 omeprazole 20 mg capsule,delayed 20 mg PO DAILY 07/22/25 release tramadol 50 mg tablet 50 mg PO Q6H PRN Pain 07/22/25 valbenazine 40 mg capsule See Rx Instructions .Route . COMPLEX 07/19/25 07/22/25 (Ingrezza) Previous Rx's ?Medication ?Instructions ?Recorded pen needle, diabetic 31 gauge x #100 ea 04/20/2301/30 (BD Ultra-Fine Short Pen Needle) hydroxyzine HCl 50 mg tablet 50 mg PO QID PRN Anxiety #60 tabs 02/25/25 blood-glucose sensor (FreeStyle #6 ea 04/22/25 Ok 3 Plus Sensor device) cam boot #1 ea 04/28/25 diabetic shoes with 3 sets of #1 ea 04/28/25 inserts pregabalin 50 mg capsule 50 mg PO BID 3 months #180 c aps 06/02/25 cam boot #1 ea 07/14/25 polyethylene glycol 3350 17 gram 17 g PO DAILY PRN con stipation #14 07/19/25 oral powder packet (Miralax) ea Allergies Allergy/AdvReac Type Severity Reaction Status Date / Time No Known Allergies Allergy Verified 07/22/25 07:01 [facility] ED 2 [facility]: Medical History (Updated 07/30/25 @ 00:07 by Estefany Knox MD) DKA, type 1 Benign essential hypertension Severe bipolar disorder Hyperlipidemia 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 GERD (gastroesophageal reflux disease) Surgical History History of nasal surgery Hx of shoulder surgery Hx of tubal ligation Family History Other Cancer Heart disease Social History Smoking and tobacco/nicotine status: current every day tobacco/nicotine user e- cigarettes E-Cigarette Details: with nicotine Alcohol intake: former Substance/Drug Use: former Date of last use: 11/13/2024 Physical Exam 2 Narrative: EXAM NARRATIVE: Vital signs were reviewed. Patient has mildly decreased sensorium which improves w/oral intake. Patient is breathing comfortably, no increased WOB or accessory muscle use. SpO2 is above 95% on RA. Patient has clear lungs b/l, no rhonchi, wheezing or crackles. No hypotension or tachycardia. Abdomen is soft, nondistended and nontender. Patient is moving all extremities, no deformity or gross injury. No lower extremity asymmetry. +pitting b/l LE edema. +petechiae noted on forearms. Course 2 Vital Signs: Vital signs: Vital Signs Temperature 97.7 F 07/29/25 20:14 Pulse Rate 69 07/29/25 22:00 Respiratory Rate 18 07/29/25 20:14 Blood Pressure 110/73 07/29/25 22:41 Pulse Oximetry 94 07/29/25 22:41 Oxygen Delivery Me thod Room Air 07/29/25 22:41 MDM - General Adult Medical Decision Making 55yo F w/cc of b/l LE edema, also noted to be hypoglycemic in triage. Differential diagnosis includes but is limited to, CHF, venous insufficiency, lymphedema, liver problem, kidney problem, heat edema, idiopathic, pretibial myxedema. Patient was evaluate CBC, CMP, BNP, TSH, UA, EKG. Patient was noted to have a normal white blood cell count. Patient is anemic but this is comparable to prior. Patient has a mild rising creatinine but no actionable electrolyte abnormalities. Troponin is mildly elevated as is BMP to 1174. TSH is only midly above normal, likely not the cause of her sx. repeat troponin demonstrates negative delta. Patient continues to deny chest pain. Patient is feeling well now and her blood glucose is in the 200s. She states she has blood glucose monitoring at home and will continue to monitor closely at home. At this time, her lower extremity edema may be caused by CHF. Patient does not require admission given that her oxygen is 94 to 95% on room air, she does not have any significant crackles or rhonchi, edema of the lower extremities is mild. Patient would benefit from outpatient echo. She is agreeable to discharge at this time and further outpatient workup. Patient was counseled on supportive care at home, given return precautions and discharged in stable condition with recommendation for outpatient follow-up with primary care nurse or doctor. Lab Data 07/29/25 20:07/29/25: Laboratory Results WBC 7.37 10^3/uL (3.29-11.43) 07/29/25 20: RBC 3.53 10^6/uL (3.85-5.65) L 07/29/25: Hgb 9.50 g/dL (11.27-16.99) L 07/29/25 20: Hct 29.4 % (36-47) L 07/29/25: MCV 83.3 fl (85-98) L 07/29/25: MCH 26.9 pg (27-33) L 07/29/25: MCHC 32.3 g/dL (30-55) 07/29/25: RDW 14.1 % (12.1-15.1) 07/29/25: Plt Count 283 10^3/cmm (157-399) 07/29/25: MPV 9.8 fL (7.4-10.4) 07/29/25: Neut % (Auto) 30.5 % 07/29/25: Lymph % (Auto) 54.8 % 07/29/25: Stevens % (Auto) 10.3 % 07/29/25: Eos % (Auto) 3.4 % 07/29/25: Baso % (Auto) 0.9 % 07/29/25: Neut # (Auto) 2.24 10^3/uL (1.8-7.7) 07/29/25: Lymph # (Auto) 4.0 10^3/uL (0.8-4.8) 07/29/25: Stevens # (Auto) 0.8 10^3/uL (0.2-0.9) 07/29/25: Eos # (Auto) 0.3 10^3/uL (0.0-0.8) 07/29/25: Baso # (Auto) 0.1 10^3/uL (0.0-0.1) 11/12/25 20:25 Nucleated RBC % (auto) 0 % 07/29/25 20: Nucleated RBCs # 0.0 /100WBC 07/29/25 20:25 Sodium 144 mmol/L (136-145) 07/29/25 20:25 Potassium 4.5 mmol/L (3.5-5.1) 07/29/25 20:25 Chloride 112 mmol/L (98-107) H 07/29/25 20:25 Carbon Dioxide 19 mmol/L (22-29) L 07/29/25 20:25 Anion Gap 17.5 (5-19) 07/29/25 20: BUN 25 mg/dL (6-20) H 07/29/25 20:25 Creatinine 1.0 mg/dL (0.5-0.9) H 07/29/25 20:25 GFR Calculation 57.4 mL/min (90-130) L 07/29/25 20: Glucose 44 mg/dL (65-115) L 07/29/25 20: POC Glucose 262 mg/dL (70-110) H 07/29/25 23:08 Calculated Osmolality 299 mOsm/kg (285-295) H 07/29/25 20:25 Calcium 9.1 mg/dL (8.5-10.5) 07/29/25 20: Total Bilirubin 0.2 mg/dL (0.15-1.2) 07/29/25 20:25 AST 18 U/L (0-32) 07/29/25 20:25 ALT 11 U/L (0-33) 07/29/25 20:25 Alkaline Phosphatase 80 U/L (35-105) 07/29/25 20:25 Troponin T Baseline 14 ng/L (0-10) H 07/29/25 20:25 Troponin T 120 Minute 12.40 ng/L (0-10) H 07/29/25 22:30 Delta Troponin T -1.60 ABS# (0-10) L 07/29/25 22:30 NT-Pro-B Natriuret Pep 1174 pg/mL (0-125) H 07/29/25 20:25 Total Protein 5.9 g/dL (6.6-8.7) L 07/29/25 20:25 Albumin 4.0 g/dL (3.5-5.2) 07/29/25 20: Globulin 1.9 g/dL (1.3-4.6) 07/29/25 20: TSH 4.76 uIU/mL (0.27-4.20) H 07/29/25 20:25 Urine Color Yellow (Yellow) 07/29/25 21:41 Urine Appearance Clear (CLEAR) 07/29/25 21: Urine pH 5.0 (5-7) 07/29/25 21:41 Ur Specific [place] 1.019 (1.005-1.030) 07/29/25 21:41 Urine Protein 3+ (Negative) A 07/29/25 21: Urine Glucose (UA) Negative (Normal) 07/29/25 21: Urine Ketones Negative (Negative) 07/29/25 21: Urine Blood 1+ (Negative) A 07/29/25 21:41 Urine Nitrate Negative (Negative) 07/29/25 21: Urine Bilirubin Negative (Negative) 07/29/25 21: Urine Urobilinogen 0.2 mg/dL (Negative) 07/29/25 21:41 Ur Leukocyte Esterase Negative (Negative) 07/29/25 21:41 Urine RBC 0-2 /hpf (0-2) 07/29/25 21:41 Urine WBC 0-5 /hpf (0-5) 07/29/25 21:41 Ur Squamous Epith Cells 0-5 /hpf (0-5) 07/29/25 21:41 Amorphous Sediment Not Reportable 07/29/25 21: Urine Bacteria None seen /hpf (NONE) 07/29/25 21: Hyaline Casts 7.01 /lpf 07/29/25 21:41 No radiology studies performed this visit EKG Data EKG 1: Interpretation: Per baseline. Normal sinus rhythm with a heart rate of 85, left axis deviation, normal QT/QTc, narrow complex QRS. No STEMI. EKG 2: Interpretation: Normal sinus rhythm with a heart rate of 69, normal axis, normal intervals, no STEMI. Discharge Plan Discharge Patient Disposition: Home Clinical Impression: Bilateral edema of lower extremity, Elevated brain natriuretic peptide (BNP) level, Hypoglycemia Condition: Stable Prescriptions: No Action pregabalin 50 mg capsule 50 mg PO BID 90 Days Qty: 180 0RF (DME) cam boot See Rx Instructions .Route .MEDSUPPLY Qty: 1 0RF Rx Instructions: As directed by [place] (DME) FreeStyle Ok 14 Day [place] Misc See Rx Instructions .Route Rx Instructions: As directed (DME) diabetic shoes with 3 sets of inserts See Rx Instructions .ROUTE .MEDSUPPLY Qty: 1 0RF Rx Instructions: As directed by HOME (DME) cam boot See Rx Instructions .Route .MEDSUPPLY Qty: 1 0RF Rx Instructions: As directed (DME) pen needle, diabetic [BD Ultra-Fine Short Pen Needle] 31 gauge x 5/16 needle See Rx Instructions .Route Qty: 100 0RF Rx Instructions: As directed (DME) FreeStyle Ok 3 Plus Sensor Device See Rx Instructions .Route Qty: 6 1RF Rx Instructions: USE TO MONITOR BLOOD GLUCOSE LEVELS carvedilol 12.5 mg tablet 12.5 mg PO BID amlodipine 10 mg tablet 10 mg PO DAILY fluticasone propionate 50 mcg/actuation spray,suspension 2 spray INTRANASAL DAILY insulin aspart U-100 [Novolog FlexPen U-100 Insulin] 100 unit/mL (3 mL) insulin pen See Rx Instructions .ROUTE .COMPLEX Rx Instructions: Take 6 unit subcutaneously 3 times daily plus sliding scale if needed. hydroxyzine HCl 50 mg tablet 50 mg PO QID PRN (Reason: Anxiety) Qty: 60 0RF divalproex 250 mg tablet,delayed release (DR/EC) 250 mg PO DAILY meloxicam 15 mg tablet 15 mg PO DAILY tramadol 50 mg tablet 50 mg PO Q6H PRN (Reason: Pain) omeprazole 20 mg capsule,delayed release(DR/EC) 20 mg PO DAILY Ingrezza 40 mg capsule See Rx Instructions .ROUTE .COMPLEX Rx Instructions: Take 1 capsule by mouth daily for 7days, then increase to 2 capsules daily. polyethylene glycol 3350 [Miralax] 17 gram powder in packet 17 g PO DAILY PRN (Reason: constipation) Qty: 14 0RF ciclopirox 8 % solution 1 applic topical BEDTIME insulin glargine U-300 conc [Toujeo SoloStar U-300 Insulin] 300 unit/mL (1.5 mL) insulin pen 32 unit SUBCUT QAM Discharge Orders: Discharge ED (Routine); Ordered 07/30/25 Ordered By: Estefany Knox Referrals: Julio Monzon MD [Primary Care Provider, [facility]] Patient Instructions: Hypoglycemia in a Person with Diabetes (DC), Edema (ED), Opioid Safety, Pain Management, Patient Portal & Mya Instructions Activity Restrictions/Additional Instructions: Please continue to monitor your condition closely at home. If your condition worsens or additional concerns arise, please return promptly to the emergency department for reassessment. Follow up with your primary care doctor as soon as you are able. Please talk to your primary care physician about further outpatient workup with cardiac ultrasound to see if your leg swelling may be due to dysfunction of your heart/heart failure. Your lower extremity swelling may also be contributed to by a medication called amlodipine that you take for your high blood pressure. Talk to your doctor about alternate medical regimen for your high blood pressure. Limit your salt intake. Print Language: [place] Coding Level of Care Code ED Duplicator Punch Operator for Marco Antonio Carter
[2025-07-29 20:52] LABS: Troponin(5th) Baseline 14 ng/L (0-10)
[2025-07-29 20:55] LABS: Hematocrit 29.4 % (36-47); Hemoglobin 9.50 g/dL (11.27-16.99); Mean Corpuscular HGB Conc 32.3 g/dL (30-55); Mean Corpuscular Hemoglobin 26.9 pg (27-33); Mean Corpuscular Volume 83.3 fl (85-98); Nucleated Red Blood Cells % 0 %; Platelet Count 283 10^3/cmm (157-399); Red Blood Count 3.53 10^6/uL (3.85-5.65); White Blood Count 7.37 10^3/uL (3.29-11.43)
[2025-07-29 21:03] LABS: Alanine Aminotransferase 11 U/L (0-33); Albumin Level 4.0 g/dL (3.5-5.2); Alkaline Phosphatase 80 U/L (35-105); Anion Gap 17.5 (5-19); Aspartate Amino Transferase 18 U/L (0-32); Blood Urea Nitrogen 25 mg/dL (6-20); Calcium 9.1 mg/dL (8.5-10.5); Carbon Dioxide 19 mmol/L (22-29); Chloride 112 mmol/L (98-107); Globulin 1.9 g/dL (1.3-4.6); Glucose 44 mg/dL (65-115); NT Pro B Type Natriuretic Pept 1174 pg/mL (0-125); Osmolality Calculated 299 mOsm/kg (285-295); Potassium 4.5 mmol/L (3.5-5.1); Sodium 144 mmol/L (136-145); Thyroid Stimulating Hormone 4.76 uIU/mL (0.27-4.20); Total Protein 5.9 g/dL (6.6-8.7)
[2025-07-29 21:15] VITALS: BP 151/73; O2SAT 98
[2025-07-29 21:30] VITALS: BP 149/89; PULSE 73; O2SAT 99
[2025-07-29 22:00] VITALS: BP 110/73; PULSE 69; O2SAT 96
[2025-07-29 22:02] LABS: Glucose Urine UA Negative (Normal); Nitrate Urine Negative (Negative); Specific Gravity, Urine 1.019 (1.005-1.030)
[2025-07-29 22:07] LABS: Add Urine Microscopic? YES
--- NOTE | 2025-07-29 22:08 | ECG_ITS ---
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 Measurements Intervals [place] Rate: 69 P: 42 FL: 160 QRS: 17 QRSD: 94 T: 61 QT: 445 QTc: 477 Interpretive Statements SINUS RHYTHM Compared to ECG 07/29/2025 20:26:16 No significant changes Electronically Signed On 07-31-2025 19:48:01 CELL TOWER CLIMBER by Jairo Gomez M.D. [email or web address]
[2025-07-29 22:41] VITALS: BP 110/73; O2SAT 94
[2025-07-29 23:08] LABS: Troponin 5 2HR 12.40 ng/L (0-10)
[2025-07-29 23:12] LABS: Troponin 5 2HR Delta -1.60 ABS# (0-10)
== END 2025-07-30 00:20 | disposition home or self-care (01) ==
PROVIDERS: Emergency Provider Emergency Medicine; PCP Family Medicine
DX: E10.42 Type 1 diabetes mellitus with diabetic polyneuropathy (principal); B07.0 Plantar wart; Z79.4 Long term (current) use of insulin; R60.0 Localized edema; E10.649 Type 1 diabetes mellitus with hypoglycemia without coma; R79.89 Other specified abnormal findings of blood chemistry; F17.290 Nicotine dependence, other tobacco product, uncomplicated; E78.5 Hyperlipidemia, unspecified; I10 Essential (primary) hypertension
CPT/HCPCS: 36415; 36416; 80053; 81001; 82962; 83880; 84443; 84484; 85025; 93005; 99213; 99284

== ENCOUNTER 2025-08-14 07:22 | Outpatient (CLI) | payer MEDICARE, SELFPAY ==
--- NOTE | 2025-08-14 07:29 | USCV_ITS ---
Wendi Yee Age: 55 Gender: F : 1970 Exam Date: 08/14/2025 08:08 Ordering Phys: Julio Monzon MD Technologist: AMADO [place]am [place] [facility] [place] Indication: bilateral lower extremity edema BP: 139 / 70 HR: 77 Rhythm: Sinus Technical Quality: Adequate MEASUREMENTS (Male / Female) Normal Values 2D ECHO LV Diastolic Diameter PLAX 4.1 cm 4.2 - 5.9 / 3.9 - 5.3 cm IVS Diastolic Thickness 0.8 cm 0.6 - 1.0 / 0.6 - 0.9 cm IVS Systolic Thickness 1.1 cm LVPW Diastolic Thickness 0.9 cm 0.6 - 1.0 / 0.6 - 0.9 cm LVPW Systolic Thickness 1.6 cm LVOT Diameter 2.0 cm LV Ejection Fraction 2D Teich 52.4 % LV Ejection Fraction MOD 4C 62.4 % LV Ejection Fraction MOD 2C 61.7 % LV Ejection Fraction 2C AL 61.5 % LA Diameter 3.2 cm RA Systolic Volume 4C AL 25.8 ml RA Systolic Volume 4C MOD 23.5 ml LA Sys Volume AL 35.1 cm cubed LA Sys Volume Index AL 20.6 cm cubed/m squared Aorta at Sinotubular Diameter 2.6 cm IVC Diameter 1.2 cm M-MODE LA Ao Ratio MM 1.1 AV Cusp Separation MM 1.6 cm DOPPLER AV Peak Velocity 103.0 cm/s LVOT Peak Velocity 73.0 cm/s AV Area Cont Eq vti 2.3 cm squared AV Area Cont Eq pk 2.3 cm squared MV Peak Velocity 67.0 cm/s MV Area PHT 5.5 cm squared Mitral E to A Ratio 0.7 TV Peak Velocity 251.0 cm/s TR Peak Velocity 252.0 cm/s TR Peak Gradient 25.4 mmHg TR Mean Velocity 209.0 cm/s TR Mean Gradient 18.1 mmHg TR Velocity Time Integral 67.3 cm PV Peak Velocity 68.7 cm/s RV Ejection Time 0.3 s FINDINGS Left Ventricle Normal left ventricular size, systolic function and wall thickness with no regional wall motion abnormality. Left ventricular ejection fraction is 61%. Normal left ventricular diastolic function. Right Ventricle Normal right ventricular size and systolic function. Right Atrium Normal right atrial size. Left Atrium Normal left atrial size. IA Septum Normal appearance of the interatrial septum. Mitral Valve Normal mitral valve structure. No mitral valve stenosis or regurgitation. Aortic Valve Normal aortic valve structure. No aortic valve stenosis or regurgitation. Tricuspid Valve Trace tricuspid valve regurgitation. Normal pulmonary pressure. Pulmonic Valve Trace pulmonic valve regurgitation Pericardium No pericardial effusion. Aorta Normal diameter of the aortic root and ascending thoracic aorta. IVC Normal IVC diameter. CONCLUSIONS Normal left ventricular size, systolic function and wall thickness with ejection fraction of 61%. Normal right ventricular size and systolic function. No significant valvular abnormalities. Mustapha Jensen MD, FACC (Electronically Signed) Final Date: 14 August 2025 15:48 S
== END 2025-08-14 07:23 | disposition home or self-care (01) ==
LOC: RAD 07:24
PROVIDERS: PCP Family Medicine; Visit Provider Family Medicine
DX: R60.0 Localized edema (principal)
CPT/HCPCS: 93306

== ENCOUNTER 2025-08-18 01:28 | Inpatient (IN) | payer MEDICARE, SELFPAY ==
[2025-08-18] VITALS (35 sets, daily range): BP systolic 146–189; BP diastolic 86–108; PULSE 79–111; RESP 15–28; TEMP 36.8; O2SAT 96–100; BMI 27.4; BMI 23.1
--- NOTE | 2025-08-18 02:48 | W.ED.NAVMDI ---
HPI - Nausea/Vomiting/Diarrhea General: Chief complaint: Nausea/Vomiting/Diarrhea Stated complaint: N/V ABD PAIN Time Seen by Provider: 08/18/25 01:30 History of Present Illness: 55-year-old female past medical history significant for type 1 diabetes with diabetic gastroparesis per her report, presenting emergency department with a 2-day history since Sunday of upper abdominal pain with intractable nausea and vomiting, nonbloody, no diarrhea, normal BM yesterday, no fevers, no urinary symptoms, no drugs or alcohol abuse per her report Related Data Home Medications ?Medication ?Instructions ?Recorded ?Confirmed flash glucose scanning reader 12/14/22 08/02/25 ([employer] [place] 14 Day [place]) amlodipine 10 mg tablet 10 mg PO DAILY 02/23/25 08/02/25 carvedilol 12.5 mg tablet 12.5 mg PO BID 02/23/25 08/02/25 fluticasone propionate 50 2 spray intranasal DAILY 02/23/25 08/02/25 mcg/actuation nasal spray,suspension insulin aspart U-100 100 unit/mL See Rx Instructions .Route .COMPLEX 02/25/25 08/02/25 (3 mL) subcutaneous pen (Novolog FlexPen U-100 Insulin aspart) ciclopirox 8 % topical solution 1 applic topical BEDTIME 07/19/25 08/02/25 divalproex 250 mg tablet,delayed 250 mg PO DAILY 07/19/25 08/02/25 release insulin glargine U-300 conc 300 32 unit SUBCUT QAM 07/19/25 08/02/25 unit/mL (1.5 mL) subcutaneous pen (Toujeo SoloStar U-300 Insulin) meloxicam 15 mg tablet 15 mg PO DAILY 07/19/25 08/02/25 omeprazole 20 mg capsule,delayed 20 mg PO DAILY 07/19/25 08/02/25 release tramadol 50 mg tablet 50 mg PO Q6H PRN Pain 07/19/25 08/02/25 valbenazine 40 mg capsule See Rx Instructions .Route .COMPLEX 07/19/25 08/02/25 (Ingrezza) Previous Rx's ?Medication ?Instructions ?Recorded pen needle, diabetic 31 gauge x #100 ea 04/20/2301/30 (BD Ultra-Fine Short Pen Needle) hydroxyzine HCl 50 mg tablet 50 mg PO QID PRN Anxiety #60 tabs 02/25/25 blood-glucose sensor (FreeStyle #6 ea 04/22/25 Ok 3 Plus Sensor device) cam boot #1 ea 04/28/25 diabetic shoes with 3 sets of #1 ea 04/28/25 inserts pregabalin 50 mg capsule 50 mg PO BID 3 months #180 caps 06/02/25 cam boot #1 ea 07/14/25 polyethylene glycol 3350 17 gram 17 g PO DAILY PRN constipation #14 07/19/25 oral powder packet (Miralax) ea Allergies Allergy/AdvReac Type Severity Reaction Status Date / Time No Known Allergies Allergy Verified 07/22/25 07:01 [facility] ED PFS: Medical History DKA, type 1 Benign essential hypertension Severe bipolar disorder Hyperlipidemia 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 GERD (gastroesophageal reflux disease) Surgical History History of nasal surgery Hx of shoulder surgery Hx of tubal ligation Family History Other Cancer Heart disease Social History Smoking and tobacco/nicotine status: current every day tobacco/nicotine user e-cigarettes E-Cigarette Details: with nicotine Alcohol intake: former Substance/Drug Use: former Date of last use: 11/13/2024 Physical Exam Narrative: EXAM NARRATIVE: Gen: A&Ox4, no acute distress, nontoxic appearing HEENT: Normocephalic, atraumatic, no scleral icterus, external ears normal, dry mucous membranes Neck: Supple, full range of motion, no observable masses Lungs: No Respiratory distress, Lungs clear to auscultation bilaterally no rales, rhonchi, wheezing CV: Regular rate and rhythm, no murmur, no pitting edema to lower extremities bilaterally Abdomen: Tender to palpation to the epigastrium and left upper quadrant, no tenderness to palpation to the right upper quadrant, negative Amador sign, no McBurney point tenderness, no rebound or distention or guarding or rigidity MSK: No joint swelling, FROM all 4 extremities Skin: No rashes, petechiae, lesions. Normal color per patient. Neuro: Alert and oriented, no slurred speech, sensation and strength grossly intact all 4 extremities Psych: Appropriate for situation. Course Reevaluation(s): Reevaluation #1: Patient reassessed at this time, reports her symptoms are markedly improved, her workup does show evidence of suspected mild DKA with elevated anion gap to 28 and mildly decreased bicarbonate in the setting of hyperglycemia to 400s, pending ABG to assess severity, plan for continuing IV fluids, push dose of IV insulin, check blood gas to see if insulin drip is needed, reassess for disposition Time: 03:57 Reevaluation #2: ABG showing mild metabolic acidemia consistent with mild DKA, in my opinion patient would do well on a MedSur level of care with intermittent pushes of IV insulin to continue treatment, will discuss with hospitalist to determine if insulin drip/ICU placement is preferable. Time: 04:17 Consultations: Consultation #1: Spoke with Dr. Feldman of [facility], who accepts the patient for admission Time: 04:17 Vital Signs: Vital signs: Vital Signs Temperature 98.2 F 08/18/25 01:35 Pulse Rate 93 08/18/25 03:21 Respiratory Rate 22 H 08/18/25 03:22 Blood Pressure 176/102 08/18/25 03:21 Pulse Oximetry 100 08/18/25 03:21 Oxygen Delivery Me thod Room Air 08/18/25 01:35 MDM - Nausea/Vomiting/Diarrhea Medical Decision Making 55-year-old female history of type 1 diabetes mellitus, self-reported history of gastroparesis, presenting emergency department with 2-day history of nausea vomiting and upper abdominal pain, no fevers, normal bowel movement, patient appears dehydrated and with mild tachycardia but otherwise nontoxic on exam, blood sugar in the 200s prior to arrival, clinically patient does not appear to be severely tachypneic, lower concern for diabetic ketoacidosis although considered, plan for IV fluids, check labs, supportive care with Reglan/prokinetic agent, antiemetic, Pepcid, morphine for pain, reassess for disposition. Overall low pretest probability for acute surgical or infectious intra-abdominal pathology given location and description of complaints and associated benign examination findings in the right lower quadrant right upper quadrant and left lower quadrant of the abdomen although considered. Lab Data Labs showing SLIM creatinine 1.5 from baseline of 1.0, acidosis of 18 with her metabolic acidemia to 7.28, increased anion gap to the 28 range, no evidence of UTI, no leukocytosis, potassium 4.7 08/18/25 03:13 08/18/25 03:13 Laboratory Results WBC 6.16 10^3/uL (3.29-11.43) 08/18/25 03:13 RBC 4.37 10^6/uL (3.85-5.65) 08/18/25 03:13 Hgb 11.60 g/dL (11.27-16.99) 08/18/25 03:13 Hct 34.0 % (36-47) L 08/18/25 03:13 MCV 77.8 fl (85-98) L 08/18/25 03:13 MCH 26.5 pg (27-33) L 08/18/25 03:13 MCHC 34.1 g/dL (30-55) 08/18/25 03:13 RDW 13.1 % (12.1-15.1) 08/18/25 03:13 Plt Count 319 10^3/cmm (157-399) 08/18/25 03:13 MPV 9.4 fL (7.4-10.4) 08/18/25 03:13 Neut % (Auto) 58.4 % 08/18/25 03:13 Lymph % (Auto) 29.2 % 08/18/25 03:13 Yell % (Auto) 10.4 % 08/18/25 03:13 Eos % (Auto) 0.8 % 08/18/25 03:13 Baso % (Auto) 1.0 % 08/18/25 03:13 Neut # (Auto) 3.60 10^3/uL (1.8-7.7) 08/18/25 03:13 Lymph # (Auto) 1.8 10^3/uL (0.8-4.8) 08/18/25 03:13 Yell # (Auto) 0.6 10^3/uL (0.2-0.9) 08/18/25 03:13 Eos # (Auto) 0.1 10^3/uL (0.0-0.8) 08/18/25 03:13 Baso # (Auto) 0.1 10^3/uL (0.0-0.1) 08/18/25 03:13 Nucleated RBC % (auto) 0 % 08/18/25 03:13 Nucleated RBCs # 0.0 /100WBC 08/18/25 03:13 Specimen Type Arterial 08/18/25 03:56 Sample Site Right radial 08/18/25 03:56 ABG pH 7.28 (7.35-7.45) L 08/18/25 03:56 ABG pCO2 32.5 mmHg (35-45) L 08/18/25 03:56 ABG pO2 87.1 mmHg (80.0-100.0) 08/18/25 03:56 ABG PO2/FiO2 Ratio 414 08/18/25 03:56 ABG HCO3 15.3 mmol/L (22-26) L 08/18/25 03:56 ABG Base Excess -10.4 mmol/L (-2.0-2.0) L 08/18/25 03:56 Jaison Test Positive 08/18/25 03:56 Hematocrit 35.0 % (37-47) L 08/18/25 03:56 Carboxyhemoglobin 1.2 %THgb (0.4-20.1) 08/18/25 03:56 Total Hemoglobin 11.4 g/dL (12-16) L 08/18/25 03:56 O2 Delivery Device Room air 08/18/25 03:56 FiO2 21.0 % 08/18/25 03:56 Specimen Drawn By [facility] 08/18/25 03:56 Automatic Splicing Machine Operator ID [facility] 08/18/25 03:56 Sodium 136 mmol/L (136-145) 08/18/25 03:13 Potassium 4.7 mmol/L (3.5-5.1) 08/18/25 03:13 Chloride 94 mmol/L (98-107) L 08/18/25 03:13 Carbon Dioxide 18 mmol/L (22-29) L 08/18/25 03:13 Anion Gap 28.7 (5-19) H 08/18/25 03:13 BUN 50 mg/dL (6-20) H 08/18/25 03:13 Creatinine 1.5 mg/dL (0.5-0.9) H 08/18/25 03:13 GFR Calculation 35.9 mL/min (90-130) L 08/18/25 03:13 Glucose 467 mg/dL (65-115) H 08/18/25 03:13 POC Glucose 402 mg/dL (70-110) H 08/18/25 04:05 Calculated Osmolality 316 mOsm/kg (285-295) H 08/18/25 03:13 Calcium 10.1 mg/dL (8.5-10.5) 08/18/25 03:13 Magnesium 1.8 mg/dL (1.7-2.3) 08/18/25 03:13 Total Bilirubin 0.3 mg/dL (0.15-1.2) 08/18/25 03:13 AST 10 U/L (0-32) 08/18/25 03:13 ALT 8 U/L (0-33) 08/18/25 03:13 Alkaline Phosphatase 106 U/L (35-105) H 08/18/25 03:13 Total Protein 7.2 g/dL (6.6-8.7) 08/18/25 03:13 Albumin 4.1 g/dL (3.5-5.2) 08/18/25 03:13 Globulin 3.1 g/dL (1.3-4.6) 08/18/25 03:13 Lipase 26 U/L (13-60) 08/18/25 03:13 Urine Color Yellow (Yellow) 08/18/25 03:26 Urine Appearance Cloudy (CLEAR) A 08/18/25 03:26 Urine pH 5.0 (5-7) 08/18/25 03:26 Ur Specific [place] 1.023 (1.005-1.030) 08/18/25 03:26 Urine Protein 3+ (Negative) A 08/18/25 03:26 Urine Glucose (UA) 2+ (Normal) H 08/18/25 03:26 Urine Ketones 1+ (Negative) H 08/18/25 03:26 Urine Blood 1+ (Negative) A 08/18/25 03:26 Urine Nitrate Negative (Negative) 08/18/25 03:26 Urine Bilirubin Negative (Negative) 08/18/25 03:26 Urine Urobilinogen 1.0 mg/dL (Negative) 08/18/25 03:26 Ur Leukocyte Esterase Negative (Negative) 08/18/25 03:26 Urine RBC 0-2 /hpf (0-2) 08/18/25 03:26 Urine WBC 0-5 /hpf (0-5) 08/18/25 03:26 Ur Squamous Epith Cells 11-20 /hpf (0-5) H 08/18/25 03:26 Amorphous Sediment Not Reportable 08/18/25 03:26 Urine Bacteria Trace /hpf (NONE) 08/18/25 03:26 Hyaline Casts 94.74 /lpf 08/18/25 03:26 Urine Mucus 2+ /hpf 08/18/25 03:26 No radiology studies performed this visit ABG Data ABG Interpretation 1: ABG results: pH 728 with decreased pCO2 consistent with primary metabolic acidemia Critical Care Time Critical Care Time: Critical Care Time: Yes Total Critical Care Time: 35 Attestation: This case had a high probability of a clinically significant, sudden, or life threatening deterioration of this patient's condition which required my full and direct attention, intervention and personal management. Discharge Plan Discharge Patient Disposition: Admitted As Inpatient Clinical Impression: DKA, type 1, not at goal, Vomiting, SLIM (acute kidney injury) Condition: Stable Coding Level of Care Code ED Document Control Manager for Marco Antonio Carter
[2025-08-18 03:18] LABS: Hematocrit 34.0 % (36-47); Hemoglobin 11.60 g/dL (11.27-16.99); Mean Corpuscular HGB Conc 34.1 g/dL (30-55); Mean Corpuscular Hemoglobin 26.5 pg (27-33); Mean Corpuscular Volume 77.8 fl (85-98); Nucleated Red Blood Cells % 0 %; Platelet Count 319 10^3/cmm (157-399); Red Blood Count 4.37 10^6/uL (3.85-5.65); White Blood Count 6.16 10^3/uL (3.29-11.43)
[2025-08-18] MEDS: metoclopramide 5 mg/mL SDV 2 mL 10 MG IVP (03:19)
[2025-08-18] MEDS: morphine 4 mg/mL SDV 1 mL IVP (03:22)
[2025-08-18 03:30] LABS: Glucose Urine UA 2+ (Normal); Nitrate Urine Negative (Negative); Specific Gravity, Urine 1.023 (1.005-1.030)
[2025-08-18 03:35] LABS: Add Urine Microscopic? YES; Universal Test for UA Present (0)
[2025-08-18 03:37] LABS: Alanine Aminotransferase 8 U/L (0-33); Albumin Level 4.1 g/dL (3.5-5.2); Alkaline Phosphatase 106 U/L (35-105); Anion Gap 28.7 (5-19); Aspartate Amino Transferase 10 U/L (0-32); Blood Urea Nitrogen 50 mg/dL (6-20); Calcium 10.1 mg/dL (8.5-10.5); Carbon Dioxide 18 mmol/L (22-29); Chloride 94 mmol/L (98-107); Globulin 3.1 g/dL (1.3-4.6); Glucose 467 mg/dL (65-115); Lipase 26 U/L (13-60); Magnesium 1.8 mg/dL (1.7-2.3); Osmolality Calculated 316 mOsm/kg (285-295); Potassium 4.7 mmol/L (3.5-5.1); Sodium 136 mmol/L (136-145); Total Protein 7.2 g/dL (6.6-8.7)
[2025-08-18 04:08] LABS: ABG PCO2 32.5 mmHg (35-45); ABG PH Result 7.28 (7.35-7.45); HCO3 ABG 15.3 mmol/L (22-26); PO2 ABG 87.1 mmHg (80.0-100.0); PO2 FiO2 Ratio Arterial Blood 414
[2025-08-18] MEDS: insulin regular-human 100 units/1 mL 11 UNIT IVP (04:08)
[2025-08-18 04:09] LABS: Arterial Blood Gas Hematocrit 35.0 % (37-47); Carboxyhemoglobin 1.2 %THgb (0.4-20.1)
--- NOTE | 2025-08-18 05:36 | PM.HP ---
Providers/Chief Complaint Primary Care Provider: Julio Monzon MD Chief Complaint: N/V ABD PAIN History of Present Illness Wendi Yee is a 55 year old female with reported history of type 1 diabetes, gastroparesis, seizure disorder, and bipolar disorder, who presents with complaints of nausea, vomiting, and abdominal pain. She states she has not felt herself since last week Sunday or Sunday and her presenting symptoms began on Sunday. Since then, she has not been able to eat or drink much. She has been compliant with her insulin regimen regardless. No recent ill contacts or other illnesses. She reports chills but no mention of fever. Also reports some mild chest pain in the ED waiting room. No diarrhea or recent changes to her medications. Medications/Allergies Home Medications ?Medication ?Instructions ?Recorded ?Confirmed ?Last Taken ?Type flash glucose scanning reader 12/14/22 08/02/25 Unknown History ([employer] Ok 14 Day [place]) pen needle, diabetic 31 gauge x #100 ea 04/20/23 08/02/25 Unknown Rx 01/30 (BD Ultra-Fine Short Pen Needle) amlodipine 10 mg tablet 10 mg PO DAILY 02/23/25 08/02/25 07/19/25 History carvedilol 12.5 mg tablet 12.5 mg PO BID 02/23/25 08/02/25 07/19/25 History fluticasone propionate 50 2 spray intranasal DAILY 02/23/25 08/02/25 07/18/25 History mcg/actuation nasal spray,suspension hydroxyzine HCl 50 mg tablet 50 mg PO QID PRN Anxiety #60 tabs 02/25/25 08/02/25 Unknown Rx insulin aspart U-100 100 unit/mL See Rx Instructions .Route .COMPLEX 02/25/25 08/02/25 07/19/25 History (3 mL) subcutaneous pen (Novolog FlexPen U-100 Insulin aspart) blood-glucose sensor (FreeStyle #6 ea 04/22/25 08/02/25 Unknown Rx Ok 3 Plus Sensor device) cam boot #1 ea 04/28/25 08/02/25 Unknown Rx diabetic shoes with 3 sets of #1 ea 04/28/25 08/02/25 Unknown Rx inserts pregabalin 50 mg capsule 50 mg PO BID 3 months #180 caps 06/02/25 08/02/25 07/19/25 Rx cam boot #1 ea 07/14/25 08/02/25 Unknown Rx ciclopirox 8 % topical solution 1 applic topical BEDTIME 07/19/25 08/02/25 07/18/25 History divalproex 250 mg tablet,delayed 250 mg PO DAILY 07/19/25 08/02/25 07/19/25 History release insulin glargine U-300 conc 300 32 unit SUBCUT QAM 07/19/25 08/02/25 07/19/25 History unit/mL (1.5 mL) subcutaneous pen ([employer] SoloStar U-300 Insulin) meloxicam 15 mg tablet 15 mg PO DAILY 07/19/25 08/02/25 07/19/25 History omeprazole 20 mg capsule,delayed 20 mg PO DAILY 07/19/25 08/02/25 07/19/25 History release polyethylene glycol 3350 17 gram 17 g PO DAILY PRN constipation #14 07/19/25 08/02/25 Unknown Rx oral powder packet (Miralax) ea tramadol 50 mg tablet 50 mg PO Q6H PRN Pain 07/19/25 08/02/25 Unknown History valbenazine 40 mg capsule See Rx Instructions .Route .COMPLEX 07/19/25 08/02/25 07/19/25 History (Ingrezza) Allergies Allergy/AdvReac Type Severity Reaction Status Date / Time No Known Allergies Allergy Verified 07/22/25 07:01 PFSH Acute PFSH: Medical History (Updated 08/18/25 @ 05:41 by Archie Feldman MD) DKA, type 1 Benign essential hypertension Severe bipolar disorder Hyperlipidemia 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 GERD (gastroesophageal reflux disease) Surgical History History of nasal surgery Hx of shoulder surgery Hx of tubal ligation Family History Other Cancer Heart disease Social History Smoking and tobacco/nicotine status: current every day tobacco/nicotine user e-cigarettes E-Cigarette Details: with nicotine Alcohol intake: former Substance/Drug Use: former Date of last use: 11/13/2024 Vitals/I&O/Wt Last Vital Signs Temp 98.2 F 08/18/25 01:35 Pulse 104 H 08/18/25 04:31 Resp 22 H 08/18/25 03:22 BP 180/92 08/18/25 04:31 Pulse Ox 100 08/18/25 04:31 O2 Del Method Room Air 08/18/25 01:35 Weight last 48 hrs Weight 72.575 kg Physical Exam Narrative: Alert and oriented no acute distress Heart regular normal S1-S2 without murmurs clicks gallops or rubs Lungs clear to auscultation without wheezes rales or rhonchi Abdomen no significant tenderness normal active bowel sounds Extremities no clubbing cyanosis or edema Data 08/18/25 03:13 08/18/25 03:13 A&P Assessment and plan 1. DKA, type 1, not at goal: - MILD DKA, can be treated with subQ insulin and IVF alone. Will admit to [facility] for this - 0.2u/kg(14u) rapid acting insulin Subq q2 hours until glucose is below 250 - When glucose is below 250, change to 7u q2 hours until resolution of DKA - q1 hour POC glucose check and q4 hour BMP checks - NS @ 250cc/hr. When Glucose is less than 250, add 5% dextrose to IVF - NPO except sips of water and meds for now - Administered long acting insulin 32u this AM 2. SLIM (acute kidney injury): - Fluids as above and regular BMP checks 3. Type 1 diabetes mellitus with diabetic polyneuropathy: - As above. Resume home insulin regimen when DKA resolves Plan: Other chronic problems include: Seizure disorder HTN Bipolar disorder -Continue home medications as ordered PDMP PDMP Reviewed: Not Reviewed Attestations Medical Necessity Statement*: Patient will require greater than 2 midnights for management of he rmild DKA and intractable nausea and vomiting Coding Level of Care Code Acute Code for g Fwd Diagnoses DKA, type 1, not at goal E10.10 SLIM (acute kidney injury) N17.9 Type 1 diabetes mellitus with diabetic polyneuropathy E10.42 Diabetes mellitus complication status: with neurologic complications Diabetes mellitus complication detail: with polyneuropathy
[2025-08-18] MEDS: insulin glargine 100 units/1 mL 32 UNIT SUBCUT (06:41)
[2025-08-18 06:47] LABS: Blood Gas Allen Test Pos; Blood Gas Sample Site Radial, right; Blood Gas Sample Type Arterial; Methemoglobin 1.3 % (0.4-1.5)
[2025-08-18] MEDS: ondansetron 2 mg/ML SDV 2 mL 4 MG IVP (09:37)
[2025-08-18 09:50] LABS: Anion Gap 25.3 (5-19); Blood Urea Nitrogen 43 mg/dL (6-20); Calcium 9.2 mg/dL (8.5-10.5); Carbon Dioxide 16 mmol/L (22-29); Chloride 104 mmol/L (98-107); Glucose 311 mg/dL (65-115); Osmolality Calculated 315 mOsm/kg (285-295); Potassium 4.3 mmol/L (3.5-5.1); Sodium 141 mmol/L (136-145)
[2025-08-18] MEDS: dextrose 5%-sod chloride 0.9% 1,000 ML 100 ML IV (12:45)
[2025-08-18 13:04] LABS: Anion Gap 19.8 (5-19); Blood Urea Nitrogen 39 mg/dL (6-20); Calcium 9.7 mg/dL (8.5-10.5); Carbon Dioxide 20 mmol/L (22-29); Chloride 106 mmol/L (98-107); Glucose 114 mg/dL (65-115); Osmolality Calculated 304 mOsm/kg (285-295); Potassium 3.8 mmol/L (3.5-5.1); Sodium 142 mmol/L (136-145)
[2025-08-18 17:10] LABS: Blood Urea Nitrogen 34 mg/dL (6-20); Calcium 9.0 mg/dL (8.5-10.5); Carbon Dioxide 19 mmol/L (22-29); Chloride 108 mmol/L (98-107); Glucose 144 mg/dL (65-115); Osmolality Calculated 306 mOsm/kg (285-295); Sodium 143 mmol/L (136-145)
[2025-08-18 17:14] LABS: Anion Gap 20.3 (5-19); Potassium 4.3 mmol/L (3.5-5.1)
[2025-08-18] MEDS: INSULIN REGULAR IN 0.9 % NACL 100 UNIT/100 ML BAG IV (19:00)
[2025-08-18] MEDS: dextrose 5%-sod chloride 0.9% 1,000 ML 200 ML IV (19:48)
--- NOTE | 2025-08-18 21:13 | PC.NURSE ---
1900: Received call from Dr. Easton regarding message sent from previous shift and difficulty maintaining blood sugars. Instructions given to increase D5 NS to 200 ml per hour and restart insulin drip at 0.5 units per hour, check BMP every 4 hours and to call him with lab results for further instruction.
[2025-08-18 21:16] LABS: Anion Gap 14.6 (5-19); Blood Urea Nitrogen 26 mg/dL (6-20); Calcium 9.0 mg/dL (8.5-10.5); Carbon Dioxide 22 mmol/L (22-29); Chloride 108 mmol/L (98-107); Glucose 188 mg/dL (65-115); Osmolality Calculated 302 mOsm/kg (285-295); Potassium 3.6 mmol/L (3.5-5.1); Sodium 141 mmol/L (136-145)
--- NOTE | 2025-08-18 22:21 | PC.NURSE ---
Contacted Dr. Easton per his request, made aware of anion gap. New orders received to stop insulin drip, fluids, mild sliding scale AC and HS with 10 units lantus in AM.
[2025-08-19] VITALS (33 sets, daily range): BP systolic 130–176; BP diastolic 77–107; PULSE 78–95; RESP 12–25; O2SAT 95–100
[2025-08-19] MEDS: insulin glargine 100 units/1 mL 10 UNIT SUBCUT (05:12)
[2025-08-19 06:13] LABS: Hematocrit 29.0 % (36-47); Hemoglobin 9.50 g/dL (11.27-16.99); Mean Corpuscular HGB Conc 32.8 g/dL (30-55); Mean Corpuscular Hemoglobin 26.2 pg (27-33); Mean Corpuscular Volume 80.1 fl (85-98); Nucleated Red Blood Cells % 0 %; Platelet Count 234 10^3/cmm (157-399); Red Blood Count 3.62 10^6/uL (3.85-5.65); White Blood Count 4.86 10^3/uL (3.29-11.43)
[2025-08-19 06:32] LABS: Anion Gap 13.6 (5-19); Blood Urea Nitrogen 21 mg/dL (6-20); Calcium 8.9 mg/dL (8.5-10.5); Carbon Dioxide 22 mmol/L (22-29); Chloride 106 mmol/L (98-107); Glucose 246 mg/dL (65-115); Osmolality Calculated 297 mOsm/kg (285-295); Potassium 3.6 mmol/L (3.5-5.1); Sodium 138 mmol/L (136-145)
--- NOTE | 2025-08-19 08:20 | PC.NURSE ---
DR. Easton approved starting diet, carb consistent ordered
--- NOTE | 2025-08-19 14:35 | PM.CONSULT ---
Providers/Reason For Consult Consulting Physician/Specialty*: Dr. Dashawn Castaneda, D.P.M./podiatry Reason for Consult*: Left foot wound Attending Physician: Cliff Easton MD Primary Care Provider: Julio Monzon MD History of Present Illness History of Present Illness Wendi Yee is a 55 year old female currently admitted to ICU for SLIM and DKA. On exam patient was also found to have wounds of left foot. Podiatry was consulted to evaluate and provide treatment recommendations. Review of Systems General: Reports: 10 or more systems reviewed and unremarkable except in HPI and below Const: Denies: fever(s), chills, body aches or change in appetite Eyes: Denies: change in vision or blurry vision Card: Denies: chest pain, palpitations or irregular heart rhythm Resp: Denies: dyspnea GI: Denies: abdominal pain, nausea, vomiting or diarrhea Musc: Reports: joint stiffness Skin/Breast: Reports: non-healing lesions and lesions Neuro: Reports: numbness in extremities Medications/Allergies Home Medications ?Medication ?Instructions ?Recorded ?Confirmed ?Last Taken ?Type flash glucose scanning reader 12/14/22 08/18/25 Unknown History (FreeStyle Ok 14 Day [place]) pen needle, diabetic 31 gauge x #100 ea 04/20/23 08/18/25 Unknown Rx 5/16 (BD Ultra-Fine Short Pen Needle) amlodipine 10 mg tablet 10 mg PO DAILY 02/23/25 08/18/25 08/17/25 09:00 History carvedilol 12.5 mg tablet 12.5 mg PO BID 02/23/25 08/18/25 08/17/25 08:00 History fluticasone propionate 50 2 spray intranasal DAILY 02/23/25 08/18/25 08/17/25 History mcg/actuation nasal spray,suspension hydroxyzine HCl 50 mg tablet 50 mg PO QID PRN Anxiety #60 tabs 02/25/25 08/18/25 Unknown Rx insulin aspart U-100 100 unit/mL See Rx Instructions .Route .COMPLEX 02/25/25 08/18/25 08/17/25 History (3 mL) subcutaneous pen (Novolog FlexPen U-100 Insulin aspart) blood-glucose sensor (FreeStyle #6 ea 04/22/25 08/18/25 Unknown Rx Ok 3 Plus Sensor device) cam boot #1 ea 04/28/25 08/18/25 Unknown Rx diabetic shoes with 3 sets of #1 ea 04/28/25 08/18/25 Unknown Rx inserts pregabalin 50 mg capsule 50 mg PO BID 3 months #180 caps 06/02/25 08/18/25 08/17/25 09:00 Rx cam boot #1 ea 07/14/25 08/18/25 Unknown Rx divalproex 250 mg tablet,delayed 250 mg PO DAILY 07/19/25 08/18/25 08/17/25 History release insulin glargine U-300 conc 300 32 unit SUBCUT QAM 07/19/25 08/18/25 08/17/25 09:00 History unit/mL (1.5 mL) subcutaneous pen (Toujeo SoloStar U-300 Insulin) meloxicam 15 mg tablet 15 mg PO DAILY 07/19/25 08/18/25 08/17/25 History omeprazole 20 mg capsule,delayed 20 mg PO DAILY 07/19/25 08/18/25 08/17/25 History release tramadol 50 mg tablet 50 mg PO Q6H PRN Pain 07/19/25 08/18/25 08/17/25 11:00 History valbenazine 40 mg capsule See Rx Instructions .Route .COMPLEX 07/19/25 08/18/25 08/17/25 History ([place]) Allergies Allergy/AdvReac Type Severity Reaction Status Date / Time No Known Allergies Allergy Verified 07/22/25 07:01 Current Medications Generic Name Dose Route Start Last Admin Trade Name Freq PRN Reason Stop Dose Admin Amlodipine Besylate 10 mg 08/18/25 08:37 08/19/25 05:12 Amlodipine 10 Mg Tablet PO 10 mg DAILY LAMAR Administration Carvedilol 12.5 mg 08/18/25 17:00 08/19/25 05:12 Carvedilol 12.5 Mg Tablet PO 12.5 mg BID LAMAR Administration Divalproex Sodium 250 mg 08/18/25 09:00 08/19/25 05:[address] 250 Mg Tablet PO 250 mg DAILY LAMAR Administration Enoxaparin Sodium 40 mg 08/18/25 05:15 08/19/25 05:12 Enoxaparin 40 Mg/0.4 Ml Syringe SUBCUT 40 mg Q24H LAMAR Administration Hydroxyzine Pamoate 50 mg 08/18/25 08:58 08/19/25 01:41 Hydroxyzine 25 Mg Capsule PO 50 mg QID PRN Administration Anxiety Dextrose/Sodium Chloride 1,000 mls @ 100 mls/hr 08/18/25 12:15 08/18/25 22:12 Dextrose 5%-Sod Chloride 0.9% IV 0 mls/hr .Q10H LAMAR Infusion Insulin Human Regular 100 unit in 100 mls @ 0 mls/hr 08/18/25 13:15 08/18/25 22:12 Myxredlin 100 Unit/100 Ml Bag IV 0 unit/hr PROTOCOL LAMAR 0 mls/hr Protocol Titration Per Protocol Insulin Glargine 10 unit 08/19/25 06:00 08/19/25 05:12 Insulin Glargine 100 Units/1 Ml SUBCUT 10 unit DAILY LAMAR Administration Insulin Human Lispro 0 unit 08/19/25 08:00 08/19/25 13:03 Insulin Lispro 100 Unit/1 Ml SUBCUT 14 unit WM&BEDTIME LAMAR Administration Protocol Ondansetron HCl 4 mg 08/18/25 05:04 08/18/25 09:37 Ondansetron 2 Mg/Ml Sdv 2 Ml IVP 4 mg Q8H PRN Administration vomiting, or N/V if npo Pantoprazole Sodium 40 mg 08/18/25 09:00 08/19/25 05:[address] 40 Mg Tablet PO 40 mg DAILY LAMAR Administration Pregabalin 50 mg 08/18/25 17:00 08/19/25 05:13 Pregabalin 50 Mg Capsule PO 50 mg BID LAMAR Administration PFSH Acute PFSH: Medical History (Updated 08/19/25 @ 15:21 by Dashawn Castaneda DPM) DKA, type 1 Benign essential hypertension Severe bipolar disorder Hyperlipidemia 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 GERD (gastroesophageal reflux disease) Surgical History History of nasal surgery Hx of shoulder surgery Hx of tubal ligation Family History Other Cancer Heart disease Social History Smoking and tobacco/nicotine status: current every day tobacco/nicotine user e-cigarettes E-Cigarette Details: with nicotine Alcohol intake: former Substance/Drug Use: former Date of last use: 11/13/2024 Vitals/I&O/Wt Last Vital Signs Temp 98.2 F 08/18/25 01:35 Pulse 89 08/19/25 13:00 Resp 18 08/19/25 13:00 BP 130/91 08/19/25 10:00 Pulse Ox 99 08/19/25 13:00 O2 Del Method Room Air 08/18/25 10:42 08/18/25 08/19/25 08/19/25 22:59 06:59 14:59 Intake Total 1426.6 / 1426.6 240 / 1666.6 300 / 300 Balance 1426.6 / 1426.6 240 / 1666.6 300 / 300 Weight last 48 hrs Weight 134 lb Weight 134 lb 7.712 oz Weight 160 lb Physical Exam Narrative: BELOW IS A FOCUSED LOWER EXTREMITY EXAM GENERAL: A&O x 3 VASCULAR: DP/PT pulses palpable 2/4 with CFT intact, <3seconds to distal digits DERMATOLOGICAL: Full-thickness ulceration plantar aspect of left foot under the 2nd and 3rd metatarsal head. This measures 1.5 x 0.6 x 0.1 cm. No underlying fluctuance or signs of deep space abscess. Lateral aspect of left foot overlying fifth metatarsal neck there is a serous filled blister. This was drained at bedside. No underlying abscess negative probe to bone. MUSCULOSKELETAL: Tenderness with palpation of periwound area. No gross musculoskeletal deformities noted. NEUROLOGICAL: Neurological sensation to the affected foot and ankle is present through L4-S1 dermatomes with no hyper/hypoesthesias, negative Tinel or Valleix's sign Data 08/19/25 04:35 08/19/25 04:35 A&P Assessment and plan 1. Type 1 diabetes mellitus with diabetic polyneuropathy: 2. Ulcer of left foot with fat layer exposed: 3. Blister: Blister was drained at bedside and de removed. Dry sterile dressing applied. No signs of underlying infection. Plan: Patient was seen and evaluated in the ICU. Labs and vitals reviewed. No concern for deep space abscess or osteomyelitis. Continue with local wound care to left foot with antibiotic ointment and Band-Aid. Patient is to follow-up with podiatry in the outpatient setting within 1 week of discharge. No antibiotics warranted at this time. PDMP PDMP Reviewed: Not Reviewed Coding Level of Care Code Acute Code for Chg Fwd Diagnoses Type 1 diabetes mellitus with diabetic polyneuropathy E10.42 Diabetes mellitus complication detail: with polyneuropathy Diabetes mellitus complication status: with neurologic complications Ulcer of left foot with fat layer exposed L97.522 Blister T14.8XXA
--- NOTE | 2025-08-19 16:17 | PM.DCS ---
Discharge Providers Date of Admission: 08/18/25 10:03 Date of Discharge: August 19, 2025 Attending Provider at Admission: Archie Feldman MD Attending Provider at Discharge: Cliff Easton MD Primary Care Provider: Julio Monzon MD Diagnoses at Discharge Discharge Diagnosis 1. Type 1 diabetes mellitus with diabetic polyneuropathy: 2. Ulcer of left foot with fat layer exposed: 3. Blister: Reason for Visit Reason for Visit: N/V ABD PAIN Hospital Course Hospital Course H&P: Wendi Yee is a 55 year old female with reported history of type 1 diabetes, gastroparesis, seizure disorder, and bipolar disorder, who presents with complaints of nausea, vomiting, and abdominal pain. She states she has not felt herself since last week Sunday or Sunday and her presenting symptoms began on Sunday. Since then, she has not been able to eat or drink much. She has been compliant with her insulin regimen regardless. No recent ill contacts or other illnesses. She reports chills but no mention of fever. Also reports some mild chest pain in the ED waiting room. No diarrhea or recent changes to her medications. Hospital course: Patient was admitted with DKA. Also noted have SLIM. Patient was placed on insulin fluids. Labs were monitored. Chronic conditions were also addressed include seizure. She also had a leg wound on her foot. Podiatry evaluated her. Discharged in stable condition. Physical Exam Narrative: Alert and oriented no acute distress Heart regular normal S1-S2 without murmurs clicks gallops or rubs Lungs clear to auscultation without wheezes rales or rhonchi Abdomen no significant tenderness normal active bowel sounds Extremities no clubbing cyanosis or edema,see pic Discharge Data Studies Completed and Pending Pending at discharge Category Date Time Status Beta-Hydroxybutyrate Stat Lab 08/18/25 03:13 Received Laboratory Results WBC 4.86 10^3/uL (3.29-11.43) 08/19/25 04:35 RBC 3.62 10^6/uL (3.85-5.65) L 08/19/25 04:35 Hgb 9.50 g/dL (11.27-16.99) L 08/19/25 04:35 Hct 29.0 % (36-47) L 08/19/25 04:35 MCV 80.1 fl (85-98) L 08/19/25 04:35 MCH 26.2 pg (27-33) L 08/19/25 04:35 MCHC 32.8 g/dL (30-55) 08/19/25 04:35 RDW 13.1 % (12.1-15.1) 08/19/25 04:35 Plt Count 234 10^3/cmm (157-399) 08/19/25 04:35 MPV 10.8 fL (7.4-10.4) H 08/19/25 04:35 Neut % (Auto) 36.0 % 08/19/25 04:35 Lymph % (Auto) 50.2 % 08/19/25 04:35 [place] % (Auto) 10.7 % 08/19/25 04:35 Eos % (Auto) 2.1 % 08/19/25 04:35 Baso % (Auto) 0.8 % 08/19/25 04:35 Neut # (Auto) 1.75 10^3/uL (1.8-7.7) L 08/19/25 04:35 Lymph # (Auto) 2.4 10^3/uL (0.8-4.8) 08/19/25 04:35 [place] # (Auto) 0.5 10^3/uL (0.2-0.9) 08/19/25 04:35 Eos # (Auto) 0.1 10^3/uL (0.0-0.8) 08/19/25 04:35 Baso # (Auto) 0.0 10^3/uL (0.0-0.1) 08/19/25 04:35 Nucleated RBC % (auto) 0 % 08/19/25 04:35 Nucleated RBCs # 0.0 /100WBC 08/19/25 04:35 Specimen Type Arterial 08/18/25 03:56 Sample Site Radial, right 08/18/25 03:56 ABG pH 7.28 (7.35-7.45) L 08/18/25 03:56 ABG pCO2 32.5 mmHg (35-45) L 08/18/25 03:56 ABG pO2 87.1 mmHg (80.0-100.0) 08/18/25 03:56 ABG PO2/FiO2 Ratio 414 08/18/25 03:56 ABG HCO3 15.3 mmol/L (22-26) L 08/18/25 03:56 ABG Base Excess -10.4 mmol/L (-2.0-2.0) L 08/18/25 03:56 Jaison Test Pos 08/18/25 03:56 Hematocrit 35.0 % (37-47) L 08/18/25 03:56 Hgb O2 Saturation 93.4 % (95-100) L 08/18/25 03:56 Carboxyhemoglobin 1.2 %THgb (0.4-20.1) 08/18/25 03:56 Methemoglobin 1.3 % (0.4-1.5) 08/18/25 03:56 Total Hemoglobin 11.4 g/dL (12-16) L 08/18/25 03:56 O2 Delivery Device Room air 08/18/25 03:56 FiO2 21.0 % 08/18/25 03:56 Specimen Drawn By Leoncio 08/18/25 03:56 Insurance Sales Producer ID [facility] 08/18/25 03:56 Sodium 138 mmol/L (136-145) 08/19/25 04:35 Potassium 3.6 mmol/L (3.5-5.1) 08/19/25 04:35 Chloride 106 mmol/L (98-107) 08/19/25 04:35 Carbon Dioxide 22 mmol/L (22-29) 08/19/25 04:35 Anion Gap 13.6 (5-19) 08/19/25 04:35 BUN 21 mg/dL (6-20) H 08/19/25 04:35 Creatinine 0.8 mg/dL (0.5-0.9) 08/19/25 04:35 GFR Calculation 74.2 mL/min (90-130) L 08/19/25 04:35 Glucose 246 mg/dL (65-115) H 08/19/25 04:35 POC Glucose 404 mg/dL (70-110) H 08/19/25 12:57 Calculated Osmolality 297 mOsm/kg (285-295) H 08/19/25 04:35 Calcium 8.9 mg/dL (8.5-10.5) 08/19/25 04:35 Magnesium 1.8 mg/dL (1.7-2.3) 08/18/25 03:13 Total Bilirubin 0.3 mg/dL (0.15-1.2) 08/18/25 03:13 AST 10 U/L (0-32) 08/18/25 03:13 ALT 8 U/L (0-33) 08/18/25 03:13 Alkaline Phosphatase 106 U/L (35-105) H 08/18/25 03:13 Total Protein 7.2 g/dL (6.6-8.7) 08/18/25 03:13 Albumin 4.1 g/dL (3.5-5.2) 08/18/25 03:13 Globulin 3.1 g/dL (1.3-4.6) 08/18/25 03:13 Lipase 26 U/L (13-60) 08/18/25 03:13 Urine Color Yellow (Yellow) 08/18/25 03:26 Urine Appearance Cloudy (CLEAR) A 08/18/25 03:26 Urine pH 5.0 (5-7) 08/18/25 03:26 Ur Specific [place] 1.023 (1.005-1.030) 08/18/25 03:26 Urine Protein 3+ (Negative) A 08/18/25 03:26 Urine Glucose (UA) 2+ (Normal) H 08/18/25 03:26 Urine Ketones 1+ (Negative) H 08/18/25 03:26 Urine Blood 1+ (Negative) A 08/18/25 03:26 Urine Nitrate Negative (Negative) 08/18/25 03:26 Urine Bilirubin Negative (Negative) 08/18/25 03:26 Urine Urobilinogen 1.0 mg/dL (Negative) 08/18/25 03:26 Ur Leukocyte Esterase Negative (Negative) 08/18/25 03:26 Urine RBC 0-2 /hpf (0-2) 08/18/25 03:26 Urine WBC 0-5 /hpf (0-5) 08/18/25 03:26 Ur Squamous Epith Cells 11-20 /hpf (0-5) H 08/18/25 03:26 Amorphous Sediment Not Reportable 08/18/25 03:26 Urine Bacteria Trace /hpf (NONE) 08/18/25 03:26 Hyaline Casts 94.74 /lpf 08/18/25 03:26 Urine Mucus 2+ /hpf 08/18/25 03:26 Vitals Last Vital Signs Temp 98.2 F 08/18/25 01:35 Pulse 89 08/19/25 13:00 Resp 18 08/19/25 13:00 BP 130/91 08/19/25 10:00 Pulse Ox 99 08/19/25 13:00 O2 Del Method Room Air 08/18/25 10:42 Discharge Plan Discharge Patient Disposition: Home Condition: Stable Prescriptions: New acetaminophen 325 mg Tablet 650 mg PO Q6H PRN (Reason: Mild/Mod Pain Or Temp >/= 101) Qty: 60 0RF Continued pregabalin 50 mg capsule 50 mg PO BID 90 Days Qty: 180 0RF (DME) cam boot See Rx Instructions .Route .MEDSUPPLY Qty: 1 0RF Rx Instructions: As directed by [place] (DME) FreeStyle Ok 14 Day [place] Misc See Rx Instructions .Route Rx Instructions: As directed (DME) diabetic shoes with 3 sets of inserts See Rx Instructions .ROUTE .MEDSUPPLY Qty: 1 0RF Rx Instructions: As directed by HOME (DME) cam boot See Rx Instructions .Route .MEDSUPPLY Qty: 1 0RF Rx Instructions: As directed (DME) pen needle, diabetic [BD Ultra-Fine Short Pen Needle] 31 gauge x 5/16 needle See Rx Instructions .Route Qty: 100 0RF Rx Instructions: As directed ([facility] [place] [facility] [place] FreeStyle Ok 3 Plus Sensor Device See Rx Instructions .Route Qty: 6 1RF Rx Instructions: USE TO MONITOR BLOOD GLUCOSE LEVELS carvedilol 12.5 mg tablet 12.5 mg PO BID amlodipine 10 mg tablet 10 mg PO DAILY fluticasone propionate 50 mcg/actuation spray,suspension 2 spray INTRANASAL DAILY insulin aspart U-100 [Novolog FlexPen U-100 Insulin] 100 unit/mL (3 mL) insulin pen See Rx Instructions .ROUTE .COMPLEX Rx Instructions: Take 6 unit subcutaneously 3 times daily plus sliding scale if needed. hydroxyzine HCl 50 mg tablet 50 mg PO QID PRN (Reason: Anxiety) Qty: 60 0RF divalproex 250 mg tablet,delayed release (DR/EC) 250 mg PO DAILY meloxicam 15 mg tablet 15 mg PO DAILY tramadol 50 mg tablet 50 mg PO Q6H PRN (Reason: Pain) omeprazole 20 mg capsule,delayed release(DR/EC) 20 mg PO DAILY Ingrezza 40 mg capsule See Rx Instructions .ROUTE .COMPLEX Rx Instructions: Take 1 capsule by mouth daily for 7days, then increase to 2 capsules daily. insulin glargine U-300 conc [Toujeo SoloStar U-300 Insulin] 300 unit/mL (1.5 mL) insulin pen 32 unit SUBCUT QAM Discharge Order = DC NOW: Discharge Order (Routine); Ordered 08/19/25 Ordered By: Cliff Easton Referrals: Julio Monzon MD [Primary Care Provider, Family Practice] - 08/21/25 10:45 am Referral Note: We have notified your physician's clinic of the need for a follow-up appointment to be scheduled. If you have not heard from them within the next 2 business days, please call them directly. Dashawn Ken DPM [Physician, Podiatry] Referral Note: We have notified your physician's clinic of the need for a follow-up appointment to be scheduled. If you have not heard from them within the next 2 business days, please call them directly. attempt to make appointment /unavailable at time to schedule appointment /so you will need to call office [phone] to make appointment . have left message for them to call you too! Discharge Diet: Diabetic Patient Instructions: Type 1 Diabetes, Acetaminophen (By mouth), Foot Care for People with Diabetes (DC), Foot Ulcers in a Person with Diabetes (DC), Gastroparesis (DC), Diabetes Type 1: Management (DC), Opioid Safety, Patient Portal & Mya Instructions Activity Restrictions/Additional Instructions: PODIATRY DISCHARGE INSTRUCTIONS--DR. KEN -Dressing changes: Triple antibiotic ointment and Band-Aid daily to left foot wound -Follow up: Follow-up within 7 days of discharge with podiatry -Weightbearing status: Weightbearing as tolerated -Antibiotics: No antibiotics warranted -Please contact podiatry clinic at [phone] with any questions regarding patient's discharge Discharge Attestations Time Spent in Discharge Care*: less than 30 min Quality Metrics Clinical Quality Measures [ No reported AMI, CVA or VTE this stay] Coding Level of Care Code Acute Code for Chg Fwd Diagnoses Type 1 diabetes mellitus with diabetic polyneuropathy E10.42 Diabetes mellitus complication detail: with polyneuropathy Diabetes mellitus complication status: with neurologic complications Ulcer of left foot with fat layer exposed L97.522 Blister T14.8XXA
--- NOTE | 2025-08-19 17:09 | PC.NURSE ---
All DC instructions educated to patient, IV removed, to transport patient home
== END 2025-08-19 17:12 | disposition home or self-care (01) | DRG 638 ==
LOC: ER 09:02 → ICU 10:03
PROVIDERS: Internal Medicine; Admitting Provider Family Medicine; Emergency Provider Student in an Organized Health Care Education/Training Program; PCP Family Medicine; Visit Provider Internal Medicine
DX: E10.10 Type 1 diabetes mellitus with ketoacidosis without coma (principal); L97.422 Non-pressure chronic ulcer of left heel and midfoot with fat layer exposed; N17.9 Acute kidney failure, unspecified; E10.42 Type 1 diabetes mellitus with diabetic polyneuropathy; E10.43 Type 1 diabetes mellitus with diabetic autonomic (poly)neuropathy; K31.84 Gastroparesis; E10.621 Type 1 diabetes mellitus with foot ulcer; G40.909 Epilepsy, unspecified, not intractable, without status epilepticus; F31.9 Bipolar disorder, unspecified; I10 Essential (primary) hypertension; K21.9 Gastro-esophageal reflux disease without esophagitis; F17.290 Nicotine dependence, other tobacco product, uncomplicated; Z79.4 Long term (current) use of insulin
CPT/HCPCS: 36415; 36416; 36600; 80048; 80053; 81001; 82010; 82805; 82962; 83690; 83735; 85025; 96361; 96372; 96374; 96375; 99285; J1650; J1815; J2270; J2405; J2765; J3490; J7030; J7042; J9999

== ENCOUNTER → 2025-08-26 09:56 | Outpatient (BNVA) | payer MEDICARE, SELFPAY | PROVIDERS: PCP Family Medicine; Visit Provider Podiatrist Foot & Ankle Surgery | DX: E11.621 Type 2 diabetes mellitus with foot ulcer (principal); L97.522 Non-pressure chronic ulcer of other part of left foot with fat layer exposed | CPT/HCPCS: 99214 ==

== ENCOUNTER → 2025-08-31 09:13 | Outpatient (BNVA) | payer MEDICARE, SELFPAY | PROVIDERS: PCP Family Medicine; Visit Provider Thoracic Surgery (Cardiothoracic Vascular Surgery) | DX: E11.52 Type 2 diabetes mellitus with diabetic peripheral angiopathy with gangrene (principal); E11.621 Type 2 diabetes mellitus with foot ulcer; L97.522 Non-pressure chronic ulcer of other part of left foot with fat layer exposed; L97.421 Non-pressure chronic ulcer of left heel and midfoot limited to breakdown of skin | CPT/HCPCS: 11042; 97597; 99213; A6212 ×2; A6248; J9999 ==

== ENCOUNTER → 2025-09-03 13:55 | Outpatient (BNVA) | payer MEDICARE, SELFPAY | PROVIDERS: PCP Family Medicine; Visit Provider Internal Medicine Endocrinology, Diabetes & Metabolism | DX: E10.40 Type 1 diabetes mellitus with diabetic neuropathy, unspecified (principal); E78.5 Hyperlipidemia, unspecified; E10.649 Type 1 diabetes mellitus with hypoglycemia without coma; R03.0 Elevated blood-pressure reading, without diagnosis of hypertension | CPT/HCPCS: 99214 ==

== ENCOUNTER 2025-09-06 11:28 | Emergency (ER) | payer MEDICARE, SELFPAY ==
--- OUTSIDE RECORDS SUMMARY | 2015-06-10 05:52 | XMS_ITS | Continuity of Care Document ---
Author Organization [facility] Address [address] [place] [address] Phone Care Team Providers Care Jeweler Apprentice Name Role Phone Wai uRbin MD Unavailable Unavailable Allergies, Adverse Reactions, Alerts Substance Reaction Status Criticality No Known Drug Allergies Active No I nformation Medications Medication Instructions Dosage Dose Quantity Effective Dates (start - stop) Status Indication Fill Status Comments lisinopril 5 mg Tab take 1 tablet (5MG) by oral route every day 5 MG 1 tablet 2 - Active Lidoderm 5 % (700 mg/patch) Adhesive Patch apply 1 patch by transdermal route every day (May wear up to 12hours.) 5 MG 1 tablet 2 - Active diclofenac sodium 75 mg Tab, Delayed Release take 1 tablet (75MG) by oral route 2 times every day 5 MG 1 tablet 2 - Active Lantus 100 unit/mL SubQ Cartridge inject 28 units by subcutaneous route every day 2 - Active insulin needles (disposable) use 1 by Subcutaneous route every day 2 - Active One Touch Test Strips apply 1 Unit by Subcutaneous route 4 times every day before meals and at bedtime 1 Unit 2 - Active Cymbalta 60 mg Cap take 1 capsule (60MG) by oral route 2 times every day 60 MG 1 capsule 2 - Active promethazine 25 mg Tab take 1 tablet (25MG) by oral route every day as needed 25 MG 1 tablet 2 - Active metformin 500 mg Tab take 1 tablet (500MG) by oral route 2 times every day with morning and evening meals 5 MG 1 tablet 1 - Active Novolog Flexpen 100 unit/mL Sub-Q inject by subcutaneous route as per insulin sliding scale protocol 5 MG 1 tablet 1 - Active trazodone 150 mg Tab take 1 tablet (150MG) by oral route every day at bedtime 5 MG 1 tablet - Active divalproex 500 mg Tab, Delayed Release take 1 tablet (500MG) by oral route 2 times every day 5 MG 1 tablet - Active gabapentin 400 mg Cap take 1 capsule (400MG) by oral route 3 times every day 5 MG 1 tablet - Active trazodone 50 mg Tab take 1or 2 Tablet by Oral route every bedtime 5 MG 1 tablet - Active Problems Condition Type Effective Dates (start - stop) Diagnosed Date Clinical Status Comments Allergic rhinitis Problem (finding) - Active (qualifier value) Type 1 diabetes mellitus Problem (finding) - Active (qualifier value) Bipolar I disorder, single manic episode Problem (finding) - Active (qualifier value) Generalized convulsive epilepsy Problem (finding) - Active (qualifier value) Advance Directives Directive Yes / No Effective Date File Name No Information Encounters Encounter Description Practice Location Reason(s) For Visit Diagnoses Date Provider Encounter Disposition [facility], [address] [place] [address], [facility], tel:[phone] [facility] [employer]in[employer] crews No Information 5 Scottie Carreno. [address], [id number], [place]. tel:[phone] [facility], [address] [place] [address], [facility], tel:[phone] Chota Tellico No Information 2 Benny Tomas. [address] [place] [address], [facility]. tel:[phone] [facility], [address] [place] [address], [facility], [place] tel:[phone] Chota Tellico xray results (chief complaint) Pain in joint, site unspecified 2 Benny Tomas. [address] [place] [address], [facility]. tel:[phone] [facility], [address] [place] [address], [facility], [place] tel:[phone] Chota Yoink Gamesll e No Information 2 Benny Tomas. [address] [place] [address], [address]. tel:[phone] [facility], [address] [place] [address], [address], [place] tel:[phone] Chota [place] tail bone (chief complaint)dm (chief complaint) Pain in joint involving pelvic region and thighSciatic a 2 Benny Tomas. [address] [place] [address], [facility]. tel:[phone] [facility], [address] [place] [address], [facility], [place] tel:[phone] [facility] No Information 2 Benny Tomas. [address] [place] [address], [facility]. tel:[phone] [facility], [address] [place] [address], [facility], [place] tel:[phone] Chota [place] L ankle pain (chief complaint) Pain in joint involving ankle and footPain in joint involving ankle and foot 2 Benny Tomas. [address] [place] [address], [facility]. tel:[phone] [facility], [address] [place] [address], [address], [place] tel:[phone] Chota [place] No Information 2 John Castellon. [facility], [address]. tel:[phone] [facility], [address] [place] [address], [address], [place] tel:[phone] Chota [place] well woman (chief complaint) Gynecologica l Examination 2 Benny Tomas. [address] [place] [address], [address]. tel:[phone] [facility], [address] [place] [address], [address], [place] tel:[phone] Chota [place] No Information 2 John Ravinder. [address], [address]. tel:[phone] [facility], [address] [place] [address], [address], [place] tel:[phone] Chota [place] No Information 2201 2 John Ravinder. [address], [address]. tel:[phone] [facility], [address] [place] [address], [address], [place] tel:[phone] Chota [place]ico Allergic rhinitis due to other allergen Nov-2 2 John Ravinder. [address], [address]. tel:[phone] [facility], [address] [place] [address], [facility], [place] tel:[phone] Chota [place]ico Allergic rhinitis due to other allergen Nov-2 2 John Ravinder. [facility] [address], [address]. tel:[phone] [facility], [address] [place] [address], [address], [place] tel:[phone] Chota Tellico diabetes and allergies (chief complaint) Diabetes Mellitus, Uncontrolled Type 1HTNSeizure DisorderGast roparesisBip olar disorder, unspecifiedN ausea aloneAllergi c rhinitis due to other allergenPoly neuropathy in diabetes Nov- 2 John Ravinder. [facility] [address], [address]. tel:[phone] [facility], [address] [place] [address], [address], [place] tel:[phone] Chota [place] No Information 2 No Information [facility], [address] [place] [address], [address], [place] tel:[phone] Chota Tellico pain in right buttock and medial thigh (chief complaint)di abetic shoes (chief complaint) Diabetes Mellitus, Uncontrolled Type 1 2 John Ravinder. [address], [address]. tel:[phone] [facility], [address] [place] [address], [facility], [place] tel:[phone] Chota Tellico diabetes (follow up) (chief complaint)MV A (chief complaint)ch ronic conditions (chief complaint) CervicalgiaD iabetes Mellitus, Uncontrolled Type 1 1 John Ravinder. [address], [address]. tel:[phone] [facility], [address] [place] [address], [facility], [place] tel:[phone] Chota [place]ico No Information 1 No Information [facility], [address] [place] [address], [facility], [place] tel:[phone] Chota [place] No Information 1 No Information [facility], [address] [place] [address], [facility], [place] tel:[phone] Chota Tellico f/u dm (chief complaint)wa nts flu shot (chief complaint) Bipolar disorder, unspecifiedS eizure DisorderDM Type 1 1 Benny Tomas. [address] [place] [address], [address]. tel:[phone] [facility], [address] [place] [address], [facility], [place] tel:[phone] Chota Tellico DM (chief complaint) DM Type 1HTNBipolar disorder, unspecifiedS eizure Disorder 1 Benny Tomas. [address] [place] [address], [facility]. tel:[phone] [facility], [address] [place] [address], [address], [place] tel:[phone] Chota Tellico follow up on lab test(s) (chief complaint) Abdominal PainBipolar disorder, unspecified 1 Benny Tomas. [address] [place] [address], [facility]. tel:[phone] [facility], [address] [place] [address], [facility], tel:[phone] Chota Tellico f/u ultrasound (chief complaint) No Information 1 Benny Tomas. [address] [place] [address], [facility]. tel:[phone] [facility], [address] [place] [address], [facility], tel:[phone] Chota Tellico No Information 1 No Information [facility], [address] [place] [address], [facility], tel:[phone] Chota [place] No Information 1 No Information [facility], [address] [place] [address], [facility], tel:[phone] Chota Tellico diabetes (chief complaint)bi polar disorder (chief complaint)ab dominal pain (chief complaint) Abdominal PainBipolar disorder, unspecified 1 Benny Tomas. [address] [place] [address], [facility]. tel:[phone] [facility], [address] [place] [address], [facility], tel:[phone] Chota Tellico bipolar disorder (chief complaint)an xiety (chief complaint)de pression (chief complaint)st ressed (chief complaint)sl eep disturbance (chief complaint) Bipolar disorder, unspecifiedP TSD 1 No Information [facility], [address] [place] [address], [facility], [place] tel:[phone] Chota Tellico swelling (chief complaint)na usea (chief complaint) HTNDM Type 1DM Type 1DM Type 1Seizure DisorderNaus ea alone 1 No Information Family History Family Member Type Diagnosis Age At Onset Father Problem (finding) Heart disease Father Problem (finding) malignant neoplasm of l bud Mother Problem (finding) malignant neoplasm of l bud Payers Payer name Insurance type Identifiers Authorization(s) Com ments Medicaid [employer] HMO [facility] ID: [id number] Name: Coverage Status Eligibility Check on: UnknownRelationship to Subscriber: selfPayer Address: [address], [address] Phone: [phone] Social History Type Description Quantity Date Captured Comments Alcohol Use Details Unknown Caffeine Use Details Unknown Tobacco Use Status No Information Smoking Status No Information Sex Female No - not Current Gender Female (finding) Chief Complaint And Reason For Visit No Information Plan Of Treatment Date Type Action Status Goal Skin lesion inspection. Due on due Goal Td vaccine. Due on 15 due Goal Depression Scrn ([facility]). Du e on due Goal Alcohol/chemical dependency screening. Due on due Goal Depression screening. Due on due Goal Pap/HPV testing. Due on due Goal Subst Abse Screen ([facility]). Due on due Goal Breast exam. Due on 015 due Goal Influenza vaccine. Due on due Goal Tdap. Due on due Goal Lipid Panel. Due on 015 due Goal PAP. Due on due Goal Skin lesion inspection. Due on due Goal Breast exam. Due on 011 due Goal Depression Scrn ([facility]). Du e on due Goal Tdap. Due on due Goal Folic Acid or Fam Plan. Due on due Goal Subst Abse Screen ([facility]). Due on due Goal Td vaccine. Due on 12 due Referral Ordered: Referral: Physical Therapist/Independent. ordered Referral Ordered: MAMMOGRAM, BOTH BREASTS ordered History Of Present Illness Encounter Date Complaint History Of Prese nt Illness No Information Functional Status Date Description Comments No Information Instructions Date Instruction Additional Infor mation No Information Assessments Type Assessment Date No Information
[2025-09-06] VITALS (21 sets, daily range): BP systolic 170–234; BP diastolic 81–154; PULSE 89–114; RESP 17–20; TEMP 36.7; O2SAT 91–100; BMI 24.7
--- OUTSIDE RECORDS SUMMARY | 2025-09-06 11:34 | XMS_ITS | Continuity of Care Document ---
Author Organization [facility], [facility], [facility] ([facility]) Address [address] [place] [address] Care Team Providers Care Strain Technician Name Role Phone STACEY MONZON Primary Care Provider Assessment Encounter Date Assessment Date Assessment LastModified by Organization Details LastModified Time 07/01/2025 07/01/2025 55-year-old fema le with a history of musculoskeletal issues and [...] Organization Details Last Modified Time Details Appointments OFFICE VISIT 15 2024 10:45A M Stacey Monzon MD Not available Not available Not available Lab None recorded. Referral physical therapist referral 2024 [place] [address] [facility], [address] [place] [address], [address], 07/06/2025 17:48:42 Procedures None recorded. Surgeries None recorded. Imaging XR, shoulder, [address]24 [facility], [address] [place], [address], 07/02/2025 12:28:13 Medication Orders Ingrezza 40 mg capsule 2024 025 [facility] #[id number], [address], [place], [address], 07/01/2025 10:47:53 Patient TargetsNo targets recorded. Patient Instructions Encounter Date Encounter Id Patient Instructions Last Modified By Organization Details Last Modified Time 07/01/2025 [id number] - Visit the lab for a shoulder [...] Not available 07/01/2025 10:50:17 Reason for Referral Physical Therapist Referral for Pain of knee region Referring Physician: Stacey Monzon, Family Medicine, Encounter Date: 07/01/2025 Results Created Date Observation Date Name Description Value Unit Range Abnormal Flag Note LastModifiedBy Organization Detail LastModifiedTime 06/23/2006/23/2025 URINA LYSIS WITH MICRO color LIGHT YELLOW Not Available [facility] [address], [place], [address], 06/23/2025 10:38:28 06/23/2006/23/2025 URINA LYSIS WITH MICRO clarity SLIGHT LY CLOUDY Not Available To [facility] [address], [place], [address], 06/23/2025 10:38:28 06/23/2006/23/2025 URINA LYSIS WITH MICRO glu 3+ abnormal Not Available [facility] [address], [place], [address], 06/23/2025 10:38:28 06/23/20 25 06/23/2025 URINA LYSIS WITH MICRO bili NEGATI VE Not Available [facility] [address], [place], [address], 06/23/2025 10:38:28 06/23/20 25 06/23/2025 URINA LYSIS WITH MICRO ket NEGATI VE Not Available [facility] [address] [facility] [address], [place], [address], 06/23/2025 10:38:28 06/23/2006/23/2025 URINA LYSIS WITH MICRO S.g 1.010 1.005- 1.025 Not Available [facility] [address] [facility] 1, [place], [address], 06/23/2025 10:38:28 06/23/20 25 06/23/2025 URINA LYSIS WITH MICRO pH 5.5 5.0-7. 0 Not Available [facility] [address] [facility] 1, [place], [address], 06/23/2025 10:38:28 06/23/20 25 06/23/2025 URINA LYSIS WITH MICRO pro 3+ abnormal Not Available [facility] [address] [facility] 1, [place], [address], 06/23/2025 10:38:28 06/23/20 25 06/23/2025 URINA LYSIS WITH MICRO uro 0.2 E.U./D L Not Available [facility] [address] [facility] 1, [place], [address], 06/23/2025 10:38:28 06/23/20 25 06/23/2025 URINA LYSIS WITH MICRO nit POSITI VE abnormal Not Available [facility] [address] [facility] [address], [place], [address], 06/23/2025 10:38:28 06/23/2006/23/2025 URINA LYSIS WITH MICRO blo 1+ abnormal Not Available [facility] [address] [facility] [address], [place], [address], 06/23/2025 10:38:28 06/23/2006/23/2025 URINA LYSIS WITH MICRO essence 1+ abnormal Not Available [facility] [address], [place], [address], 06/23/2025 10:38:28 06/23/20 25 06/23/2025 URINA LYSIS WITH MICRO WBC 100 abnormal > Not Available [facility] [address] [facility] 1, [place], [address], 06/23/2025 10:38:28 06/23/20 25 06/23/2025 URINA LYSIS WITH MICRO RBC 2-3 Not Available [facility] [address] [facility] 1, [place], [address], 06/23/2025 10:38:28 06/23/20 25 06/23/2025 URINA LYSIS WITH MICRO epi cells 6-8 abnormal Not Available [facility] [address] [facility] 1, [place], [address], 06/23/2025 10:38:28 06/23/20 25 06/23/2025 URINA LYSIS WITH MICRO bacteria TRACE OF MIXED MELY abnormal Not Available [facility] [address] [facility] 1, [place], [address], 06/23/2025 10:38:28 06/23/20 25 06/23/2025 URINA LYSIS WITH MICRO other NG Not Available [facility] [address], [place], [address], 06/23/2025 10:38:28 06/23/20 25 06/25/2025 CULTU RE, URINE , ROUTI NE culture, urine, routine SEE NOTE abnormal CULTU RE, URINE , ROUTI NE Micro Numbe r: [id number] Test Statu s: Final Speci men [...] Not Teste d NR = Not Repor emanuel NN = See Thera py Comme nts Not Available [facility] [address] [place], [address], 06/25/2025 17:20:04 07/02/2007/01/2025 XR, shoul anjelica, 2 or more view No observ ation record ed. [facility] [address] [place], [address], 07/03/2025 13:49:46 08/14/20 25 08/14/2025 , echo ardio gram No observ ation record ed. [facility] [address] [place], [address], 08/18/2025 15:54:37 Result Notes None recorded. Problems Name Problem SNOMED Code Status Onset Date Resolution Date Notes Provider Name and Address Organization Details Recorded Time Chronic neck pain 1023290528031 Active 2024 Stacey Monzon MD [address] [place] [address], [address], [facility] 14:44:59 Pain of left shoulder joint 1586700879714 9109 Active 2024 Stacey Monzon MD [address] [place] [address], [address], [facility] 14:45:24 Extrapyrami casey sign 36627226 Active 2024 Stacey Monzon MD [address] [place] [address], [facility] 14:48:32 Nausea 934129891 Active 2024 Stacey Monzon MD [address] [place] [address], [address], [facility] 14:49:22 Type 1 diabetes mellitus 42350974 Active 2024 Stacey Monzon MD [address] [place] [address], [address], [facility] 14:50:28 Essential hypertensio n 72867417 Active 2024 Stacey Monzon MD [address] [place] [address], [address], [facility] 09:10:38 Pain of multiple joints 74889848 Active 2024 Stacey Monzon MD [address] [place] [address], [facility] 10:47:24 Arthritis 8630283 Active 2024 Stacey Monzon MD [address] [place] [address], [address], [facility] 10:30:41 Viral upper respiratory tract infection 770971574 Active 2024 Stacey Monzon MD [address] [place] [address], [address], [facility] 20:42:43 Dysuria 04962666 Active 2024 Stacey Monzon MD [address] [place] [address], [address], [facility] 09:36:44 Gastroesoph ageal reflux disease without esophagitis 821634520 Active 2024 Stacey Monzon MD [address] [place] [address], [address], [facility] 09:39:43 Chronic constipatio n 089914597 Active 2024 Stacey Monzon MD [address] [place] [address], [address], [facility] 10:14:46 Generalized anxiety disorder 31539403 Active 2024 Stacey Monzon MD [address] [place] [address], [address], [facility] 10:15:06 Acute urinary tract infection 120507993 Active 2024 Stacey Monzon MD [address] [place] [address], [address], [facility] 11:28:18 Pain of left shoulder region Active 2024 Stacey Monzon MD [address] [place] [address], [address], [facility] 10:46:20 Tardive dyskinesia 176783843 Active 2024 Stacey Monzon MD [address] [place] [address], [address], [facility] [place] 10:46:46 Bilateral lower limb edema 745164378 Active 2024 Stacey Monzon MD [address] [place] [address], [address], [facility] AbdielCMartin 12:39:40 Essential tremor 123416648 Active 2024 Stacey Monzon MD [address] [place] [address], [address], [facility] 12:40:54 Problem Notes None recorded. Procedures Surgical History Date Name Laterality Status Provider Name and Address Organization Details Recorded Time procedure on shoulder completed [facility], [place] 05/28/2025 10:04:06 Hysterectomy completed [facility], [place] 05/28/2025 10:04:22 Tubal Ligation completed [facility], LMartinLMartinCMartin 05/28/2025 10:04:36 nasal septoplasty completed [facility], [place] 05/28/2025 10:04:52 Imaging Results None recorded. Procedure [...] Not Available Not Available No t Available Pain Relief (acetaminop hen) 325 mg tablet take 2 tablets BY MOUTH EVERY 6 HOURS as needed for mild pain active Not Available Not Available No t Available divalproex 250 mg tablet,silvia yed release TAKE 1 TABLET BY MOUTH EVERY DAY active Not Available Not Available No t Available meloxicam 15 mg tablet Take 1 tablet every day by oral route. 05/21 completed Not Available Not Available Not Available ondansetron HCl 4 mg tablet TAKE 1 TABLET BY MOUTH EVERY 6 HOURS NEEDED active Not Available Not Available No t Available fluorouraci l 5 % topical cream APPLY TOPICALLY TO THE AFFECTED AREA TWICE DAILY FOR 4 WEEKS 08/21 completed Not Available Not Available Not Available Accu-Chek Softclix Lancets USE DIRECTED TO CHECK BLOOD SUGAR UP TO 4 TIMES DAILY active Not Available Not Available No t Available potassium chloride ER 10 mEq tablet,exte nded release TAKE 1 TABLET BY MOUTH EVERY DAY active Not Available Not Available No t Available hydroxyzine HCl 50 mg tablet TAKE 1 TABLET BY MOUTH FOUR TIMES A DAY active Not Available Not Available [...] solution apply topically DAILY for FOUR WEEKS 08/21 completed Not Available Not Available Not Available propranolol 40 mg tablet TAKE 1 TABLET BY MOUTH TWICE A DAY active Not Available Not Available No t Available baclofen 10 mg tablet TAKE ONE TABLET BY MOUTH TWICE DAILY active Not Available Not Available No t Available amlodipine 10 mg tablet TAKE 1 TABLET BY MOUTH EVERY DAY active Not Available Not Available No t Available cephalexin 500 mg capsule TAKE ONE CAPSULE BY MOUTH THREE TIMES DAILY active Not Available Not Available No t Available promethazin e 25 mg tablet TAKE 1 TABLET BY MOUTH EVERY 6 HOURS NEEDED FOR NAUSEA OR VOMITING 06/23 completed Not Available Not Available Not Available omeprazole 20 mg capsule,del ayed release TAKE 1 CAPSULE BY MOUTH EVERY DAY active Not Available Not Available No t Available mupirocin 2 % topical ointment apply topically TWICE DAILY active Not Available Not Available No t Available furosemide 20 mg tablet TAKE 1 TABLET BY MOUTH EVERY DAY active Not Available Not Available No t Available fluticasone propionate 50 mcg/actuati on nasal spray,suspe nsion SPRAY 2 SPRAYS BY INTRANASA L ROUTE EVERY DAY active Not Available Not Available No t Available doxycycline hyclate 100 mg tablet TAKE ONE TABLET BY MOUTH TWO TIMES A DAY FOR 14 DAYS 07/30 completed Not Available Not Available Not Available aripiprazol e 10 mg tablet Take 1 tablet every day by oral route. 05/12 completed Not Available Not Available Not Available nitrofurant oin monohydrate /macrocryst als 100 mg capsule TAKE 1 CAPSULE BY MOUTH EVERY 12 HOURS 07/30 completed Not Available Not Available Not Available pregabalin 50 mg capsule TAKE 1 CAPSULE BY MOUTH TWICE DAILY active Not Available Not Available No t Available Novolog FlexPen U-100 Insulin 8 units before each meal active Not Available Not Available No t Available dapaglifloz in propanediol 10 mg tablet Take 1 tablet every day by oral route. 06/23 completed Not Available Not Available Not Available Lilly RodriguezoStsharlene U-300 Insulin 300 unit/mL (1.5 mL) subcutaneou s pen INJECT 24 UNITS SUBCUTANE OUSLY IN THE MORNING FOR 28 DAYS. active Not Available Not Available No t Available Accu-Chek Guide test strips USE DIRECTED TO CHECK BLOOD SUGAR UP TO 4 TIMES DAILY active Not Available Not Available No t Available Ingrezza 40 mg capsule Take 2 capsules daily active Not Available Not Available No t Available Accu-Chek Guide Me Glucose Meter USE DIRECTED TO CHECK BS UP TO 4 TIMES DAILY 2024 active Not Available Not Available Not Avai lable FreeStyle Ok 2 Sensor 08/21 completed Not Available Not Available Not Available FreeStyle Ok 3 Plus Sensor device USE TO MONITOR BLOOD GLUCOSE LEVELS. CHANGE EVERY 15 DAYS active Not Available Not Available No t Available Vitals Date Recorded Body height Body mass index (BMI) Body weight Body temperature Oxygen saturation Heart rate Systolic And Diastolic Provider Name and Address Organization Details Last Updated DateTime 5 162.56 cm 23.7 kg/m2 06206.7 5 g 97.3 [degF] 99 % 91 /min 162/90 mm[Hg] [facility], [facility] 5 10:21:11 Social History Question Answer Notes LastModified by Organizat ion Details LastModified Time Tobacco Smoking Status Former Smoker Meaghan [facility], [facility] 07/01/2025 10:32:03 What Is Your Level Of Caffeine Consumption? Heavy [email or web address] Information not available 08/21/2025 When Did You Quit Smoking? 16+yearssindeng finnegan [email or web address] Information not available 03/23/2025 What Type Of Marijuana Have You Used? Smoke And Edibles [email or web address] Information not available 08/21/2025 Do You Or Have You Ever Used Marijuana? Former User [email or web address] Information not available 08/21/2025 What Was The Date Of Your Most Recent Tobacco Screening? 07/01/2025 [email or web address] Information not available 07/01/2025 Was Your Marijuana Use Recreational Or Medical? Recreational [email or web address] Information not available 08/21/2025 At What Age Did You Start Smoking Tobacco? 14 [email or web address] Information not available 08/21/2025 Has Tobacco Cessation Counseling Been Provided? No [email or web address] Information not available 06/23/2025 Sex: Unknown Functional Status Question Answer Note LastModified by Organization D etails LastModified Time What is your level of alcohol consumption? None [email or web address] Information not available 05/12/2025 Mental Status None [...] preservative free, adsorbed 8 completed Not Available [facility] 08/21/2025 11:36:20 Influenza, MDCK, quadrivalent, PF 3 completed Not Available [facility] 08/21/2025 11:36:20 Tdap 4 completed Not Available [facility] 08/21/2025 11:36:20 Past Encounters Encounter ID Performer Location Encounter Start Date Encounter Closed Date Diagnosis/Indication Diagnosis SNOMED-CT Code Diagnosis ICD10 Code Diagnosis IMO Codes Diagnosis Note [id number] Stacey Monzon MD [facility] ([facility]) [address] [place] [address] 06/23/2025 08:56:19 06/23/2025 09:49:30 Dysuria 53009436 R30.0 84870 - Evaluate urine for infection to exclude this as a cause. - Consider underlying constipati on management to resolve urinary bladder issues. Gastroesop hageal reflux disease without esophagitis 401543634 K21.9 106956 - Refill omeprazole prescripti on for symptomati c management . - Reinforce adherence to daily medication s. Essential hypertension 35289335 I10 53563 controlled on current meds Extrapyramidal sign 4337 8000 R29.842 [id number] Tardive Dyskinesia : - Discontinu e promethazi ne to reduce exacerbati on of movements. - Explore alternativ e antiemetic options. Type 1 michaelle betes mellitus 63707855 E10.69 2656694 - Ensure follow-up with an endocrinol ogist. Chronic constipation 236 688356 K59.09 552103 - Implement use of stool softeners and MiraLax. - Encourage dietary modificati ons. Generalize d anxiety disorder 87555946 F41.1 278079 - Focus on medication adjustment s for symptom management . [id number] Stacey Monzon MD [facility] ([facility]) [address] [place] [address] 07/01/2025 10:15:01 07/01/2025 11:01:26 Pain of left shoulder region 0108407396 M25.512 [id number] - Obtain shoulder x-rays and consider surgical consultati on depending on results. Tardive dyskinesia 83763 9007 G24.01 41872 - Initiate Ingrezza with insurance approval and increase dose per titration plan. Pain of knee region 1003 056166 M25.561 - Begin physical therapy, with potential for knee injections if pain increases. Health Concerns Section Related Observation LastModified by Organization Detai ls LastModified Time None Recorded Concern Status LastModified by Organization Details LastModified Time None Recorded Payers Encounter Date Sequence Insurance Name Policy Number Policy Cespedes Covered Member ID Cespedes Member ID Guarantor Name 07/01/2025 1 [place] BRAD[place] - [place] PLUS (MEDICARE REPLACEMENT HMO) [id number] Wendi Yee [id number] Wendi Yee Notes Date Note Type Note Provider Name and Address Organization Details Recorded Time 07/01/20 25 text/htm l Musculoskeletal PainReported by [...] social interaction concerns. Stacey Monzon MD [address] [place] [address], [phone], [facility] [place] 07/01/2025 11:02:09 OBGyn Episode No OBEpisode recorded.
--- OUTSIDE RECORDS SUMMARY | 2025-09-06 11:34 | XMS_ITS | Continuity of Care Document ---
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 [email or web address] Not available 06/23/2025 10:15:22 Plan of Treatment Reminders Order Date Submit Date Provider Last Modified By Organization Details Last Modified Time Details Appointments OFFICE VISIT 15 2024 10:45A Sonia Monzon MD Not available Not available Not available Lab urinalysi s, complete 2024 025 [facility], [address] [facility] [address], [place], [address], 06/23/2025 10:38:28 culture, urine 2024 025 [employer] [facility], [address] [place] [address], [address], [place], [address], 06/25/2025 17:20:04 Referral None recorded. Procedures None recorded. Surgeries None recorded. Imaging None recorded. Medication Orders omeprazol e 20 mg capsule,d elayed release 2024 025 [email or web address] [facility] #[id number], [address], [address], [place], [address], 06/23/2025 09:42:25 Patient TargetsNo targets recorded. Patient Instructions Encounter Date Encounter Id Patient Instructions Last Modified By Organization Details Last Modified Time 06/23/2025 [id number] - Follow up with an director biostatistics on September 01. - Refill and adhere to daily omeprazole and diabetes medications. - Discontinue promethazine and explore alternative antiemetics. - Start stool softeners like MiraLax for constipation management. - Monitor blood sugar closely; contact the director biostatistics if abnormal values persist. - Focus on [...] significant harm. [email or web address] Not available 06/23/2025 09:44:21 Reason for Referral None Reported. Results Created Date Observation Date Name Description Value Unit Range Abnormal Flag Note LastModifiedBy Organization Detail LastModifiedTime 06/23/2006/23/2025 URINA LYSIS WITH MICRO color LIGHT YELLOW Not Available [facility] [address], [place], [address], 06/23/2025 10:38:28 06/23/2006/23/2025 URINA LYSIS WITH MICRO clarity SLIGHT LY CLOUDY Not Available [facility] [address], [place], [address], 06/23/2025 10:38:28 06/23/2006/23/2025 URINA LYSIS WITH MICRO glu 3+ abnormal Not Available [facility] [address], [place], [address], 06/23/2025 10:38:28 06/23/20 25 06/23/2025 URINA LYSIS WITH MICRO bili NEGATI VE Not Available [facility] [address], [place], [address], 06/23/2025 10:38:28 06/23/2006/23/2025 URINA LYSIS WITH MICRO ket NEGATI VE Not Available [facility] [address], [place], [address], 06/23/2025 10:38:28 06/23/2006/23/2025 URINA LYSIS WITH MICRO S.g 1.010 1.005- 1.025 Not Available [facility] [address], [place], [address], 06/23/2025 10:38:28 06/23/2006/23/2025 URINA LYSIS WITH MICRO pH 5.5 5.0-7. 0 Not Available [facility] [address], [place], [address], 06/23/2025 10:38:28 06/23/20 25 06/23/2025 URINA LYSIS WITH MICRO pro 3+ abnormal Not Available [facility] [address] [facility] [place], [address], 06/23/2025 10:38:28 06/23/20 25 06/23/2025 URINA LYSIS WITH MICRO uro 0.2 E.U./D L Not Available [facility] [address] [facility] [address], [place], [address], 06/23/2025 10:38:28 06/23/2006/23/2025 URINA LYSIS WITH MICRO nit POSITI VE abnormal Not Available [facility] [address] [facility] [address], [place], [address], 06/23/2025 10:38:28 06/23/20 25 06/23/2025 URINA LYSIS WITH MICRO blo 1+ abnormal Not Available [facility] [address] [facility] [address], [place], [address], 06/23/2025 10:38:28 06/23/20 25 06/23/2025 URINA LYSIS WITH MICRO essence 1+ abnormal Not Available [facility] [address] [facility] [address], [place], [address], 06/23/2025 10:38:28 06/23/2006/23/2025 URINA LYSIS WITH MICRO WBC 100 abnormal > Not Available [facility] [address] [facility] [address], [place], [address], 06/23/2025 10:38:28 06/23/20 25 06/23/2025 URINA LYSIS WITH MICRO RBC 2-3 Not Available [facility] [address] [facility] [address], [place], [address], 06/23/2025 10:38:28 06/23/20 25 06/23/2025 URINA LYSIS WITH MICRO epi cells 6-8 abnormal Not Available [facility] [address], [place], [address], 06/23/2025 10:38:28 06/23/20 25 06/23/2025 URINA LYSIS WITH MICRO bacteria TRACE OF MIXED MELY abnormal Not Available [facility] [address], [place], [address], 06/23/2025 10:38:28 06/23/20 25 06/23/2025 URINA LYSIS WITH MICRO other NG Not Available [facility] [address], [place], [address], 06/23/2025 10:38:28 06/23/20 25 06/25/2025 CULTU RE, URINE , ROUTI NE culture, urine, routine SEE NOTE abnormal CULTU RE, URINE , ROUTI NE Micro Numbe r: [id number] Test Statu s: Final Speci men [...] See Thera py Comme nts Not Available [facility] [address], [place], [address], 06/25/2025 17:20:04 07/02/2007/01/2025 XR, shoul anjelica, 2 or more view No observ ation record ed. [facility] [address] [place], [address], 07/03/2025 13:49:46 08/14/2008/14/2025 , echoc ardio gram No observ ation record ed. [facility] [address] [place], [address], 08/18/2025 15:54:37 Result Notes None recorded. Problems Name Problem SNOMED Code Status Onset Date Resolution Date Notes Provider Name and Address Organization Details Recorded Time Chronic neck pain 6064840334496 Active 2024 Stacey Monzon MD [address] [place] [address], [phone], [facility] 14:44:59 Pain of left shoulder joint 4289275170742 9109 Active 2024 Stacey Monzon MD [address] [place] [address], [phone], [facility] 14:45:24 Extrapyrami casey sign 91428244 Active 2024 Stacey Monzon MD [address] [place] [address], [phone] 5, [facility] 14:48:32 Nausea 889679526 Active 2024 Stacey Monzon MD [address] [place] [address], [phone] 5, [facility] 14:49:22 Type 1 diabetes mellitus 07272337 Active 2024 Stacey Monzon MD [address] [place] [address], [phone], [facility] 14:50:28 Essential hypertensio n 24886414 Active 2024 Stacey Monzon MD [address] [place] [address], [phone] 5, [facility] 09:10:38 Pain of multiple joints 96844639 Active 2024 Stacey Monzon MD [address] [place] [address], 646[address]-629 5, [facility] 10:47:24 Arthritis 1081652 Active 2024 Stacey Monzon MD [address] [place] [address], [address] 5, [facility] 10:30:41 Viral upper respiratory tract infection 404512699 Active 2024 Stacey Monzon MD [address] [place] [address], 678[address]-762 5, [facility] 20:42:43 Dysuria 97114925 Active 2024 Stacey Monzon MD [address] [place] [address], 411[address] 5, [facility] 09:36:44 Gastroesoph ageal reflux disease without esophagitis 585936883 Active 2024 Stacey Monzon MD [address] [place] [phone] 5, [facility] 09:39:43 Chronic constipatio n 769035523 Active 2024 Stacey Monzon MD [address] [place] [phone] 5, [facility] 10:14:46 Generalized anxiety disorder 63471327 Active 2024 Stacey Monzon MD [address] [place] [address], [address], [facility] 10:15:06 Acute urinary tract infection 935665648 Active 2024 Stacey Monzon MD [address] [place] [address], [address] [place] [address] 5, [facility], [place] 11:28:18 Pain of left shoulder region Active 2024 Stacey Monzon MD [address] [place] [address], [address] 5, [facility], Jose 10:46:20 Tardive dyskinesia 138122091 Active 2024 Stacey Monzon MD [address] [place] [address], 393[address] 5, [facility], [place] 10:46:46 Bilateral lower limb edema 712121246 Active 2024 Stacey Monzon MD [address] [place] [address], 95770-532 5, [facility], [place] 12:39:40 Essential tremor 968817907 Active 2024 Stacey Monzon MD [address] [place] [address], 765[address]-180 5, [facility], LMartinLMartinCM[facility]in 12:40:54 Problem Notes None recorded. Procedures Surgical History Date Name Laterality Status Provider Name and Address Organization Details Recorded Time [facility] on shoulder [email or web address] 10:04:06 [facility] 10:04:22 [facility] 10:04:36 nasal septoplasty [facility] 10:04:52 Imaging Results None recorded. Procedure [...] Last Updated DateTime 162.56 cm 22.7 kg/m2 34682.1 9 g 98 [degF] 98 % 84 /min 158/96 mm[Hg] [facility]ly [facility] 09:10:28 Social History Question Answer Notes LastModified by Organizat ion Details LastModified Time Tobacco Smoking Status Former Smoker [facility] 07/01/2025 10:32:03 What Is Your Level Of Caffeine Consumption? Heavy [email or web address] Information not available 08/21/2025 When Did You Quit Smoking? 15+yearssindeng finnegan [email or web address] Information not available 03/23/2025 What Type Of Marijuana Have You Used? Smoke And Edibles [email or web address] Information not available 08/21/2025 Do You Or Have You Ever Used Marijuana? Former User [email or web address] Information not available 08/21/2025 What Was The Date Of Your Most Recent Tobacco Screening? 07/01/2025 Information not available 07/01/2025 Was Your Marijuana Use Recreational Or Medical? Recreational [email or web address] Information not available 08/21/2025 At What Age Did You Start Smoking Tobacco? 14 [email or web address] Information not available 08/21/2025 Has Tobacco Cessation Counseling Been Provided? No [email or web address] Information not available 06/23/2025 Sex: Unknown Functional Status Question Answer Note LastModified by Organization D etails LastModified Time What is your level of alcohol consumption? None [email or web address] Information not available 05/12/2025 Mental Status None [...] preservative free, adsorbed 8 completed Not Available [facility] 08/21/2025 11:36:20 Influenza, MDCK, quadrivalent, PF 3 completed Not Available [facility] 08/21/2025 11:36:20 Tdap 4 completed Not Available [facility] 08/21/2025 11:36:20 Past Encounters Encounter ID Performer Location Encounter Start Date Encounter Closed Date Diagnosis/Indication Diagnosis SNOMED-CT Code Diagnosis ICD10 Code Diagnosis IMO Codes Diagnosis Note [id number] Stacey Monzon MD [facility] [address] [place] [phone] 05/28/2025 09:29:59 05/28/2025 10:40:42 Arthritis 0656597 M19.90 [id number] Given the severity of her inflammato ry markers on her recent lab work and her symptoms, we will go ahead and proceed with rheumatolo gy referral. Concerned about a seronegati ve inflammato ry arthritis. Viral uppe r respiratory tract infection 087155224 J06.9 [id number] Patient presented with symptoms of viral upper [...] in 7-10 days if symptoms not improving. [id number] Stacey Monzon MD [facility] ([facility]) [address] [place] [phone] 06/23/2025 08:56:19 06/23/2025 09:49:30 Dysuria 64728038 R30.0 09882 - Evaluate urine for infection to exclude this as a cause. - Consider underlying constipati on management to resolve urinary bladder issues. Gastroesop hageal reflux disease without esophagitis 689618010 K21.9 110291 - Refill omeprazole prescripti on for symptomati c management . - Reinforce adherence to daily medication s. Essential hypertension 30740259 I10 83230 controlled on current meds Extrapyramidal sign 4337 8000 R29.118 [id number] Tardive Dyskinesia : - Discontinu e promethazi ne to reduce exacerbati on of movements. - Explore alternativ e antiemetic options. Type 1 michaelle betes mellitus 09371035 E10.69 [id number] - Ensure follow-up with an endocrinol ogist. Chronic constipation 236 860681 K59.09 240358 - Implement use of stool softeners and MiraLax. - Encourage dietary modificati ons. Generalize d anxiety disorder 34477979 F41.1 040103 - Focus on medication adjustment s for symptom management . Health Concerns Section Related Observation LastModified by Organization Detai ls LastModified Time None Recorded Concern Status LastModified by Organization Details LastModified Time None Recorded Payers Encounter Date Sequence Insurance Name Policy Number Policy Cespedes Covered Member ID Cespedes Member ID Guarantor Name 06/23/2025 1 [employer]: PETERSON BRADLEY - MED[employer]LUE PLUS (MEDICARE REPLACEMENT HMO) [id number] Wendi Yee [id number] Wendi Yee Notes Date Note Type Note Provider Name and Address Organization Details Recorded Time 06/23/2025 text/html The patient is a 55-year-old female presenting [...] reflux disease symptoms. Stacey Monzon MD [address] [place] [address], [phone], [facility] 06/23/2025 10:15:37 OBGyn Episode No OBEpisode recorded.
--- OUTSIDE RECORDS SUMMARY | 2025-09-06 11:34 | XMS_ITS | Data Portability ---
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 [email or web address] Not available 07/01/2025 10:50:15 07/30/2025 07/30/2025 55-year-old shivam le with history of essential hypertension presenting with fluid retention and increased tremors. Recent exacerbation of bilateral lower limb edema was noted, and heart failure was suspected during an ER visit. Blood pressure was reported slightly elevated, and the patient reports recent increase in tremors. Constipation seems to be aggravated by tramadol use. Further evaluation and adjustment of medications are necessary, including consideration for propranolol resumption, furosemide initiation for edema, and scheduling an echocardiogram. [email or web address] Not available 07/30/2025 12:45:34 08/21/2025 08/21/2025 55-year-old fema le with a history of Type 1 diabetes mellitus presenting with management concerns. The patient experienced a recent DKA episode with persistently high glucose readings despite medication adherence. Echocardiogram indicates no cardiac insufficiency. She has bilateral lower limb edema and generalized anxiety disorder impacting her glucose management. Patient requires follow-up on a foot sore and medication management. [email or web address] Not available 08/21/2025 12:09:09 Plan of Treatment Reminders Order Date Submit Date Provider Last Modified By Organization Details Last Modified Time Details Appointments OFFICE VISIT 15 2024 10:45A M Stacey Monzon MD Not available Not available Not available Lab urinalysi s, complete 2024 025 [facility], [address] [facility] [address], [address], 06/23/2025 10:38:28 culture, urine 2024 025 [facility], [address] [place] [address] [address], [address] [place], [address], 06/25/2025 17:20:04 Referral physical therapist referral 2024 025 [facility], [address], [address], 07/06/2025 17:48:42 rheumatol ogist referral 2024 025 hema Lamas MD, [address] [place], [address], 06/11/2025 16:50:16 Procedures None recorded. Surgeries None recorded. Imaging US, echocardi ogram 2024 025 [facility], [address] [facility], [place], [address], 08/10/2025 10:12:51 XR, shoulder, 2 or more view 2024 [facility], [address] [facility], [place], [address], 07/02/2025 12:28:13 Medication Orders hydroxyzi ne HCl 50 mg tablet 2024 025 [facility] #[id number], [address] [facility], [facility] [address], [place], [address], 08/21/2025 12:29:16 Accu-Chek Guide test strips 2024 025 [facility] #[id number], [address], [facility], [place], [address], 08/21/2025 12:29:16 Toujeo SoloStar U-300 Insulin 300 unit/mL (1.5 mL) subcutane ous pen 2024 025 [facility] #[id number], [address], [facility] [address], [place], [address], 08/21/2025 12:29:16 propranol ol 40 mg tablet [address] [facility] #[id number], [address] [facility], [address], [place], [address], 07/30/2025 12:42:06 furosemid e 20 mg tablet 2024 025 3 [facility] #[id number], [address] [facility], [address], [place], [address], 08/21/2025 12:22:45 potassium chloride ER 10 mEq tablet,ex tended release 2024 025 [email or web address] [id number], [address], [address], [place], [address], 08/21/2025 12:22:45 Ingrezza 40 mg capsule 2024 025 J[id number], [address], [address], [place], [address], 07/01/2025 10:47:53 omeprazol e 20 mg capsule,d elayed release 2024 dcrase [id number], [address], [address], [place], [address], 06/23/2025 09:42:25 Patient TargetsNo targets recorded. Patient Instructions Encounter Date Encounter Id Patient Instructions Last Modified By Organization Details Last Modified Time 06/23/2025 [id number] - Follow up with an crime specialist on September 01. - Refill and adhere to daily omeprazole and diabetes medications. - Discontinue promethazine and explore alternative antiemetics. - Start stool softeners like MiraLax for constipation management. - Monitor blood sugar closely; contact the crime specialist if abnormal values persist. - Focus on [...] harm. [email or web address] Not available 06/23/2025 09:44:21 07/01/2025 [id number] - Visit the lab for a shoulder [...] in symptomatology. [email or web address] Not available 07/01/2025 10:50:17 07/30/2025 [id number] - Take furosemid e (Lasix) in the morning, with potassium as prescribed. - Restart propranolol for tremor control. - Schedule the echocardiogram for heart assessment promptly. - Use the prescribed blood pressure monitor to track changes. - Consider using meloxicam or Celebrex to manage pain and avoid tramadol. - Stay hydrated and maintain fiber intake to manage constipation. - Return for a follow-up consultation in one month to review results and progress. [email or web address] Not available 07/30/2025 12:45:36 During the consultation, we reviewed the patient's current condition of bilateral lower limb edema and the suggestion of heart failure. We discussed the use of furosemide for fluid retention and the need for concurrent potassium supplementation due to potential depletion. The patient was advised on an echocardiogram to confirm any cardiovascular concerns. For essential tremors, the reintroduction of propranolol was advised, noting its effects on blood pressure. Alternative pain management strategies were recommended to avoid constipation, including the use of non-opioid options like meloxicam or Celebrex. The necessity of blood pressure monitoring was emphasized, and logistical arrangements were made for acquiring a blood pressure machine through the patient's pharmacy. Follow-up discussions were suggested post-evaluation of the echocardiogram and blood pressure responses. [email or web address] Not available 07/30/2025 12:45:36 08/21/2025 [id number] - Continue takin g insulin as prescribed. - Use a continuous glucose monitor as provided and monitor your blood sugar regularly. - Follow a balanced diet to manage blood sugar levels. - Attend the follow-up appointment with the crime specialist for diabetes management. - Continue with diuretic medication as advised and monitor leg swelling. - Follow up for your foot sore as scheduled next week. - Monitor anxiety symptoms and report any changes. [email or web address] Not available 08/21/2025 12:09:12 I reviewed the echocardiogram results with the patient, explaining the cardiac function as normal and alleviating concerns about heart-related issues. We discussed managing high blood glucose levels, focusing on diet and continuous monitoring strategies due to lack of compatible phone access for her glucose monitor. I also emphasized the relationship between anxiety management and blood sugar control, highlighting the need for possible medication adjustments. Follow-up with an crime specialist was suggested for more tailored diabetes management. Regarding the bilateral lower limb edema, I clarified that the edema isn't heart-related as verified by the echocardiogram, recommended ongoing diuretic therapy while monitoring kidney function due to diabetes. [email or web address] Not available 08/21/2025 12:09:13 Reason for Referral Doughnut Dough Mixer Referral for Arthritis Referring Physician: Stacey Monzon [facility], Encounter Date: 05/28/2025 Physical Therapist Referral for Pain of knee region Referring Physician: Stacey Monzon [facility], Encounter Date: 07/01/2025 Results Created Date Observation Date Name Description Value Unit Range Abnormal Flag Note LastModifiedBy Organization Detail LastModifiedTime 05/21/2005/21/2025 CMP (FEMA LE) glucose 262.0 mg/dL 60.0-9 9.0 high Not Available [facility] [address], [place], [address], 05/21/2025 12:34:36 05/21/2005/21/2025 CMP (FEMA LE) BUN (blood urea nitrogen) 40.0 mg/dL 10.0-2 6.0 high Not Available [facility] [address], [place], [address], 05/21/2025 12:34:36 05/21/20 25 05/21/2025 CMP (FEMA LE) creatinine (serum) 0.9 mg/dL 0.4-1. 5 Not Available [facility] [address] [facility], [place], [address], 05/21/2025 12:34:36 05/21/20 25 05/21/2025 CMP (FEMA LE) BUN/creatini ne ratio 44.44 ratio Not Available [facility] [address] [facility] [address], [place], [address], 05/21/2025 12:34:36 05/21/20 25 05/21/2025 CMP (FEMA LE) eGFR calculated 69.1 Not Available [facility] [address], [place], [address], 05/21/2025 12:34:36 05/21/20 25 05/21/2025 CMP (FEMA LE) total protein 6.4 g/dL 6.0-8. 5 Not Available [facility] [address] [facility] [address], [place], [address], 05/21/2025 12:34:36 05/21/20 25 05/21/2025 CMP (FEMA LE) total bilirubin 0.5 mg/dL 0.2-1. 3 Not Available [facility] [address], [place], [address], 05/21/2025 12:34:36 05/21/20 25 05/21/2025 CMP (FEMA LE) albumin 3.8 g/dL 3.5-5. 5 Not Available [facility] [address], [place], [address], 05/21/2025 12:34:36 05/21/20 25 05/21/2025 CMP (FEMA LE) globulin 2.6 calc Not Available [facility] [address] [facility] [address], [place], [address], 05/21/2025 12:34:36 05/21/20 25 05/21/2025 CMP (FEMA LE) AST (SGOT) 46.0 U/L 0.0-46 .0 Not Available [facility] [address] [facility] [address], [place], [address], 05/21/2025 12:34:36 05/21/20 25 05/21/2025 CMP (FEMA LE) altv (SGPT) 27.0 U/L 13.0-6 9.0 normal Not Available [facility] [address] [facility] [address], [place], [address], 05/21/2025 12:34:36 05/21/20 25 05/21/2025 CMP (FEMA LE) A/G ratio 1.5 ratio Not Available [facility] [address] [facility] [address], [place], [address], 05/21/2025 12:34:36 05/21/20 25 05/21/2025 CMP (FEMA LE) ALP phos 108.0 U/L 30.0-1 40.0 normal Not Available [facility] [address] [facility] [address], [place], [address], 05/21/2025 12:34:36 05/21/20 25 05/21/2025 CMP (FEMA LE) calcium 9.5 mg/dL 8.4-10 .5 Not Available [facility] [address] [facility] [address], [place], [address], 05/21/2025 12:34:36 05/21/20 25 05/21/2025 CMP (FEMA LE) sodium 135.0 mmol/ L 136.0- 145.0 low Not Available [facility] [address] [facility] [address], [place], [address], 05/21/2025 12:34:36 05/21/2005/21/2025 CMP (FEMA LE) potassium 4.5 mmol/ L 3.5-5. 1 Not Available [facility] [address] [facility] [address], [place], [address], 05/21/2025 12:34:36 05/21/20 25 05/21/2025 CMP (FEMA LE) chloride 109.0 mmol/ L 98.0-1 10.0 normal Not Available [facility] [address] [facility] [address], [place], [address], 05/21/2025 12:34:36 05/21/20 25 05/21/2025 CMP (FEMA LE) C02 20.0 mmol/ L 22.0-3 1.0 low Not Available [facility] [address] [facility] [address], [place], [address], 05/21/2025 12:34:36 05/21/2005/21/2025 CMP (FEMA LE) anion gap 6.0 calc Not Available [facility] [address] [facility] [address], [place], [address], 05/21/2025 12:34:36 05/21/2005/21/2025 CMP (FEMA LE) osmolality 296.4 calc Not Available [facility] [address] [facility] [address], [place], [address], 05/21/2025 12:34:36 05/21/2005/26/2025 CAPRI SCREE N, IFA, W/REF L TITER [...] Patte rns (http s://d oi.or g/[email or web address]. 1515/ [facility]2017- 0052) For addit ional infor usha de la cruz e refer to http: //satya arreguin.Que stDia gnost ics.c om/fa q/FAQ 177 (This link is being provi ded for infor charmaine anderson/ educa ty l purpo ses only. ) Not Available [address] [address] [place], [address], 05/26/2025 18:14:28 05/21/2005/26/2025 RHEUM ATOID FACTO R rheumatoid factor <10 IU/mL <14 normal Not Available [facility] [address] [address] [place], [address], 05/26/2025 18:14:29 05/21/2005/26/2025 C-FORD CTIVE PROTE IN C-reactive protein 15.2 mg/L <8.0 high Not Available [facility] [address] [address] [place], [address], 05/26/2025 18:14:29 05/21/2005/26/2025 CYCLI C CITRU LLINA ERIC PEPTI DE (CCP) AB (IGG) cyclic citrullinate d peptide (ccp) Ab (IgG) <16 units normal Refer ence Range Negat nadja: <20 Weak Posit nadja: 20-39 Moder ate Posit nadja: 40-59 Stron g Posit nadja: >59 Not Available [facility] [address] [place], [address], 05/26/2025 18:14:29 05/21/2005/21/2025 ESR (eryt hrocy te sedim entat ion rate) , blood SedRate 50 Not Available [facility]) [address] [place], [address], 05/21/2025 10:47:32 06/23/2006/23/2025 URINA LYSIS WITH MICRO color LIGHT YELLOW Not Available [facility] [address] [address], [place], [address], 06/23/2025 10:38:28 06/23/2006/23/2025 URINA LYSIS WITH MICRO clarity SLIGHT LY CLOUDY Not Available [facility] [address], [address], 06/23/2025 10:38:28 06/23/2006/23/2025 URINA LYSIS WITH MICRO glu 3+ abnormal Not Available [facility] [address] [address], [place], [address], 06/23/2025 10:38:28 06/23/20 25 06/23/2025 URINA LYSIS WITH MICRO bili NEGATI VE Not Available [facility] [address], [address], 06/23/2025 10:38:28 06/23/2006/23/2025 URINA LYSIS WITH MICRO ket NEGATI VE Not Available [facility] [address] [facility] [address], [place], [address], 06/23/2025 10:38:28 06/23/20 25 06/23/2025 URINA LYSIS WITH MICRO S.g 1.010 1.005- 1.025 Not Available [facility] [address], [place], [address], 06/23/2025 10:38:28 06/23/2006/23/2025 URINA LYSIS WITH MICRO pH 5.5 5.0-7. 0 Not Available [facility] [address], [place], [address], 06/23/2025 10:38:28 06/23/2006/23/2025 URINA LYSIS WITH MICRO pro 3+ abnormal Not Available [facility] [address], [place], [address], 06/23/2025 10:38:28 06/23/2006/23/2025 URINA LYSIS WITH MICRO uro 0.2 E.U./D L Not Available [facility] [address] [facility] [address], [place], [address], 06/23/2025 10:38:28 06/23/2006/23/2025 URINA LYSIS WITH MICRO nit POSITI VE abnormal Not Available [facility] [address] [facility] [address], [place], [address], 06/23/2025 10:38:28 06/23/2006/23/2025 URINA LYSIS WITH MICRO blo 1+ abnormal Not Available [facility] [address], [place], [address], 06/23/2025 10:38:28 06/23/2006/23/2025 URINA LYSIS WITH MICRO essence 1+ abnormal Not Available [facility] [address], [place], [address], 06/23/2025 10:38:28 06/23/2006/23/2025 URINA LYSIS WITH MICRO WBC 100 abnormal > Not Available [facility] [address] [facility] [address], [place], [address], 06/23/2025 10:38:28 06/23/20 25 06/23/2025 URINA LYSIS WITH MICRO RBC 2-3 Not Available [facility] [address] [facility] [address], [place], [address], 06/23/2025 10:38:28 06/23/20 25 06/23/2025 URINA LYSIS WITH MICRO epi cells 6-8 abnormal Not Available [facility] [address] [facility] [address], [place], [address], 06/23/2025 10:38:28 06/23/20 25 06/23/2025 URINA LYSIS WITH MICRO bacteria TRACE OF MIXED MELY abnormal Not Available [facility] [address] [facility] [address], [place], [address], 06/23/2025 10:38:28 06/23/20 25 06/23/2025 URINA LYSIS WITH MICRO other NG Not Available [facility] [address] [facility] [address], [place], [address], 06/23/2025 10:38:28 06/23/2006/25/2025 CULTU RE, URINE , ROUTI NE culture, urine, routine SEE NOTE abnormal CULTU RE, URINE , ROUTI NE Micro Numbe r: [id number] Test Statu s: Final Speci men [...] See Thera py Comme nts Not Available [facility] [address] [place], [address], 06/25/2025 17:20:04 07/02/20 25 07/01/2025 XR, shoul anjelica, 2 or more view No observ ation record ed. [facility] [address] [place], [address], 07/03/2025 13:49:46 08/14/20 25 08/14/2025 , echo arrayneo gram No observ ation record ed. [facility] [address] [place], [address], 08/18/2025 15:54:37 Result Notes None recorded. Problems Name Problem SNOMED Code Status Onset Date Resolution Date Notes Provider Name and Address Organization Details Recorded Time Chronic neck pain 5636629299394 Active 2024 Stacey Monzon MD [address] [place] [address], [address], [facility] Jose Landon 14:44:59 Pain of left shoulder joint 1426992679789 9109 Active 2024 Stacey Monzon MD [address] [place] [address], [address] 5, [facility] Virginia LandonLDeloris 14:45:24 Extrapyrami casey sign 13401315 Active 2024 Stacey Monzon MD [address] [place] [address] 5, [facility] 14:48:32 Nausea 254941110 Active 2024 Stacey Monzon MD [address] [place] [address] 5, [facility] 14:49:22 Type 1 diabetes mellitus 51862782 Active 2024 Stacey Monzon MD [address] [place] [address] 5, [facility] 14:50:28 Essential hypertensio n 70130830 Active 2024 Stacey Monzon MD [address] [place] [address] 5, [facility] 09:10:38 Pain of multiple joints 25904482 Active 2024 Stacey Monzon MD [address] [place] [address] 5, [facility] 10:47:24 Arthritis 5243910 Active 2024 Stacey Monzon MD [address] [place] [address] 5, [facility] 10:30:41 Viral upper respiratory tract infection 334854336 Active 2024 Stacey Monzon MD [address] [place] [address], [facility] 20:42:43 Dysuria 49407384 Active 2024 Stacey Monzon MD [address] [place], [place] [address] 5, [facility] 09:36:44 Gastroesoph ageal reflux disease without esophagitis 712290665 Active 2024 Stacey Monzon MD [address] [place] [address], [address] 5, [facility] 09:39:43 Chronic constipatio n 518926135 Active 2024 Stacey Monzon MD [address] [place] [address], [address] 5, [facility] 10:14:46 Generalized anxiety disorder 32748543 Active 2024 Stacey Monzon MD [address] [place] [address], [address] 5, [facility] 10:15:06 Acute urinary tract infection 014700161 Active 2024 Stacey Monzon MD [address] [place] [address], [address] 5, [facility] 11:28:18 Pain of left shoulder region Active 2024 Stacey Monzon MD [address] [place] [address], [address] 5, [facility] 10:46:20 Tardive dyskinesia 464383814 Active 2024 Stacey Monzon MD [address] [place] [address], [address] 5, [facility] 10:46:46 Bilateral lower limb edema 607382892 Active 2024 Stacey Monzon MD [address] [place] [address], [address] 5, [facility] 12:39:40 Essential tremor 671490609 Active 2024 Stacey Monzon MD [address] [place] [address], [address] 5, [facility], Jose 12:40:54 Problem Notes None recorded. Procedures Surgical History Date Name Laterality Status Provider Name and Address Organization Details Recorded Time procedure on shoulder completed [facility], Joes 05/28/2025 10:04:06 Hysterectomy completed [facility], Jose 05/28/2025 10:04:22 Tubal Ligation completed [facility], Jose 05/28/2025 10:04:36 [facility] 10:04:52 Imaging Results None recorded. Procedure [...] mass index (BMI) Body weight Oxygen saturation Heart rate Respiratory rate Body temperature Systolic And Diastolic Provider Name and Address Organization Details Last Updated DateTime 5 162.56 cm 22.8 kg/m2 89307.0 7 g 99 % 98 /min 18 /min 97.1 [degF] 138/80 mm[Hg] Jade Khan [facility] 5 10:02:12 Date Recorded Body height Body mass index (BMI) Body weight Body temperature Oxygen saturation Heart rate Systolic And Diastolic Provider Name and Address Organization Details Last Updated DateTime 5 162.56 cm 22.7 kg/m2 00125.1 9 g 98 [degF] 98 % 84 /min 158/96 mm[Hg] [facility] 5 09:10:28 Date Recorded Body height Body mass index (BMI) Body weight Body temperature Oxygen saturation Heart rate Systolic And Diastolic Provider Name and Address Organization Details Last Updated DateTime 5 162.56 cm 23.7 kg/m2 92382.7 5 g 97.3 [degF] 99 % 91 /min 162/90 mm[Hg] [facility] 10:21:11 Date Recorded Body height Body mass index (BMI) Body weight Body temperature Respiratory rate Heart rate Oxygen saturation Systolic And Diastolic Systolic And Diastolic Provider Name and Address Organization Details Last Updated DateTime 162.56 cm 26 kg/m2 06418.6 g 97.3 [degF] 20 /min 85 /min 99 % 144/80 mm[Hg] 138/82 mm[Hg] [facility], L.LMartinCMartin 12:26:00 Date Recorded Body height Body mass index (BMI) Body weight Oxygen saturation Heart rate Respiratory rate Body temperature Systolic And Diastolic Provider Name and Address Organization Details Last Updated DateTime 162.56 cm 24.4 kg/m2 16290.1 2 g 99 % 79 /min 18 /min 96.9 [degF] 124/76 mm[Hg] [facility], L.LMartinCMartin 11:42:40 Social History Question Answer Notes LastModified by Organizat ion Details LastModified Time Tobacco Smoking Status Former Smoker [facility] L[facility]in 07/01/2025 10:32:03 What Is Your Level Of Caffeine Consumption? Heavy [email or web address] Information not available 08/21/2025 When Did You Quit Smoking? 15+yearssindeng finnegan [email or web address] Information not available 03/23/2025 What Type Of Marijuana Have You Used? Smoke And Edibles [email or web address] Information not available 08/21/2025 Do You Or Have You Ever Used Marijuana? Former User [email or web address] Information not available 08/21/2025 What Was The Date Of Your Most Recent Tobacco Screening? 07/01/2025 [email or web address] Information not available 07/01/2025 Was Your Marijuana Use Recreational Or Medical? Recreational [email or web address] Information not available 08/21/2025 At What Age Did You Start Smoking Tobacco? 14 Information not available 08/21/2025 Has Tobacco Cessation Counseling Been Provided? No Information not available 06/23/2025 Sex: Unknown Functional Status Question Answer Note LastModified by Organization D etails LastModified Time What is your level of alcohol consumption? None [email or web address] Information not available 05/12/2025 Mental Status None [...] preservative free, adsorbed 8 completed Not Available [facility] 08/21/2025 11:36:20 Influenza, MDCK, quadrivalent, PF 3 completed Not Available [facility] 08/21/2025 11:36:20 Tdap 4 completed Not Available [facility] 08/21/2025 11:36:20 Past Encounters Encounter ID Performer Location Encounter Start Date Encounter Closed Date Diagnosis/Indication Diagnosis SNOMED-CT Code Diagnosis ICD10 Code Diagnosis IMO Codes Diagnosis Note [id number] ODALIS KING [facility] ([facility]) [address] [place] [phone] 03/23/2025 12:37:55 03/24/2025 12:00:58 Open wound [id number] T14.8XXA 15018 Wet to dry dressings applied. Patient to return to clinic tomorrow for dressing change. Wound care appt is next week . [id number] Stacey Monzon MD [facility] ([facility]) [address] [place] [address] [phone] 5 05/12/2025 13:51:59 05/12/2025 15:21:02 Chronic neck pain [id number] 107 M54.2 G89.29 101764 The patient has a history of chronic neck pain and she would like medication to help. Pain of le ft shoulder joint 8496365328 4761091 M25.512 999919 Extrapyramidal sign 4337 8000 R29.607 6407403 Patient may be having some febrile symptoms secondary to previous antipsycho tic use. Patient is no longer taking those medication s but she is currently taking promethazi ne and that potentiall y could complicate that as well. Encouraged patient to stop that and will utilize Zofran instead for her nausea. Nausea 098227353 R11.0 58139 Type 1 michaelle calista mellitus 48550624 E10.69 3440241 Patient has a history of type 1 diabetes and currently uses freestyle ok to manage her blood sugars, however she has recently knocked off her device and she has no other way to check her blood sugars. Will send glucometer and testing supplies. Patient sees endocrinol ogy. [id number] Stacey Monzon MD [facility] ([facility]) [address] [place] [address] 30991-319 5 05/21/2025 10:07:53 05/21/2025 11:24:59 Pain of multiple joints 86592758 M25.50 44590 We will start the patient on tramadol to help with pain. In the meantime we will start workup for inflammato ry arthritis evaluation . [id number] Stacey Monzon MD [facility] ([facility]) [address] [place] [address] 09619-161 5 05/28/2025 09:29:59 05/28/2025 10:40:42 Arthritis 4651241 M19.90 800579 Given the severity of her inflammato ry markers on her recent lab work and her symptoms, we will go ahead and proceed with rheumatolo gy referral. Concerned about a seronegati ve inflammato ry arthritis. Viral uppe r respiratory tract infection 383189454 J06.9 082131 Patient presented with symptoms of viral upper [...] in 7-10 days if symptoms not improving. [id number] Stacey Monzon MD [facility] ([facility]) [address] [place] [address] 12019-040 5 06/23/2025 08:56:19 06/23/2025 09:49:30 Dysuria 09839202 R30.0 13653 - Evaluate urine for infection to exclude this as a cause. - Consider underlying constipati on management to resolve urinary bladder issues. Gastroesop hageal reflux disease without esophagitis 390234830 K21.9 504655 - Refill omeprazole prescripti on for symptomati c management . - Reinforce adherence to daily medication s. Essential hypertension 58094418 I10 55081 controlled on current meds Extrapyramidal sign 4337 8000 R29.981 9092440 Tardive Dyskinesia : - Discontinu e promethazi ne to reduce exacerbati on of movements. - Explore alternativ e antiemetic options. Type 1 michaelle betes mellitus 26688165 E10.69 4917517 - Ensure follow-up with an endocrinol ogist. Chronic constipation 236 821561 K59.09 768032 - Implement use of stool softeners and MiraLax. - Encourage dietary modificati ons. Generalize d anxiety disorder 61991201 F41.1 948784 - Focus on medication adjustment s for symptom management . [id number] Stacey Monzon MD [facility] ([facility]) [address] [place] [address] 90015-167 5 07/01/2025 10:15:01 07/01/2025 11:01:26 Pain of left shoulder region 1037772601 M25.512 93754757 - Obtain shoulder x-rays and consider surgical consultati on depending on results. Tardive dyskinesia 49958 9007 G24.01 04471 - Initiate Ingrezza with insurance approval and increase dose per titration plan. Pain of knee region 1003 789234 M25.561 - Begin physical therapy, with potential for knee injections if pain increases. [id number] Stacey Monzon MD [facility] ([facility]) [address] [place] [address] 32321-084 5 07/30/2025 11:57:41 07/30/2025 12:56:34 Bilateral lower limb edema 217154691 R60.0 8855373 - Initiate furosemide with potassium as needed - Scheduled echocardio gram for cardiac assessment Essential hypertension 11054644 I10 36648 - Continue with current medication s - Monitor blood pressure in response to propranolo l Essential tremor 0224530 09 G25.0 45854 - Resume propranolo l with close monitoring - Consider prior medication options Constipation 76409856 K5 9.00 - Monitor and manage constipati on effectivel y [id number] Stacey Monzon MD [facility] ([facility]) [address] [place] [address] 08/21/2025 11:35:59 08/21/2025 12:17:19 Type 1 diabetes mellitus 02893966 E10.69 Recommend using a continuous glucose monitor with a reader due to phone limitation s. Reinforced the importance of diet and scheduled an endocrinol ogist follow-up. Bilateral lower limb edema 995380514 R60.0 Highlighte d that echocardio gram was normal. Suggested continued use of diuretics with renal monitoring given diabetes. Generalize d anxiety disorder 36032677 F41.1 877800 Discussed potential medication adjustment s to improve anxiety control, noting the impact on diabetes management . Health Concerns Section Related Observation LastModified by Organization Detai ls LastModified Time None Recorded Concern Status LastModified by Organization Details LastModified Time None Recorded Advance Directives Directive None Recorded Payers Insurance Date Sequence Insurance Name Policy Number Policy Cespedes Covered Member ID Cespedes Member ID Guarantor Name 09/02/2025 1 [place] (MEDICARE REPLACEMENT HMO) [id number] Wendi Yee [id number] [employer] Yee Notes Date Note Type Note Provider Name and Address Organization Details Recorded Time 05/28/20 25 text/htm l Upper Respiratory SymptomsReported by PatientUpper Respiratory SymptomsFor quality, patient reportsproductive cough(thick yellow nasal drainage). For location, patient reportshead,nasal, andears. For duration, (started 4 dauys ago, fever yesterday). patient here to review labs and she is having sinus symptoms. Patient states that the joint pain has significantly improved. Stacey Monzon MD [address] [place], [address], [facility] 05/31/2025 20:42:56 06/23/20 25 text/htm l The [...] gastroesophageal reflux disease symptoms. Stacey Monzon MD [address] [place] [address], [phone], [facility] 06/23/2025 10:15:37 07/01/20 25 text/htm l [...] improve social interaction concerns. Stacey Monzon MD [address] [place] [address], [phone], [facility] 07/01/2025 11:02:09 07/30/20 text/htm l The patient is a 55-year-old female presenting with fluid retention and increased tremors. She has experienced bilateral lower limb edema leading to visits to the emergency room twice recently due to worsened swelling and pain of her legs and feet. There was an incident of right-sided abdominal pain a week ago, linked to constipation. She mentioned having some degree of suspected heart failure mentioned without confirmation in the emergency room, where EKG and lab tests were conducted. The patient seeks evaluation of her condition and potential prescription of diuretics. Additionally, she reports increment in tremors and mild elevations in blood pressure, despite regular antihypertensive medication intake. Alternatives to tramadol for pain management are requested due to its constipation side effect. - Tests and Diagnostics: EKG and laboratory tests were performed during recent ER visits, specific results unidentified. Stacey Monzon MD [address] [place] [address], [phone], [facility] 07/30/2025 13:14:25 08/21/20 25 text/htm l The patient is a 55-year-old female presenting with concerns related to her Type 1 diabetes mellitus management and recent echocardiogram results. She reports a recent hospitalization for diabetic ketoacidosis (DKA), during which her glucose levels were significantly elevated despite adherence to her medication regimen. This morning, her glucometer again displayed a HIGH reading. She has an upcoming podiatric appointment to assess a sore on her left foot and is in need of medication refills. She is also managing her anxiety symptoms. - Echocardiogram: Normal results with ejection fraction at 61%, no evidence of heart failure. Stacey Monzon MD [address] [place] [address], [phone], [facility] 08/21/2025 18:05:37 OBGyn Episode No OBEpisode recorded.
--- OUTSIDE RECORDS SUMMARY | 2025-09-06 11:34 | XMS_ITS | Continuity of Care Document ---
Author Organization ZULEIKA Bailon [facility], [facility] ([facility]) Address [address] [place] [address] Care Team Providers Care Embedded Firmware Developer Name Role Phone STACEY MONZON Primary Care Provider [phone] Assessment Encounter Date Assessment Date Assessment LastModified by Organization Details LastModified Time 07/30/2025 07/30/2025 55-year-old female with history of essential hypertension presenting with [...] an echocardiogram. [email or web address] Not available 07/30/2025 12:45:34 Plan of Treatment Reminders Order Date Submit Date Provider Last Modified By Organization Details Last Modified Time Details Appointments OFFICE VISIT 15 2024 10:45A M Stacey Monzon MD Not available Not available Not available Lab None recorded. Referral None recorded. Procedures None recorded. Surgeries None recorded. Imaging US, echocardi ogram 2024 025 [facility], [address] [place], [address], 08/10/2025 10:12:51 Medication Orders propranol ol 40 mg tablet 2024 025 [facility]acy #[id number], [address], [facility], [place], [address], 07/30/2025 12:42:06 furosemid e 20 mg tablet [email or web address] [facility]/Pharmacy #[id number], [address], [address], [place], [address], 08/21/2025 12:22:45 potassium chloride ER 10 mEq tablet,ex tended release [email or web address] [facility]arm[facility] #[id number], [address], [address], [place], [address], 08/21/2025 12:22:45 Patient TargetsNo targets recorded. Patient Instructions Encounter Date Encounter Id Patient Instructions Last Modified By Organization Details Last Modified Time 07/30/2025 [id number] - Take furosemid e (Lasix) in the [...] pressure responses. [email or web address] Not available 07/30/2025 12:45:36 Reason for Referral None Reported. Results Created Date Observation Date Name Description Value Unit Range Abnormal Flag Note LastModifiedBy Organization Detail LastModifiedTime 07/02/20 25 07/01/2025 XR, shoul anjelica, 2 or more view No observ ation record ed. [facility] [address] [place], [address], 07/03/2025 13:49:46 08/14/2008/14/2025 US, echoc ardio gram No observ ation record ed. [facility] [address] [place], [address], 08/18/2025 15:54:37 Result Notes None recorded. Problems Name Problem SNOMED Code Status Onset Date Resolution Date Notes Provider Name and Address Organization Details Recorded Time Chronic neck pain 0451457822383 Active 2024 Stacey Monzon MD [address] [place] [address], [phone], [facility] 14:44:59 Pain of left shoulder joint 2497002083016 9109 Active 2024 Stacey Monzon MD [address] [place] [address], [phone], [facility] 14:45:24 Extrapyrami casey sign 02063250 Active 2024 Stacey Monzon MD [address] [place] [address], [phone] 5, [facility] 14:48:32 Nausea 811813010 Active 2024 Stacey Monzon MD [address] [place] [address], [phone] 5, [facility] 14:49:22 Type 1 diabetes mellitus 91941766 Active 2024 Stacey Monzon MD [address] [place] [address], [address] 5, [facility] 14:50:28 Essential hypertensio n 73478369 Active 2024 Stacey Monzon MD [address] [place] [address], [address] [place] [address] 5, [facility] 09:10:38 Pain of multiple joints 14052975 Active 2024 Stacey Monzon MD [address] [place] [address] 5, [facility] 10:47:24 Arthritis 1918673 Active 2024 tSacey Monzon MD [address] [place] [address], [facility] 10:30:41 Viral upper respiratory tract infection 984768347 Active 2024 Stacey Monzon MD [address] [place] [address] 5, [facility] 20:42:43 Dysuria 24203374 Active 2024 Stacey Monzon MD [address] [place] [address] 5, [facility] 09:36:44 Gastroesoph ageal reflux disease without esophagitis 443741032 Active 2024 Stacey Monzon MD [address] [place] [address] 5, [facility] 09:39:43 Chronic constipatio n 986600922 Active 2024 Stacey Monzon MD [address] [place] [address], [facility] 10:14:46 Generalized anxiety disorder 26511874 Active 2024 Stacey Monzon MD [address] [place] [address], [phone] 5, [facility], [place] 10:15:06 Acute urinary tract infection 295844536 Active 2024 Stacey Monzon MD [address] [place] [address], 49867-562 5, [facility], [place] 11:28:18 Pain of left shoulder region Active 2024 Stacey Monzon MD [address] [place] [address], [phone] 5, [facility], [place] 10:46:20 Tardive dyskinesia 529092826 Active 2024 Stacey Monzon MD [address] [place] [address], [phone] 5, [facility], [place] 10:46:46 Bilateral lower limb edema 819013442 Active 2024 Stacey Monzon MD [address] [place] [address], 834[address] 5, [facility], [place] 12:39:40 Essential tremor 653428581 Active 2024 Stacey Monzon MD [address] [place] [address], 454[address] 5, [facility], AbdielCMartin 12:40:54 Problem Notes None recorded. Procedures Surgical History Date Name Laterality Status Provider Name and Address Organization Details Recorded Time procedure on shoulder completed Jade rodriguez [facility] [place] 05/28/2025 10:04:06 [facility] 05/28/2025 10:04:22 Tubal Ligation completed Jade TO To Bailon [facility] [place] 05/28/2025 10:04:36 nasal septoplasty completed Jade Khan [facility], [place] 05/28/2025 10:04:52 Imaging Results None recorded. [...] Details Last Updated DateTime 5 162.56 cm 26 kg/m2 93314.6 g 97.3 [degF] 20 /min 85 /min 99 % 144/80 mm[Hg] 138/82 mm[Hg] Jade Khan [facility] 12:26:00 Social History Question Answer Notes LastModified by Organizat ion Details LastModified Time Tobacco Smoking Status Former Smoker [facility] 07/01/2025 10:32:03 What Is Your Level Of Caffeine Consumption? Heavy [email or web address] Information not available 08/21/2025 When Did You Quit Smoking? 15+yearssindeng finnegan [email or web address] Information not available 03/23/2025 What Type Of Marijuana Have You Used? Smoke And Edibles [email or web address] Information not available 08/21/2025 Do You Or Have You Ever Used Marijuana? Former User [email or web address] Information not available 08/21/2025 What Was The Date Of Your Most Recent Tobacco Screening? 07/01/2025 [email or web address] Information not available 07/01/2025 Was Your Marijuana Use Recreational Or Medical? Recreational [email or web address] Information not available 08/21/2025 At What Age Did You Start Smoking Tobacco? 14 [email or web address] Information not available 08/21/2025 Has Tobacco Cessation Counseling Been Provided? No [email or web address] Information not available 06/23/2025 Sex: Unknown Functional Status Question Answer Note LastModified by Organization D etails LastModified Time What is your level of alcohol consumption? None [email or web address] Information not available 05/12/2025 Mental Status None [...] preservative free, adsorbed 8 completed Not Available [facility] 08/21/2025 11:36:20 Influenza, MDCK, quadrivalent, PF 3 completed Not Available [facility] 08/21/2025 11:36:20 Tdap 4 completed Not Available [facility] 08/21/2025 11:36:20 Past Encounters Encounter ID Performer Location Encounter Start Date Encounter Closed Date Diagnosis/Indication Diagnosis SNOMED-CT Code Diagnosis ICD10 Code Diagnosis IMO Codes Diagnosis Note [id number] Stacey Monzon MD [facility] ([facility]) [address] [place] [address] 07/01/2025 10:15:01 07/01/2025 11:01:26 Pain of left shoulder region 1081008949 M25.512 49972931 - Obtain shoulder x-rays and consider surgical consultati on depending on results. Tardive dyskinesia 65601 9007 G24.01 29424 - Initiate Ingrezza with insurance approval and increase dose per titration plan. Pain of knee region 1003 587378 M25.561 - Begin physical therapy, with potential for knee injections if pain increases. [id number] Stacey Monzon MD [facility] ([facility]) [address] [place] [address] 07/30/2025 11:57:41 07/30/2025 12:56:34 Bilateral lower limb edema 779163276 R60.0 6825067 - Initiate furosemide with potassium as needed - Scheduled echocardio gram for cardiac assessment Essential hypertension 63292326 I10 70163 - Continue with current medication s - Monitor blood pressure in response to propranolo l Essential tremor 2415623 09 G25.0 84173 - Resume propranolo l with close monitoring - Consider prior medication options Constipation 50134759 K5 9.00 - Monitor and manage constipati on effectivel y Health Concerns Section Related Observation LastModified by Organization Detai ls LastModified Time None Recorded Concern Status LastModified by Organization Details LastModified Time None Recorded Payers Encounter Date Sequence Insurance Name Policy Number Policy Cespedes Covered Member ID Cespedes Member ID Guarantor Name 07/30/2025 1 [place] (MEDICARE REPLACEMENT HMO) [id number] Wendi [id number] Wendi Yee Notes Date Note Type Note Provider Name and Address Organization Details Recorded Time 07/30/2025 text/html The patient is a 55-year-old female [...] visits, specific results unidentified. Stacey Monzon MD [address] [place] [address], [phone], [facility] 07/30/2025 13:14:25 OBGyn Episode No OBEpisode recorded.
--- OUTSIDE RECORDS SUMMARY | 2025-09-06 11:34 | XMS_ITS | Continuity of Care Document ---
Author Organization ZULEIKA [facility] Jose Landon, [facility] ([facility]) Address [address] [place] [address] Care Team Providers Care [employer]tron[employer] Technician Name Role Phone STACEY MONZON Primary Care Provider Assessment Encounter Date Assessment Date Assessment LastModified by Organization Details LastModified Time 08/21/2025 08/21/2025 55-year-old female with a history of Type 1 diabetes [...] None recorded. Imaging None recorded. Medication Orders hydroxyzi ne HCl 50 mg tablet 2024 025 [facility]crase [id number], [address], [place], [address], 08/21/2025 12:29:16 Accu-Chek Guide test strips 2024 025 [facility]crase [id number], [address], [address], [place], [address], 08/21/2025 12:29:16 Lilly Scott U-300 Insulin 300 unit/mL (1.5 mL) subcutane ous pen 2024 025 [facility]crase [id number], [address], [facility] [address], [place], [address], 08/21/2025 12:29:16 Patient TargetsNo targets recorded. Patient Instructions Encounter Date Encounter Id Patient Instructions Last Modified By Organization Details Last Modified Time 08/21/2025 [id number] - Continue takin g insulin as prescribed. - Use a continuous glucose monitor as provided and monitor your blood sugar regularly. - Follow a balanced diet to manage blood sugar levels. - Attend the follow-up appointment with the loan interviewer for diabetes management. - Continue with diuretic [...] for possible medication adjustments. Follow-up with an loan interviewer was suggested for more tailored diabetes management. Regarding the bilateral lower limb edema, I clarified that the edema isn't heart-related as verified by the echocardiogram, recommended ongoing diuretic therapy while monitoring kidney function due to diabetes. [email or web address] Not available 08/21/2025 12:09:13 Reason for Referral None Reported. Results Created Date Observation Date Name Description Value Unit Range Abnormal Flag Note LastModifiedBy Organization Detail LastModifiedTime 08/14/20 25 08/14/2025 US, echo ardio gram No observ ation record ed. [facility] [address], [place], [address], 08/18/2025 15:54:37 Result Notes None recorded. Problems Name Problem SNOMED Code Status Onset Date Resolution Date Notes Provider Name and Address Organization Details Recorded Time Chronic neck pain 4578310999722 Active 2024 Stacey Monzon MD [address] [place] [address], [address] [place] [address] 5, [facility] 14:44:59 Pain of left shoulder joint 6095194066596 9109 Active 2024 Stacey Monzon MD [address] [place] [address] 5, [facility] 14:45:24 Extrapyrami casey sign 30998250 Active 2024 Stacey Monzon MD [address] [place] [address] 5, [facility] 14:48:32 Nausea 142318833 Active 2024 Stacey Monzon MD [address] [place] [address] 5, [facility] 14:49:22 Type 1 diabetes mellitus 33281949 Active 2024 Stacey Monzon MD [address] [place] [address] 5, [facility] 14:50:28 Essential hypertensio n 07556996 Active 2024 Stacey Monzon MD [address] [place] [address] 5, [facility] 09:10:38 Pain of multiple joints 89991605 Active 2024 Stacey Monzon MD [address] [place] [address] 5, [facility] 10:47:24 Arthritis 7746379 Active 2024 Stacey Monzon MD [address] [place] [address] 5, [facility] 10:30:41 Viral upper respiratory tract infection 651108755 Active 2024 Stacey Monzon MD [address] [place] [address], [address], [facility] 20:42:43 Dysuria 98192689 Active 2024 Stacey Monzon MD [address] [place] [address], [phone], [facility] 09:36:44 Gastroesoph ageal reflux disease without esophagitis 412577291 Active 2024 Stacey Monzon MD [address] [place] [address], [phone], [facility] 09:39:43 Chronic constipatio n 993241902 Active 2024 Stacey Monzon MD [address] [place] [address], [phone], [facility] 10:14:46 Generalized anxiety disorder 94605234 Active 2024 Stacey Monzon MD [address] [place] [address], [phone], [facility] 10:15:06 Acute urinary tract infection 042481659 Active 2024 Stacey Monzon MD [address] [place] [address], [phone], [facility] 11:28:18 Pain of left shoulder region Active 2024 Stacey Monzon MD [address] [place] [address], [phone], [facility] 10:46:20 Tardive dyskinesia 850052406 Active 2024 Stacey Monzon MD [address] [place] [address], [phone], [facility], Jose 10:46:46 Bilateral lower limb edema 350609016 Active 2024 Stacey Monzon MD [address] [place] [address], [phone], [facility], Jose 12:39:40 Essential tremor 140058479 Active 2024 Stacey Monzon MD [address] [place] [address], [phone], [facility], Jose 12:40:54 Problem Notes None recorded. Procedures Surgical History Date Name Laterality Status Provider Name and Address Organization Details Recorded Time procedure on shoulder completed [facility], [place] 05/28/2025 10:04:06 Hysterectomy completed [facility], [place] 05/28/2025 10:04:22 Tubal Ligation completed [facility], [place] 05/28/2025 10:04:36 nasal septoplasty completed [facility], Jose 05/28/2025 10:04:52 Imaging Results None [...] Details Last Updated DateTime 5 162.56 cm 24.4 kg/m2 78668.1 2 g 99 % 79 /min 18 /min 96.9 [degF] 124/76 mm[Hg] Jade Khan [facility] 11:42:40 Social History Question Answer Notes LastModified by Organizat ion Details LastModified Time Tobacco Smoking Status Former Smoker Meaghan wise [facility] 07/01/2025 10:32:03 What Is Your Level Of Caffeine Consumption? Heavy [email or web address] Information not available 08/21/2025 When Did You Quit Smoking? 15+yearsthien finnegan [email or web address] Information not available 03/23/2025 What Type Of Marijuana Have You Used? Smoke And Edibles [email or web address] Information not available 08/21/2025 Do You Or Have You Ever Used Marijuana? Former User [email or web address] Information not available 08/21/2025 What Was The Date Of Your Most Recent Tobacco Screening? 07/01/2025 Information not available 07/01/2025 Was Your Marijuana Use Recreational Or Medical? Recreational [email or web address] Information not available 08/21/2025 At What Age Did You Start Smoking Tobacco? 14 [email or web address] Information not available 08/21/2025 Has Tobacco Cessation Counseling Been Provided? No [email or web address] Information not available 06/23/2025 Sex: Unknown Functional Status Question Answer Note LastModified by Organization D etails LastModified Time What is your level of alcohol consumption? None [email or web address] Information not available 05/12/2025 Mental Status None [...] preservative free, adsorbed 8 completed Not Available [facility] 08/21/2025 11:36:20 Influenza, MDCK, quadrivalent, PF 3 completed Not Available [facility] 08/21/2025 11:36:20 Tdap 4 completed Not Available [facility] 08/21/2025 11:36:20 Past Encounters Encounter ID Performer Location Encounter Start Date Encounter Closed Date Diagnosis/Indication Diagnosis SNOMED-CT Code Diagnosis ICD10 Code Diagnosis IMO Codes Diagnosis Note [id number] Stacey Monzon MD [facility] ([facility]) [address] [place] [phone] 07/30/2025 11:57:41 07/30/2025 12:56:34 Bilateral lower limb edema 847503042 R60.0 9378030 - Initiate furosemide with potassium as needed - Scheduled echocardio gram for cardiac assessment Essential hypertension 02982558 I10 35720 - Continue with current medication s - Monitor blood pressure in response to propranolo l Essential tremor 1732961 09 G25.0 08093 - Resume propranolo l with close monitoring - Consider prior medication options Constipation 51945190 K5 9.00 - Monitor and manage constipati on effectivel y [id number] Stacey Monzon MD [facility] ([facility]) [address] [place] [address] 08/21/2025 11:35:59 08/21/2025 12:17:19 Type 1 diabetes mellitus 59821587 E10.69 Recommend using a continuous glucose monitor with a reader due to phone limitation s. Reinforced the importance of diet and scheduled an endocrinol ogist follow-up. Bilateral lower limb edema 617476674 R60.0 Highlighte d that echocardio gram was normal. Suggested continued use of diuretics with renal monitoring given diabetes. Generalize d anxiety disorder 26503000 F41.1 816009 Discussed potential medication adjustment s to improve anxiety control, noting the impact on diabetes management . Health Concerns Section Related Observation LastModified by Organization Detai ls LastModified Time None Recorded Concern Status LastModified by Organization Details LastModified Time None Recorded Payers Encounter Date Sequence Insurance Name Policy Number Policy Cespedes Covered Member ID Cespedes Member ID Guarantor Name 08/21/2025 1 [place] [employer] [employer] [place] (MEDICARE REPLACEMENT HMO) [id number] Wendi Yee [id number] Wendi Yee Notes Date Note Type Note Provider Name and Address Organization Details Recorded Time 08/21/2025 text/html The patient is a 55-year-old female [...] evidence of heart failure. Stacey Monzon MD [address] [place], [address], [facility] 08/21/2025 18:05:37 OBGyn Episode No OBEpisode recorded.
--- NOTE | 2025-09-06 12:05 | CTR_ITS ---
PROCEDURE INFORMATION: Exam: CT Head Without Contrast Exam date and time: 09/06/2025 12:21 PM Age: 55 years old Clinical indication: Altered mental status/memory loss; Additional info: Confusion TECHNIQUE: Imaging protocol: Computed tomography of the head without contrast. Radiation optimization: All CT scans at this facility use at least one of these dose optimization techniques: automated exposure control; mA and/or kV adjustment per patient size (includes targeted exams where dose is matched to clinical indication); or iterative reconstruction. COMPARISON: No relevant prior studies available. RADIATION DOSE METRICS: Total DLP (mGy-cm): 889.89 FINDINGS: Brain: There is prominence of the subarachnoid spaces compatible with atrophy. There is small-vessel ischemic change within the periventricular white matter. No definite acute stroke or hemorrhage is appreciated. Cerebral ventricles: No ventriculomegaly. Paranasal sinuses: Visualized sinuses are unremarkable. No fluid levels. Mastoid air cells: Visualized mastoid air cells are well aerated. Bones: Unremarkable. No acute fracture. Soft tissues: Unremarkable. CT/CT head wo con* [id number] IMPRESSION: 1. No acute intracranial findings.
--- NOTE | 2025-09-06 12:06 | W.ED.NAVMDI ---
HPI - Nausea/Vomiting/Diarrhea General: Chief complaint: Nausea/Vomiting/Diarrhea Stated complaint: Nauseous Confused Time Seen by Provider: 09/06/25 11:58 History of Present Illness: 55-year-old female type 1 diabetes, hypertension, former substance and alcohol intake, presents to the emergency room with confusion x 1 day, alcohol intake, nausea Context: Patient awoke yesterday a.m. 09/05 with confusion, nausea. Family relates that she is twitchy. Denies any recent surgeons of drug use and is still clean from 11/11. No diarrhea. States that she took her NovoLog shot this morning, however son unaware if this is true or not. Associated nausea: No Associated symtoms: Denies change in vision, chest pain, dizziness, fatigue, headache(s), malaise, nausea or palpitations Related Data Home Medications ?Medication ?Instructions ?Recorded ?Confirmed flash glucose scanning reader 12/14/22 09/06/25 ([place] 14 Day Trilla) amlodipine 10 mg tablet 10 mg PO DAILY 02/23/25 09/06/25 carvedilol 12.5 mg tablet 12.5 mg PO BID 02/23/25 09/06/25 fluticasone propionate 50 2 spray intranasal DAILY 02/23/25 09/06/25 mcg/actuation nasal spray,suspension divalproex 250 mg tablet,delayed 250 mg PO DAILY 07/19/25 09/06/25 release meloxicam 15 mg tablet 15 mg PO DAILY 07/19/25 09/06/25 omeprazole 20 mg capsule,delayed 20 mg PO DAILY 07/19/25 09/06/25 release tramadol 50 mg tablet 50 mg PO Q6H PRN Pain 07/19/25 09/06/25 valbenazine 40 mg capsule See Rx Instructions .Route .COMPLEX 07/19/25 09/06/25 (Ingrezza) insulin aspart U-100 100 unit/mL 15 unit SUBCUT TID 09/03/25 09/06/25 (3 mL) subcutaneous pen (Novolog FlexPen U-100 Insulin aspart) insulin glargine U-300 conc 300 50 unit SUBCUT QAM 09/03/25 09/06/25 unit/mL (1.5 mL) subcutaneous pen (Toujeo SoloStar U-300 Insulin) baclofen 10 mg tablet 10 mg PO BID 09/06/25 09/06/25 furosemide 20 mg tablet 20 mg PO DAILY 09/06/25 09/06/25 ondansetron HCl 4 mg tablet 4 mg PO Q6H PRN Nausea And Vomiting 09/06/25 09/06/25 potassium chloride 10 mEq 10 meq PO DAILY 09/06/25 09/06/25 tablet,extended release propranolol 40 mg tablet 40 mg PO BID 09/06/25 09/06/25 Previous Rx's ?Medication ?Instructions ?Recorded pen needle, diabetic 31 gauge x #100 ea 04/20/2301/30 (BD Ultra-Fine Short Pen Needle) hydroxyzine HCl 50 mg tablet 50 mg PO QID PRN Anxiety #60 tabs 02/25/25 blood-glucose sensor (FreeStyle #6 ea 04/22/25 Ok 3 Plus Sensor device) cam boot #1 ea 04/28/25 diabetic shoes with 3 sets of #1 ea 04/28/25 inserts pregabalin 50 mg capsule 50 mg PO BID 3 months #180 caps 06/02/25 cam boot #1 ea 07/14/25 acetaminophen 325 mg tablet 650 mg (2 x 325 mg) PO Q6H PRN 08/19/25 Mild/Mod Pain Or Temp >/= 101 #60 tabs cephalexin 500 mg capsule 500 mg PO TID #21 caps 08/26/25 mupirocin 2 % topical ointment 1 applic topical BID #15 grams 08/26/25 (Centany) baclofen 10 mg tablet 10 mg PO BID #14 tabs 09/03/25 Allergies Allergy/AdvReac Type Severity Reaction Status Date / Time No Known Allergies Allergy Verified 09/03/25 14:14 Review of Systems General: Reports: 10 or more systems reviewed and unremarkable except in HPI and below Const: Denies: fever(s), fatigue or malaise Eyes: Denies: change in vision or blurry vision ENMT: Denies: dry mouth Card: Denies: chest pain, palpitations or edema Resp: Denies: dyspnea, productive cough or pain on inspiration GI: Denies: abdominal pain, nausea or vomiting : Denies: difficulty voiding or urinary incontinence Musc: Denies: neck pain or extremity swelling Skin/Breast: Denies: rash, pruritus or erythema Neuro: Denies: headache(s) or dizziness Endo: Denies: polydipsia, cold intolerance or heat intolerance PFSH ED PFSH: Medical History (Updated 09/06/25 @ 16:46 by WEI Benitez) DKA, type 1 Benign essential hypertension Severe bipolar disorder Hyperlipidemia 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 GERD (gastroesophageal reflux disease) Surgical History History of nasal surgery Hx of shoulder surgery Hx of tubal ligation Family History Other Cancer Heart disease Social History Smoking and tobacco/nicotine status: never used tobacco/nicotine Alcohol intake: former Substance/Drug Use: former Date of last use: 11/13/2024 Physical Exam Const: COMMON NORMALS: no acute distress and alert GENERAL APPEARANCE: cooperative ORIENTATION/CONSCIOUSNESS: Yes awake HENMT: COMMON NORMALS: normocephalic and external ears normal HEAD & SCALP: normocephalic EXTERNAL EAR: Yes external ears normal Eye: COMMON NORMALS: Equal, round and reactive pupils present and conjunctivae normal GENERAL EYE: no proptosis CONJUNCTIVA: Yes conjunctivae normal SCLERA: sclerae normal PUPIL: Yes Equal, round and reactive pupils present EOM: No EOM abnormal Neck/C-Spine: COMMON NORMALS: supple, no meningeal signs and Thyroid normal THYROID: Thyroid normal Resp: COMMON NORMALS: clear to auscultation bilaterally AUSCULTATION: clear to auscultation bilaterally Cardio: COMMON NORMALS: regular rate, regular rhythm, S1 normal heart sound present and S2 normal heart sound present RATE: regular rate RHYTHM: regular rhythm HEART SOUNDS: S1 normal heart sound present and S2 normal heart sound present GI: COMMON NORMALS: Soft to palpation and non-tender PALPATION: Yes Soft to palpation RECTAL EXAM: deferred Extremity: GENERAL: No calf tenderness, No clubbing, No cyanosis and No edema Neuro: COMMON NORMALS: moves all extremities SENSORIUM/ORIENTATION: Yes alert MENINGEAL SIGNS: Yes no meningeal signs MOTOR EXAM: 5/5 motor strength present throughout COMATOSE PATIENT: response to noxious stimuli present Psych: COMMON NORMALS: mental status grossly normal and cooperative Course Reevaluation(s): Reevaluation #1: Improved after IV fluids Vital Signs: Vital signs: Vital Signs Temperature 98.1 F 09/06/25 11:57 Pulse Rate 114 H 09/06/25 14:54 Respiratory Rate 20 H 09/06/25 14:54 Blood Pressure 201/98 09/06/25 16:15 Pulse Oximetry 99 09/06/25 16:15 Oxygen Delivery Me thod Room Air 09/06/25 14:54 MDM - Nausea/Vomiting/Diarrhea Medical Decision Making Patient appeared confused initially, which improved after IV fluids. Her blood pressure did shoot up after her back started hurting, which she stated was her normal back pain. She was given Norflex, Toradol, which improved the symptoms. Her blood pressure subsided. She had association of metabolic acidosis, and ketones. Discussed with patient and her dehydration. She is to come back to the emergency room with any further changes or symptoms. She is supposed to increase her fluid intake. Medical Records I reviewed the patient's medical records. Lab Data I reviewed the patient's lab results. 09/06/25 12:04 09/06/25 12:[address] 09/06/25 12:05 IMPRESSION: 1. No acute intracranial findings. Laboratory Results WBC 5.76 10^3/uL (3.29-11.43) 09/06/25 12:04 RBC 3.78 10^6/uL (3.85-5.65) L 09/06/25 12:04 Hgb 10.10 g/dL (11.27-16.99) L 09/06/25 12:04 Hct 31.9 % (36-47) L 09/06/25 12:04 MCV 84.4 fl (85-98) L 09/06/25 12:04 MCH 26.7 pg (27-33) L 09/06/25 12:04 MCHC 31.7 g/dL (30-55) 09/06/25 12:04 RDW 13.3 % (12.1-15.1) 09/06/25 12:04 Plt Count 233 10^3/cmm (157-399) 09/06/25 12:04 MPV 9.3 fL (7.4-10.4) 09/06/25 12:04 Neut % (Auto) 56.2 % 09/06/25 12:04 Lymph % (Auto) 31.8 % 09/06/25 12:04 [place] % (Auto) 9.0 % 09/06/25 12:04 Eos % (Auto) 2.1 % 09/06/25 12:04 Baso % (Auto) 0.7 % 09/06/25 12:04 Neut # (Auto) 3.24 10^3/uL (1.8-7.7) 09/06/25 12:04 Lymph # (Auto) 1.8 10^3/uL (0.8-4.8) 09/06/25 12:04 [place] # (Auto) 0.5 10^3/uL (0.2-0.9) 09/06/25 12:04 Eos # (Auto) 0.1 10^3/uL (0.0-0.8) 09/06/25 12:04 Baso # (Auto) 0.0 10^3/uL (0.0-0.1) 09/06/25 12:04 Nucleated RBC % (auto) 0 % 09/06/25 12:04 Nucleated RBCs # 0.0 /100WBC 09/06/25 12:04 Specimen Type Venous 09/06/25 12:17 Sample Site Not specified 09/06/25 12:17 [place]ison Test N/a 09/06/25 12:17 VBG pH 7.42 (7.32-7.42) 09/06/25 12:17 VBG pCO2 31.5 mmHg (41-51) L 09/06/25 12:17 VBG pO2 60.3 mmHg (25-40) H 09/06/25 12:17 VBG HCO3 20.4 mmol/L (24-28) L 09/06/25 12:17 VBG Base Excess -3.4 mmol/L (-3.0-3.0) L 09/06/25 12:17 VBG Hematocrit 32.5 % (37-47) L 09/06/25 12:17 O2 Delivery Device Room air 09/06/25 12:17 FiO2 21.0 % 09/06/25 12:17 Assistant Professor Of Nursing ID [facility] 09/06/25 12:17 Sodium 137 mmol/L (136-145) 09/06/25 12:04 Potassium 4.6 mmol/L (3.5-5.1) 09/06/25 12:04 Chloride 101 mmol/L (98-107) 09/06/25 12:04 Carbon Dioxide 19 mmol/L (22-29) L 09/06/25 12:04 Anion Gap 21.6 (5-19) H 09/06/25 12:04 BUN 26 mg/dL (6-20) H 09/06/25 12:04 Creatinine 1.1 mg/dL (0.5-0.9) H 09/06/25 12:04 GFR Calculation 51.4 mL/min (90-130) L 09/06/25 12:04 Glucose 304 mg/dL (65-115) H 09/06/25 12:04 POC Glucose 306 mg/dL (70-110) H 09/06/25 12:57 Calculated Osmolality 300 mOsm/kg (285-295) H 09/06/25 12:04 Lactic Acid 1.0 mmol/L (0.5-2.2) 09/06/25 12:04 Calcium 9.9 mg/dL (8.5-10.5) 09/06/25 12:04 Total Bilirubin 0.4 mg/dL (0.15-1.2) 09/06/25 12:04 AST 12 U/L (0-32) 09/06/25 12:04 ALT 10 U/L (0-33) 09/06/25 12:04 Alkaline Phosphatase 110 U/L (35-105) H 09/06/25 12:04 Ammonia 24 umol/L (11-51) 09/06/25 12:04 Total Protein 6.6 g/dL (6.6-8.7) 09/06/25 12:04 Albumin 3.8 g/dL (3.5-5.2) 09/06/25 12:04 Globulin 2.8 g/dL (1.3-4.6) 09/06/25 12:04 Lipase 38 U/L (13-60) 09/06/25 12:04 Urine Color Yellow (Yellow) 09/06/25 12:35 Urine Appearance Clear (CLEAR) 09/06/25 12:35 Urine pH 5.0 (5-7) 09/06/25 12:35 Ur Specific [place] 1.021 (1.005-1.030) 09/06/25 12:35 Urine Protein 3+ (Negative) A 09/06/25 12:35 Urine Glucose (UA) 3+ (Normal) H 09/06/25 12:35 Urine Ketones 2+ (Negative) H 09/06/25 12:35 Urine Blood 2+ (Negative) A 09/06/25 12:35 Urine Nitrate Negative (Negative) 09/06/25 12:35 Urine Bilirubin Negative (Negative) 09/06/25 12:35 Urine Urobilinogen 0.2 mg/dL (Negative) 09/06/25 12:35 Ur Leukocyte Esterase Negative (Negative) 09/06/25 12:35 Urine RBC 3-5 /hpf (0-2) 09/06/25 12:35 Urine WBC 0-5 /hpf (0-5) 09/06/25 12:35 Ur Squamous Epith Cells 0-5 /hpf (0-5) 09/06/25 12:35 Amorphous Sediment Not Reportable 09/06/25 12:35 Urine Bacteria None seen /hpf (NONE) 09/06/25 12:35 Hyaline Casts 7.85 /lpf 09/06/25 12:35 Urine Opiates Screen Negative ng/mL (Negative) 09/06/25 12:35 Ur Barbiturates Screen Negative ng/mL (Negative) 09/06/25 12:35 Ur Phencyclidine Scrn Negative ng/mL (Negative) 09/06/25 12:35 Ur Amphetamines Screen Negative ng/mL (Negative) 09/06/25 12:35 U Benzodiazepines Scrn Negative ng/mL (Negative) 09/06/25 12:35 Urine Cocaine Screen Negative ng/mL (Negative) 09/06/25 12:35 U Marijuana (THC) Screen Negative ng/mL (Negative) 09/06/25 12:35 Serum Ketones Positive (Negative) H 09/06/25 12:04 All radiology interpretation(s) finalized by discharge Discharge Plan Discharge Patient Disposition: Home Clinical Impression: Dehydration Condition: Stable Prescriptions: No Action pregabalin 50 mg capsule 50 mg PO BID 90 Days Qty: 180 0RF insulin glargine U-300 conc [Toujeo SoloStar U-300 Insulin] 300 unit/mL (1.5 mL) insulin pen 50 unit SUBCUT QAM baclofen 10 mg tablet 10 mg PO BID Qty: 14 0RF insulin aspart U-100 [Novolog FlexPen U-100 Insulin] 100 unit/mL (3 mL) insulin pen 15 unit SUBCUT TID (DME) rafael anton See Rx Instructions .Route .MEDSUPPLY Qty: 1 0RF Rx Instructions: As directed by [place] cephalexin 500 mg capsule 500 mg PO TID Qty: 21 0RF mupirocin [Centany] 2 % ointment 1 applic topical BID Qty: 15 0RF (DME) FreeStyle Ok 14 Day Trilla Mis See Rx Instructions .Route Rx Instructions: As directed (DME) diabetic shoes with 3 sets of inserts See Rx Instructions .ROUTE .MEDSUPPLY Qty: 1 0RF Rx Instructions: As directed by HOME (DME) rafael bradleyot See Rx Instructions .Route .MEDSUPPLY Qty: 1 0RF Rx Instructions: As directed (DME) pen needle, diabetic [BD Ultra-Fine Short Pen Needle] 31 gauge x 5/16 needle See Rx Instructions .Route Qty: 100 0RF Rx Instructions: As directed (DME) FreeStyle Ok 3 Plus Sensor Device See Rx Instructions .Route Qty: 6 1RF Rx Instructions: USE TO MONITOR BLOOD GLUCOSE LEVELS carvedilol 12.5 mg tablet 12.5 mg PO BID amlodipine 10 mg tablet 10 mg PO DAILY fluticasone propionate 50 mcg/actuation spray,suspension 2 spray INTRANASAL DAILY hydroxyzine HCl 50 mg tablet 50 mg PO QID PRN (Reason: Anxiety) Qty: 60 0RF divalproex 250 mg tablet,delayed release (DR/EC) 250 mg PO DAILY meloxicam 15 mg tablet 15 mg PO DAILY tramadol 50 mg tablet 50 mg PO Q6H PRN (Reason: Pain) omeprazole 20 mg capsule,delayed release(DR/EC) 20 mg PO DAILY Ingrezza 40 mg capsule See Rx Instructions .ROUTE .COMPLEX Rx Instructions: Take 1 capsule by mouth daily for 7days, then increase to 2 capsules daily. ondansetron HCl 4 mg tablet 4 mg PO Q6H PRN (Reason: Nausea And Vomiting) potassium chloride 10 mEq tablet extended release 10 meq PO DAILY propranolol 40 mg tablet 40 mg PO BID baclofen 10 mg tablet 10 mg PO BID furosemide 20 mg tablet 20 mg PO DAILY acetaminophen 325 mg Tablet 650 mg PO Q6H PRN (Reason: Mild/Mod Pain Or Temp >/= 101) Qty: 60 0RF Discharge Orders: Discharge ED (Routine); Ordered 09/06/25 Ordered By: Ashly Sandra Referrals: Julio Monzon MD [Primary Care Provider, Family Practice] Discharge Diet: Diabetic Discharge Activity: Resume usual activity Patient Instructions: Dehydration (ED), Patient Portal & Mya Instructions Activity Restrictions/Additional Instructions: - Take care of yourself! Drink noncaffeinated beverages. - Your reason for visit is dehydration which is concerning when you are not taking good care of yourself when you have overcome so many milestones - Please give yourself some love and drink plenty of fluids to - Healthy well-balanced diet with your diabetes is important and taking your insulin --return to ED if something else happens or delineates, fever greater than 100.4 - Thank you for choosing [facility] for your healthcare needs today. You have been screened and evaluated and felt safe for discharge. Health conditions do change or evolve sometimes and as such it is important that you follow up with your Primary Doctor to be re checked, 3-5 days is a general good time frame for follow up. You are always welcome to return to the ED for re assessment if your symptoms are worsening or you have new concerns Print Language: Azeri Coding Level of Care Code ED Engineering Technologist for Marco Antonio Carter
[2025-09-06 12:21] LABS: Hematocrit 31.9 % (36-47); Hemoglobin 10.10 g/dL (11.27-16.99); Mean Corpuscular HGB Conc 31.7 g/dL (30-55); Mean Corpuscular Hemoglobin 26.7 pg (27-33); Mean Corpuscular Volume 84.4 fl (85-98); Nucleated Red Blood Cells % 0 %; Platelet Count 233 10^3/cmm (157-399); Red Blood Count 3.78 10^6/uL (3.85-5.65); White Blood Count 5.76 10^3/uL (3.29-11.43)
[2025-09-06 12:32] LABS: Ketone (Acetest) Serum Positive (Negative)
[2025-09-06 12:32] LABS: Base Excess VBG -3.4 mmol/L (-3.0-3.0); Blood Gas Sample Site Not specified; Blood Gas Sample Type Venous; HCO3 VBG 20.4 mmol/L (24-28); PCO2 VBG 31.5 mmHg (41-51); PO2 VBG 60.3 mmHg (25-40); Venous Blood Gas Hematocrit 32.5 % (37-47); pH VBG 7.42 (7.32-7.42)
[2025-09-06 12:41] LABS: Lactic Sepsis W/Reflex 1.0 mmol/L (0.5-2.2)
[2025-09-06 12:42] LABS: Alanine Aminotransferase 10 U/L (0-33); Albumin Level 3.8 g/dL (3.5-5.2); Alkaline Phosphatase 110 U/L (35-105); Anion Gap 21.6 (5-19); Aspartate Amino Transferase 12 U/L (0-32); Blood Urea Nitrogen 26 mg/dL (6-20); Calcium 9.9 mg/dL (8.5-10.5); Carbon Dioxide 19 mmol/L (22-29); Chloride 101 mmol/L (98-107); Globulin 2.8 g/dL (1.3-4.6); Glucose 304 mg/dL (65-115); Lipase 38 U/L (13-60); Osmolality Calculated 300 mOsm/kg (285-295); Potassium 4.6 mmol/L (3.5-5.1); Sodium 137 mmol/L (136-145); Total Protein 6.6 g/dL (6.6-8.7)
[2025-09-06 12:43] LABS: Glucose Urine UA 3+ (Normal); Nitrate Urine Negative (Negative); Specific Gravity, Urine 1.021 (1.005-1.030)
[2025-09-06 12:45] LABS: Ammonia 24 umol/L (11-51)
[2025-09-06 12:48] LABS: Add Urine Microscopic? YES
[2025-09-06 13:02] LABS: PCP Screen Urine Negative (Negative)
[2025-09-06 14:44] LABS: Blood Gas Operator Identificat AMH
[2025-09-06] MEDS: orphenadrine 30 mg/mL Inj 2 mL IVP (14:51)
[2025-09-06] MEDS: ondansetron 2 mg/ML SDV 2 mL 4 MG IVP (15:00)
== END 2025-09-06 18:26 | disposition home or self-care (01) ==
PROVIDERS: Emergency Provider Physician Assistant; PCP Family Medicine
DX: E86.0 Dehydration (principal); Z79.4 Long term (current) use of insulin; E78.5 Hyperlipidemia, unspecified; E10.42 Type 1 diabetes mellitus with diabetic polyneuropathy; I10 Essential (primary) hypertension
CPT/HCPCS: 36415; 36416; 70450; 80053; 80306; 81001; 82009; 82140; 82803; 82962; 83605; 83690; 85025; 96361; 96374; 96375; 99285; J1885; J2360; J2405; J7030; J7120; J9999

== ENCOUNTER 2025-09-07 01:39 | Emergency (ER) | payer MEDICARE, SELFPAY ==
[2025-09-07 01:43] VITALS: BP 201/100; PULSE 111; RESP 22; TEMP 36.4; O2SAT 96; BMI 24.0
[2025-09-07 02:00] VITALS: BP 213/106; PULSE 111; O2SAT 96
--- NOTE | 2025-09-07 02:11 | W.ED.ABDPA2 ---
HPI - Abdominal Pain General: Chief Complaint: Abdominal Pain Stated Complaint: Nausea, Lower back pain, Confused, SOB Time Seen by Provider: 09/07/25 02:10 History of Present Illness: Patient is a 55-year-old female with past medical history of hypertension, heart failure, COPD, diabetes who presents to the ED with nausea vomiting. Patient was here earlier this morning for similar complaints, was feeling better at time of discharge but when at home she developed abdominal cramping and repeated retching. She denies any marijuana, alcohol or drug use. She has had no fevers or been feeling sick. 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 Related Data Home Medications ?Medication ?Instructions ?Recorded ?Confirmed flash glucose scanning reader 12/14/22 09/06/25 (Jule Gamee 14 Day [place]) amlodipine 10 mg tablet 10 mg PO DAILY 02/23/25 09/06/25 carvedilol 12.5 mg tablet 12.5 mg PO BID 02/23/25 09/06/25 fluticasone propionate 50 2 spray intranasal DAILY 02/23/25 09/06/25 mcg/actuation nasal spray,suspension divalproex 250 mg tablet,delayed 250 mg PO DAILY 07/19/25 09/06/25 release meloxicam 15 mg tablet 15 mg PO DAILY 07/19/25 09/06/25 omeprazole 20 mg capsule,delayed 20 mg PO DAILY 07/19/25 09/06/25 release tramadol 50 mg tablet 50 mg PO Q6H PRN Pain 07/19/25 09/06/25 valbenazine 40 mg capsule See Rx Instructions .Route .COMPLEX 07/19/25 09/06/25 (Ingrezza) insulin aspart U-100 100 unit/mL 15 unit SUBCUT TID 09/03/25 09/06/25 (3 mL) subcutaneous pen (Novolog FlexPen U-100 Insulin aspart) insulin glargine U-300 conc 300 50 unit SUBCUT QAM 09/03/25 09/06/25 unit/mL (1.5 mL) subcutaneous pen (Toujeo SoloStar U-300 Insulin) baclofen 10 mg tablet 10 mg PO BID 09/06/25 09/06/25 furosemide 20 mg tablet 20 mg PO DAILY 09/06/25 09/06/25 ondansetron HCl 4 mg tablet 4 mg PO Q6H PRN Nausea And Vomiting 09/06/25 09/06/25 potassium chloride 10 mEq 10 meq PO DAILY 09/06/25 09/06/25 tablet,extended release propranolol 40 mg tablet 40 mg PO BID 09/06/25 09/06/25 Previous Rx's ?Medication ?Instructions ?Recorded pen needle, diabetic 31 gauge x #100 ea 04/20/23 5/16 (BD Ultra-Fine Short Pen Needle) hydroxyzine HCl 50 mg tablet 50 mg PO QID PRN Anxiety #60 tabs 02/25/25 blood-glucose sensor (FreeStyle #6 ea 04/22/25 Ok 3 Plus Sensor device) cam boot #1 ea 04/28/25 diabetic shoes with 3 sets of #1 ea 04/28/25 inserts pregabalin 50 mg capsule 50 mg PO BID 3 months #180 caps 06/02/25 cam boot #1 ea 07/14/25 acetaminophen 325 mg tablet 650 mg (2 x 325 mg) PO Q6H PRN 08/19/25 Mild/Mod Pain Or Temp >/= 101 #60 tabs cephalexin 500 mg capsule 500 mg PO TID #21 caps 08/26/25 mupirocin 2 % topical ointment 1 applic topical BID #15 grams 08/26/25 (Centany) baclofen 10 mg tablet 10 mg PO BID #14 tabs 09/03/25 metoclopramide HCl 10 mg tablet 10 mg PO Q8H #20 tabs 09/07/25 (Reglan) Allergies Allergy/AdvReac Type Severity Reaction Status Date / Time No Known Allergies Allergy Verified 09/03/25 14:14 Review of Systems General: Reports: 10 or more systems reviewed and unremarkable except in HPI and below [facility] PFSH: Medical History (Updated 09/07/25 @ 05:08 by Faisal Hernandez DO) DKA, type 1 Benign essential hypertension Severe bipolar disorder Hyperlipidemia 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 GERD (gastroesophageal reflux disease) Surgical History History of nasal surgery Hx of shoulder surgery Hx of tubal ligation Family History Other Cancer Heart disease Social History Smoking and tobacco/nicotine status: never used tobacco/nicotine Alcohol intake: former Substance/Drug Use: former Date of last use: 11/13/2024 Physical Exam Narrative: EXAM NARRATIVE: Actively retching and appears uncomfortable on exam, tachycardic but normotensive, nontoxic. Abdomen soft, mildly distended but mildly tender throughout, no localizing or peritonitic signs, bowel sounds increased, no CVA tenderness, breathing comfortably on room air, saturating well, able to speak in full sentences without getting short of breath, sinus tachycardia, normotensive, no leg swelling, slightly delayed cap refill, 2+ pulses throughout Course Vital Signs: Vital signs: Vital Signs Temperature 97.6 F 09/07/25 01:43 Pulse Rate 104 H 09/07/25 05:15 Respiratory Rate 22 H 09/07/25 01:43 Blood Pressure 193/95 09/07/25 05:15 Pulse Oximetry 95 09/07/25 05:15 Oxygen Delivery Me thod Nasal Cannula 09/07/25 02:00 MDM - Abdominal Pain Medical Decision Making -ddx: Enteritis, dehydration, ketonuria, hyperemesis, intra-abdominal abscess, SBO, ileus, constipation, gastritis - Patient appears moderately uncomfortable on arrival, tachycardic, actively retching, had a reassuring workup from earlier today was feeling better after some rehydration, will evaluate with CT abdomen to look for any intra-abdominal concerning pathology causing her symptoms today, treated with fluids, Toradol, Zofran and reassess. - Workup overall reassuring, she had no evidence of systemic inflammation or infection based on her labs, CT abdomen pelvis with no acute intra-abdominal process, UA negative for any infection, did have moderate amount of ketones, improved moderately after Haldol and Benadryl, fluids finished. She could tolerate a small amount of p.o. and with a reassuring ED evaluation she was trialed on third nausea medication which gave her almost complete relief and she was discharged on Reglan, advised to follow-up with PCP in a few days, encouraged to start with bland diet for her likely gastritis and dehydration and advance as tolerated, strict return precautions given. Lab Data 09/07/25 02:51 09/07/25 02:51 Labs/Radiology: Radiology Impressions Abdomen/Pelvis CT 09/07/25 02:15 IMPRESSION: No acute findings. Laboratory Results WBC 8.27 10^3/uL (3.29-11.43) 09/07/25 02:51 RBC 3.84 10^6/uL (3.85-5.65) L 09/07/25 02:51 Hgb 10.30 g/dL (11.27-16.99) L 09/07/25 02:51 Hct 32.3 % (36-47) L 09/07/25 02:51 MCV 84.1 fl (85-98) L 09/07/25 02:51 MCH 26.8 pg (27-33) L 09/07/25 02:51 MCHC 31.9 g/dL (30-55) 09/07/25 02:51 RDW 13.5 % (12.1-15.1) 09/07/25 02:51 Plt Count 249 10^3/cmm (157-399) 09/07/25 02:51 MPV 9.5 fL (7.4-10.4) 09/07/25 02:51 Neut % (Auto) 63.4 % 09/07/25 02:51 Lymph % (Auto) 28.7 % 09/07/25 02:51 [place] % (Auto) 6.5 % 09/07/25 02:51 Eos % (Auto) 0.5 % 09/07/25 02:51 Baso % (Auto) 0.7 % 09/07/25 02:51 Neut # (Auto) 5.24 10^3/uL (1.8-7.7) 09/07/25 02:51 Lymph # (Auto) 2.4 10^3/uL (0.8-4.8) 09/07/25 02:51 [place] # (Auto) 0.5 10^3/uL (0.2-0.9) 09/07/25 02:51 Eos # (Auto) 0.0 10^3/uL (0.0-0.8) 09/07/25 02:51 Baso # (Auto) 0.1 10^3/uL (0.0-0.1) 09/07/25 02:51 Nucleated RBC % (auto) 0 % 09/07/25 02:51 Nucleated RBCs # 0.0 /100WBC 09/07/25 02:51 Sodium 140 mmol/L (136-145) 09/07/25 02:51 Potassium 4.9 mmol/L (3.5-5.1) 09/07/25 02:51 Chloride 101 mmol/L (98-107) 09/07/25 02:51 Carbon Dioxide 15 mmol/L (22-29) L 09/07/25 02:51 Anion Gap 28.9 (5-19) H 09/07/25 02:51 BUN 23 mg/dL (6-20) H 09/07/25 02:51 Creatinine 1.0 mg/dL (0.5-0.9) H 09/07/25 02:51 GFR Calculation 57.4 mL/min (90-130) L 09/07/25 02:51 Glucose 370 mg/dL (65-115) H 09/07/25 02:51 Calculated Osmolality 309 mOsm/kg (285-295) H 09/07/25 02:51 Lactic Acid 1.0 mmol/L (0.5-2.2) 09/07/25 02:51 Calcium 10.1 mg/dL (8.5-10.5) 09/07/25 02:51 Total Bilirubin 0.4 mg/dL (0.15-1.2) 09/07/25 02:51 AST 15 U/L (0-32) 09/07/25 02:51 ALT 11 U/L (0-33) 09/07/25 02:51 Alkaline Phosphatase 120 U/L (35-105) H 09/07/25 02:51 Troponin T Baseline 17 ng/L (0-10) H 09/07/25 02:51 Troponin T 60 Minute 14.96 ng/L (0-10) H 09/07/25 04:07 Delta Troponin T -2.04 ABS# (0-10) L 09/07/25 04:07 C-Reactive Protein 3.0 mg/L (0.0-4.9) 09/07/25 02:51 Total Protein 6.5 g/dL (6.6-8.7) L 09/07/25 02:51 Albumin 4.2 g/dL (3.5-5.2) 09/07/25 02:51 Globulin 2.3 g/dL (1.3-4.6) 09/07/25 02:51 Lipase 33 U/L (13-60) 09/07/25 02:51 Urine Color Yellow (Yellow) 09/07/25 02:59 Urine Appearance Clear (CLEAR) 09/07/25 02:59 Urine pH 5.5 (5-7) 09/07/25 02:59 Ur Specific [place] 1.021 (1.005-1.030) 09/07/25 02:59 Urine Protein 4+ (Negative) A 09/07/25 02:59 Urine Glucose (UA) 1+ (Normal) H 09/07/25 02:59 Urine Ketones 3+ (Negative) H 09/07/25 02:59 Urine Blood 2+ (Negative) A 09/07/25 02:59 Urine Nitrate Negative (Negative) 09/07/25 02:59 Urine Bilirubin Negative (Negative) 09/07/25 02:59 Urine Urobilinogen 0.2 mg/dL (Negative) 09/07/25 02:59 Ur Leukocyte Esterase Negative (Negative) 09/07/25 02:59 Urine RBC 3-5 /hpf (0-2) 09/07/25 02:59 Urine WBC 0-5 /hpf (0-5) 09/07/25 02:59 Ur Squamous Epith Cells 0-5 /hpf (0-5) 09/07/25 02:59 Amorphous Sediment Not Reportable 09/07/25 02:59 Urine Bacteria None seen /hpf (NONE) 09/07/25 02:59 Hyaline Casts 4.95 /lpf 09/07/25 02:59 Ethyl Alcohol < 10 mg/dL (0-10) 09/07/25 02:51 All radiology interpretation(s) finalized by discharge Discharge Plan Discharge Patient Disposition: Home Clinical Impression: Dehydration, Nausea & vomiting Condition: Stable Prescriptions: New metoclopramide HCl [Reglan] 10 mg tablet 10 mg PO Q8H Qty: 20 0RF No Action pregabalin 50 mg capsule 50 mg PO BID 90 Days Qty: 180 0RF insulin glargine U-300 conc [Toujeo SoloStar U-300 Insulin] 300 unit/mL (1.5 mL) insulin pen 50 unit SUBCUT QAM baclofen 10 mg tablet 10 mg PO BID Qty: 14 0RF insulin aspart U-100 [Novolog FlexPen U-100 Insulin] 100 unit/mL (3 mL) insulin pen 15 unit SUBCUT TID (DME) cam desean See Rx Instructions .Route .MEDSUPPLY Qty: 1 0RF Rx Instructions: As directed by [place] cephalexin 500 mg capsule 500 mg PO TID Qty: 21 0RF mupirocin [Centany] 2 % ointment 1 applic topical BID Qty: 15 0RF (DME) FreeStyle Ok 14 Day [place] Misc See Rx Instructions .Route Rx Instructions: As directed (DME) diabetic shoes with 3 sets of inserts See Rx Instructions .ROUTE .MEDSUPPLY Qty: 1 0RF Rx Instructions: As directed by HOME (DME) cam boot See Rx Instructions .Route .MEDSUPPLY Qty: 1 0RF Rx Instructions: As directed (DME) pen needle, diabetic [BD Ultra-Fine Short Pen Needle] 31 gauge x 5/16 needle See Rx Instructions .Route Qty: 100 0RF Rx Instructions: As directed (DME) FreeStyle Ok 3 Plus Sensor Device See Rx Instructions .Route Qty: 6 1RF Rx Instructions: USE TO MONITOR BLOOD GLUCOSE LEVELS carvedilol 12.5 mg tablet 12.5 mg PO BID amlodipine 10 mg tablet 10 mg PO DAILY fluticasone propionate 50 mcg/actuation spray,suspension 2 spray INTRANASAL DAILY hydroxyzine HCl 50 mg tablet 50 mg PO QID PRN (Reason: Anxiety) Qty: 60 0RF divalproex 250 mg tablet,delayed release (DR/EC) 250 mg PO DAILY meloxicam 15 mg tablet 15 mg PO DAILY tramadol 50 mg tablet 50 mg PO Q6H PRN (Reason: Pain) omeprazole 20 mg capsule,delayed release(DR/EC) 20 mg PO DAILY Ingrezza 40 mg capsule See Rx Instructions .ROUTE .COMPLEX Rx Instructions: Take 1 capsule by mouth daily for 7days, then increase to 2 capsules daily. ondansetron HCl 4 mg tablet 4 mg PO Q6H PRN (Reason: Nausea And Vomiting) potassium chloride 10 mEq tablet extended release 10 meq PO DAILY propranolol 40 mg tablet 40 mg PO BID baclofen 10 mg tablet 10 mg PO BID furosemide 20 mg tablet 20 mg PO DAILY acetaminophen 325 mg Tablet 650 mg PO Q6H PRN (Reason: Mild/Mod Pain Or Temp >/= 101) Qty: 60 0RF Discharge Orders: Discharge ED (Routine); Ordered 09/07/25 Ordered By: Faisal Hernandez Referrals: Julio Monzon MD [Primary Care Provider, [facility]] Discharge Diet: Full LIquid Discharge Activity: Resume usual activity Patient Instructions: Abdominal Pain (ED), Opioid Safety, Pain Management, Patient Portal & Mya Instructions Activity Restrictions/Additional Instructions: You were seen for your nausea vomiting, you were evaluated with a CT scan, urine test and laboratory studies that were ultimately reassuring. You had some inflammation of your stomach and a mild to moderate amount of ketones suggesting dehydration but no concerns for an infection, obstruction of your bowels or reasons to have you admitted to the hospital. Your symptoms were controlled with medication and fluids and you are deemed stable to be discharged home. The biggest thing is to stay as hydrated as possible. Use the Reglan, 10 mg every 6-8 hours as needed for any nausea. Refrain from using any marijuana during this time as this can make nausea a lot worse. Follow-up with your primary care physician in a few days for reevaluation of your symptoms. Return to the ED with continuous vomiting, severe abdominal pain, fevers, any other emergent concerns. Print Language: Maori Coding Level of Care Code ED Systems Development Consultant for Marco Antonio Carter
--- NOTE | 2025-09-07 02:15 | CTR_ITS ---
PROCEDURE INFORMATION: Exam: CT Abdomen And Pelvis With Contrast Exam date and time: 09/07/2025 3:11 AM Age: 55 years old Clinical indication: Nausea and vomiting; Abdominal pain; Generalized; Prior surgery; Surgery date: 6+ months; Surgery type: Tubal; C/O diffuse abd pain with n/v. ; Additional info: Nv TECHNIQUE: Imaging protocol: Computed tomography of the abdomen and pelvis with contrast. Radiation optimization: All CT scans at this facility use at least one of these dose optimization techniques: automated exposure control; mA and/or kV adjustment per patient size (includes targeted exams where dose is matched to clinical indication); or iterative reconstruction. Contrast material: OMNI 350; Contrast volume: 100 ml; Contrast route: INTRAVENOUS (IV); COMPARISON: CT abdomen pelvis w con* [id number] 07/19/2025 11:34 AM RADIATION DOSE METRICS: Total DLP (mGy-cm): 429.9 FINDINGS: Lungs: Calcified granuloma in the left lower lobe. Liver: Hepatic steatosis. Gallbladder and biliary ducts: Normal. No calcified stones. No ductal dilation. Pancreas: Normal. No ductal dilation. Spleen: Normal. No splenomegaly. Adrenal glands: Normal. No mass. Kidneys and ureters: No hydronephrosis or delayed nephrogram. Stomach and bowel: Wall thickening of the descending colon, likely from underdistention. Appendix: Normal appendix. Intraperitoneal space: Unremarkable. No free air. No significant fluid collection. Vasculature: Unremarkable. No abdominal aortic aneurysm. Lymph nodes: Unremarkable. No enlarged lymph nodes. Urinary bladder: Unremarkable as visualized. Reproductive: Unremarkable as visualized. Bones/joints: Unremarkable. No acute fracture. Soft tissues: Unremarkable. CT/CT abdomen pelvis w con* [id number] IMPRESSION: No acute findings.
[2025-09-07] MEDS: ondansetron 2 mg/ML SDV 2 mL 4 MG IM (02:51)
[2025-09-07 03:00] VITALS: BP 191/101; PULSE 100; O2SAT 100
[2025-09-07 03:01] LABS: Hematocrit 32.3 % (36-47); Hemoglobin 10.30 g/dL (11.27-16.99); Mean Corpuscular HGB Conc 31.9 g/dL (30-55); Mean Corpuscular Hemoglobin 26.8 pg (27-33); Mean Corpuscular Volume 84.1 fl (85-98); Nucleated Red Blood Cells % 0 %; Platelet Count 249 10^3/cmm (157-399); Red Blood Count 3.84 10^6/uL (3.85-5.65); White Blood Count 8.27 10^3/uL (3.29-11.43)
--- NOTE | 2025-09-07 03:06 | ECG_ITS ---
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: : 1970 Requested By: Faisal Hernandez Order Number: [id number] Jacquelin MD: DAR BYRD Measurements Intervals [place] Rate: 111 P: 53 VA: 158 QRS: -23 QRSD: 94 T: 67 QT: 337 QTc: 459 Interpretive Statements SINUS TACHYCARDIA LEFT ATRIAL ENLARGEMENT [-0.15mV P-WAVE IN V1/V2] BORDERLINE LEFT AXIS DEVIATION [QRS AXIS < -20] INCOMPLETE RIGHT BUNDLE BRANCH BLOCK [90+ ms QRS DURATION, TERMINAL R IN V1/V2, 40+ ms S IN I/aVL/V4/V5/V6] Compared to ECG 07/29/2025 22:14:29 Atrial abnormality now present Incomplete right bundle-branch block now present Sinus rhythm no longer present Electronically Signed On 09-08-2025 12:00:03 AMBULANCE DRIVER PARAMEDIC by DAR BYDR [email or web address]
[2025-09-07 03:21] LABS: Troponin(5th) Baseline 17 ng/L (0-10)
[2025-09-07 03:22] LABS: Lactic Sepsis W/Reflex 1.0 mmol/L (0.5-2.2)
[2025-09-07 03:23] LABS: Alanine Aminotransferase 11 U/L (0-33); Albumin Level 4.2 g/dL (3.5-5.2); Alkaline Phosphatase 120 U/L (35-105); Anion Gap 28.9 (5-19); Aspartate Amino Transferase 15 U/L (0-32); Blood Urea Nitrogen 23 mg/dL (6-20); Calcium 10.1 mg/dL (8.5-10.5); Carbon Dioxide 15 mmol/L (22-29); Chloride 101 mmol/L (98-107); Globulin 2.3 g/dL (1.3-4.6); Glucose 370 mg/dL (65-115); Lipase 33 U/L (13-60); Osmolality Calculated 309 mOsm/kg (285-295); Potassium 4.9 mmol/L (3.5-5.1); Sodium 140 mmol/L (136-145); Total Protein 6.5 g/dL (6.6-8.7)
[2025-09-07 03:24] LABS: Alcohol Level < 10 mg/dL (0-10)
[2025-09-07] MEDS: iohexol 350 mg/mL 500 mL Btl (per mL) IV (03:25)
[2025-09-07] MEDS: haloperidol inj 5 mg/mL INJ 1 mL IVP (03:35)
[2025-09-07] MEDS: diphenhydrAMINE 50 mg/mL SDV 1mL 25 MG IVP (03:35)
[2025-09-07 04:33] VITALS: BP 190/111; PULSE 107; O2SAT 97
[2025-09-07 04:51] LABS: Glucose Urine UA 1+ (Normal); Nitrate Urine Negative (Negative); Specific Gravity, Urine 1.021 (1.005-1.030)
[2025-09-07 04:56] LABS: Add Urine Microscopic? YES
[2025-09-07] MEDS: metoclopramide 5 mg/mL SDV 2 mL 10 MG IVP (05:13)
[2025-09-07 05:15] VITALS: BP 193/95; PULSE 104; O2SAT 95
== END 2025-09-07 05:32 | disposition home or self-care (01) ==
PROVIDERS: Emergency Provider Student in an Organized Health Care Education/Training Program; PCP Family Medicine
DX: E86.0 Dehydration (principal); R11.2 Nausea with vomiting, unspecified; E78.5 Hyperlipidemia, unspecified; E10.42 Type 1 diabetes mellitus with diabetic polyneuropathy; J44.9 Chronic obstructive pulmonary disease, unspecified; I11.0 Hypertensive heart disease with heart failure; I50.9 Heart failure, unspecified
CPT/HCPCS: 36415; 74177; 80053; 80307; 81001; 83605; 83690; 84484; 85025; 86140; 93005; 96361; 96374; 96375; 99285; J1200; J1630; J1885; J2405; J2765; J7030